=== PATIENT | male | born 1965 | race Native Hawaiian/Other Pacific Islander ===

== ENCOUNTER 2016-04-13 14:12 | Inpatient (IN) | payer MEDICARE, OTHER ==
[2016-04-13] MEDS ORDERED: SODIUM CHLORIDE 0.9% 1,000 ML IV STA (14:56)
[2016-04-13 15:17] LABS: Basophils % (A) 0 %; CH 30.3; CHCM 33.5; Eosinophils % (A) 0 %; HCT 40.4 % (39.0-53.0); HDW 3.18; HGB 12.8 gm/dL (13.0-17.5); Luc # (Auto) 0.09; Luc % (Auto) 1; Lymphocytes # (A) 0.2 k/uL (1.0-4.8); Lymphocytes % (A) 2 %; MCH 28.9 pg (25.0-35.0); MCHC 31.7 g/dL (31.0-37.0); Mean Platelet Volume 8.3; Monocytes # (A) 0.4 k/uL (0-1.0); Monocytes % (A) 5 %; Neutrophils # (A) 7.1 k/uL (1.3-7.7); Neutrophils % (A) 91 %; RBC 4.44 m/uL (4.30-5.90); RDW 15.7 % (11.5-15.5); WBC 7.9 k/uL (3.8-10.6); WBC (Perox) 7.83
--- NOTE | 2016-04-13 15:17 | ED ---
General Adult HPI - General Chief complaint: Skin/Abscess/Foreign Body Stated complaint: poss trachea infection Time Seen by Provider: 04/13/16 14:46 Source: patient, RN notes reviewed Mode of arrival: ambulatory Limitations: no limitations - History of Present Illness Initial comments: Patient 50-year-old male with significant past medical history for oral cancer, who presents emergency room today with a chief complaint of increased redness and possible cellulitis to neck and lower jaw. Patient does admit that he had some symptoms proxy month ago that was admitted to the hospital for. He states that he noticed some mild redness yesterday around his neck. He states is close to area of tracheostomy. Patient states this morning with increased swelling. States it is painful locally. He denies any other complaints or associated symptoms. Patient denies any recent fever, chills, shortness of breath, chest pain, back pain, abdominal pain, nausea or vomiting, numbness or tingling, dysuria or hematuria, constipation or diarrhea, headaches or visual changes, or any other complaints. - Related Data Home Medications Medication Instructions Recorded Confirmed RX: metFORMIN HCL [Glucophage] 500 mg PO DAILY 09/12/13 04/13/16 RX: oxyCODONE-APAP 10-325MG 1 tab PO Q6HR PRN 03/05/16 04/13/16 [Percocet 10-325 mg] RX: Levothyroxine Sodium 75 mcg PO DAILY 03/07/16 04/13/16 [Synthroid] Allergies Allergy/AdvReac Type Severity Reaction Status Date / Time No Known Allergies Allergy Verified 04/13/16 14:56 Review of Systems ROS Statement: Those systems with pertinent positive or pertinent negative responses have been documented in the HPI. ROS Other: All systems not noted in ROS Statement are negative. 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 He has a PEG tube that was eroded PEG tube that was replaced by Dr Ramos. previous clavicular fracture on the right History of Any Multi-Drug Resistant Organisms: MRSA Date of last positivie culture/infection: 03/11/16 MDRO Source:: Abdomen Additional Past Surgical History / Comment(s): throat and jaw, left ankle ORIF for a fracture Past Anesthesia/Blood Transfusion Reactions: No Reported Reaction Past Psychological History: No Psychological Hx Reported Additional Psychological History / Comment(s): Former tobacco smoker and alcoholic. It's been many years since he's been a significant alcohol user. Denied recreational injection drug use. Disable labor. No experience no international travel. No animal exposures Smoking Status: Former smoker Past Alcohol Use History: None Reported Past Drug Use History: None Reported - Past Family History Mother Family Medical History: Cancer, Deep Vein Thrombosis (DVT) General Exam - General Exam Comments Initial Comments: General: The patient is awake and alert, in no distress, and does not appear acutely ill. Eye: Pupils are equal, round and reactive to light, extra-ocular movements are intact. No nystagmus. There is normal conjunctiva bilaterally. No signs of icterus. Ears, nose, mouth and throat: There are moist mucous membranes and no oral lesions. Neck: The neck is supple, there is no tenderness or JVD. Cardiovascular: There is a regular rate and rhythm. No murmur, rub or gallop is appreciated. Respiratory: Lungs are clear to auscultation, respirations are non-labored, breath sounds are equal. No wheezes, stridor, rales, or rhonchi. Musculoskeletal: Normal ROM, no tenderness. Strength 5/5. Sensation intact. Pulses equal bilaterally 2+. Neurological: A&O x 3. CN II-XII intact, There are no obvious motor or sensory deficits. Coordination appears grossly intact. Speech is normal. Skin: Increased redness swelling locally to the anterior neck Just above the Tracheostomy site. This up into the left jaw greater on the left side with some swelling locally. Psychiatric: Cooperative, appropriate mood & affect, normal judgment. Limitations: no limitations Course Vital Signs 04/13/16 04/13/16 14:32 14:55 Temperature 97.2 F L Pulse Rate 85 Respiratory 18 18 Rate Blood Pressure 124/71 O2 Sat by Pulse 99 Oximetry Medical Decision Making - Medical Decision Making Patient reexamined at this time shows no signs of distress. At this time shows no signs of distress. Patient was recently admitted approximately a month ago for cellulitis to the neck and face area. Did have consults from Dr. Zaragoza. Patient's labs reviewed no elevated white count. No fever. Patient had tracheostomy placed proximal August urine half ago. She is discussed with attending physician Dr. suarez who did discuss case with admitting physician Dr. Cabrera who will admit the patient and consult Dr. Zaragoza. Patient started on vancomycin here in the emergency room. - Lab Data Result diagrams: 04/13/16 15:10 04/13/16 15:10 Lab Results 04/13/16 04/13/16 Range/Units 15:10 15:10 WBC 7.9 (3.8-10.6) k/uL RBC 4.44 (4.30-5.90) m/uL Hgb 12.8 L (13.0-17.5) gm/dL Hct 40.4 (39.0-53.0) % MCV 91.0 (80.0-100.0) fL MCH 28.9 (25.0-35.0) pg MCHC 31.7 (31.0-37.0) g/dL RDW 15.7 H (11.5-15.5) % Plt Count 77 L (150-450) k/uL Neutrophils % 91 % Lymphocytes % 2 % Monocytes % 5 % Eosinophils % 0 % Basophils % 0 % Neutrophils # 7.1 (1.3-7.7) k/uL Lymphocytes # 0.2 L (1.0-4.8) k/uL Monocytes # 0.4 (0-1.0) k/uL Eosinophils # 0.0 (0-0.7) k/uL Basophils # 0.0 (0-0.2) k/uL Sodium 138 (137-145) mmol/L Potassium 4.4 (3.5-5.1) mmol/L Chloride 100 (98-107) mmol/L Carbon Dioxide 28 (22-30) mmol/L Anion Gap 10 mmol/L BUN 18 (9-20) mg/dL Creatinine 0.62 L (0.66-1.25) mg/dL Est GFR (MDRD) Af Amer >60 (>60 ml/min/1.73 sqM) Est GFR (MDRD) Non-Af >60 (>60 ml/min/1.73 sqM) Glucose 127 H (74-99) mg/dL Calcium 9.4 (8.4-10.2) mg/dL Total Bilirubin 0.7 (0.2-1.3) mg/dL AST 110 H (17-59) U/L ALT 83 H (21-72) U/L Alkaline Phosphatase 149 H (38-126) U/L Total Protein 7.1 (6.3-8.2) g/dL Albumin 3.8 (3.5-5.0) g/dL Disposition Clinical Impression: Cellulitis, neck Disposition: ADMITTED IP TO THIS HOSP Condition: Stable Time of Disposition: 16:29
[2016-04-13 15:28] LABS: ALT 83 U/L (21-72); AST 110 U/L (17-59); Alkaline Phosphatase 149 U/L (38-126); Anion Gap 10 mmol/L; Blood Urea Nitrogen 18 mg/dL (9-20); Calcium 9.4 mg/dL (8.4-10.2); Carbon Dioxide 28 mmol/L (22-30); Chloride 100 mmol/L (98-107); Glucose 127 mg/dL (74-99); Non-African American GFR(MDRD) >60 (>60 ml/min/1.73 sqM); Potassium 4.4 mmol/L (3.5-5.1); Sodium 138 mmol/L (137-145); Total Bilirubin 0.7 mg/dL (0.2-1.3); Total Protein 7.1 g/dL (6.3-8.2)
[2016-04-13] MEDS ORDERED: ONDANSETRON 4 MG/2 ML VIAL IVP STA (16:09)
[2016-04-13] MEDS ORDERED: HYDROmorphone 1 MG/ML 1 ML SYRINGE IVP STA (16:09)
[2016-04-13] MEDS ORDERED: IV VANCOMYCIN PER PHARMACY 1 EACH MISC MISCELLANE PRN (16:10)
[2016-04-13] MEDS ORDERED: VANCOMYCIN 1,500 MG in SODIUM CHLORIDE 0.9% 250 ML IVPB STA (16:10)
[2016-04-13] MEDS ORDERED: ONDANSETRON 4 MG/2 ML VIAL IVP PRN (16:29)
[2016-04-13] MEDS ORDERED: SODIUM CHLORIDE 0.9% 1,000 ML IV ONE (16:29)
[2016-04-13] MEDS ORDERED: ACETAMINOPHEN TAB 325 MG TAB PO PRN (16:29)
[2016-04-13] MEDS ORDERED: NALOXONE 0.4 MG/ML 1 ML VIAL IV PRN (16:29)
[2016-04-13] MEDS: HYDROmorphone 1 MG/ML 1 ML SYRINGE IV PRN ×2 (19:30→22:34)
[2016-04-13] MEDS ORDERED: oxyCODONE-APAP 10-325MG 1 EACH TAB PO PRN (20:35)
[2016-04-13] MEDS: VANCOMYCIN 1,500 MG in SODIUM CHLORIDE 0.9% 250 ML IVPB SCH (23:43)
[2016-04-14] MEDS: HYDROmorphone 1 MG/ML 1 ML SYRINGE IV PRN ×7 (01:37→22:14)
[2016-04-14] MEDS: LEVOTHYROXINE 75 MCG TAB PO SCH (06:13)
[2016-04-14 08:13] LABS: Basophils % (A) 0 %; CHCM 33.3; Eosinophils % (A) 1 %; HCT 36.7 % (39.0-53.0); HDW 3.21; HGB 11.7 gm/dL (13.0-17.5); Luc # (Auto) 0.14; Luc % (Auto) 2; Lymphocytes # (A) 0.2 k/uL (1.0-4.8); Lymphocytes % (A) 3 %; MCHC 31.9 g/dL (31.0-37.0); MCV 90.9 fL (80.0-100.0); Mean Platelet Volume 7.5; Monocytes # (A) 0.4 k/uL (0-1.0); Monocytes % (A) 6 %; Neutrophils # (A) 5.4 k/uL (1.3-7.7); Neutrophils % (A) 88 %; RBC 4.04 m/uL (4.30-5.90); RDW 15.7 % (11.5-15.5); WBC 6.2 k/uL (3.8-10.6); WBC (Perox) 6.64
[2016-04-14] MEDS: metFORMIN 500 MG TAB PO SCH (08:23)
[2016-04-14 08:36] LABS: ALT 70 U/L (21-72); AST 61 U/L (17-59); Alkaline Phosphatase 125 U/L (38-126); Anion Gap 9 mmol/L; Blood Urea Nitrogen 10 mg/dL (9-20); Calcium 8.3 mg/dL (8.4-10.2); Carbon Dioxide 25 mmol/L (22-30); Chloride 105 mmol/L (98-107); Glucose 90 mg/dL (74-99); Non-African American GFR(MDRD) >60 (>60 ml/min/1.73 sqM); Potassium 4.1 mmol/L (3.5-5.1); Sodium 139 mmol/L (137-145); Total Bilirubin 0.6 mg/dL (0.2-1.3); Total Protein 6.2 g/dL (6.3-8.2)
[2016-04-14] MEDS: VANCOMYCIN 1,500 MG in SODIUM CHLORIDE 0.9% 250 ML IVPB SCH ×3 (08:54→23:28)
[2016-04-14 09:11] VITALS: BMI 29.4
--- NOTE | 2016-04-14 11:52 | P.CONS ---
History of Present Illness - Reason for Consult Consult date: 04/14/16 Cellulitis - History of Present Illness 50-year-old male patient that is known to ID service as he was seen during his admission from March 07 through March 12 at which time he was treated for cellulitis of the neck. He was discharged home on Levaquin and Bactrim to complete a 14 day course. Sputum was positive for Pseudomonas aeruginosa and Serratia marcescens. Neck culture was positive for MSSA, Roseann albicans and Roseann glabrata. Abdominal/PEG tube wound culture positive for MRSA, Serratia marcescens, pseudomonas aeruginosa, MSSA. He has a significant past medical history of throat cancer status post radical neck dissection at the [facility]. He had a muscular cutaneous flap from his abdominal wall to the base of his mouth and tongue. He also received radiation to his oropharynx and upper esophagus is extremely small in size and there has been difficulty doing EGD and PEG tube placement in the past. Patient states he completed the antibiotics and was feeling quite well and the areas seem to be completely healed in till yesterday when he started having soreness to his jaw and the top of his neck and redness. He denies having any fever or chills. He denies nausea, vomiting, diarrhea. He denies any injury to his neck. The pain is to the bilateral areas. Patient was evaluated in the emergency center at [facility]. His white count was 7.9, GFR greater than 60, platelet count 71, initial AST 110, ALT 83 and alkaline phosphatase 149 all improved on repeat. Albumin 3.1. Blood culture has been received. He was started on IV vancomycin and admitted to the oncology unit. Patient is to resume his tube feedings. He denies any improvement of the soreness or redness to his neck and jaw since he was started on vancomycin. Review of Systems All systems: negative Constitutional: Denies chills, Denies fever Eyes: denies blurred vision, denies pain Ears, nose, mouth and throat: Reports ant. neck pain, Reports headache, Denies dental pain, Denies epistaxis, Denies mouth pain, Denies swelling in throat, Denies sore throat Cardiovascular: Denies chest pain, Denies shortness of breath Respiratory: Denies cough Gastrointestinal: Denies abdominal pain, Denies diarrhea, Denies nausea, Denies vomiting Musculoskeletal: Denies myalgias Integumentary: Denies pruritus, Denies rash Neurological: Denies numbness, Denies weakness Psychiatric: Denies anxiety, Denies depression Endocrine: Denies fatigue, Denies weight change 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 He has a PEG tube that was eroded PEG tube that was replaced by Dr Ramos. previous clavicular fracture on the right History of Any Multi-Drug Resistant Organisms: MRSA Year Discovered:: 03/11/16 MDRO Source:: Abdomen Additional Past Surgical History / Comment(s): throat and jaw, left ankle ORIF for a fracture Past Anesthesia/Blood Transfusion Reactions: No Reported Reaction Past Psychological History: No Psychological Hx Reported Additional Psychological History / Comment(s): Former tobacco smoker and alcoholic. It's been many years since he's been a significant alcohol user. Denied recreational injection drug use. Disable labor. No experience no international travel. No animal exposures Smoking Status: Former smoker Past Alcohol Use History: None Reported Past Drug Use History: None Reported - Past Family History Mother Family Medical History: Cancer, Deep Vein Thrombosis (DVT) Medications and Allergies Home Medications Medication Instructions Recorded Confirmed Type metFORMIN HCL [Glucophage] 500 mg PO DAILY 09/12/13 04/13/16 History oxyCODONE-APAP 10-325MG [Percocet 1 tab PO Q6HR PRN 03/05/16 04/13/16 History 10-325 mg] Levothyroxine Sodium [Synthroid] 75 mcg PO DAILY 03/07/16 04/13/16 History Allergies Allergy/AdvReac Type Severity Reaction Status Date / Time No Known Allergies Allergy Verified 04/13/16 14:56 Physical Exam Vitals: Vital Signs Temp Pulse Pulse Resp BP BP Pulse Ox 04/14/16 07:00 98.1 F 90 16 123/72 96 04/13/16 21:47 98.5 F 92 16 127/65 96 04/13/16 17:55 18 04/13/16 17:05 97.2 F L 82 18 120/66 98 Intake and Output 04/13/16 04/14/16 04/14/16 22:59 06:59 14:59 Intake Total 300 700 Balance 300 700 Intake: Intake, IV Titration 300 700 Amount Sodium Chloride 0.9% 1, 300 450 000 ml @ 75 mls/hr IV . [id number] STA Rx#:[id number] Vancomycin 1,500 mg In 250 Sodium Chloride 0.9% 250 ml @ 125 mls/hr IVPB ONCE STA Rx#:[id number] Other: Voiding Method Toilet # Voids 1 1 Weight 80.286 kg Patient Weight 04/15/16 06:59 Weight 80.286 kg Gen: This is a 50-year-old male. He is in bed with the head up approximate 60 and appears to be in no acute distress. HEENT: Head is atraumatic, normocephalic. Pupils equal, round. Sclerae is anicteric. Oral cavity has evidence of prior extensive surgical intervention. No thrush or lesions noted patient is edentulous. He denies any tenderness within his mouth cavity. NECK: Status post extensive radical neck procedure with reconstruction with myocutaneous flap for the floor of the mouth and tongue. Extreme tenderness under the jaw bilaterally area is firm to the touch which patient states is normal. There is erythema. No significant erythema around trach. No significant secretions. LUNGS: Clear to auscultation. No wheezes or rhonchi. No intercostal retractions. HEART: Regular rate and rhythm. No murmur. ABDOMEN: Soft. Bowel sounds are present. No masses. No tenderness. PEG tube noted to the left upper quadrant that has some noted erythema without tenderness. Patient states his erythema is normal for him. There is no drainage. EXTREMITIES: No pedal edema. No calf tenderness. NEUROLOGICAL: Patient is awake, alert and oriented x3. Cranial nerves 2 through 12 are grossly intact. Results Results: Laboratory Results WBC 6.2 k/uL (3.8-10.6) 04/14/16 07:46 RBC 4.04 m/uL (4.30-5.90) L 04/14/16 07:46 Hgb 11.7 gm/dL (13.0-17.5) L 04/14/16 07:46 Hct 36.7 % (39.0-53.0) L 04/14/16 07:46 MCV 90.9 fL (80.0-100.0) 04/14/16 07:46 MCH 29.0 pg (25.0-35.0) 04/14/16 07:46 MCHC 31.9 g/dL (31.0-37.0) 04/14/16 07:46 RDW 15.7 % (11.5-15.5) H 04/14/16 07:46 Plt Count 71 k/uL (150-450) L 04/14/16 07:46 Neutrophils % 88 % 04/14/16 07:46 Lymphocytes % 3 % 04/14/16 07:46 Monocytes % 6 % 04/14/16 07:46 Eosinophils % 1 % 04/14/16 07:46 Basophils % 0 % 04/14/16 07:46 Neutrophils # 5.4 k/uL (1.3-7.7) 04/14/16 07:46 Lymphocytes # 0.2 k/uL (1.0-4.8) L 04/14/16 07:46 Monocytes # 0.4 k/uL (0-1.0) 04/14/16 07:46 Eosinophils # 0.0 k/uL (0-0.7) 04/14/16 07:46 Basophils # 0.0 k/uL (0-0.2) 04/14/16 07:46 Sodium 139 mmol/L (137-145) 04/14/16 07:46 Potassium 4.1 mmol/L (3.5-5.1) 04/14/16 07:46 Chloride 105 mmol/L (98-107) 04/14/16 07:46 Carbon Dioxide 25 mmol/L (22-30) 04/14/16 07:46 Anion Gap 9 mmol/L 04/14/16 07:46 BUN 10 mg/dL (9-20) 04/14/16 07:46 Creatinine 0.57 mg/dL (0.66-1.25) L 04/14/16 07:46 Est GFR (MDRD) Af Amer >60 (>60 ml/min/1.73 sqM) 04/14/16 07:46 Est GFR (MDRD) Non-Af >60 (>60 ml/min/1.73 sqM) 04/14/16 07:46 Glucose 90 mg/dL (74-99) 04/14/16 07:46 Calcium 8.3 mg/dL (8.4-10.2) L 04/14/16 07:46 Total Bilirubin 0.6 mg/dL (0.2-1.3) 04/14/16 07:46 AST 61 U/L (17-59) H 04/14/16 07:46 ALT 70 U/L (21-72) 04/14/16 07:46 Alkaline Phosphatase 125 U/L (38-126) 04/14/16 07:46 Total Protein 6.2 g/dL (6.3-8.2) L 04/14/16 07:46 Albumin 3.1 g/dL (3.5-5.0) L 04/14/16 07:46 CBC & Chem 7: 04/15/16 08:55 04/15/16 08:55 Labs: Abnormal Lab Results - Last 24 Hours (Table) 04/14/16 04/14/16 Range/Units 07:46 07:46 RBC 4.04 L (4.30-5.90) m/uL Hgb 11.7 L (13.0-17.5) gm/dL Hct 36.7 L (39.0-53.0) % RDW 15.7 H (11.5-15.5) % Plt Count 71 L (150-450) k/uL Lymphocytes # 0.2 L (1.0-4.8) k/uL Creatinine 0.57 L (0.66-1.25) mg/dL Calcium 8.3 L (8.4-10.2) mg/dL AST 61 H (17-59) U/L Total Protein 6.2 L (6.3-8.2) g/dL Albumin 3.1 L (3.5-5.0) g/dL Assessment and Plan Plan: This is a 50-year-old male who presents with cellulitis of the jaw and neck area with previous history of throat cancer status post radical neck dissection and musculocutaneous flap from his abdominal wall to the base of his mouth and tongue and status post chemotherapy and radiation therapy currently with trach. He also has PEG tube in place. He is currently on vancomycin. Zosyn will be utilized based on previous cultures. Continue supportive care. Further recommendations as patient progresses. The above dictated assessment and findings were discussed with Dr. Zaragoza. The impression and plan of care have been directed as dictated. Vashti Awan nurse practitioner acting as scribe for Dr. Zaragoza. Time with Patient: Greater than 30
--- NOTE | 2016-04-14 12:51 | P.HPIM ---
History of Present Illness H&P Date: 04/14/16 Chief Complaint: Neck pain and swelling This is a 60-year-old gentleman with a complex past medical history noted below significant for history of squamous cell carcinoma of the neck/jaw/dog status post extensive reconstructive surgery of [facility] with placement of a flap and a permanent tracheostomy tube who presented to the emergency room with worsening redness surrounding the tracheostomy and swelling of the neck. Patient was in the hospital in the beginning of March and was treated for cellulitis of the anterior neck with bacteremia at that time with strep group C he was discharged home in a stable condition and has been doing fairly well. For the past couple of days, patient said that his neck was getting more swollen and tender. He was having increased secretions through the trach that he described as thick and brownish in color. He denies any shortness of breath. He denies any fevers or chills. He is having significant pain in his neck and is currently requiring IV Dilaudid for pain control. Review of Systems Review of system: 14 points review of systems were obtained and were negative except to what were mentioned in the HPI. 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 He has a PEG tube that was eroded PEG tube that was replaced by Dr Ramos. previous clavicular fracture on the right History of Any Multi-Drug Resistant Organisms: MRSA Date of last positivie culture/infection: 03/11/16 MDRO Source:: Abdomen Additional Past Surgical History / Comment(s): throat and jaw, left ankle ORIF for a fracture Past Anesthesia/Blood Transfusion Reactions: No Reported Reaction Past Psychological History: No Psychological Hx Reported Additional Psychological History / Comment(s): Former tobacco smoker and alcoholic. It's been many years since he's been a significant alcohol user. Denied recreational injection drug use. Disable labor. No experience no international travel. No animal exposures Smoking Status: Former smoker Past Alcohol Use History: None Reported Past Drug Use History: None Reported - Past Family History Mother Family Medical History: Cancer, Deep Vein Thrombosis (DVT) Medications and Allergies Home Medications Medication Instructions Recorded Confirmed Type metFORMIN HCL [Glucophage] 500 mg PO DAILY 09/12/13 04/13/16 History oxyCODONE-APAP 10-325MG [Percocet 1 tab PO Q6HR PRN 03/05/16 04/13/16 History 10-325 mg] Levothyroxine Sodium [Synthroid] 75 mcg PO DAILY 03/07/16 04/13/16 History Allergies Allergy/AdvReac Type Severity Reaction Status Date / Time No Known Allergies Allergy Verified 04/13/16 14:56 Physical Exam Vitals: Vital Signs Temp Pulse Pulse Resp BP BP Pulse Ox 04/14/16 07:00 98.1 F 90 16 123/72 96 04/13/16 21:47 98.5 F 92 16 127/65 96 04/13/16 17:55 18 04/13/16 17:05 97.2 F L 82 18 120/66 98 Intake and Output 04/13/16 04/14/16 04/14/16 22:59 06:59 14:59 Intake Total 300 700 Balance 300 700 Intake: Intake, IV Titration 300 700 Amount Sodium Chloride 0.9% 1, 300 450 000 ml @ 75 mls/hr IV . [id number] STA Rx#:[id number] Vancomycin 1,500 mg In 250 Sodium Chloride 0.9% 250 ml @ 125 mls/hr IVPB ONCE STA Rx#:[id number] Other: Voiding Method Toilet # Voids 1 1 Weight 80.286 kg Patient Weight 04/15/16 06:59 Weight 80.286 kg General: The patient is awake and alert, in no distress, and does not appear acutely ill. Eye: extra-ocular movements are intact; there is normal conjunctiva bilaterally. . Neck: Tracheostomy in place. I did not remove the trach tube. There is diffuse erythema surrounding the tracheostomy site that is tender to palpation. I was unable to feel any cervical lymphadenopathy Cardiovascular: Normal S1-S2, no S3-S4, no murmurs. Respiratory: With rhonchi all over the chest Gastrointestinal: Abdomen is soft, nontender, PEG tube in place Musculoskeletal: Normal ROM, no tenderness, There is no pedal edema. Neurological: There are no obvious motor or sensory deficits. Speech is normal. Skin: Skin is warm and dry Results CBC & Chem 7: 01/09/17 07:46 04/14/16 07:46 Labs: Abnormal Lab Results - Last 24 Hours (Table) 04/14/16 04/14/16 Range/Units 07:46 07:46 RBC 4.04 L (4.30-5.90) m/uL Hgb 11.7 L (13.0-17.5) gm/dL Hct 36.7 L (39.0-53.0) % RDW 15.7 H (11.5-15.5) % Plt Count 71 L (150-450) k/uL Lymphocytes # 0.2 L (1.0-4.8) k/uL Creatinine 0.57 L (0.66-1.25) mg/dL Calcium 8.3 L (8.4-10.2) mg/dL AST 61 H (17-59) U/L Total Protein 6.2 L (6.3-8.2) g/dL Albumin 3.1 L (3.5-5.0) g/dL Thrombosis Risk Factor Assmnt - Choose All That Apply Each Factor Represents 1 point: Age 41-60 years Thrombosis Risk Factor Assessment Total Risk Factor Score: 1 Thrombosis Risk Factor Assessment Level: Low Risk Assessment and Plan Plan: 1. Cellulitis/soft tissue infection involving the anterior neck around the tracheostomy site 2. History of squamous cell carcinoma of the tongue/neck status post extensive risk reconstructive surgery of Dr. Zamora's with placement of a flap and permanent tracheostomy tube 3. Type 2 diabetes mellitus: Continue sliding scale insulin and metformin 4. Hypothyroidism 5. Dysphagia status post permanent PEG tube placement for nutritional support Patient is currently on broad-spectrum antibiotic with IV vancomycin awaiting infectious disease evaluation. We will continue supportive care otherwise. I would obtain a chest x-ray for further evaluation of cough and increase tracheostomy secretions. DVT prophylaxis with subcu heparin. Repeat lab work in the morning.
--- NOTE | 2016-04-14 13:19 | XR ---
EXAMINATION TYPE: XR chest 2V DATE OF EXAM: 04/14/2016 1:11 PM COMPARISON: Chest x-ray and CT neck and chest March 08, 2016. HISTORY: Cough, history of tracheostomy TECHNIQUE: Frontal and lateral views of the chest are obtained. FINDINGS: A tracheostomy tube and right-sided internal jugular central venous catheter are stable in appearance There is chronic parenchymal change without suspicious focal air space opacity or pneumot horax seen. There is chronic blunting of posterior costophrenic angles bilaterally with only tiny lef t-sided effusion seen on prior CT. The cardiac silhouette size is within normal limits. The osseous structures are intact. IMPRESSION: Persistent tiny left pleural effusion. No suspicious acute infiltrate identified.
[2016-04-14 18:01] LABS: Glucose,Whole Blood 147 mg/dL (75-99)
[2016-04-14] MEDS: INSULIN LISPRO (humaLOG) 300 UNIT/3 ML VIAL SQ SCH ×2 (18:43→23:30)
--- NOTE | 2016-04-14 19:32 | P.CON ---
Consult Note - . Consult date: 04/14/16 Assessment/Plan:: 50-year-old male patient that is known to ID service as he was seen during his admission from March 07 through March 12 at which time he was treated for cellulitis of the neck. He was discharged home on Levaquin and Bactrim to complete a 14 day course. Sputum was positive for Pseudomonas aeruginosa and Serratia marcescens. Neck culture was positive for MSSA, Roseann albicans and Roseann glabrata. Abdominal/PEG tube wound culture positive for MRSA, Serratia marcescens, pseudomonas aeruginosa, MSSA. He has a significant past medical history of throat cancer status post radical neck dissection at the [facility]. He had a muscular cutaneous flap from his abdominal wall to the base of his mouth and tongue. He also received radiation to his oropharynx and upper esophagus is extremely small in size and there has been difficulty doing EGD and PEG tube placement in the past. Patient states he completed the antibiotics and was feeling quite well and the areas seem to be completely healed in till yesterday when he started having soreness to his jaw and the top of his neck and redness. He denies having any fever or chills. He denies nausea, vomiting, diarrhea. He denies any injury to his neck. The pain is to the bilateral areas. Patient was evaluated in the emergency center at [facility]. His white count was 7.9, GFR greater than 60, platelet count 71, initial AST 110, ALT 83 and alkaline phosphatase 149 all improved on repeat. Albumin 3.1. Blood culture has been received. He was started on IV vancomycin and admitted to the oncology unit. Patient is to resume his tube feedings. He denies any improvement of the soreness or redness to his neck and jaw since he was started on vancomycin. Please see the consult note as dictated per nurse practitioner Kiara Vashti Awan. If this time he started having some slight improvement with antibiotic therapy. Piperacillin tazobactam was added based on his prior cultures. As he improves a transition to a course of per PEG antibiotic therapy will be the goal. Patient has chronic thrombocytopenia without acute change. He does have evidence of a low albumin would do well to her protein supplementation. Elevated transaminases are improving. For irritation at the PEG tube site a DuoDERM can be cut to fit that site.
[2016-04-14] MEDS: HEPARIN SODIUM,PORCINE 5,000 UNIT/ML 1 ML VIAL SQ SCH (21:07)
[2016-04-14 23:30] LABS: Glucose,Whole Blood 165 mg/dL (75-99)
[2016-04-15] MEDS: HYDROmorphone 1 MG/ML 1 ML SYRINGE IV PRN ×5 (01:02→14:20)
[2016-04-15] MEDS: INSULIN LISPRO (humaLOG) 300 UNIT/3 ML VIAL SQ SCH ×2 (05:51→12:13)
[2016-04-15] MEDS: LEVOTHYROXINE 75 MCG TAB PO SCH (05:51)
[2016-04-15 05:52] LABS: Glucose,Whole Blood 169 mg/dL (75-99)
[2016-04-15] MEDS ORDERED: VANCOMYCIN TROUGH DUE 1 EACH MISC MISCELLANE ONE (07:00)
[2016-04-15] MEDS: HEPARIN SODIUM,PORCINE 5,000 UNIT/ML 1 ML VIAL SQ SCH (07:23)
[2016-04-15] MEDS: metFORMIN 500 MG TAB PO SCH (07:23)
[2016-04-15 07:43] VITALS: RESP 18
[2016-04-15] MEDS: VANCOMYCIN 1,500 MG in SODIUM CHLORIDE 0.9% 250 ML IVPB SCH (09:04)
[2016-04-15 09:27] LABS: Basophils % (A) 0 %; CH 29.7; CHCM 33.4; Eosinophils # (A) 0.1 k/uL (0-0.7); Eosinophils % (A) 2 %; HDW 3.42; HGB 11.9 gm/dL (13.0-17.5); Luc # (Auto) 0.13; Luc % (Auto) 4; Lymphocytes # (A) 0.2 k/uL (1.0-4.8); Lymphocytes % (A) 6 %; MCH 29.6 pg (25.0-35.0); MCHC 33.1 g/dL (31.0-37.0); MCV 89.6 fL (80.0-100.0); Mean Platelet Volume 7.1; Monocytes # (A) 0.3 k/uL (0-1.0); Monocytes % (A) 8 %; Neutrophils # (A) 2.8 k/uL (1.3-7.7); Neutrophils % (A) 80 %; Poikilocytosis Slight; RBC 4.02 m/uL (4.30-5.90); RDW 15.4 % (11.5-15.5); WBC 3.5 k/uL (3.8-10.6); WBC (Perox) 3.92
[2016-04-15 10:02] LABS: ALT 56 U/L (21-72); AST 49 U/L (17-59); Alkaline Phosphatase 131 U/L (38-126); Anion Gap 9 mmol/L; Blood Urea Nitrogen 11 mg/dL (9-20); Calcium 8.5 mg/dL (8.4-10.2); Carbon Dioxide 26 mmol/L (22-30); Chloride 105 mmol/L (98-107); Glucose 139 mg/dL (74-99); Non-African American GFR(MDRD) >60 (>60 ml/min/1.73 sqM); Potassium 3.8 mmol/L (3.5-5.1); Sodium 140 mmol/L (137-145); Total Bilirubin 0.6 mg/dL (0.2-1.3); Total Protein 6.3 g/dL (6.3-8.2)
[2016-04-15 11:03] LABS: Glucose,Whole Blood 134 mg/dL (75-99)
[2016-04-15 11:32] LABS: Hemoglobin A1C 4.9 % (4.2-6.1)
[2016-04-15 14:33] VITALS: BP 123/72; PULSE 85; TEMP 96.9
[2016-04-15] MEDS ORDERED: VANCOMYCIN 1,250 MG in SODIUM CHLORIDE 0.9% 250 ML IVPB SCH (16:00)
--- NOTE | 2016-04-15 16:07 | P.DS ---
Providers Date of admission: 04/13/16 16:29 Expected date of discharge: 04/15/16 Attending physician: Max Hinojosa Primary care physician: Elvia Person [facility] Course: This is a 50 year old gentleman with complex past medical history noted below who presented to the hospital with worsening cellulitis around the tracheostomy site. He was admitted to the hospital and was started on IV vancomycin. Blood culture remained negative. He was seen and evaluated by infectious disease and was cleared for discharge home with oral antibiotic. Prescription will be sent to his pharmacy by infectious disease. He will be discharged home in a stable condition. Below is the least of his medical problems: 1. Cellulitis/soft tissue infection involving the anterior neck around the tracheostomy site 2. 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 Type 2 diabetes mellitus 4. Hypothyroidism 5. Dysphagia status post permanent PEG tube placement for nutritional support Patient Condition at Discharge: Stable Plan - Discharge Summary Discharge Medication List metFORMIN HCL [Glucophage] 500 mg PO DAILY 09/12/13 [History] oxyCODONE-APAP 10-325MG [Percocet 10-325 mg] 1 tab PO Q6HR PRN 03/05/16 [History ] Levothyroxine Sodium [Synthroid] 75 mcg PO DAILY 03/07/16 [History] Follow up Appointment(s)/Referral(s): Elvia Person MD [Primary Care Provider] - 3 Days Discharge Disposition: HOME SELF-CARE
--- NOTE | 2016-04-15 18:49 | P.PN ---
Subjective Principal diagnosis: Cellulitis of neck 50-year-old male patient that is known to ID service as he was seen during his admission from March 07 through March 12 at which time he was treated for cellulitis of the neck. He was discharged home on Levaquin and Bactrim to complete a 14 day course. Sputum was positive for Pseudomonas aeruginosa and Serratia marcescens. Neck culture was positive for MSSA, Roseann albicans and Roseann glabrata. Abdominal/PEG tube wound culture positive for MRSA, Serratia marcescens, pseudomonas aeruginosa, MSSA. He has a significant past medical history of throat cancer status post radical neck dissection at the [facility]. He had a muscular cutaneous flap from his abdominal wall to the base of his mouth and tongue. He also received radiation to his oropharynx and upper esophagus is extremely small in size and there has been difficulty doing EGD and PEG tube placement in the past. Patient states he completed the antibiotics and was feeling quite well and the areas seem to be completely healed in till yesterday when he started having soreness to his jaw and the top of his neck and redness. He denies having any fever or chills. He denies nausea, vomiting, diarrhea. He denies any injury to his neck. The pain is to the bilateral areas. Patient was evaluated in the emergency center at [facility]. His white count was 7.9, GFR greater than 60, platelet count 71, initial AST 110, ALT 83 and alkaline phosphatase 149 all improved on repeat. Albumin 3.1. Blood culture has been received. He was started on IV vancomycin and admitted to the oncology unit. Patient is to resume his tube feedings. He denies any improvement of the soreness or redness to his neck and jaw since he was started on vancomycin. His INR marked improvement. His pain is generally resolved. The swelling erythema improved. No further evidence of sepsis. Is being forwarded to going home. Objective - Vital Signs Vital signs: Vital Signs Temp 96.9 F L 04/15/16 14:33 Pulse 85 04/15/16 14:33 Resp 18 04/15/16 14:33 BP 123/72 04/15/16 14:33 Pulse Ox 98 04/15/16 14:33 Intake & Output 04/14/16 04/15/16 04/15/16 18:59 06:59 18:59 Intake Total 120 445 200 Balance 120 445 200 Weight 80.286 kg 62.2 kg Intake: Tube Feeding 120 445 200 Other: Voiding Method Toilet Toilet # Voids 2 - Exam Gen: This is a 50-year-old male. He is in bed with the head up approximate 60 and appears to be in no acute distress. HEENT: Head is atraumatic, normocephalic. Pupils equal, round. Sclerae is anicteric. Oral cavity has evidence of prior extensive surgical intervention. No thrush or lesions noted patient is edentulous. He denies any tenderness within his mouth cavity. NECK: Status post extensive radical neck procedure with reconstruction with myocutaneous flap for the floor of the mouth and tongue. The significant tenderness is generally resolved. There is erythema, there appears to be related to his prior radiation therapy with no new lesions being seen No significant erythema around trach. No significant secretions. LUNGS: Clear to auscultation. No wheezes or rhonchi. No intercostal retractions. HEART: Regular rate and rhythm. No murmur. ABDOMEN: Soft. Bowel sounds are present. No masses. No tenderness. PEG tube noted to the left upper quadrant that has some noted erythema without tenderness. A protective dressing is applied and finds is very comforting and its soothing. EXTREMITIES: No pedal edema. No calf tenderness. NEUROLOGICAL: Patient is awake, alert and oriented x3. Cranial nerves 2 through 12 are grossly intact. - Labs CBC & Chem 7: 04/15/16 08:55 04/15/16 08:55 Labs: Abnormal Lab Results - Last 24 Hours (Table) 04/14/16 04/15/16 04/15/16 Range/Units 23:29 05:51 08:55 WBC (3.8-10.6) k/uL RBC (4.30-5.90) m/uL Hgb (13.0-17.5) gm/dL Hct (39.0-53.0) % Plt Count (150-450) k/uL Lymphocytes # (1.0-4.8) k/uL Creatinine 0.54 L (0.66-1.25) mg/dL Glucose 139 H (74-99) mg/dL POC Glucose (mg/dL) 165 H 169 H (75-99) mg/dL Alkaline Phosphatase 131 H (38-126) U/L Albumin 3.1 L (3.5-5.0) g/dL 04/15/16 04/15/16 Range/Units 08:55 11:01 WBC 3.5 L (3.8-10.6) k/uL RBC 4.02 L (4.30-5.90) m/uL Hgb 11.9 L (13.0-17.5) gm/dL Hct 36.0 L (39.0-53.0) % Plt Count 75 L (150-450) k/uL Lymphocytes # 0.2 L (1.0-4.8) k/uL Creatinine (0.66-1.25) mg/dL Glucose (74-99) mg/dL POC Glucose (mg/dL) 134 H (75-99) mg/dL Alkaline Phosphatase (38-126) U/L Albumin (3.5-5.0) g/dL Laboratory Results WBC 3.5 k/uL (3.8-10.6) L 04/15/16 08:55 RBC 4.02 m/uL (4.30-5.90) L 04/15/16 08:55 Hgb 11.9 gm/dL (13.0-17.5) L 04/15/16 08:55 Hct 36.0 % (39.0-53.0) L 04/15/16 08:55 MCV 89.6 fL (80.0-100.0) 04/15/16 08:55 MCH 29.6 pg (25.0-35.0) 04/15/16 08:55 MCHC 33.1 g/dL (31.0-37.0) 04/15/16 08:55 RDW 15.4 % (11.5-15.5) 04/15/16 08:55 Plt Count 75 k/uL (150-450) L 04/15/16 08:55 Neutrophils % 80 % 04/15/16 08:55 Lymphocytes % 6 % 04/15/16 08:55 Monocytes % 8 % 04/15/16 08:55 Eosinophils % 2 % 04/15/16 08:55 Basophils % 0 % 04/15/16 08:55 Neutrophils # 2.8 k/uL (1.3-7.7) 04/15/16 08:55 Lymphocytes # 0.2 k/uL (1.0-4.8) L 04/15/16 08:55 Monocytes # 0.3 k/uL (0-1.0) 04/15/16 08:55 Eosinophils # 0.1 k/uL (0-0.7) 04/15/16 08:55 Basophils # 0.0 k/uL (0-0.2) 04/15/16 08:55 Poikilocytosis Slight 04/15/16 08:55 Sodium 140 mmol/L (137-145) 04/15/16 08:55 Potassium 3.8 mmol/L (3.5-5.1) 04/15/16 08:55 Chloride 105 mmol/L (98-107) 04/15/16 08:55 Carbon Dioxide 26 mmol/L (22-30) 04/15/16 08:55 Anion Gap 9 mmol/L 04/15/16 08:55 BUN 11 mg/dL (9-20) 04/15/16 08:55 Creatinine 0.54 mg/dL (0.66-1.25) L 04/15/16 08:55 Est GFR (MDRD) Af Amer >60 (>60 ml/min/1.73 sqM) 04/15/16 08:55 Est GFR (MDRD) Non-Af >60 (>60 ml/min/1.73 sqM) 04/15/16 08:55 Glucose 139 mg/dL (74-99) H 04/15/16 08:55 POC Glucose (mg/dL) 134 mg/dL (75-99) H 04/15/16 11:01 POC Glu Elevator Tender ID Gela Sorenson 04/15/16 11:[address] Glu mg/dL 94 mg/dL 04/15/16 08:55 Hemoglobin A1c 4.9 % (4.2-6.1) 04/15/16 08:55 Calcium 8.5 mg/dL (8.4-10.2) 04/15/16 08:55 Total Bilirubin 0.6 mg/dL (0.2-1.3) 04/15/16 08:55 AST 49 U/L (17-59) 04/15/16 08:55 ALT 56 U/L (21-72) 04/15/16 08:55 Alkaline Phosphatase 131 U/L (38-126) H 04/15/16 08:55 Total Protein 6.3 g/dL (6.3-8.2) 04/15/16 08:55 Albumin 3.1 g/dL (3.5-5.0) L 04/15/16 08:55 Vancomycin Trough 15.9 ug/mL 04/15/16 08:55 Microbiology 04/13/16 15:03 Blood Blood Culture - Preliminary No Growth after 48 hours Assessment and Plan (1) Cellulitis, neck Narrative/Plan: 50-year-old male with a history of head and neck cancer who is status post radical resection with chemotherapy and radiation therapy. Presented with a sialitis to his neck. Is now had a rapid response to therapy. Prior cultures are reviewed. There is a option of using a ciprofloxacin suspension which can be given twice per day per his PEG tube. This is sent to his pharmacy. May follow-up in the office of these any further needs. Status: Acute
== END 2016-04-15 17:08 | disposition home or self-care (01) | DRG 603 ==
LOC: EC 14:12 → 5MS5E 16:29 → 5ONC 16:42
PROVIDERS: ADMIT Internal Medicine; ATTEND Internal Medicine
PROC: 3E0G76Z Introduction of Nutritional Substance into Upper GI, Via Natural or Artificial Opening (ICD-10-PCS; principal; 2016-04-14)
DX: L03.221 Cellulitis of neck (principal); D69.6 Thrombocytopenia, unspecified; Z93.0 Tracheostomy status; R13.10 Dysphagia, unspecified; Z93.1 Gastrostomy status; E03.9 Hypothyroidism, unspecified; E11.9 Type 2 diabetes mellitus without complications; R74.0 Nonspecific elevation of levels of transaminase and lactic acid dehydrogenase [LDH]; K11.20 Sialoadenitis, unspecified; F10.10 Alcohol abuse, uncomplicated; R05 Cough; R51 Headache; Z87.81 Personal history of (healed) traumatic fracture; Z85.89 Personal history of malignant neoplasm of other organs and systems; Z85.830 Personal history of malignant neoplasm of bone; Z80.9 Family history of malignant neoplasm, unspecified; Z83.2 Family history of diseases of the blood and blood-forming organs and certain disorders involving the immune mechanism; Z87.891 Personal history of nicotine dependence; Z85.828 Personal history of other malignant neoplasm of skin; Z85.810 Personal history of malignant neoplasm of tongue; Z92.21 Personal history of antineoplastic chemotherapy; Z79.84 Long term (current) use of oral hypoglycemic drugs; Z79.891 Long term (current) use of opiate analgesic; Z79.899 Other long term (current) drug therapy; Z92.3 Personal history of irradiation; Z86.14 Personal history of Methicillin resistant Staphylococcus aureus infection; Z86.19 Personal history of other infectious and parasitic diseases; Z90.89 Acquired absence of other organs
CPT/HCPCS: 36415; 71020; 80053; 80202; 83036; 85025; 87040; 96361; 96375; 99284

== ENCOUNTER 2017-09-30 12:14 | Inpatient (IN) | payer MEDICARE, OTHER ==
[2017-09-30] MEDS ORDERED: SODIUM CHLORIDE 0.9% 1,000 ML IV STA (12:49)
--- NOTE | 2017-09-30 13:45 | XR ---
EXAMINATION TYPE: XR abdomen acute w cxr DATE OF EXAM: 09/30/2017 COMPARISON: NONE HISTORY: Pain TECHNIQUE: Single view of the chest and 2 views of the abdomen are submitted. FINDINGS: Single view of the chest fails demonstrate evidence for acute pulmonary disease. COPD changes. MediP ort catheter and tracheostomy tube. There is no evidence for pneumoperitoneum. The bowel gas pattern is unremarkable as there is air throughout nondilated small and large bowel. No sizeable air fluid levels.No mass effects are seen. No unusual calcifications. IMPRESSION: 1. Unremarkable study.
[2017-09-30 14:13] LABS: HGB 10.1 gm/dL (13.0-17.5); MCH 28.9 pg (25.0-35.0); MCHC 33.7 g/dL (31.0-37.0); MCV 85.6 fL (80.0-100.0); Mean Platelet Volume 6.9; Platelet Count 80 k/uL (150-450); RBC 3.51 m/uL (4.30-5.90); RDW 15.3 % (11.5-15.5); WBC 2.1 k/uL (3.8-10.6)
[2017-09-30 14:19] LABS: ALT 44 U/L (21-72); AST 31 U/L (17-59); Albumin 3.2 g/dL (3.5-5.0); Alkaline Phosphatase 103 U/L (38-126); Amylase 30 U/L (30-110); Anion Gap 12 mmol/L; Blood Urea Nitrogen 19 mg/dL (9-20); Calcium 8.7 mg/dL (8.4-10.2); Carbon Dioxide 26 mmol/L (22-30); Chloride 98 mmol/L (98-107); Glucose 134 mg/dL (74-99); Lipase 109 U/L (23-300); Potassium 4.3 mmol/L (3.5-5.1); Sodium 136 mmol/L (137-145); Total Bilirubin 0.3 mg/dL (0.2-1.3); Total Protein 5.8 g/dL (6.3-8.2)
[2017-09-30 14:30] LABS: Creatine Kinase <20 U/L (55-170)
[2017-09-30] MEDS ORDERED: VANCOMYCIN IV PER PHARMACY 1 EACH MISC MISCELLANE PRN (14:39)
[2017-09-30] MEDS ORDERED: LORazepam 2 MG/ML INJ IV STA (14:39)
[2017-09-30] MEDS ORDERED: MORPHINE SULFATE 2 MG/ML SYRINGE IVP STA (14:39)
--- NOTE | 2017-09-30 14:39 | ED ---
General Adult HPI - General Chief complaint: Recheck/Abnormal Lab/Rx Stated complaint: Something stuck in trach Time Seen by Provider: 09/30/17 12:49 Source: patient Mode of arrival: ambulatory Limitations: no limitations - Related Data Home Medications Medication Instructions Recorded Confirmed oxyCODONE-APAP 10-325MG [Percocet 1 tab PEG/G-TUBE TID PRN 03/05/16 09/30/17 10-325 mg] Levothyroxine Sodium 100 mcg PEG/G-TUBE DAILY 09/30/17 09/30/17 Allergies Allergy/AdvReac Type Severity Reaction Status Date / Time No Known Allergies Allergy Verified 09/30/17 13:00 Review of Systems ROS Statement: Those systems with pertinent positive or pertinent negative responses have been documented in the HPI. ROS Other: All systems not noted in ROS Statement are negative. 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 and the patient had a surgical resection with reconstructive surgery and a muscle flap followed by tracheostomy tube insertion History of Any Multi-Drug Resistant Organisms: MRSA Date of last positivie culture/infection: 03/11/16 MDRO Source:: Abdomen Additional Past Surgical History / Comment(s): throat and jaw, left ankle ORIF for a fracture Past Anesthesia/Blood Transfusion Reactions: No Reported Reaction Past Psychological History: No Psychological Hx Reported Smoking Status: Former smoker Past Alcohol Use History: None Reported Past Drug Use History: None Reported - Past Family History Mother Family Medical History: Cancer, Deep Vein Thrombosis (DVT) General Exam Limitations: no limitations Course Vital Signs 09/30/17 09/30/17 12:15 14:15 Temperature 97.4 F L 96.8 F L Pulse Rate 93 78 Respiratory 18 18 Rate Blood Pressure 126/65 107/59 O2 Sat by Pulse 96 96 Oximetry Medical Decision Making - Lab Data Result diagrams: 09/30/17 13:01 09/30/17 13:01 Lab Results 09/30/17 09/30/17 09/30/17 Range/Units 13:01 13:01 13:01 WBC 2.1 L (3.8-10.6) k/uL RBC 3.51 L (4.30-5.90) m/uL Hgb 10.1 L (13.0-17.5) gm/dL Hct 30.0 L (39.0-53.0) % MCV 85.6 (80.0-100.0) fL MCH 28.9 (25.0-35.0) pg MCHC 33.7 (31.0-37.0) g/dL RDW 15.3 (11.5-15.5) % Plt Count 80 L (150-450) k/uL Neutrophils % (Manual) 61 % Band Neutrophils % 7 % Lymphocytes % (Manual) 13 % Monocytes % (Manual) 18 % Eosinophils % (Manual) 1 % Myelocytes % 1 % Neutrophils # (Manual) 1.40 (1.3-7.7) k/uL Lymphocytes # (Manual) 0.27 L (1.0-4.8) k/uL Monocytes # (Manual) 0.38 (0-1.0) k/uL Eosinophils # (Manual) 0.02 (0-0.7) k/uL Myelocytes # (Manual) 0.02 H (0) k/uL Nucleated RBCs 0 (0-0) /100 WBC Manual Slide Review Performed Poikilocytosis (manual Present Sodium 136 L (137-145) mmol/L Potassium 4.3 (3.5-5.1) mmol/L Chloride 98 (98-107) mmol/L Carbon Dioxide 26 (22-30) mmol/L Anion Gap 12 mmol/L BUN 19 (9-20) mg/dL Creatinine 0.60 L (0.66-1.25) mg/dL Est GFR (CKD-EPI)AfAm >90 (>60 ml/min/1.73 sqM) Est GFR (CKD-EPI)NonAf >90 (>60 ml/min/1.73 sqM) Glucose 134 H (74-99) mg/dL Plasma Lactic Acid Vladislav (0.7-2.0) mmol/L Calcium 8.7 (8.4-10.2) mg/dL Total Bilirubin 0.3 (0.2-1.3) mg/dL AST 31 (17-59) U/L ALT 44 (21-72) U/L Alkaline Phosphatase 103 (38-126) U/L Total Creatine Kinase <20 L (55-170) U/L CK-MB (CK-2) 0.3 (0.0-2.4) ng/mL CK-MB (CK-2) Rel Index Troponin I <0.012 (0.000-0.034) ng/mL Total Protein 5.8 L (6.3-8.2) g/dL Albumin 3.2 L (3.5-5.0) g/dL Amylase 30 (30-110) U/L Lipase 109 (23-300) U/L Urine Color Urine Appearance (Clear) Urine pH (5.0-8.0) Ur Specific [place] (1.001-1.035) Urine Protein (Negative) Urine Glucose (UA) (Negative) Urine Ketones (Negative) Urine Blood (Negative) Urine Nitrite (Negative) Urine Bilirubin (Negative) Urine Urobilinogen (<2.0) mg/dL Ur Leukocyte Esterase (Negative) 09/30/17 09/30/17 Range/Units 13:01 14:45 WBC (3.8-10.6) k/uL RBC (4.30-5.90) m/uL Hgb (13.0-17.5) gm/dL Hct (39.0-53.0) % MCV (80.0-100.0) fL MCH (25.0-35.0) pg MCHC (31.0-37.0) g/dL RDW (11.5-15.5) % Plt Count (150-450) k/uL Neutrophils % (Manual) % Band Neutrophils % % Lymphocytes % (Manual) % Monocytes % (Manual) % Eosinophils % (Manual) % Myelocytes % % Neutrophils # (Manual) (1.3-7.7) k/uL Lymphocytes # (Manual) (1.0-4.8) k/uL Monocytes # (Manual) (0-1.0) k/uL Eosinophils # (Manual) (0-0.7) k/uL Myelocytes # (Manual) (0) k/uL Nucleated RBCs (0-0) /100 WBC Manual Slide Review Poikilocytosis (manual Sodium (137-145) mmol/L Potassium (3.5-5.1) mmol/L Chloride (98-107) mmol/L Carbon Dioxide (22-30) mmol/L Anion Gap mmol/L BUN (9-20) mg/dL Creatinine (0.66-1.25) mg/dL Est GFR (CKD-EPI)AfAm (>60 ml/min/1.73 sqM) Est GFR (CKD-EPI)NonAf (>60 ml/min/1.73 sqM) Glucose (74-99) mg/dL Plasma Lactic Acid Vladislav 0.9 (0.7-2.0) mmol/L Calcium (8.4-10.2) mg/dL Total Bilirubin (0.2-1.3) mg/dL AST (17-59) U/L ALT (21-72) U/L Alkaline Phosphatase (38-126) U/L Total Creatine Kinase (55-170) U/L CK-MB (CK-2) (0.0-2.4) ng/mL CK-MB (CK-2) Rel Index Troponin I (0.000-0.034) ng/mL Total Protein (6.3-8.2) g/dL Albumin (3.5-5.0) g/dL Amylase (30-110) U/L Lipase (23-300) U/L Urine Color Yellow Urine Appearance Clear (Clear) Urine pH 7.0 (5.0-8.0) Ur Specific [place] 1.009 (1.001-1.035) Urine Protein Negative (Negative) Urine Glucose (UA) Negative (Negative) Urine Ketones Negative (Negative) Urine Blood Negative (Negative) Urine Nitrite Negative (Negative) Urine Bilirubin Negative (Negative) Urine Urobilinogen <2.0 (<2.0) mg/dL Ur Leukocyte Esterase Negative (Negative) Disposition Clinical Impression: Abdominal wall cellulitis Narrative: Ostomy Cellulitis Disposition: ADMITTED IP TO THIS [facility] Condition: Good Is patient prescribed a controlled substance at d/c from ED?: No Referrals: Elvia Person MD [Primary Care Provider] - 1-2 days
[2017-09-30] MEDS ORDERED: cefTRIAXone IN SWFI 1,000 MG/10 ML SYRINGE IVP STA (14:42)
[2017-09-30 14:43] LABS: Creatine Kinase MB 0.3 ng/mL (0.0-2.4); Troponin I <0.012 ng/mL (0.000-0.034)
[2017-09-30] MEDS ORDERED: VANCOMYCIN 1,250 MG in SODIUM CHLORIDE 0.9% 250 ML IVPB STA (14:45)
[2017-09-30 14:47] LABS: Band Neutrophils % 7 %; Eosinophils # (M) 0.02 k/uL (0-0.7); Lymphocytes # (M) 0.27 k/uL (1.0-4.8); Monocytes # (M) 0.38 k/uL (0-1.0); Myelocytes # (M) 0.02 k/uL (0); Myelocytes % 1 %; Neutrophils % (M) 61 %; Nucleated Red Blood Cells 0 /100 WBC (0-0); Total Cells Counted 200
[2017-09-30 14:48] LABS: Poikilocytosis (M) Present
[2017-09-30 14:50] LABS: Appearance,Urine Clear (Clear); Bilirubin,Urine Negative (Negative); Blood,Urine Negative (Negative); Color,Urine Yellow; Glucose,Urine (UA) Negative (Negative); Ketones,Urine Negative (Negative); Leukocyte Esterase,Urine Negative (Negative); Nitrite,Urine Negative (Negative); Protein,Urine Negative (Negative); Specific Gravity,Urine 1.009 (1.001-1.035); Urobilinogen,Urine <2.0 mg/dL (<2.0)
[2017-09-30] MEDS: MORPHINE SULFATE 2 MG/ML SYRINGE IVP PRN ×2 (16:09→22:31)
[2017-09-30] MEDS: SODIUM CHLORIDE 0.9% 1,000 ML IV ONE (16:10)
[2017-09-30] MEDS ORDERED: ACETAMINOPHEN IV (For NPO) 1,000 MG in EMPTY BAG 1 BAG IVPB PRN (17:50)
[2017-09-30] MEDS ORDERED: oxyCODONE-APAP 10-325MG 1 EACH TAB PEG/G-TUBE PRN (17:51)
[2017-09-30] MEDS: VANCOMYCIN 1,250 MG in SODIUM CHLORIDE 0.9% 250 ML IVPB SCH (22:28)
[2017-10-01] MEDS: MORPHINE SULFATE 2 MG/ML SYRINGE IVP PRN ×8 (01:14→22:43)
[2017-10-01] MEDS: oxyCODONE-APAP 10-325MG 1 EACH TAB PEG/G-TUBE PRN ×4 (02:39→20:55)
[2017-10-01] MEDS: LEVOTHYROXINE 100 MCG TAB PEG/G-TUBE SCH (06:17)
[2017-10-01] MEDS: VANCOMYCIN 1,250 MG in SODIUM CHLORIDE 0.9% 250 ML IVPB SCH ×3 (07:03→22:35)
[2017-10-01] MEDS ORDERED: cefTRIAXone IN SWFI 1,000 MG/10 ML SYRINGE IVP SCH (09:00)
[2017-10-01] MEDS: SODIUM CHLORIDE 0.9% 1,000 ML IV ONE (09:49)
[2017-10-01 09:50] LABS: Basophils % (A) 0 %; Eosinophils % (A) 0 %; HGB 9.6 gm/dL (13.0-17.5); Lymphocytes # (A) 0.1 k/uL (1.0-4.8); Lymphocytes % (A) 6 %; MCH 28.6 pg (25.0-35.0); MCV 86.5 fL (80.0-100.0); Mean Platelet Volume 7.6; Monocytes # (A) 0.2 k/uL (0-1.0); Monocytes % (A) 12 %; Neutrophils # (A) 1.4 k/uL (1.3-7.7); Neutrophils % (A) 78 %; RBC 3.35 m/uL (4.30-5.90); RDW 14.8 % (11.5-15.5)
[2017-10-01 09:59] LABS: Anion Gap 9 mmol/L; Blood Urea Nitrogen 11 mg/dL (9-20); Calcium 7.8 mg/dL (8.4-10.2); Carbon Dioxide 24 mmol/L (22-30); Chloride 104 mmol/L (98-107); Glucose 109 mg/dL (74-99); Sodium 137 mmol/L (137-145)
[2017-10-01 10:09] LABS: Platelet Count 74 k/uL (150-450)
[2017-10-01 10:11] LABS: WBC 1.8 k/uL (3.8-10.6)
--- NOTE | 2017-10-01 11:57 | P.HPIM ---
History of Present Illness H&P Date: 10/01/17 Chief Complaint: Pain around Peg tube site This is a 52-year-old patient of Dr. Rubi who presented to the emergency room with pain around his PEG tube site. Patient states pain has been going on for 2 days. Patient states he's had the PEG tube for many years and has used it for feedings and medications. Patient has a significant history for neck cancer in which he had a surgical resection and required a tracheostomy tube insertion. Patient also has a history of diabetes and thyroid disorder. He states he has been dealing with neck cancer for 12 years. Patient presented with a white blood cell 2.1. X-ray of abdomen completed in the emergency room, unremarkable study. Patient has been started on IV antibiotics Rocephin and vancomycin. Patient is complaining of pain around the PEG tube site. Site does appear slightly pink with some drainage noted. Patient currently has pain meds morphine 4 mg every 3 hrs and Percocet 10/325- every 6 hours. Blood cultures and urine cultures have been sent. Patient states he lives at home by himself and manages his care. Patient also has a tracheostomy in which he is on room air. Site looks clean dry and intact. Nurse stated that patient refused to do tube feeding this a.m. due to pain around the PEG tube site. Patient denies nausea, vomiting, shortness of breath or chest pain at this time Review of Systems Please see HPI otherwise unremarkable. 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 and the patient had a surgical resection with reconstructive surgery and a muscle flap followed by tracheostomy tube insertion . chemo/ radiation. pt's niece stated that pt started a new chemo 09-21-17 but missed 09/28 tx. currently on taxol and carboplatin History of Any Multi-Drug Resistant Organisms: MRSA Date of last positivie culture/infection: 03/11/16 MDRO Source:: Abdomen Additional Past Surgical History / Comment(s): throat and jaw, left ankle ORIF for a fracture, peg tube Past Anesthesia/Blood Transfusion Reactions: No Reported Reaction Smoking Status: Former smoker - Past Family History Mother Family Medical History: Cancer, Deep Vein Thrombosis (DVT) Medications and Allergies Home Medications Medication Instructions Recorded Confirmed Type oxyCODONE-APAP 10-325MG [Percocet 1 tab PEG/G-TUBE TID PRN 03/05/16 09/30/17 History 10-325 mg] Levothyroxine Sodium 100 mcg PEG/G-TUBE DAILY 09/30/17 09/30/17 History Allergies Allergy/AdvReac Type Severity Reaction Status Date / Time No Known Allergies Allergy Verified 09/30/17 13:00 Physical Exam Vitals: Vital Signs Temp Pulse Pulse Resp BP BP Pulse Ox 10/01/17 05:00 98.5 F 89 16 123/69 90 L 09/30/17 23:00 97.9 F 90 16 110/61 95 09/30/17 17:16 97.7 F 90 18 124/84 98 09/30/17 15:12 97.7 F 79 18 126/67 100 09/30/17 14:15 96.8 F L 78 18 107/59 96 09/30/17 12:15 97.4 F L 93 18 126/65 96 Intake and Output 09/30/17 10/01/17 10/01/17 22:59 06:59 14:59 Intake Total 196 977 4881 Balance 920 248 8721 Intake: IV 400 850 Sodium Chloride 0.9% 1, 400 600 000 ml @ 100 mls/hr IV . Q10H ONE Rx#:[id number] Vancomycin 1,250 mg In 250 Sodium Chloride 0.9% 250 ml @ 125 mls/hr IVPB ONCE STA Rx#:[id number] Tube Feeding 1920 Other: Voiding Method Toilet Toilet Weight 67.132 kg Head normocephalic Neck supple, tracheaostomy in place. Site clean dry and intact. currenlty on room air Lungs clear to auscultation bilaterally no wheezing or crackles Heart regular rate and rhythm S1-S2, no rub or gallop Abdomen is soft nontender nondistended positive bowel sounds no hepatosplenomegaly. Peg tube to LUQ. Site appears pink with moderate drainage. tenderness upon palpation. Extremities no edema Neuro alert and orientated to 3 Results CBC & Chem 7: 10/01/17 09:15 10/01/17 09:15 Labs: Abnormal Lab Results - Last 24 Hours (Table) 09/30/17 09/30/17 09/30/17 Range/Units 13:01 13:01 13:01 WBC 2.1 L (3.8-10.6) k/uL RBC 3.51 L (4.30-5.90) m/uL Hgb 10.1 L (13.0-17.5) gm/dL Hct 30.0 L (39.0-53.0) % Plt Count 80 L (150-450) k/uL Lymphocytes # (1.0-4.8) k/uL Lymphocytes # (Manual) 0.27 L (1.0-4.8) k/uL Myelocytes # (Manual) 0.02 H (0) k/uL Sodium 136 L (137-145) mmol/L Creatinine 0.60 L (0.66-1.25) mg/dL Glucose 134 H (74-99) mg/dL Calcium (8.4-10.2) mg/dL Total Creatine Kinase <20 L (55-170) U/L Total Protein 5.8 L (6.3-8.2) g/dL Albumin 3.2 L (3.5-5.0) g/dL 10/01/17 10/01/17 Range/Units 09:15 09:15 WBC 1.8 L* (3.8-10.6) k/uL RBC 3.35 L (4.30-5.90) m/uL Hgb 9.6 L (13.0-17.5) gm/dL Hct 29.0 L (39.0-53.0) % Plt Count 74 L (150-450) k/uL Lymphocytes # 0.1 L (1.0-4.8) k/uL Lymphocytes # (Manual) (1.0-4.8) k/uL Myelocytes # (Manual) (0) k/uL Sodium (137-145) mmol/L Creatinine 0.52 L (0.66-1.25) mg/dL Glucose 109 H (74-99) mg/dL Calcium 7.8 L (8.4-10.2) mg/dL Total Creatine Kinase (55-170) U/L Total Protein (6.3-8.2) g/dL Albumin (3.5-5.0) g/dL Microbiology - Last 24 Hours (Table) 09/30/17 14:45 Urine Culture - Preliminary Urine,Voided Thrombosis Risk Factor Assmnt - Choose All That Apply Any of the Below Risk Factors Present?: Yes Each Factor Represents 1 point: Age 41-60 years Other Risk Factors: Yes Each Risk Factor Represents 2 Points: Central venous access, Malignancy Other congenital or acquired thrombophilia - If yes, enter type in comment: No Thrombosis Risk Factor Assessment Total Risk Factor Score: 5 Thrombosis Risk Factor Assessment Level: High Risk Assessment and Plan Assessment: 1. Cellulitis of the PEG tube site. Abdomen xray completed, unremarkable study. Patient started on Rocephin and vancomycin. Current pain management morphine 4 mg every 3 hours and Percocets 10/325 every 6 hours when necessary. 2. Cancer of neck: Patient currently has tracheostomy tube. Patient is currently on room air 3. History of hypothyroidism: Patient managed on Synthroid 4. Thrombocytopenia: platelets currently 74. Will hold off on DVT anticoagulation at this time 5. Chronic pain: managed on Percocet GI prophylaxis Protonix, DVT prophylaxis SCDs Time with Patient: Greater than 30 (Greater than 60% of the total time spent in counseling and coordination of care. I performed an examination of the patient and discussed their management with the Nurse Practitioner. I have reviewed the Nurse Practitioner's notes and agree with the documented findings and plan of care)
[2017-10-01] MEDS ORDERED: IOPAMIDOL-300 CONTRAST 30 ML VIAL (ORAL USE) PO PRN (16:48)
[2017-10-01] MEDS: PIPERACILLIN-TAZOBACTAM 3.375 GM in DEXTROSE/WATER 1 50ML.BAG IVPB SCH (17:41)
--- NOTE | 2017-10-01 18:54 | CT ---
EXAMINATION TYPE: CT abdomen pelvis w con DATE OF EXAM: 10/01/2017 COMPARISON: NONE HISTORY: ab pain by his peg tube CT DLP: 686.7 mGycm Automated exposure control for dose reduction was used. TECHNIQUE: Helical acquisition of images was performed from the lung bases through the pelvis. CONTRAST: Performed without Oral Contrast and with IV Contrast, patient injected with 100 mL of Isovue 300. FINDINGS: There are bilateral pleural effusions. There is mild basilar pulmonary atelectasis. Heart size is nor mal. Spleen appears normal. There is gastrostomy tube. The tube is at the skin surface. There is no t ubing into the stomach. There is slight thickening of the anterior abdominal wall at the gastrostomy site that measures 12 mm. Liver shows no focal defect. Bile ducts are not dilated. Gallbladder appears normal. There is no asci javid. There is no pancreatic mass. There is no adrenal mass. Kidneys show satisfactory contrast opacification. There is no hydronephrosi s. There is no retroperitoneal adenopathy. Abdominal aorta is atheromatous. Bladder distends smoothly . There is no free fluid in the pelvis. There are multiple sigmoid diverticula. There is no evidence of diverticulitis. I see no bony destructive process. There is no evidence of a pelvic mass. There ar e surgical clips apparently from right side hernia surgery. Appendix appears normal. IMPRESSION: BILATERAL PLEURAL EFFUSIONS AND BASILAR MILD ATELECTASIS. GASTROSTOMY TUBE IS AT THE SKIN SURFACE. MILD INFLAMMATORY CHANGES ON THE ANTERIOR ABDOMINAL WALL AT THE GASTROSTOMY SITE. NO EVIDENCE OF AN ABSCESS. LIVER MARGIN IS SOMEWHAT IRREGULAR SUGGESTIVE OF SHANT E DEGREE OF CIRRHOSIS.
--- NOTE | 2017-10-01 19:22 | P.CONS ---
History of Present Illness - Reason for Consult Consult date: 10/01/17 neck malignancy Requesting physician: Jodee Rios - Chief Complaint infected PEG site - History of Present Illness Mr. Nicolas is a very pleasant patient who has to communicate by writing due to a history of neck cancer, diagnosed 5 years ago, treated with chemo, radiation and surgery. He did well up until a few months ago when he had recurrence of disease at the original site. He is currently s/p 2 cycles of weekly carbo/taxol, last dose was 2 weeks ago. Pt started having PEG tube insertion site pain over the last few days, pain progressed with redness and swelling developing. He denies fevers, nausea, SOB , cough, trach is functioning ok, no diarrhea, constipation, he is independently ambulatory, he is absolute NPO, PEG is his only source of nutrition and fluids. Review of Systems See HPI 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 and the patient had a surgical resection with reconstructive surgery and a muscle flap followed by tracheostomy tube insertion . chemo/ radiation. pt's niece stated that pt started a new chemo 09-21-17 but missed 09/28 tx. currently on taxol and carboplatin History of Any Multi-Drug Resistant Organisms: MRSA Year Discovered:: 03/11/16 MDRO Source:: Abdomen Additional Past Surgical History / Comment(s): throat and jaw, left ankle ORIF for a fracture, peg tube Past Anesthesia/Blood Transfusion Reactions: No Reported Reaction Past Psychological History: No Psychological Hx Reported Smoking Status: Former smoker Past Alcohol Use History: Unable to Obtain Past Drug Use History: Unable to Obtain - Past Family History Mother Family Medical History: Cancer, Deep Vein Thrombosis (DVT) Medications and Allergies Home Medications Medication Instructions Recorded Confirmed Type oxyCODONE-APAP 10-325MG [Percocet 1 tab PEG/G-TUBE TID PRN 03/05/16 09/30/17 History 10-325 mg] Levothyroxine Sodium 100 mcg PEG/G-TUBE DAILY 09/30/17 09/30/17 History Allergies Allergy/AdvReac Type Severity Reaction Status Date / Time No Known Allergies Allergy Verified 09/30/17 13:00 Physical Exam Vitals: Vital Signs Temp Pulse Resp BP Pulse Ox 10/01/17 15:14 99.3 F 78 16 116/65 99 10/01/17 05:00 98.5 F 89 16 123/69 90 L 09/30/17 23:00 97.9 F 90 16 110/61 95 Intake and Output 10/01/17 10/01/17 10/01/17 06:59 14:59 22:59 Intake Total 850 1920 Balance 850 1920 Intake: IV 850 Sodium Chloride 0.9% 1, 600 000 ml @ 100 mls/hr IV . Q10H ONE Rx#:[id number] Vancomycin 1,250 mg In 250 Sodium Chloride 0.9% 250 ml @ 125 mls/hr IVPB ONCE STA Rx#:[id number] Tube Feeding 192 Other: Voiding Method Toilet Weight 67.132 kg - Constitutional General appearance: average body habitus, cooperative, no acute distress - EENT false tongue, redness around trach, no purulent drainage, no foul odor Eyes: anicteric sclerae, EOMI - Neck trach, radiation and surgical changes noted to neck - Respiratory Respiratory: bilateral: rales (scattered) - Cardiovascular Heart sounds: normal: S1, S2 Abnormal Heart Sounds: no systolic murmur, no diastolic murmur, no rub, no S3 Gallop, no S4 Gallop, no click, no other leg Peripheral Edema: bilateral: None - Gastrointestinal LUQ PEG insertion site is red, about 2.5cm around tube, swollen, pt guards the site, rest of abd is mildly distended, soft, BS noted - Integumentary Integumentary: cellulitis (around PEG tube) - Neurologic Neurologic: CNII-XII intact - Musculoskeletal Musculoskeletal: strength equal bilaterally - Psychiatric Psychiatric: A&O x's 3, appropriate affect, intact judgment & insight Results CBC & Chem 7: 10/01/17 09:15 10/01/17 09:15 Labs: Abnormal Lab Results - Last 24 Hours (Table) 10/01/17 10/01/17 Range/Units 09:15 09:15 WBC 1.8 L* (3.8-10.6) k/uL RBC 3.35 L (4.30-5.90) m/uL Hgb 9.6 L (13.0-17.5) gm/dL Hct 29.0 L (39.0-53.0) % Plt Count 74 L (150-450) k/uL Lymphocytes # 0.1 L (1.0-4.8) k/uL Creatinine 0.52 L (0.66-1.25) mg/dL Glucose 109 H (74-99) mg/dL Calcium 7.8 L (8.4-10.2) mg/dL Microbiology - Last 24 Hours (Table) 09/30/17 13:01 Blood Culture - Preliminary Blood No Growth after 24 hours 09/30/17 14:45 Urine Culture - Preliminary Urine,Voided CT scan - abdomen: report reviewed CT scan - pelvis: report reviewed Assessment and Plan (1) Pancytopenia due to antineoplastic chemotherapy Narrative/Plan: Anemia and thrombocytopenia not requiring intervention at this time Pt has had GCSF in the past, states tolerance. Zarxio started for leukopenia and acute infection Labs daily Current Visit: Yes Status: Acute Priority: Medium Code(s): D61.810 - ANTINEOPLASTIC CHEMOTHERAPY INDUCED PANCYTOPENIA; T45.1X5A - ADVERSE EFFECT OF ANTINEOPLASTIC AND IMMUNOSUP DRUGS, INIT SNOMED Code(s): 490914907718539 (2) Adenocarcinoma of head and neck Narrative/Plan: Pt will continue followup and treatment with his Primary Oncologist at [facility]. Current Visit: Yes Status: Chronic Priority: High Code(s): C76.0 - MALIGNANT NEOPLASM OF HEAD, FACE AND NECK SNOMED Code(s): 809684498 Plan: Pt being seen by Surgery and ID for PEG infection
[2017-10-01] MEDS: FILGRASTIM-SNDZ 300 MCG/0.5 ML SYRINGE SQ SCH (19:54)
--- NOTE | 2017-10-01 22:30 | CONS ---
CONSULTATION DATE OF SERVICE: 10/01/2017 REASON FOR CONSULTATION: Infected PEG tube site and antibiotic recommendation. HISTORY OF PRESENT ILLNESS: The patient is a 52-year-old male with a past medical history significant for head and neck cancer diagnosed about 5 years ago, status post chemoradiation and surgery. The patient did have a PEG tube for nutrition. The patient developed pain, swelling and redness around the PEG tube site over the last few days. The patient has been complaining of pain, more severe in nature, and unfortunately he is unable to characterize it any further. It is hard for him to communicate. The patient has been complaining of some drainage around the PEG tube site as well. The patient denies any high-grade fever or chills, though. With these symptoms, the patient was evaluated by the ER physician. The patient did have an acute abdominal series that was reported an unremarkable study. Patient had leukopenia with a white count of 2.1. Repeat is 1.8. The highest fever has been 99.3. The patient was started on Rocephin and vancomycin. Infectious Disease was consulted for further recommendation regarding antibiotic therapy. REVIEW OF SYSTEMS: Review of systems could not be reliably obtained. The positive points have been mentioned in the HPI. PAST MEDICAL HISTORY: 1. Lung cancer. 2. Diabetes mellitus. 3. Hypothyroidism. 4. Previous history of MRSA infection of abdominal wall. PAST SURGICAL HISTORY: 1. Left ankle fracture ORIF. 2. Throat and jaw surgery. 3. PEG tube placement. SOCIAL HISTORY: Remote history of smoking. No drinking or drug use. FAMILY HISTORY: Mother with history of DVT and cancer. ALLERGIES: NO KNOWN DRUG ALLERGIES. CURRENT MEDICATIONS: 1. Rocephin 1 gram daily. 2. Tylenol. 3. Filgrastim. 4. Synthroid. 5. Vancomycin. 6. Morphine sulfate. 7. Percocet. 8. Protonix. PHYSICAL EXAMINATION: Blood pressure is 159/65 with a pulse of 78, temperature 99.3. He is 99% on room air. General description is a middle-aged male lying in bed in no distress. No tachypnea or accessory muscle of respiration use. HEENT examination shows pallor. No scleral icterus. Oral mucous membrane is dry. NECK: Trachea is center. No thyromegaly. LUNGS: Unlabored breathing. Clear to auscultation anteriorly. No wheeze or crackle. HEART: S1, S2. Regular rate and rhythm. ABDOMEN: Soft. The patient has erythema around the PEG tube site, which is tender to touch. Minimal fluctuation but no drainage was noticed. EXTREMITIES: No edema of feet. SKIN EXAMINATION: No rash or mass palpable. Neurologically patient is awake, alert. Mood and affect normal. LABS: Hemoglobin 9.6, white count 1.8. BUN of 11, creatinine 0.52. Electrolytes have been normal. Liver enzymes are normal. UA has been negative. X-ray report as mentioned above. Blood culture so far negative. DIAGNOSTIC IMPRESSION AND PLAN: Patient with PEG tube site cellulitis with concern about possible deep infection or an abscess. The likely organism to cover will be Gram-positive; however, underlying Gram- negative infection not entirely excluded. PLAN: 1. We will obtain a CT of abdomen and pelvis to make sure there is no evidence of any abscess around the PEG tube site that may to be drained. 2. Local wound cultures, both aerobic and anaerobic. 3. Will keep the patient on vancomycin. Will discontinue Rocephin and add Zosyn 3.375 grams q.8. 4. Depending upon his clinical response as well as cultures, will adjust medications further if needed. Thank you for this consultation. Will follow this patient along with you. MMODL / IJN: [id number] /
[2017-10-02] MEDS: PIPERACILLIN-TAZOBACTAM 3.375 GM in DEXTROSE/WATER 1 50ML.BAG IVPB SCH ×3 (00:21→16:41)
[2017-10-02] MEDS: MORPHINE SULFATE 2 MG/ML SYRINGE IVP PRN ×7 (01:38→21:32)
[2017-10-02] MEDS: oxyCODONE-APAP 10-325MG 1 EACH TAB PEG/G-TUBE PRN ×4 (03:01→22:39)
[2017-10-02] MEDS ORDERED: VANCOMYCIN TROUGH DUE 1 EACH MISC MISCELLANE ONE (06:00)
[2017-10-02] MEDS: LEVOTHYROXINE 100 MCG TAB PEG/G-TUBE SCH (06:16)
[2017-10-02] MEDS: VANCOMYCIN 1,250 MG in SODIUM CHLORIDE 0.9% 250 ML IVPB SCH ×3 (06:16→23:07)
[2017-10-02 06:53] LABS: Anisocytosis Slight; Basophils % (A) 0 %; Eosinophils % (A) 0 %; HGB 11.1 gm/dL (13.0-17.5); Lymphocytes # (A) 0.2 k/uL (1.0-4.8); Lymphocytes % (A) 4 %; MCH 29.4 pg (25.0-35.0); MCHC 33.5 g/dL (31.0-37.0); MCV 87.9 fL (80.0-100.0); Mean Platelet Volume 6.6; Monocytes # (A) 0.3 k/uL (0-1.0); Monocytes % (A) 7 %; Neutrophils # (A) 4.1 k/uL (1.3-7.7); Neutrophils % (A) 86 %; Poikilocytosis Slight; RBC 3.76 m/uL (4.30-5.90); RDW 16.2 % (11.5-15.5); WBC 4.7 k/uL (3.8-10.6)
[2017-10-02 07:08] LABS: Anion Gap 8 mmol/L; Blood Urea Nitrogen 12 mg/dL (9-20); Calcium 8.2 mg/dL (8.4-10.2); Carbon Dioxide 26 mmol/L (22-30); Chloride 103 mmol/L (98-107); Glucose 134 mg/dL (74-99); Potassium 3.8 mmol/L (3.5-5.1); Sodium 137 mmol/L (137-145)
[2017-10-02 08:23] LABS: Platelet Count 92 k/uL (150-450)
[2017-10-02] MEDS: PANTOPRAZOLE 40 MG TABLET PO SCH (09:21)
--- NOTE | 2017-10-02 12:08 | P.PN ---
Subjective Progress Note Date: 10/02/17 This is a 52-year-old patient of Dr. Rubi who presented to the emergency room with pain around his PEG tube site. Patient states pain has been going on for 2 days. Patient states he's had the PEG tube for many years and has used it for feedings and medications. Patient has a significant history for neck cancer in which he had a surgical resection and required a tracheostomy tube insertion. Patient also has a history of diabetes and thyroid disorder. He states he has been dealing with neck cancer for 12 years. Patient presented with a white blood cell 2.1. X-ray of abdomen completed in the emergency room, unremarkable study. Patient has been started on IV antibiotics Rocephin and vancomycin. Patient is complaining of pain around the PEG tube site. Site does appear slightly pink with some drainage noted. Patient currently has pain meds morphine 4 mg every 3 hrs and Percocet 10/325- every 6 hours. Blood cultures and urine cultures have been sent. Patient states he lives at home by himself and manages his care. Patient also has a tracheostomy in which he is on room air. Site looks clean dry and intact. Nurse stated that patient refused to do tube feeding this a.m. due to pain around the PEG tube site. Patient denies nausea, vomiting, shortness of breath or chest pain at this time 10/02/2017 patient's tube feedings have been adjusted per dietitian to scheduled times instead of continuous patient was getting too full. Still having some pain around his PEG tube site. Computed tomography scan was completed showing no abscess. He is followed by infectious disease. And surgery has been consulted as well. Patient seen by oncology has known history of neck cancer. Denies any chest pain or shortness of breath denies any nausea or vomiting. Reports having bowel movements and denies any difficulty urinating. Objective - Vital Signs Vital signs: Vital Signs Temp 97.4 F L 10/02/17 05:22 Pulse 88 10/02/17 05:22 Resp 20 10/02/17 05:22 BP 144/76 10/02/17 05:22 Pulse Ox 97 10/02/17 05:22 Intake & Output 10/01/17 10/02/17 10/02/17 18:59 06:59 18:59 Intake Total 6067 020 9187 Balance 4955 857 7259 Weight 67.132 kg 67.132 kg Intake: Tube Feeding 8012 134 9077 Other: Voiding Method Toilet Toilet - Exam Head normocephalic Neck supple Lungs clear to auscultation bilaterally no wheezing or crackles Heart regular rate and rhythm S1-S2, no rub or gallop Abdomen is soft nontender nondistended positive bowel sounds no hepatosplenomegaly. Cellulitis changes around the PEG tube site. Also some pus discharge noted on the gauze pad. Patient also had some bleeding around the PEG tube site likely where the gauze had caught a scab. Extremities no edema Neuro alert and orientated to 3 - Labs CBC & Chem 7: 10/02/17 06:17 10/02/17 06:17 Labs: Abnormal Lab Results - Last 24 Hours (Table) 10/02/17 10/02/17 Range/Units 06:17 06:17 RBC 3.76 L (4.30-5.90) m/uL Hgb 11.1 L (13.0-17.5) gm/dL Hct 33.0 L (39.0-53.0) % RDW 16.2 H (11.5-15.5) % Plt Count 92 L (150-450) k/uL Lymphocytes # 0.2 L (1.0-4.8) k/uL Creatinine 0.50 L (0.66-1.25) mg/dL Glucose 134 H (74-99) mg/dL Calcium 8.2 L (8.4-10.2) mg/dL Microbiology - Last 24 Hours (Table) 10/01/17 17:40 Gram Stain - Preliminary Abdomen Wound Culture - Preliminary 10/01/17 17:40 Anaerobic Culture - Preliminary Abdomen 09/30/17 14:45 Urine Culture - Final Urine,Voided 09/30/17 13:01 Blood Culture - Preliminary Blood No Growth after 24 hours Assessment and Plan Assessment: 1. Cellulitis of the PEG tube site. Abdomen xray completed, unremarkable study. seen by infectious disease. Antibiotics adjusted to vancomycin and Zosyn. Computed tomography scan of the abdomen showed no evidence of abscess. Surgery has been consulted. He is tolerating PEG tube feedings. He had fullness with the continuous feedings. Feedings have now been changed to bolus feedings. Current pain management morphine 4 mg every 3 hours and Percocets 10/ 325 every 6 hours when necessary. 2. 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 Last dose of chemo 2 weeks ago. Patient currently has tracheostomy tube. Patient is currently on room air 3. History of hypothyroidism: Patient managed on Synthroid 4. Pancytopenia secondary to the chemotherapy. Patient started on zarxio by oncology for the leukopenia and acute infection. White count has come up to 4.7. Continue monitor the anemia and thrombocytopenia her oncology not requiring intervention at this time. Hemoglobin has gone up to 11.1 and platelets have gone up to 90 5. Chronic pain: managed on Percocet GI prophylaxis Protonix, DVT prophylaxis SCDs not on intake regulation due to the thrombocytopenia I performed an examination of the patient and discussed their management with the physician Waiter/Waitress Counter. I have reviewed the Physician Waiter/Waitress Counter's notes and agree with the documented findings and plan of care
--- NOTE | 2017-10-02 12:50 | P.GSCN ---
History of Present Illness Consult date: 10/02/17 Reason for Consult: Cellulitis around the PEG tube site History of present illness: 52-year-old who is being seen at the request of the attending for cellulitis around the PEG tube site patient communicates by writing and mouthing words. Patient has a history of neck cancer diagnosed 5 years. No cancer was treated with chemoradiation and surgery. Patient communicates that he noted redness and soreness around his gastrotomy tube site 3-4 days ago. reportedly does bolus feeds. Patient has a gastrotomy tube mid abdomen there is redness with tenderness around it no odor noted. Currently patients being followed by infectious disease. Blood and urine and wound cultures are currently pending Patient currently is denying pain around the gastrotomy site states it's sore CAT scan abdomen and pelvis obtained report reviewed gastrotomy tube at the skin surface mild inflammatory changes in the anterior abdominal wall at the gastrotomy site no evidence of an abscess temp is 97.4 white count 4.7 Review of Systems Essentially unremarkable except as mentioned in the present illness 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 and the patient had a surgical resection with reconstructive surgery and a muscle flap followed by tracheostomy tube insertion . chemo/ radiation. pt's niece stated that pt started a new chemo 09-21-17 but missed 09/28 tx. currently on taxol and carboplatin History of Any Multi-Drug Resistant Organisms: MRSA Year Discovered:: 03/11/16 MDRO Source:: Abdomen Additional Past Surgical History / Comment(s): throat and jaw, left ankle ORIF for a fracture, peg tube Past Anesthesia/Blood Transfusion Reactions: No Reported Reaction Past Psychological History: No Psychological Hx Reported Smoking Status: Former smoker Past Alcohol Use History: Unable to Obtain Past Drug Use History: Unable to Obtain - Past Family History Mother Family Medical History: Cancer, Deep Vein Thrombosis (DVT) Medications and Allergies Home Medications Medication Instructions Recorded Confirmed Type oxyCODONE-APAP 10-325MG [Percocet 1 tab PEG/G-TUBE TID PRN 03/05/16 09/30/17 History 10-325 mg] Levothyroxine Sodium 100 mcg PEG/G-TUBE DAILY 09/30/17 09/30/17 History Allergies Allergy/AdvReac Type Severity Reaction Status Date / Time No Known Allergies Allergy Verified 09/30/17 13:00 Surgical - Exam Vital Signs Temp Pulse Resp BP Pulse Ox 97.4 F L 93 18 126/65 96 09/30/17 12:15 09/30/17 12:15 09/30/17 12:15 09/30/17 12:15 09/30/17 12:15 Physical exam 52-year-old male sitting up in bed communicates by writing. States he has had redness around his feeding site for 3 days oriented 3 Lungs adequate air movement bilaterally tracheostomy in place no shortness of breath noted no cough Heart S1-S2 audible regular Abdomen cellulitis noted gastrostomy tube site anterior abdominal wall redness noted around the site no odor no drainage bowel tones present reports it's tender but not painful Extremities no edema Results - Labs 10/02/17 06:17 10/02/17 06:17 Abnormal Lab Results - Last 24 Hours (Table) 10/02/17 10/02/17 Range/Units 06:17 06:17 RBC 3.76 L (4.30-5.90) m/uL Hgb 11.1 L (13.0-17.5) gm/dL Hct 33.0 L (39.0-53.0) % RDW 16.2 H (11.5-15.5) % Plt Count 92 L (150-450) k/uL Lymphocytes # 0.2 L (1.0-4.8) k/uL Creatinine 0.50 L (0.66-1.25) mg/dL Glucose 134 H (74-99) mg/dL Calcium 8.2 L (8.4-10.2) mg/dL Microbiology - Last 24 Hours (Table) 10/01/17 17:40 Gram Stain - Preliminary Abdomen Wound Culture - Preliminary 10/01/17 17:40 Anaerobic Culture - Preliminary Abdomen 09/30/17 14:45 Urine Culture - Final Urine,Voided 09/30/17 13:01 Blood Culture - Preliminary Blood No Growth after 24 hours Diabetes panel 10/02/17 Range/Units 06:17 Sodium 137 (137-145) mmol/L Potassium 3.8 (3.5-5.1) mmol/L Chloride 103 (98-107) mmol/L Carbon Dioxide 26 (22-30) mmol/L BUN 12 (9-20) mg/dL Creatinine 0.50 L (0.66-1.25) mg/dL Glucose 134 H (74-99) mg/dL Calcium 8.2 L (8.4-10.2) mg/dL Calcium panel 10/02/17 Range/Units 06:17 Calcium 8.2 L (8.4-10.2) mg/dL Pituitary panel 10/02/17 Range/Units 06:17 Sodium 137 (137-145) mmol/L Potassium 3.8 (3.5-5.1) mmol/L Chloride 103 (98-107) mmol/L Carbon Dioxide 26 (22-30) mmol/L BUN 12 (9-20) mg/dL Creatinine 0.50 L (0.66-1.25) mg/dL Glucose 134 H (74-99) mg/dL Calcium 8.2 L (8.4-10.2) mg/dL Adrenal panel 10/02/17 Range/Units 06:17 Sodium 137 (137-145) mmol/L Potassium 3.8 (3.5-5.1) mmol/L Chloride 103 (98-107) mmol/L Carbon Dioxide 26 (22-30) mmol/L BUN 12 (9-20) mg/dL Creatinine 0.50 L (0.66-1.25) mg/dL Glucose 134 H (74-99) mg/dL Calcium 8.2 L (8.4-10.2) mg/dL Assessment and Plan Assessment: Impression Present on admission cellulitis around the gastrotomy tube site Cancer of the neck and tongue completed treatment of chemoradiation and surgery last dose of chemo 2 weeks prior History of hypothyroid Chronic pain on Percocet Pancytopenia secondary to chemotherapy Plan Continue recommendations for IV antibiotics per infectious disease currently on IV vancomycin and Zosyn Home meds as appropriate No evidence of an acute surgical abdomen Will follow with you DVT and GI prophylaxis Surgical consultation note dictated for Dr. weeks The above impression and plan of care have been discussed and directed by signing physician. Sanjuanita Barrera nurse practitioner acting as scribe for signing physician.
[2017-10-02] MEDS: FILGRASTIM-SNDZ 300 MCG/0.5 ML SYRINGE SQ SCH (14:34)
--- NOTE | 2017-10-02 15:16 | P.PN ---
Subjective Progress Note Date: 10/02/17 The patient's drainage has decreased from the PEG site. He continues to have inflammation and swelling. No obvious bleeding noted. He denies any nausea, vomiting or diarrhea. No history of fever or chills. Objective - Vital Signs Vital signs: Vital Signs Temp 97.4 F L 10/02/17 05:22 Pulse 88 10/02/17 05:22 Resp 20 10/02/17 05:22 BP 144/76 10/02/17 05:22 Pulse Ox 97 10/02/17 05:22 Intake & Output 10/01/17 10/02/17 10/02/17 18:59 06:59 18:59 Intake Total 8501 207 6559 Balance 5916 887 2183 Weight 67.132 kg 67.132 kg Intake: Tube Feeding 6602 304 9519 Other: Voiding Method Toilet Toilet - Constitutional General appearance: Present: no acute distress - EENT Eyes: Present: EOMI ENT: Present: hearing grossly normal - Neck Details: Tracheostomy in situ. Radiation changes noted - Respiratory Respiratory: bilateral: CTA - Cardiovascular Rhythm: regular Heart sounds: normal: S1, S2 - Gastrointestinal Gastrointestinal Comment(s): Margins of the PEG site show redness with swelling. No active drainage at this point General gastrointestinal: Present: normal bowel sounds, soft - Integumentary Integumentary: Present: normal - Neurologic Neurologic: Present: CNII-XII intact - Musculoskeletal Musculoskeletal: Present: generalized weakness, strength equal bilaterally - Psychiatric Psychiatric: Present: appropriate affect - Labs CBC & Chem 7: 10/02/17 06:17 10/02/17 06:17 Labs: Abnormal Lab Results - Last 24 Hours (Table) 10/02/17 10/02/17 Range/Units 06:17 06:17 RBC 3.76 L (4.30-5.90) m/uL Hgb 11.1 L (13.0-17.5) gm/dL Hct 33.0 L (39.0-53.0) % RDW 16.2 H (11.5-15.5) % Plt Count 92 L (150-450) k/uL Lymphocytes # 0.2 L (1.0-4.8) k/uL Creatinine 0.50 L (0.66-1.25) mg/dL Glucose 134 H (74-99) mg/dL Calcium 8.2 L (8.4-10.2) mg/dL Microbiology - Last 24 Hours (Table) 10/01/17 17:40 Gram Stain - Preliminary Abdomen Wound Culture - Preliminary 10/01/17 17:40 Anaerobic Culture - Preliminary Abdomen 09/30/17 14:45 Urine Culture - Final Urine,Voided 09/30/17 13:01 Blood Culture - Preliminary Blood No Growth after 24 hours Assessment and Plan (1) Abdominal wall cellulitis Narrative/Plan: While redness and swelling persists, drainage has diminished. The patient has been seen by Gen. surgery and surgical intervention is not planned at this time. They have recommended continued antibiotics and topical therapy. Current Visit: Yes Status: Acute Code(s): L03.311 - CELLULITIS OF ABDOMINAL WALL SNOMED Code(s): 99411893 (2) Pancytopenia due to antineoplastic chemotherapy Narrative/Plan: The patient was started on growth factors, as he had neutropenia due to chemotherapy, as well as active cellulitis. WBC has normalize. Growth factors and be discontinued. The patient has not spiked any temperatures. Hemoglobin and platelets in the safe range. Supplementation is not required currently. Continue to monitor Current Visit: Yes Status: Acute Priority: Medium Code(s): D61.810 - ANTINEOPLASTIC CHEMOTHERAPY INDUCED PANCYTOPENIA; T45.1X5A - ADVERSE EFFECT OF ANTINEOPLASTIC AND IMMUNOSUP DRUGS, INIT SNOMED Code(s): 283376004193138 (3) Adenocarcinoma of head and neck Narrative/Plan: He will resume treatment in the outpatient setting once acute condition has adequately resolved. Current Visit: Yes Status: Chronic Priority: High Code(s): C76.0 - MALIGNANT NEOPLASM OF HEAD, FACE AND NECK SNOMED Code(s): 588432525
[2017-10-02] MEDS: ONDANSETRON 4 MG/2 ML VIAL IVP PRN (16:26)
--- NOTE | 2017-10-02 22:51 | PN ---
PROGRESS NOTE DATE OF SERVICE: 10/02/2017 REASON FOR FOLLOWUP: PEG tube site cellulitis. INTERVAL HISTORY: The patient is afebrile. He has been breathing comfortably. Overall pain around the PEG site seems to have slightly improved. Minimal drainage. Denies having any chest pain, shortness of breath or cough. PHYSICAL EXAMINATION: Blood pressure 120/68 with a pulse of 87, temperature 97.6. He is 95% on room air. General description is a middle-aged male lying in bed in no distress. RESPIRATORY SYSTEM: Unlabored breathing. Clear to auscultation anteriorly. HEART: S1, S2. Regular rate and rhythm. ABDOMEN: Soft. PEG tube site redness slightly decreased. No drainage. LABS: Hemoglobin is 11.1, white count of 4.7, BUN of 12, creatinine 0.50. Cultures currently pending. CT was negative for any abscess. DIAGNOSTIC IMPRESSION AND PLAN: Patient with PEG tube site cellulitis. Patient at this time to continue with current antibiotics in the form of vancomycin and Zosyn, adjusting it further based on the culture report and clinical response. Plan of care was discussed with the admitting team. Continue with supportive care. MMODL / IJN: [id number] /
[2017-10-03] MEDS: MORPHINE SULFATE 2 MG/ML SYRINGE IVP PRN ×7 (00:21→22:34)
[2017-10-03] MEDS: PIPERACILLIN-TAZOBACTAM 3.375 GM in DEXTROSE/WATER 1 50ML.BAG IVPB SCH ×3 (01:40→17:13)
[2017-10-03] MEDS: oxyCODONE-APAP 10-325MG 1 EACH TAB PEG/G-TUBE PRN (05:11)
[2017-10-03] MEDS: LEVOTHYROXINE 100 MCG TAB PEG/G-TUBE SCH (06:22)
[2017-10-03 08:10] LABS: Basophils % (A) 0 %; Eosinophils % (A) 0 %; HCT 31.2 % (39.0-53.0); HGB 10.6 gm/dL (13.0-17.5); Lymphocytes # (A) 0.3 k/uL (1.0-4.8); Lymphocytes % (A) 4 %; MCH 29.2 pg (25.0-35.0); MCHC 34.2 g/dL (31.0-37.0); MCV 85.6 fL (80.0-100.0); Monocytes # (A) 0.3 k/uL (0-1.0); Monocytes % (A) 4 %; Neutrophils # (A) 7.8 k/uL (1.3-7.7); Neutrophils % (A) 91 %; Poikilocytosis Slight; RBC 3.64 m/uL (4.30-5.90); RDW 15.5 % (11.5-15.5); WBC 8.6 k/uL (3.8-10.6)
[2017-10-03 08:11] LABS: Platelet Count 92 k/uL (150-450)
[2017-10-03 08:29] LABS: Anion Gap 10 mmol/L; Blood Urea Nitrogen 11 mg/dL (9-20); Calcium 7.9 mg/dL (8.4-10.2); Carbon Dioxide 23 mmol/L (22-30); Chloride 105 mmol/L (98-107); Glucose 98 mg/dL (74-99); Potassium 3.6 mmol/L (3.5-5.1); Sodium 138 mmol/L (137-145)
[2017-10-03] MEDS: VANCOMYCIN 1,250 MG in SODIUM CHLORIDE 0.9% 250 ML IVPB SCH ×2 (09:43→14:38)
[2017-10-03] MEDS: PANTOPRAZOLE 40 MG TABLET PO SCH (11:41)
--- NOTE | 2017-10-03 11:58 | P.PN ---
Subjective Progress Note Date: 10/03/17 Principal diagnosis: PEG tube malfunction I was contacted by the nursing staff last night. I'm covering for Dr. Dent. They had signed off of the case yesterday. We're re-consulted to evaluate the PEG tube once again. The PEG tube is tender to the touch. It is draining some tube feeds or purulence around the feeding tube site. CAT scan reviewed and shows the PEG tube within the subcutaneous fat. Objective - Vital Signs Vital signs: Vital Signs Temp 97.8 F 10/03/17 05:00 Pulse 73 10/03/17 05:00 Resp 16 10/03/17 05:00 BP 139/73 10/03/17 05:00 Pulse Ox 95 10/03/17 05:00 Intake & Output 10/02/17 10/03/17 10/03/17 18:59 06:59 18:59 Intake Total 1500 300 Balance 1500 300 Weight 67.132 kg Intake: Intake, IV Titration 300 Amount Piperacillin-Tazobactam 3 50 .375 gm In Dextrose/Water 1 50ml.bag @ 12.5 mls/hr IVPB Q8HR [facility] Rx#: [id number] Vancomycin 1,250 mg In 250 Sodium Chloride 0.9% 250 ml @ 125 mls/hr IVPB Q8H RAD[facility] Rx#:[id number] Tube Feeding 1500 Other: Voiding Method Toilet Toilet # Voids 1 - Exam PEG tube button with mild erythema and tenderness, able to palpate hub of button beneath skin surface - Labs CBC & Chem 7: 10/03/17 07:39 10/03/17 07:39 Labs: Abnormal Lab Results - Last 24 Hours (Table) 10/03/17 10/03/17 Range/Units 07:39 07:39 RBC 3.64 L (4.30-5.90) m/uL Hgb 10.6 L (13.0-17.5) gm/dL Hct 31.2 L (39.0-53.0) % Plt Count 92 L (150-450) k/uL Neutrophils # 7.8 H (1.3-7.7) k/uL Lymphocytes # 0.3 L (1.0-4.8) k/uL Creatinine 0.63 L (0.66-1.25) mg/dL Calcium 7.9 L (8.4-10.2) mg/dL Microbiology - Last 24 Hours (Table) 09/30/17 13:01 Blood Culture - Preliminary Blood No Growth after 48 hours 10/01/17 17:40 Gram Stain - Preliminary Abdomen Wound Culture - Preliminary Assessment and Plan (1) PEG tube malfunction Narrative/Plan: Options discussed with the patient. We'll plan endoscopic removal and replacement of the feeding tube with a balloon DEMETRI tube. This can later be switched back to a button if needed. Risks of bleeding, infection, respiratory failure were discussed. He understands and wishes to proceed. Current Visit: Yes Status: Acute Code(s): K94.23 - GASTROSTOMY MALFUNCTION SNOMED Code(s): 064412909
[2017-10-03] MEDS: ONDANSETRON 4 MG/2 ML VIAL IVP PRN (12:45)
[2017-10-03] MEDS: PANTOPRAZOLE 40 MG/10 ML VIAL IVP SCH (12:49)
--- NOTE | 2017-10-03 15:21 | P.PN ---
Subjective Progress Note Date: 10/03/17 This is a 52-year-old patient of Dr. Rubi who presented to the emergency room with pain around his PEG tube site. Patient states pain has been going on for 2 days. Patient states he's had the PEG tube for many years and has used it for feedings and medications. Patient has a significant history for neck cancer in which he had a surgical resection and required a tracheostomy tube insertion. Patient also has a history of diabetes and thyroid disorder. He states he has been dealing with neck cancer for 12 years. Patient presented with a white blood cell 2.1. X-ray of abdomen completed in the emergency room, unremarkable study. Patient has been started on IV antibiotics Rocephin and vancomycin. Patient is complaining of pain around the PEG tube site. Site does appear slightly pink with some drainage noted. Patient currently has pain meds morphine 4 mg every 3 hrs and Percocet 10/325- every 6 hours. Blood cultures and urine cultures have been sent. Patient states he lives at home by himself and manages his care. Patient also has a tracheostomy in which he is on room air. Site looks clean dry and intact. Nurse stated that patient refused to do tube feeding this a.m. due to pain around the PEG tube site. Patient denies nausea, vomiting, shortness of breath or chest pain at this time 10/02/2017 patient's tube feedings have been adjusted per dietitian to scheduled times instead of continuous patient was getting too full. Still having some pain around his PEG tube site. Computed tomography scan was completed showing no abscess. He is followed by infectious disease. And surgery has been consulted as well. Patient seen by oncology has known history of neck cancer. Denies any chest pain or shortness of breath denies any nausea or vomiting. Reports having bowel movements and denies any difficulty urinating. On 10/03/2017 The PEG tube is tender to the touch. It is draining some tube feeds or purulence around the feeding tube site. CAT scan reviewed and shows the PEG tube within the subcutaneous fat. Surgery were reconsulted and are planning endoscopic removal and replacement of the feeding tube Objective - Vital Signs Vital signs: Vital Signs Temp 97.8 F 10/03/17 05:00 Pulse 73 10/03/17 08:20 Resp 16 10/03/17 08:20 BP 139/73 10/03/17 05:00 Pulse Ox 95 10/03/17 05:00 Intake & Output 10/02/17 10/03/17 10/03/17 18:59 06:59 18:59 Intake Total 1500 300 Balance 1500 300 Weight 67.132 kg Intake: Intake, IV Titration 300 Amount Piperacillin-Tazobactam 3 50 .375 gm In Dextrose/Water 1 50ml.bag @ 12.5 mls/hr IVPB Q8HR [facility] Rx#: [id number] Vancomycin 1,250 mg In 250 Sodium Chloride 0.9% 250 ml @ 125 mls/hr IVPB Q8H [facility] Rx#:[id number] Tube Feeding 1500 Other: Voiding Method Toilet Toilet Toilet # Voids 1 1 - Exam Head normocephalic and atraumatic Neck supple, no JVD no goiter Lungs clear to auscultation bilaterally no wheezing or crackles Heart regular rate and rhythm S1-S2, no rub or gallop Abdomen is soft nontender nondistended positive bowel sounds no hepatosplenomegaly. Cellulitis changes around the PEG tube site. Also some pus discharge noted on the gauze pad. Patient also had some bleeding around the PEG tube site likely where the gauze had caught a scab. Extremities no edema Neuro alert and orientated to 3 - Labs CBC & Chem 7: 10/03/17 07:39 10/03/17 07:39 Labs: Abnormal Lab Results - Last 24 Hours (Table) 10/03/17 10/03/17 Range/Units 07:39 07:39 RBC 3.64 L (4.30-5.90) m/uL Hgb 10.6 L (13.0-17.5) gm/dL Hct 31.2 L (39.0-53.0) % Plt Count 92 L (150-450) k/uL Neutrophils # 7.8 H (1.3-7.7) k/uL Lymphocytes # 0.3 L (1.0-4.8) k/uL Creatinine 0.63 L (0.66-1.25) mg/dL Calcium 7.9 L (8.4-10.2) mg/dL Microbiology - Last 24 Hours (Table) 09/30/17 13:01 Blood Culture - Preliminary Blood No Growth after 48 hours Assessment and Plan Plan: 1. Cellulitis of the PEG tube site. Abdomen xray completed, unremarkable study. seen by infectious disease. Antibiotics adjusted to vancomycin and Zosyn. Computed tomography scan of the abdomen showed no evidence of abscess. Surgery has been consulted. He is tolerating PEG tube feedings. He had fullness with the continuous feedings. Feeding is stopped at this time awaiting intervention by surgery. 2. 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 Last dose of chemo 2 weeks ago. Patient currently has tracheostomy tube. Patient is currently on room air 3. History of hypothyroidism: Patient managed on Synthroid 4. Pancytopenia secondary to the chemotherapy. Patient started on zarxio by oncology for the leukopenia and acute infection. White count has come up to 4.7. Continue monitor the anemia and thrombocytopenia her oncology not requiring intervention at this time. Hemoglobin has gone up to 11.1 and platelets have gone up to 90 5. Chronic pain: managed on Percocet GI prophylaxis Protonix, DVT prophylaxis SCDs not on intake regulation due to the thrombocytopenia
[2017-10-04] MEDS: VANCOMYCIN 1,250 MG in SODIUM CHLORIDE 0.9% 250 ML IVPB SCH ×2 (00:03→08:03)
[2017-10-04] MEDS: PIPERACILLIN-TAZOBACTAM 3.375 GM in DEXTROSE/WATER 1 50ML.BAG IVPB SCH ×3 (02:21→17:42)
[2017-10-04] MEDS: MORPHINE SULFATE 2 MG/ML SYRINGE IVP PRN ×5 (03:17→22:08)
[2017-10-04] MEDS ORDERED: VANCOMYCIN TROUGH DUE 1 EACH MISC MISCELLANE ONE (06:00)
[2017-10-04 06:52] LABS: ALT 33 U/L (21-72); AST 29 U/L (17-59); Albumin 2.9 g/dL (3.5-5.0); Alkaline Phosphatase 101 U/L (38-126); Anion Gap 12 mmol/L; Anisocytosis Slight; Basophils % (A) 0 %; Blood Urea Nitrogen 12 mg/dL (9-20); Calcium 7.9 mg/dL (8.4-10.2); Carbon Dioxide 22 mmol/L (22-30); Chloride 106 mmol/L (98-107); Eosinophils % (A) 0 %; Glucose 77 mg/dL (74-99); HCT 32.1 % (39.0-53.0); HGB 10.6 gm/dL (13.0-17.5); Lymphocytes # (A) 0.2 k/uL (1.0-4.8); Lymphocytes % (A) 3 %; MCH 28.6 pg (25.0-35.0); MCV 86.9 fL (80.0-100.0); Mean Platelet Volume 7.3; Monocytes # (A) 0.3 k/uL (0-1.0); Monocytes % (A) 4 %; Neutrophils # (A) 7.6 k/uL (1.3-7.7); Neutrophils % (A) 91 %; Platelet Count 103 k/uL (150-450); Poikilocytosis Slight; Potassium 3.3 mmol/L (3.5-5.1); RBC 3.69 m/uL (4.30-5.90); RDW 16.4 % (11.5-15.5); Sodium 140 mmol/L (137-145); Total Bilirubin 1.3 mg/dL (0.2-1.3); Total Protein 5.3 g/dL (6.3-8.2); WBC 8.3 k/uL (3.8-10.6)
[2017-10-04] MEDS: LEVOTHYROXINE 100 MCG TAB PEG/G-TUBE SCH (09:30)
[2017-10-04] MEDS ORDERED: GLYCOPYRROLATE 0.2 MG/ML 2 ML VIAL ONE (09:37)
[2017-10-04] MEDS ORDERED: LIDOCAINE 1% INJ 10MG/ML (20 ML MDV) ONE (09:37)
[2017-10-04] MEDS ORDERED: MIDAZOLAM 2 MG/2 ML VIAL ONE (09:37)
[2017-10-04] MEDS ORDERED: PROPOFOL 10 MG/ML 20 ML VIAL IV ONE (09:37)
[2017-10-04] MEDS ORDERED: IV FLUID CONTINUATION 1,000 ML IV ONE (09:42)
--- NOTE | 2017-10-04 09:57 | P.PCN ---
Date of Procedure: 10/04/17 Procedure(s) Performed: PREOPERATIVE DIAGNOSIS: G-tube malfunction POSTOPERATIVE DIAGNOSIS: Same PROCEDURE: Replacement gastrostomy tube SURGEON: Felicita EBL: Minimal ANESTHESIA: Sedation COMPLICATIONS: None OPERATIVE PROCEDURE: Patient was sedated in the supine position by anesthesia. The gastrostomy button was able to be removed without difficulty. It was just at the skin surface essentially. Through that opening in the skin a 16-Maur[place] balloon DEMETRI tube was able to be advanced meeting very little resistance. I then changed to an 18-Maur[place] DEMETRI tube which again advanced without difficulty into the stomach. Gastric contents were aspirated that were bilious in nature. The balloon was inflated with 10 mL. The bolster was very loosely applied. Drain sponges were applied. DISPOSITION: Stable to recovery room
[2017-10-04] MEDS: PANTOPRAZOLE 40 MG/10 ML VIAL IVP SCH (10:23)
--- NOTE | 2017-10-04 12:48 | P.PN ---
Subjective Progress Note Date: 10/04/17 This is a 52-year-old patient of Dr. Rubi who presented to the emergency room with pain around his PEG tube site. Patient states pain has been going on for 2 days. Patient states he's had the PEG tube for many years and has used it for feedings and medications. Patient has a significant history for neck cancer in which he had a surgical resection and required a tracheostomy tube insertion. Patient also has a history of diabetes and thyroid disorder. He states he has been dealing with neck cancer for 12 years. Patient presented with a white blood cell 2.1. X-ray of abdomen completed in the emergency room, unremarkable study. Patient has been started on IV antibiotics Rocephin and vancomycin. Patient is complaining of pain around the PEG tube site. Site does appear slightly pink with some drainage noted. Patient currently has pain meds morphine 4 mg every 3 hrs and Percocet 10/325- every 6 hours. Blood cultures and urine cultures have been sent. Patient states he lives at home by himself and manages his care. Patient also has a tracheostomy in which he is on room air. Site looks clean dry and intact. Nurse stated that patient refused to do tube feeding this a.m. due to pain around the PEG tube site. Patient denies nausea, vomiting, shortness of breath or chest pain at this time 10/02/2017 patient's tube feedings have been adjusted per dietitian to scheduled times instead of continuous patient was getting too full. Still having some pain around his PEG tube site. Computed tomography scan was completed showing no abscess. He is followed by infectious disease. And surgery has been consulted as well. Patient seen by oncology has known history of neck cancer. Denies any chest pain or shortness of breath denies any nausea or vomiting. Reports having bowel movements and denies any difficulty urinating. On 10/03/2017 The PEG tube is tender to the touch. It is draining some tube feeds or purulence around the feeding tube site. CAT scan reviewed and shows the PEG tube within the subcutaneous fat. Surgery were reconsulted and are planning endoscopic removal and replacement of the feeding tube . 10/04/2017 patient is alert and oriented 3 in no apparent distress, he had his PEG tube removed and replaced this morning by Dr. Pfeiffer patient is doing better tenderness in the area has improved, there is no fever or chills no headache no dizziness, no chest pain or shortness of breath no cough no nausea or vomiting no abdominal pain and no urinary symptoms. Objective - Vital Signs Vital signs: Vital Signs Temp 98.2 F 10/04/17 12:37 Pulse 64 10/04/17 12:37 Resp 18 10/04/17 12:37 BP 131/67 10/04/17 12:37 Pulse Ox 96 10/04/17 12:37 Intake & Output 10/03/17 10/04/17 10/04/17 18:59 06:59 18:59 Intake Total 300 50 Balance 300 50 Weight 67.132 kg Intake: IV 50 Intake, IV Titration 300 Amount Piperacillin-Tazobactam 3 50 .375 gm In Dextrose/Water 1 50ml.bag @ 12.5 mls/hr IVPB Q8HR [facility] Rx#: [id number] Vancomycin 1,250 mg In 250 Sodium Chloride 0.9% 250 ml @ 125 mls/hr IVPB Q8H [facility] Rx#:[id number] Other: Voiding Method Toilet Toilet Toilet # Voids 1 2 - Exam Head normocephalic and atraumatic Neck supple, no JVD no goiter Lungs clear to auscultation bilaterally no wheezing or crackles Heart regular rate and rhythm S1-S2, no rub or gallop Abdomen is soft nontender nondistended positive bowel sounds no hepatosplenomegaly. PEG tube has been replaced Extremities no edema Neuro alert and orientated to 3 - Labs CBC & Chem 7: 10/04/17 06:26 10/04/17 06:26 Labs: Abnormal Lab Results - Last 24 Hours (Table) 10/04/17 10/04/17 Range/Units 06:26 06:26 RBC 3.69 L (4.30-5.90) m/uL Hgb 10.6 L (13.0-17.5) gm/dL Hct 32.1 L (39.0-53.0) % RDW 16.4 H (11.5-15.5) % Plt Count 103 L (150-450) k/uL Lymphocytes # 0.2 L (1.0-4.8) k/uL Potassium 3.3 L (3.5-5.1) mmol/L Creatinine 0.64 L (0.66-1.25) mg/dL Calcium 7.9 L (8.4-10.2) mg/dL Total Protein 5.3 L (6.3-8.2) g/dL Albumin 2.9 L (3.5-5.0) g/dL Microbiology - Last 24 Hours (Table) 10/01/17 17:40 Gram Stain - Final Abdomen Wound Culture - Final 09/30/17 13:01 Blood Culture - Preliminary Blood No Growth after 72 hours Assessment and Plan Plan: 1. Cellulitis of the PEG tube site. Abdomen xray completed, unremarkable study. seen by infectious disease. Antibiotics adjusted to vancomycin and Zosyn. Computed tomography scan of the abdomen showed no evidence of abscess. Surgery has been consulted. He is tolerating PEG tube feedings. He had fullness with the continuous feedings. Feeding has been stopped, patient underwent PEG tube removal and replacement this morning by Dr. Pfeiffer. 2. 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 Last dose of chemo 2 weeks ago. Patient currently has tracheostomy tube. Patient is currently on room air 3. History of hypothyroidism: Patient managed on Synthroid 4. Pancytopenia secondary to the chemotherapy. Patient started on zarxio by oncology for the leukopenia and acute infection. White count has come up to 4.7. Continue monitor the anemia and thrombocytopenia her oncology not requiring intervention at this time. Hemoglobin has gone up to 11.1 and platelets have gone up to 90 5. Chronic pain: managed on Percocet, currently patient is off Percocet and receiving IV morphine GI prophylaxis Protonix, DVT prophylaxis SCDs not on intake regulation due to the thrombocytopenia
[2017-10-04] MEDS ORDERED: Potassium Replacement Protocol 1 EACH MISC MISCELLANE PRN ×2 (13:28→13:40)
[2017-10-04] MEDS: ONDANSETRON 4 MG/2 ML VIAL IVP PRN (13:40)
[2017-10-04] MEDS: VANCOMYCIN 1,000 MG in SODIUM CHLORIDE 0.9% 250 ML IVPB SCH ×2 (15:11→22:36)
[2017-10-04] MEDS: POTASSIUM CHLORIDE 20 MEQ in WATER FOR INJECTION 1 100ML.BAG IVPB SCH ×2 (15:17→16:44)
[2017-10-05] MEDS: PIPERACILLIN-TAZOBACTAM 3.375 GM in DEXTROSE/WATER 1 50ML.BAG IVPB SCH ×3 (00:14→15:26)
[2017-10-05] MEDS: MORPHINE SULFATE 2 MG/ML SYRINGE IVP PRN ×5 (01:21→15:24)
[2017-10-05] MEDS: ONDANSETRON 4 MG/2 ML VIAL IVP PRN (01:21)
[2017-10-05] MEDS: LEVOTHYROXINE 100 MCG TAB PEG/G-TUBE SCH (05:30)
--- NOTE | 2017-10-05 06:20 | PN ---
PROGRESS NOTE DATE OF SERVICE: 10/04/2017. REASON FOR FOLLOW UP: PEG tube site cellulitis. INTERVAL HISTORY: The patient is afebrile. Has been breathing comfortably. Pain to the right side has improved. Denies any chest pain, shortness of breath or cough. No diarrhea. EXAMINATION: Blood pressure 128/74 with a pulse of 95. Temperature 97.9. He is 93% on room air. General description is a middle-aged male lying in bed in no distress. RESPIRATORY SYSTEM: Unlabored breathing. Clear to auscultation anteriorly. HEART: S1, S2. Regular rate and rhythm. ABDOMEN: Soft, no tenderness. PEG tube site showed overall improvement. No drainage. LABS: Hemoglobin is 10.8, white count of 8.3 with a BUN of 12, creatinine 0.64. The abdominal culture with anaerobic gram-negative bacilli. DIAGNOSTIC IMPRESSION AND PLAN: Patient with PEG tube site cellulitis. So far culture negative for resistant pathogen. Plan to finish therapy with oral Augmentin through the PEG tube for about a week along with Mycolog cream. Continue supportive care. MMODL / IJN: [id number] /
--- NOTE | 2017-10-05 07:17 | P.PN ---
Subjective Progress Note Date: 10/05/17 Principal diagnosis: PEG tube malfunction Patient doing well today after PEG tube exchange yesterday. Minimal pain. Small amount of drainage around the tube site. Tolerating tube feeds. Objective - Vital Signs Vital signs: Vital Signs Temp 97.4 F L 10/04/17 23:00 Pulse 84 10/04/17 23:00 Resp 16 10/04/17 23:00 BP 114/64 10/04/17 23:00 Pulse Ox 95 10/04/17 23:00 Intake & Output 10/04/17 10/05/17 10/05/17 18:59 06:59 18:59 Intake Total 175 125 Balance 175 125 Weight 65.998 kg Intake: IV 50 Tube Feeding 125 125 Other: Voiding Method Toilet Toilet # Voids 2 - Exam Abdomen: Soft, nondistended, small mild drainage around gastrostomy tube - Labs CBC & Chem 7: 10/04/17 06:26 10/04/17 06:26 Labs: Microbiology - Last 24 Hours (Table) 10/01/17 17:40 Anaerobic Culture - Final Abdomen Anaerobic Gm Negative Bacilli 09/30/17 13:01 Blood Culture - Preliminary Blood No Growth after 96 hours Assessment and Plan (1) PEG tube malfunction Narrative/Plan: Continue local wound care around the tube site. Continue feeding as tolerated. We'll sign off. Please call if needed. Current Visit: Yes Status: Acute Code(s): K94.23 - GASTROSTOMY MALFUNCTION SNOMED Code(s): 111779646
[2017-10-05 07:22] LABS: Basophils % (A) 0 %; Eosinophils % (A) 1 %; HCT 29.3 % (39.0-53.0); HGB 9.7 gm/dL (13.0-17.5); Lymphocytes # (A) 0.3 k/uL (1.0-4.8); Lymphocytes % (A) 9 %; MCH 28.4 pg (25.0-35.0); MCHC 33.2 g/dL (31.0-37.0); MCV 85.5 fL (80.0-100.0); Mean Platelet Volume 7.4; Monocytes # (A) 0.3 k/uL (0-1.0); Monocytes % (A) 7 %; Neutrophils # (A) 2.7 k/uL (1.3-7.7); Neutrophils % (A) 79 %; Platelet Count 100 k/uL (150-450); Poikilocytosis Slight; RBC 3.43 m/uL (4.30-5.90); RDW 15.9 % (11.5-15.5); WBC 3.4 k/uL (3.8-10.6)
[2017-10-05 07:32] LABS: ALT 37 U/L (21-72); AST 31 U/L (17-59); Albumin 2.6 g/dL (3.5-5.0); Alkaline Phosphatase 121 U/L (38-126); Anion Gap 9 mmol/L; Blood Urea Nitrogen 11 mg/dL (9-20); Calcium 7.6 mg/dL (8.4-10.2); Carbon Dioxide 26 mmol/L (22-30); Chloride 107 mmol/L (98-107); Glucose 76 mg/dL (74-99); Sodium 142 mmol/L (137-145); Total Bilirubin 0.6 mg/dL (0.2-1.3)
[2017-10-05 07:57] LABS: Potassium 2.9 mmol/L (3.5-5.1)
[2017-10-05] MEDS: VANCOMYCIN 1,000 MG in SODIUM CHLORIDE 0.9% 250 ML IVPB SCH ×2 (08:55→15:26)
[2017-10-05] MEDS: PANTOPRAZOLE 40 MG/10 ML VIAL IVP SCH (10:17)
[2017-10-05] MEDS: POTASSIUM BICARBONATE/CIT AC 20 MEQ TABLET.EFF NG-TUBE SCH ×3 (10:17→13:37)
[2017-10-05 14:11] VITALS: BMI 21.4
--- NOTE | 2017-10-05 14:54 | P.DS ---
Providers Date of admission: 09/30/17 14:54 Expected date of discharge: 10/05/17 Attending physician: Riccardo Cedillo Consults: 10/01/17 13:53 Consult Physician Routine Consulting Provider: Bimal Sanches Consult Reason/Comments: Neck cancer Do you want consulting provider notified?: Yes 10/01/17 13:54 Consult Physician Routine Consulting Provider: Yahir Dent Consult Reason/Comments: cellulitis of peg tube Do you want consulting provider notified?: Already Contacted Consult Physician Routine Consulting Provider: Karen Roe Consult Reason/Comments: cellulits of peg tube site Do you want consulting provider notified?: Yes 10/02/17 21:29 Consult Physician Routine Consulting Provider: Bolivar Mims Consult Reason/Comments: pus leaking around peg tube site, small lump around peg tube, cellulitis Do you want consulting provider notified?: Already Contacted Primary care physician: Elvia Person [facility] Course: Discharge Summary 1. Cellulitis of the PEG tube site. Abdomen xray completed, unremarkable study. seen by infectious disease. Antibiotics adjusted to vancomycin and Zosyn. Computed tomography scan of the abdomen showed no evidence of abscess. Surgery has been consulted. Feeding has been stopped, patient underwent PEG tube removal and replacement yesterday by Dr. Pfeiffer. patient tolerating tube feedings. Surgical services has signed off. Patient will be d/c home with Augmentin. Patient to follow up with Dr. Roe outpatient. 2. 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 Last dose of chemo 2 weeks ago. Patient currently has tracheostomy tube. Patient is currently on room air. Patient to follow up with oncology outpatient 3. History of hypothyroidism: Patient managed on Synthroid 4. Pancytopenia secondary to the chemotherapy. Patient started on zarxio by oncology for the leukopenia and acute infection. White count has come up to 3.4. Continue monitor the anemia and thrombocytopenia her oncology not requiring intervention at this time. Hemoglobin has gone up to 11.1 and platelets have gone up to 5. Chronic pain:home percocet has been ordered 6. Hypokalemia potassium 2.9. Patient potassium replacement and recheck 3.8. Hosptial Course This is a 52-year-old patient of Dr. Rubi who presented to the emergency room with pain around his PEG tube site. Patient states pain has been going on for 2 days. Patient states he's had the PEG tube for many years and has used it for feedings and medications. Patient has a significant history for neck cancer in which he had a surgical resection and required a tracheostomy tube insertion. Patient also has a history of diabetes and thyroid disorder. He states he has been dealing with neck cancer for 12 years. Patient presented with a white blood cell 2.1. X-ray of abdomen completed in the emergency room, unremarkable study. Patient has been started on IV antibiotics Rocephin and vancomycin. Patient is complaining of pain around the PEG tube site. Site does appear slightly pink with some drainage noted. Patient currently has pain meds morphine 4 mg every 3 hrs and Percocet 10/325- every 6 hours. Blood cultures and urine cultures have been sent. Patient states he lives at home by himself and manages his care. Patient also has a tracheostomy in which he is on room air. Site looks clean dry and intact. Nurse stated that patient refused to do tube feeding this a.m. due to pain around the PEG tube site. Patient denies nausea, vomiting, shortness of breath or chest pain at this time 10/02/2017 patient's tube feedings have been adjusted per dietitian to scheduled times instead of continuous patient was getting too full. Still having some pain around his PEG tube site. Computed tomography scan was completed showing no abscess. He is followed by infectious disease. And surgery has been consulted as well. Patient seen by oncology has known history of neck cancer. Denies any chest pain or shortness of breath denies any nausea or vomiting. Reports having bowel movements and denies any difficulty urinating. On 10/03/2017 The PEG tube is tender to the touch. It is draining some tube feeds or purulence around the feeding tube site. CAT scan reviewed and shows the PEG tube within the subcutaneous fat. Surgery were reconsulted and are planning endoscopic removal and replacement of the feeding tube . 10/04/2017 patient is alert and oriented 3 in no apparent distress, he had his PEG tube removed and replaced this morning by Dr. Pfeiffer patient is doing better tenderness in the area has improved, there is no fever or chills no headache no dizziness, no chest pain or shortness of breath no cough no nausea or vomiting no abdominal pain and no urinary symptoms. Patient tolerating tube feedings. Pain and discomfort has significantly improved. Patient will be this discharged home on Augmentin. Patient to follow -up outpatient with Dr. Sanches per oncology. Surgical services and infectious disease has cleared patient for discharge. Patient Condition at Discharge: Good Plan - Discharge Summary Discharge Rx Participant: No New Discharge Prescriptions: New Nystatin/Triamcin Cream [Mycolog 100,000-0.1 Unit/gm-% Cream] 1 applic TOPICAL BID #1 tube Continue oxyCODONE-APAP 10-325MG [Percocet 10-325 mg] 1 tab PEG/G-TUBE TID PRN PRN Reason: Pain Levothyroxine Sodium 100 mcg PEG/G-TUBE DAILY Discharge Medication List oxyCODONE-APAP 10-325MG [Percocet 10-325 mg] 1 tab PEG/G-TUBE TID PRN 03/05/16 [ History] Levothyroxine Sodium 100 mcg PEG/G-TUBE DAILY 09/30/17 [History] Nystatin/Triamcin Cream [Mycolog 100,000-0.1 Unit/gm-% Cream] 1 applic TOPICAL BID #1 tube 10/05/17 [Rx] Follow up Appointment(s)/Referral(s): Bimal Sanches MD [STAFF PHYSICIAN] - 1 Week Elvia Person MD [Primary Care Provider] - 1-2 days Activity/Diet/Wound Care/Special Instructions: Apply twice a day and as needed zinc oxide PEG tube site daily Diet tube feeding activity as tolerated Discharge Disposition: HOME SELF-CARE
[2017-10-05 15:19] VITALS: BP 131/70; PULSE 69; RESP 17; TEMP 96.8
--- NOTE | 2017-10-05 16:36 | PN ---
PROGRESS NOTE DATE OF SERVICE: 10/05/2017 REASON FOR FOLLOWUP: PEG tube site cellulitis. INTERVAL HISTORY: The patient is breathing comfortably. Denies having any chest pain or cough. Abdominal pain has improved. No nausea. No vomiting. PHYSICAL EXAMINATION: Blood pressure 115/63 with a pulse of 68, temperature 97.5. He is 93% on room air. General description is a middle--aged male up in the room in no distress. RESPIRATORY SYSTEM: Unlabored breathing. Clear to auscultation anteriorly. HEART: S1, S2. Regular rate and rhythm. ABDOMEN: Soft. No tenderness. LABS: Wound culture with anaerobic Gram-negative. DIAGNOSTIC IMPRESSION AND PLAN: Patient with PEG tube site cellulitis with so far no resistant bacteria on the culture with a plan to finish therapy with for 10 days with close outpatient followup. Continue with supportive care. MMODL / IJN: [id number] /
== END 2017-10-05 16:20 | disposition home or self-care (01) | DRG 393 ==
LOC: EC 12:14 → 5MS5E 14:54 → 5ONC 15:42
PROVIDERS: ADMIT Internal Medicine; ATTEND Internal Medicine
PROC: 0D20XUZ Change Feeding Device in Upper Intestinal Tract, External Approach (ICD-10-PCS; principal; 2017-10-04 09:00)
DX: K94.22 Gastrostomy infection (principal); D61.810 Antineoplastic chemotherapy induced pancytopenia; L03.311 Cellulitis of abdominal wall; K94.23 Gastrostomy malfunction; E87.6 Hypokalemia; E11.9 Type 2 diabetes mellitus without complications; C76.0 Malignant neoplasm of head, face and neck; T45.1X5A Adverse effect of antineoplastic and immunosuppressive drugs, initial encounter; E03.9 Hypothyroidism, unspecified; G89.29 Other chronic pain; Z79.891 Long term (current) use of opiate analgesic; Z87.891 Personal history of nicotine dependence; Z86.14 Personal history of Methicillin resistant Staphylococcus aureus infection; Z80.9 Family history of malignant neoplasm, unspecified; Z82.49 Family history of ischemic heart disease and other diseases of the circulatory system; Z92.3 Personal history of irradiation; Z79.890 Hormone replacement therapy; Z90.09 Acquired absence of other part of head and neck; Z87.81 Personal history of (healed) traumatic fracture; Z93.0 Tracheostomy status; Z92.21 Personal history of antineoplastic chemotherapy
CPT/HCPCS: 36415; 43760; 74022; 74177; 80048; 80053; 80202; 81003; 82150; 82550; 82553; 83605; 83690; 84132; 84484; 85025; 87040; 87070; 87075; 87086; 87205; 96361; 96365; 96366; 96375; 96376; 99284

== ENCOUNTER 2018-04-21 22:44 | Emergency (ER) | payer MEDICARE, OTHER ==
[2018-04-21] MEDS ORDERED: SODIUM CHLORIDE 0.9% 500 ML 500 ML IV STA (23:44)
[2018-04-21] MEDS ORDERED: MORPHINE SULFATE 2 MG/ML SYRINGE IVP STA (23:44)
[2018-04-22 00:31] LABS: ALT 51 U/L (21-72); AST 44 U/L (17-59); Alkaline Phosphatase 123 U/L (38-126); Anion Gap 8 mmol/L; Basophils % (A) 0 %; Blood Urea Nitrogen 24 mg/dL (9-20); Calcium 9.2 mg/dL (8.4-10.2); Carbon Dioxide 27 mmol/L (22-30); Chloride 102 mmol/L (98-107); Eosinophils # (A) 0.2 k/uL (0-0.7); Eosinophils % (A) 3 %; Glucose 117 mg/dL (74-99); HCT 36.3 % (39.0-53.0); HGB 11.9 gm/dL (13.0-17.5); Hypochromasia Slight; Lipase 90 U/L (23-300); Lymphocytes # (A) 0.4 k/uL (1.0-4.8); Lymphocytes % (A) 8 %; MCH 29.7 pg (25.0-35.0); MCHC 32.9 g/dL (31.0-37.0); MCV 90.4 fL (80.0-100.0); Monocytes # (A) 0.4 k/uL (0-1.0); Monocytes % (A) 8 %; Neutrophils % (A) 78 %; Potassium 4.8 mmol/L (3.5-5.1); RBC 4.01 m/uL (4.30-5.90); RDW 15.8 % (11.5-15.5); Sodium 137 mmol/L (137-145); Total Bilirubin 0.5 mg/dL (0.2-1.3); Total Protein 7.1 g/dL (6.3-8.2); WBC 5.1 k/uL (3.8-10.6)
[2018-04-22 00:33] LABS: Platelet Count 100 k/uL (150-450)
[2018-04-22 00:36] LABS: Amylase <30 U/L (30-110)
[2018-04-22] MEDS ORDERED: MORPHINE SULFATE 4 MG/ML SYRINGE IVP STA (01:33)
--- NOTE | 2018-04-22 02:04 | XR ---
EXAMINATION TYPE: XR KUB DATE OF EXAM: 04/22/2018 COMPARISON: 09/30/2017 HISTORY: Check tube placement Findings A small amount of contrast is injected into the PEG tube. There is contrast in the gastric fundus. I see no sign of extravasation. There are clips in the right mid abdomen. There is no sign of free air. IMPRESSION: PEG tube appears in good position. Nonacute abdomen.
[2018-04-22 02:18] VITALS: BP 115/73; PULSE 68; RESP 16; TEMP 97.1
--- NOTE | 2018-04-22 02:46 | ED ---
Abdominal Pain HPI - General Source: patient Mode of arrival: ambulatory Limitations: no limitations <Dana Villareal - Last Filed: 04/22/18 04:11> <Sai Sharma - Last Filed: 04/24/18 09:16> - General Chief Complaint: Abdominal Pain Stated Complaint: Feeding tube issue Time Seen by Provider: 04/21/18 23:25 - History of Present Illness Initial Comments: 52-year-old male patient presents to the emergency department today for evaluation of dislodged PEG tube. Patient states that 4 hours ago he accidentally pulled on the tube and it seemed to dislodge. Patient states since then he has been having increased pain around the site. States that he tried to instill fluid, but the area around the insertion site became puffy. States that he has also been having drainage and redness around the area for the last 3 days. He denies any fevers or chills with this. Denies any nausea. Patient denies any recent rash, shortness breath, chest pain, diarrhea, constipation, back pain, numbness, tingling, dizziness, weakness, hematuria, dysuria, urinary urgency, urinary frequency, headache, visual changes, or any other complaints. (Dana Villareal) - Related Data Home Medications Medication Instructions Recorded Confirmed oxyCODONE-APAP 10-325MG [Percocet 1 tab PEG/G-TUBE TID PRN 03/05/16 04/21/18 10-325 mg] Levothyroxine Sodium 100 mcg PEG/G-TUBE DAILY 09/30/17 04/21/18 Previous Rx's Medication Instructions Recorded Cephalexin [Keflex] 500 mg PO Q6H #40 cap 04/22/18 Allergies Allergy/AdvReac Type Severity Reaction Status Date / Time venom-honey bee Allergy Anaphylaxis Verified 04/21/18 23:28 Review of Systems ROS Other: All systems not noted in ROS Statement are negative. <Dana Villareal - Last Filed: 04/22/18 04:11> ROS Other: All systems not noted in ROS Statement are negative. <Sai Sharma - Last Filed: 04/24/18 09:16> ROS Statement: Those systems with pertinent positive or pertinent negative responses have been documented in the HPI. 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 and the patient had a surgical resection with reconstructive surgery and a muscle flap followed by tracheostomy tube insertion History of Any Multi-Drug Resistant Organisms: MRSA Date of last positivie culture/infection: 03/11/16 MDRO Source:: Abdomen Additional Past Surgical History / Comment(s): throat and jaw, left ankle ORIF for a fracture Past Anesthesia/Blood Transfusion Reactions: No Reported Reaction Past Psychological History: No Psychological Hx Reported Smoking Status: Former smoker Past Alcohol Use History: None Reported Past Drug Use History: None Reported - Past Family History Mother Family Medical History: Cancer, Deep Vein Thrombosis (DVT) <Dana Villareal M - Last Filed: 04/22/18 04:11> General Exam Limitations: no limitations General appearance: alert, in no apparent distress, other (This is a well- developed, well-nourished adult male patient in no acute distress. Vital signs upon presentation are temperature 97.5F, pulse 75, respirations 20, blood pressure 129/74, pulse ox 98% on room air.) ENT exam: Present: normal exam, mucous membranes moist Neck exam: Present: normal inspection. Absent: tenderness, meningismus, lymphadenopathy Respiratory exam: Present: normal lung sounds bilaterally. Absent: respiratory distress, wheezes, rales, rhonchi, stridor Cardiovascular Exam: Present: regular rate, normal rhythm, normal heart sounds. Absent: systolic murmur, diastolic murmur, rubs, gallop, clicks GI/Abdominal exam: Present: soft, tenderness (Mild tenderness surrounding the PEG tube insertion site), normal bowel sounds, other (PEG tube insertion site to the mid upper abdomen does reveal mild surrounding erythema with follow-up, nonpurulent fluid drainage). Absent: distended, guarding, rebound, rigid Neurological exam: Present: alert, oriented X3, CN II-XII intact Psychiatric exam: Present: normal affect, normal mood Skin exam: Present: warm, dry, intact, normal color. Absent: rash <Dana Villareal M - Last Filed: 04/22/18 04:11> Vital Signs 04/21/18 04/21/18 04/22/18 23:11 23:58 00:00 Temperature 97.5 F L Pulse Rate 75 76 Respiratory 20 18 Rate Blood Pressure 129/74 118/72 O2 Sat by Pulse 98 98 98 Oximetry 04/22/18 02:17 Temperature 97.1 F L Pulse Rate 68 Respiratory 16 Rate Blood Pressure 115/73 O2 Sat by Pulse 96 Oximetry Medical Decision Making - Lab Data Result diagrams: 04/22/18 00:10 04/22/18 00:10 - Radiology Data Radiology results: report reviewed, image reviewed <Dana Villareal - Last Filed: 04/22/18 04:11> - Lab Data Result diagrams: 04/22/18 00:10 04/22/18 00:10 <Sai Sharma - Last Filed: 04/24/18 09:16> - Medical Decision Making 52-year-old male patient presented to the emergency department today for evaluation of dislodged PEG tube and possible infection surrounding the insertion site. Physical examination did reveal mild erythema with nonpurulent foul-smelling drainage coming from the insertion site. PEG tube was dislodged. We did replace this with an 18-[place] PEG tube. Balloon inflated with 7 mL of normal saline. We did perform gastric gram x-ray which showed good placement of the PEG tube. Patient was started on Keflex for mild cellulitis. He is instructed to follow-up with his primary care physician for recheck in 1- 2 days. Return parameters were discussed in detail. He verbalizes understanding and agrees with this plan (Dana Villareal) I saw this patient in conjunction with the physician speech language assistant. I performed independent history and physical exam. Agree with case management. (Sai Sharma) - Lab Data Lab Results 04/22/18 04/22/18 04/22/18 Range/Units 00:10 00:10 00:10 WBC 5.1 (3.8-10.6) k/uL RBC 4.01 L (4.30-5.90) m/uL Hgb 11.9 L (13.0-17.5) gm/dL Hct 36.3 L (39.0-53.0) % MCV 90.4 (80.0-100.0) fL MCH 29.7 (25.0-35.0) pg MCHC 32.9 (31.0-37.0) g/dL RDW 15.8 H (11.5-15.5) % Plt Count 100 L (150-450) k/uL Neutrophils % 78 % Lymphocytes % 8 % Monocytes % 8 % Eosinophils % 3 % Basophils % 0 % Neutrophils # 4.0 (1.3-7.7) k/uL Lymphocytes # 0.4 L (1.0-4.8) k/uL Monocytes # 0.4 (0-1.0) k/uL Eosinophils # 0.2 (0-0.7) k/uL Basophils # 0.0 (0-0.2) k/uL Hypochromasia Slight Sodium 137 (137-145) mmol/L Potassium 4.8 (3.5-5.1) mmol/L Chloride 102 (98-107) mmol/L Carbon Dioxide 27 (22-30) mmol/L Anion Gap 8 mmol/L BUN 24 H (9-20) mg/dL Creatinine 0.63 L (0.66-1.25) mg/dL Est GFR (CKD-EPI)AfAm >90 (>60 ml/min/1.73 sqM) Est GFR (CKD-EPI)NonAf >90 (>60 ml/min/1.73 sqM) Glucose 117 H (74-99) mg/dL Plasma Lactic Acid Vladislav 1.2 (0.7-2.0) mmol/L Calcium 9.2 (8.4-10.2) mg/dL Total Bilirubin 0.5 (0.2-1.3) mg/dL AST 44 (17-59) U/L ALT 51 (21-72) U/L Alkaline Phosphatase 123 (38-126) U/L Total Protein 7.1 (6.3-8.2) g/dL Albumin 4.0 (3.5-5.0) g/dL Amylase <30 L (30-110) U/L Lipase 90 (23-300) U/L - Radiology Data KUB x-ray of the abdomen was obtained. Report was reviewed in its entirety. Impression by Dr. Lombardo shows PEG tube appears in good position. Nonacute abdomen. (Dana Villareal) Disposition Is patient prescribed a controlled substance at d/c from ED?: No Time of Disposition: 02:46 <Dana Villareal - Last Filed: 04/22/18 04:11> <Sai Sharma - Last Filed: 04/24/18 09:16> Clinical Impression: Malfunction of percutaneous endoscopic gastrostomy (PEG) tube Disposition: HOME SELF-CARE Condition: Good Instructions: Percutaneous Endoscopic Gastrostomy (ED) Additional Instructions: Follow-up with her primary care physician for recheck in 1-2 days. Return immediately to develop any further problems with your tube. Complete antibiotic prescription in full. Return immediately for any new, worsening, or concerning symptoms. Prescriptions: Cephalexin [Keflex] 500 mg PO Q6H #40 cap Referrals: Elvia Person MD [Primary Care Provider] - 1-2 days
== END 2018-04-22 02:52 | disposition home or self-care (01) ==
LOC: EC 22:44
DX: K94.23 Gastrostomy malfunction (principal); E07.9 Disorder of thyroid, unspecified; Z79.890 Hormone replacement therapy; Z91.030 Bee allergy status; Z87.891 Personal history of nicotine dependence; Z85.89 Personal history of malignant neoplasm of other organs and systems
CPT/HCPCS: 99284; 43762; 96374; 96376; 96361 ×2; 36415; 80053; 82150; 83605; 83690; 85025; 87040; 74018; J2270 ×2; Q9967

== ENCOUNTER 2018-12-30 12:54 | Emergency (ER) | payer MEDICARE, OTHER ==
[2018-12-30] MEDS ORDERED: LIDOCAINE URO-JET JELLY 2% 5 ML KIT URETHRAL ONE (13:44)
--- NOTE | 2018-12-30 15:08 | ED ---
General Adult HPI - General Chief complaint: Abdominal Pain Stated complaint: Possible Infection in Feeding Tube Time Seen by Provider: 12/30/18 13:00 Source: patient, RN notes reviewed, old records reviewed Mode of arrival: ambulatory Limitations: no limitations - History of Present Illness Initial comments: Patient is a 33-year-old male with a history of oral cancer with tracheostomy tube as well as feeding tube. He presents today for concern for infection receiving tube site. Patient reports that he to the still functioning. He's uses the feeding tube 6 times a day. Patient reports that he's noticed some increased redness and drainage and irritation around the feeding tube site for the past 2 days. Patient denies any fevers or chills. Patient is having this current gastrostomy tube for over 6 months. Patient states that he's had the feeding tube in place for quite some time the surgeon's Dr. Mims. Patient denies any recent fever, chills, shortness of breath, chest pain, back pain, abdominal pain, nausea vomiting, numbness or tingling, dysuria or hematuria, constipation or diarrhea, headaches or visual changes, or any other current symptoms - Related Data Home Medications Medication Instructions Recorded Confirmed oxyCODONE-APAP 10-325MG [Percocet 1 tab PEG/G-TUBE TID PRN 03/05/16 12/30/18 10-325 mg] Levothyroxine Sodium 100 mcg PEG/G-TUBE DAILY 09/30/17 12/30/18 Previous Rx's Medication Instructions Recorded Cephalexin [Keflex] 500 mg PO Q6H #40 cap 12/30/18 Mupirocin 2% Oint [Bactroban 2% 1 applic TOPICAL TID #60 gm 12/30/18 Oint] Allergies Allergy/AdvReac Type Severity Reaction Status Date / Time venom-honey bee Allergy Anaphylaxis Verified 12/30/18 13:31 Review of Systems ROS Statement: Those systems with pertinent positive or pertinent negative responses have been documented in the HPI. ROS Other: All systems not noted in ROS Statement are negative. 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 and the patient had a surgical resection with reconstructive surgery and a muscle flap followed by tracheostomy tube insertion History of Any Multi-Drug Resistant Organisms: MRSA Date of last positivie culture/infection: 03/11/16 MDRO Source:: Abdomen Additional Past Surgical History / Comment(s): throat and jaw, left ankle ORIF for a fracture, trach Past Anesthesia/Blood Transfusion Reactions: No Reported Reaction Past Psychological History: No Psychological Hx Reported Smoking Status: Former smoker Past Alcohol Use History: None Reported Past Drug Use History: None Reported - Past Family History Mother Family Medical History: Cancer, Deep Vein Thrombosis (DVT) General Exam - General Exam Comments Initial Comments: Pleasant 53-year-old male. No distress. Limitations: no limitations General appearance: alert, in no apparent distress Head exam: Present: atraumatic Eye exam: Present: normal appearance, PERRL, EOMI. Absent: scleral icterus, conjunctival injection, periorbital swelling ENT exam: Present: normal exam, mucous membranes moist Neck exam: Present: normal inspection, other (Evidence of tracheostomy stoma.). Absent: tenderness, meningismus, lymphadenopathy Respiratory exam: Present: normal lung sounds bilaterally. Absent: respiratory distress, wheezes, rales, rhonchi, stridor Cardiovascular Exam: Present: regular rate, normal rhythm, normal heart sounds. Absent: systolic murmur, diastolic murmur, rubs, gallop, clicks GI/Abdominal exam: Present: soft, tenderness (Patient has some erythema and tenderness over the gastrostomy site. There is some purulent drainage noted as well. Feeding tube appears to be clogged and eroded.), normal bowel sounds. Absent: distended, guarding, rebound, rigid Extremities exam: Present: normal inspection, full ROM, normal capillary refill. Absent: tenderness, pedal edema, joint swelling, calf tenderness Back exam: Present: normal inspection Neurological exam: Present: alert, oriented X3, CN II-XII intact Psychiatric exam: Present: normal affect, normal mood Skin exam: Present: warm, dry, intact, normal color. Absent: rash Course Vital Signs 12/30/18 12/30/18 12:56 15:28 Temperature 98.0 F 97.9 F Pulse Rate 82 76 Respiratory 20 16 Rate Blood Pressure 125/77 119/73 O2 Sat by Pulse 98 98 Oximetry Medical Decision Making - Medical Decision Making This is a 53-year-old male presents with infection around feeding tube site. He reports since redness and drainage for the past 2 days. Patient and aerobic culture obtained. I was able to deflate the balloon, and remove the old feeding tube. This appeared to be corroded and the balloon had black material around the plastic site. Patient had a feeding tube in place without difficulty. Tolerated the procedure well. It was replaced with an 18-Citizen Of [place] tube. Patient had a KUB x-ray of gastrointestinal confirm placement of the tube appears completely normal. I discussed Patient should be placed on antibiotics for concern for superficial abdominal cellulitis as well as keeping the skin clean and dry. Patient understands treatment plan will comply. Return parameters were discussed. - Radiology Data Radiology results: report reviewed PEG tube is in place with an stomach and KUB x-ray. Disposition Clinical Impression: S/P percutaneous endoscopic gastrostomy (PEG) tube placement, PEG tube malfunction, Abdominal wall cellulitis Disposition: HOME SELF-CARE Condition: Good Instructions (If sedation given, give patient instructions): How to Use and Care for Your PEG Tube (ED), PEG Tube Insertion (DC) Additional Instructions: Please use medication as discussed. Please follow up with family doctor if symptoms have not improved over the next two days. Patient is advised to follow-up with your surgeon. Patient should keep the area clean and dry. He is a thin film of antibiotic ointment over the site. Please return to the emergency room if your symptoms increase or worsen or for any other concerns. Prescriptions: Mupirocin 2% Oint [Bactroban 2% Oint] 1 applic TOPICAL TID #60 gm Cephalexin [Keflex] 500 mg PO Q6H #40 cap Is patient prescribed a controlled substance at d/c from ED?: No Referrals: Elvia Person MD [Primary Care Provider] - 1-2 days Time of Disposition: 15:07
--- NOTE | 2018-12-30 15:16 | XR ---
EXAMINATION TYPE: XR KUB DATE OF EXAM: 12/30/2018 COMPARISON: 04/22/2018 HISTORY: PEG tube placement TECHNIQUE: Single view abdomen is obtained. FINDINGS: Contrast is placed through the PEG tube. The PEG tube balloon is evident within the stomach . Contrast extends through the stomach into the duodenum. No extravasation is evident. IMPRESSION: 1. PEG tube tip is within the stomach.
[2018-12-30 15:29] VITALS: BP 119/73; PULSE 76; RESP 16; TEMP 97.9
== END 2018-12-30 15:32 | disposition home or self-care (01) ==
LOC: EC 12:54
DX: L03.311 Cellulitis of abdominal wall (principal); K94.23 Gastrostomy malfunction; E07.9 Disorder of thyroid, unspecified; Z87.891 Personal history of nicotine dependence; Z91.030 Bee allergy status; Z79.890 Hormone replacement therapy; Z86.14 Personal history of Methicillin resistant Staphylococcus aureus infection; Z85.810 Personal history of malignant neoplasm of tongue; Z85.818 Personal history of malignant neoplasm of other sites of lip, oral cavity, and pharynx; Z98.890 Other specified postprocedural states
CPT/HCPCS: 43762; 74018; 87070; 87077; 87186; 87205; 99284

== ENCOUNTER 2019-04-11 15:34 | Emergency (ER) | payer MEDICARE, OTHER ==
--- NOTE | 2019-04-11 16:05 | ED ---
General Adult HPI - General Chief complaint: Fever Stated complaint: swelling in mouth Time Seen by Provider: 04/11/19 15:48 Source: patient Mode of arrival: ambulatory Limitations: no limitations - History of Present Illness Initial comments: Dictation was produced using [email or web address] dictation software. please excuse any grammatical, word or spelling errors. Chief Complaint: 53-year-old male past medical history of neck and throat cancer presents with fever 2 days. History of Present Illness: The 3-year-old male who has past medical history of throat and neck cancer. Patient reports that he's been having fevers for the last 2 days. Patient states she's been having low-grade temperatures. He has sore throat, runny nose and nasal congestion. He also has a mild cough. Patient is a history of neck and throat cancer. He is status post tracheostomy several years ago.. Is currently not undergoing any sort of cancer treatment bec j luise family reports he is currently in remission. Since then that perhaps maybe he is having infection that's around his cancer site. Does complain of some mild pain and erythema to his left oral area. The ROS documented in this emergency department record has been reviewed and confirmed by me. Those systems with pertinent positive or negative responses have been documented in the HPI. All other systems are other negative and/or noncontributory. PHYSICAL EXAM: General Impression: Alert and oriented x3, not in acute distress, tracheostomy in place HEENT: Normocephalic atraumatic, extra-ocular movements intact, pupils equal and reactive to light bilaterally, slight erythema to the left lateral lower lip. No induration or fluctuant mass in that area. Cardiovascular: Heart regular rate and rhythm, S1&S2 audible, no murmurs, rubs or gallops Chest: Lungs clear to auscultation bilaterally, no rhonchi, no wheeze, no rales Abdomen: Bowel sounds present, abdomen soft, non-tender, non-distended, no organomegaly Musculoskeletal: Pulses present and equal in all extremities, no peripheral edema Motor: no focal deficits noted Neurological: CN II-XII grossly intact, no focal motor or sensory deficits noted Skin: Intact with no visualized rashes Psych: Normal affect and mood ED course: 53-year-old male presents with fever 2 days. Upon arrival shows heart rate 120, worse vital signs within except limits. At this point there is no clear source of infection. Laboratory evaluation obtained. No leukocytosis. Metabolic panel is negative. Influenza and group A strep is negative. Chest x-ray is nonacute. Patient's well-appearing at bedside. Perhaps patient's experiencing some facial cellulitis to the left lower lip. Patient's ceftriaxone. Patient started on a course of Keflex. He is advised to follow-up with his primary care physician upon discharge. - Related Data Home Medications Medication Instructions Recorded Confirmed oxyCODONE-APAP 10-325MG [Percocet 1 tab PEG/G-TUBE Q4H PRN 03/05/16 04/11/19 10-325 mg] Levothyroxine Sodium [Synthroid] 125 mcg PEG/G-TUBE SUMOTUWETHFR 04/11/19 04/11/19 Levothyroxine Sodium [Synthroid] 250 mcg PEG/G-TUBE SA 04/11/19 04/11/19 Previous Rx's Medication Instructions Recorded Cephalexin [Keflex] 500 mg PO Q6HR 5 Days #20 cap 04/11/19 Allergies Allergy/AdvReac Type Severity Reaction Status Date / Time venom-honey bee Allergy Anaphylaxis Verified 04/11/19 16:04 Review of Systems ROS Statement: Those systems with pertinent positive or pertinent negative responses have been documented in the HPI. ROS Other: All systems not noted in ROS Statement are negative. 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 and the patient had a surgical resection with reconstructive surgery and a muscle flap followed by tracheostomy tube insertion History of Any Multi-Drug Resistant Organisms: MRSA Date of last positivie culture/infection: 12/30/18 MDRO Source:: Abdomen Additional Past Surgical History / Comment(s): throat and jaw, left ankle ORIF for a fracture, trach Past Anesthesia/Blood Transfusion Reactions: No Reported Reaction Past Psychological History: No Psychological Hx Reported Smoking Status: Former smoker Past Alcohol Use History: None Reported Past Drug Use History: None Reported - Past Family History Mother Family Medical History: Cancer, Deep Vein Thrombosis (DVT) General Exam Limitations: no limitations Course Vital Signs 04/11/19 15:35 Temperature 99.6 F Pulse Rate 120 H Respiratory 20 Rate Blood Pressure 136/77 O2 Sat by Pulse 96 Oximetry Medical Decision Making - Lab Data Result diagrams: 04/11/19 16:20 04/11/19 16:20 Lab Results 04/11/19 04/11/19 04/11/19 Range/Units 16:20 16:20 16:20 WBC 6.4 (3.8-10.6) k/uL RBC 4.37 (4.30-5.90) m/uL Hgb 13.2 (13.0-17.5) gm/dL Hct 39.4 (39.0-53.0) % MCV 90.1 (80.0-100.0) fL MCH 30.1 (25.0-35.0) pg MCHC 33.4 (31.0-37.0) g/dL RDW 15.3 (11.5-15.5) % Sodium 133 L (137-145) mmol/L Potassium 4.3 (3.5-5.1) mmol/L Chloride 99 (98-107) mmol/L Carbon Dioxide 25 (22-30) mmol/L Anion Gap 9 mmol/L BUN 17 (9-20) mg/dL Creatinine 0.59 L (0.66-1.25) mg/dL Est GFR (CKD-EPI)AfAm >90 (>60 ml/min/1.73 sqM) Est GFR (CKD-EPI)NonAf >90 (>60 ml/min/1.73 sqM) Glucose 205 H (74-99) mg/dL Plasma Lactic Acid Vladislav (0.7-2.0) mmol/L Calcium 8.5 (8.4-10.2) mg/dL Influenza Type A RNA Not Detected (Not Detectd) Influenza Type B (PCR) Not Detected (Not Detectd) Group A Strep Rapid (Negative) 04/11/19 04/11/19 Range/Units 16:20 16:20 WBC (3.8-10.6) k/uL RBC (4.30-5.90) m/uL Hgb (13.0-17.5) gm/dL Hct (39.0-53.0) % MCV (80.0-100.0) fL MCH (25.0-35.0) pg MCHC (31.0-37.0) g/dL RDW (11.5-15.5) % Sodium (137-145) mmol/L Potassium (3.5-5.1) mmol/L Chloride (98-107) mmol/L Carbon Dioxide (22-30) mmol/L Anion Gap mmol/L BUN (9-20) mg/dL Creatinine (0.66-1.25) mg/dL Est GFR (CKD-EPI)AfAm (>60 ml/min/1.73 sqM) Est GFR (CKD-EPI)NonAf (>60 ml/min/1.73 sqM) Glucose (74-99) mg/dL Plasma Lactic Acid Vladislav 1.8 (0.7-2.0) mmol/L Calcium (8.4-10.2) mg/dL Influenza Type A RNA (Not Detectd) Influenza Type B (PCR) (Not Detectd) Group A Strep Rapid Negative (Negative) Disposition Clinical Impression: Fever Disposition: HOME SELF-CARE Condition: Good Instructions (If sedation given, give patient instructions): Fever in Adults (ED) Additional Instructions: Rx sent to preferred pharmacy Prescriptions: Cephalexin [Keflex] 500 mg PO Q6HR 5 Days #20 cap Is patient prescribed a controlled substance at d/c from ED?: No Referrals: Elvia Person MD [Primary Care Provider] - 1-2 days Time of Disposition: 17:43
[2019-04-11 16:57] LABS: African American GFR (CKD) >90 (>60 ml/min/1.73 sqM); Anion Gap 9 mmol/L; Blood Urea Nitrogen 17 mg/dL (9-20); Calcium 8.5 mg/dL (8.4-10.2); Carbon Dioxide 25 mmol/L (22-30); Chloride 99 mmol/L (98-107); Glucose 205 mg/dL (74-99); Non-African American GFR(CKD) >90 (>60 ml/min/1.73 sqM); Potassium 4.3 mmol/L (3.5-5.1); Sodium 133 mmol/L (137-145)
--- NOTE | 2019-04-11 17:05 | XR ---
EXAMINATION TYPE: XR chest 2V DATE OF EXAM: 04/11/2019 COMPARISON: 09/30/2017 HISTORY: Cough TECHNIQUE: FINDINGS: Heart is normal. Lungs are clear of consolidation. There is no heart failure. There is some coarsening of the interstitial markings in the right lung. There is tracheostomy tube. There is righ t central venous catheter with the tip in the superior vena cava. There is no pleural effusion. There is mild scarring at the lung apices unchanged. IMPRESSION: No active cardiopulmonary disease. Mild right side pulmonary scarring unchanged. Normal h eart.
[2019-04-11 17:14] LABS: Basophils # (A) 0.1 k/uL (0-0.2); Basophils % (A) 2 %; Eosinophils % (A) 0 %; HCT 39.4 % (39.0-53.0); HGB 13.2 gm/dL (13.0-17.5); Lymphocytes % (A) 0 %; MCH 30.1 pg (25.0-35.0); MCHC 33.4 g/dL (31.0-37.0); MCV 90.1 fL (80.0-100.0); Mean Platelet Volume 7.8; Monocytes # (A) 0.3 k/uL (0-1.0); Monocytes % (A) 5 %; Neutrophils # (A) 5.9 k/uL (1.3-7.7); Neutrophils % (A) 91 %; RBC 4.37 m/uL (4.30-5.90); RDW 15.3 % (11.5-15.5); WBC 6.4 k/uL (3.8-10.6)
[2019-04-11] MEDS ORDERED: cefTRIAXone IN SWFI 1,000 MG/10 ML SYRINGE IVP STA (17:40)
[2019-04-11 17:49] LABS: Platelet Count 59 k/uL (150-450)
[2019-04-11 17:56] VITALS: BP 140/80; PULSE 110; RESP 18; TEMP 98
== END 2019-04-11 18:02 | disposition home or self-care (01) ==
LOC: EC 15:34
DX: R50.9 Fever, unspecified (principal); L53.9 Erythematous condition, unspecified; J02.9 Acute pharyngitis, unspecified; R09.81 Nasal congestion; R09.89 Other specified symptoms and signs involving the circulatory and respiratory systems; R51 Headache; E07.9 Disorder of thyroid, unspecified; Z87.891 Personal history of nicotine dependence; Z91.030 Bee allergy status; Z79.890 Hormone replacement therapy; Z93.0 Tracheostomy status; Z85.810 Personal history of malignant neoplasm of tongue; Z85.818 Personal history of malignant neoplasm of other sites of lip, oral cavity, and pharynx; Z86.14 Personal history of Methicillin resistant Staphylococcus aureus infection
CPT/HCPCS: 36415; 80048; 83605; 85025; 87081; 87430; 87502; 71046; 99283; 96374; J0696

== ENCOUNTER 2019-12-10 17:58 | Emergency (ER) | payer MEDICARE, OTHER ==
[2019-12-10 18:07] VITALS: BP 118/64; PULSE 77; RESP 18; TEMP 97.5
--- NOTE | 2019-12-10 18:19 | ED ---
Recheck HPI - General Source: patient Mode of arrival: ambulatory Limitations: language barrier <Rivera Casanova - Last Filed: 12/10/19 19:38> <Jose Conteh - Last Filed: 12/10/19 19:48> - General Chief Complaint: Recheck/Abnormal Lab/Rx Stated Complaint: feeding tube broke Time Seen by Provider: 12/10/19 18:19 - History of Present Illness Initial Comments: Patient is 54-year-old male presenting to the emergency department with a chief complaint of panic tumefaction. Patient reports his PEG tube is leaking around the ostomy site. Patient states this has been going on for the past few days. States the PEG tube is otherwise flushing. Reports some greenish/yellow discharge. Does report some excoriations around the placement site. States this is an 18-Nepali tube. Denies any abdominal pain or discomfort near the PEG tube site. (Rivera Casanova) - Related Data Home Medications Medication Instructions Recorded Confirmed oxyCODONE-APAP 10-325MG [Percocet 1 tab PEG/G-TUBE Q4H PRN 03/05/16 04/11/19 10-325 mg] Levothyroxine Sodium [Synthroid] 125 mcg PEG/G-TUBE SUMOTUWETHFR 04/11/19 04/11/19 Levothyroxine Sodium [Synthroid] 250 mcg PEG/G-TUBE SA 04/11/19 04/11/19 Previous Rx's Medication Instructions Recorded Cephalexin [Keflex] 500 mg PO Q6HR 5 Days #20 cap 04/11/19 Allergies Allergy/AdvReac Type Severity Reaction Status Date / Time venom-honey bee Allergy Anaphylaxis Verified 12/10/19 18:03 Review of Systems ROS Other: All systems not noted in ROS Statement are negative. <Rivera Casanova - Last Filed: 12/10/19 19:38> ROS Other: All systems not noted in ROS Statement are negative. <Jose Conteh - Last Filed: 12/10/19 19:48> ROS Statement: Those systems with pertinent positive or pertinent negative responses have been documented in the HPI. 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 and the patient had a surgical resection with reconstructive surgery and a muscle flap followed by tracheostomy tube insertion History of Any Multi-Drug Resistant Organisms: MRSA Date of last positivie culture/infection: 12/30/18 MDRO Source:: Abdomen Additional Past Surgical History / Comment(s): throat and jaw, left ankle ORIF for a fracture, trach Past Anesthesia/Blood Transfusion Reactions: No Reported Reaction Past Psychological History: No Psychological Hx Reported Smoking Status: Former smoker Past Alcohol Use History: None Reported Past Drug Use History: None Reported - Past Family History Mother Family Medical History: Cancer, Deep Vein Thrombosis (DVT) <Rivera Casanova - Last Filed: 12/10/19 19:38> General Exam Limitations: language barrier General appearance: alert, in no apparent distress Head exam: Present: atraumatic, normocephalic, normal inspection Eye exam: Present: normal appearance, PERRL, EOMI Pupils: Present: normal accommodation ENT exam: Present: normal exam, normal oropharynx, mucous membranes moist Neck exam: Present: normal inspection, full ROM, other (Tracheostomy). Absent: tenderness Respiratory exam: Present: normal lung sounds bilaterally. Absent: respiratory distress, wheezes, rales Cardiovascular Exam: Present: regular rate, normal rhythm, normal heart sounds GI/Abdominal exam: Present: soft, other (PEG tube in place. Excoriation near the placement site. Some discharge and leakage around it.). Absent: distended, tenderness Extremities exam: Present: normal inspection, full ROM. Absent: tenderness Back exam: Present: normal inspection, full ROM. Absent: tenderness Neurological exam: Present: alert, oriented X3 Psychiatric exam: Present: normal affect, normal mood Skin exam: Present: warm, dry, intact, normal color <Rivera Casanova - Last Filed: 12/10/19 19:38> Course Vital Signs 12/10/19 18:03 Temperature 97.5 F L Pulse Rate 77 Respiratory 18 Rate Blood Pressure 118/64 O2 Sat by Pulse 96 Oximetry Procedures - [place] Protocol (Time Out) Procedure Performed:: PEG tube replacement Performing Provider: Jose Conteh Timeout Date: 12/10/19 Timeout Time: 19:15 Patient Identification (2 identifiers required): Verbal, Name Site Marked: Not Applicable Site Verified With Patient/Guardian: Yes Final Confirmation: Procedure (Placement confirmed with auscultation and gastric contents in the tube) <Jose Conteh - Last Filed: 12/10/19 19:48> - Procedures Initial comment: PEG tube replacement. Healed PEG tube was removed with the balloon and snipped the past for the GI tract as the tube is occluded and fluid could not be removed from the balloon. Patient tolerated this well. Tube was placed. Patient tolerated this well. Was determined to be in proper position with auscultation of air as well as gastric contents from the tube. It was lubricated prior to insertion. Patient tolerated this well (Jose Conteh) Disposition Is patient prescribed a controlled substance at d/c from ED?: No Time of Disposition: 19:39 <Rivera Casanova - Last Filed: 12/10/19 19:38> <Jose Conteh - Last Filed: 12/10/19 19:48> Clinical Impression: PEG tube malfunction Disposition: HOME SELF-CARE Condition: Stable Instructions (If sedation given, give patient instructions): How to Use and Care for Your PEG Tube (ED), PEG Tube Insertion (DC) Additional Instructions: Follow up with primary care physician. Return to emergency department if symptoms worsen. Referrals: Elvia Person MD [Primary Care Provider] - 1-2 days
== END 2019-12-10 19:53 | disposition home or self-care (01) ==
LOC: EC 17:58
DX: K94.23 Gastrostomy malfunction (principal); E07.9 Disorder of thyroid, unspecified; Z79.899 Other long term (current) drug therapy; Z91.030 Bee allergy status; Z85.89 Personal history of malignant neoplasm of other organs and systems; Z87.891 Personal history of nicotine dependence
CPT/HCPCS: 43762; 99282

== ENCOUNTER 2021-12-19 21:07 | Observation (INO) | payer MEDICARE, OTHER ==
[2021-12-19] MEDS ORDERED: ALBUTEROL NEBULIZED 2.5 MG/3 ML INHALATION STA (21:56)
[2021-12-19] MEDS ORDERED: methylPREDNISolone SOD SUCCI 125 MG/2 ML VIAL IV STA (21:56)
[2021-12-19] MEDS ORDERED: IPRATROPIUM 0.5 MG/2.5 ML NEBU INHALATION STA (21:56)
--- NOTE | 2021-12-19 22:13 | ED ---
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 Patient's has not had a fever. No central chest pain. No leg pain or swelling. He had checked the pulse ox at home and this was in the mid 80s. He is not normally on supplemental oxygen. He has had some purulent cough which is essentially at baseline according to the patient. - Related Data Home Medications Medication Instructions Recorded Confirmed oxyCODONE-APAP 10-325MG [Percocet 1 tab PEG/G-TUBE Q4H PRN 03/05/16 04/11/19 10-325 mg] Levothyroxine Sodium [Synthroid] 125 mcg PEG/G-TUBE SUMOTUWETHFR 04/11/19 04/11/19 Levothyroxine Sodium [Synthroid] 250 mcg PEG/G-TUBE SA 04/11/19 04/11/19 Previous Rx's Medication Instructions Recorded Cephalexin [Keflex] 500 mg PO Q6HR 5 Days #20 cap 04/11/19 Allergies Allergy/AdvReac Type Severity Reaction Status Date / Time venom-honey bee Allergy Anaphylaxis Verified 12/19/21 21:52 Review of Systems ROS Statement: Those systems with pertinent positive or pertinent negative responses have been documented in the HPI. ROS Other: All systems not noted in ROS Statement are negative. 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 and the patient had a surgical resection with reconstructive surgery and a muscle flap followed by tracheostomy tube insertion History of Any Multi-Drug Resistant Organisms: MRSA Date of last positivie culture/infection: 12/30/18 MDRO Source:: Abdomen Additional Past Surgical History / Comment(s): throat and jaw, left ankle ORIF for a fracture, trach Past Anesthesia/Blood Transfusion Reactions: No Reported Reaction Past Psychological History: No Psychological Hx Reported Smoking Status: Former smoker Past Alcohol Use History: None Reported Past Drug Use History: None Reported - Past Family History Mother Family Medical History: Cancer, Deep Vein Thrombosis (DVT) General Exam Limitations: no limitations General appearance: alert, in no apparent distress Head exam: Present: atraumatic, normocephalic Eye exam: Present: normal appearance, PERRL ENT exam: Present: normal exam Neck exam: Present: other (Trach). Absent: tenderness Respiratory exam: Present: rhonchi. Absent: respiratory distress GI/Abdominal exam: Present: soft. Absent: distended, tenderness, guarding Extremities exam: Present: normal capillary refill. Absent: pedal edema, calf tenderness Neurological exam: Present: alert. Absent: motor sensory deficit Skin exam: Present: warm, dry, intact. Absent: cyanosis, diaphoretic Course Vital Signs 12/19/21 12/19/21 12/19/21 21:47 22:01 22:25 Temperature 97.4 F L 97.4 F L Pulse Rate 105 H 105 H Respiratory 20 18 Rate Blood Pressure 117/66 120/83 O2 Sat by Pulse 88 L 88 L Oximetry Fraction of 40 Inspired Oxygen (FIO2) 12/19/21 12/19/21 12/19/21 22:48 23:06 23:13 Temperature Pulse Rate 94 100 Respiratory Rate Blood Pressure O2 Sat by Pulse Oximetry Fraction of 28 Inspired Oxygen (FIO2) Medical Decision Making - Medical Decision Making 56-year-old male with hypoxia, dyspnea. Patient is afebrile, normal white count, stable hemoglobin, negative troponin, negative BNP. Chest x-ray does show extensive lower pulmonary infiltrate versus edema and effusion. Patient had apparently been told that he may require drainage for this effusion which is known to the patient. she will require supplemental oxygen and he will be admitted for pulmonology evaluation. Case discussed with Dr. Cedillo. - Lab Data Result diagrams: 12/19/21 22:19 12/19/21 22:19 Lab Results 12/19/21 12/19/21 12/19/21 Range/Units 21:56 22:19 22:19 WBC 8.6 (3.8-10.6) k/uL RBC 5.01 (4.30-5.90) m/uL Hgb 14.3 (13.0-17.5) gm/dL Hct 45.6 (39.0-53.0) % MCV 90.9 (80.0-100.0) fL MCH 28.6 (25.0-35.0) pg MCHC 31.4 (31.0-37.0) g/dL RDW 17.2 H (11.5-15.5) % Plt Count 178 (150-450) k/uL MPV 7.5 Neutrophils % 83 % Lymphocytes % 4 % Monocytes % 8 % Eosinophils % 3 % Basophils % 1 % Neutrophils # 7.1 (1.3-7.7) k/uL Lymphocytes # 0.3 L (1.0-4.8) k/uL Monocytes # 0.7 (0-1.0) k/uL Eosinophils # 0.2 (0-0.7) k/uL Basophils # 0.1 (0-0.2) k/uL Hypochromasia Moderate Poikilocytosis Slight Anisocytosis Slight PT 10.8 (9.0-12.0) sec INR 1.0 (<1.2) APTT 26.7 (22.0-30.0) sec Sodium (137-145) mmol/L Potassium (3.5-5.1) mmol/L Chloride (98-107) mmol/L Carbon Dioxide (22-30) mmol/L Anion Gap mmol/L BUN (9-20) mg/dL Creatinine (0.66-1.25) mg/dL Est GFR (CKD-EPI)AfAm (>60 ml/min/1.73 sqM) Est GFR (CKD-EPI)NonAf (>60 ml/min/1.73 sqM) Glucose (74-99) mg/dL Plasma Lactic Acid Vladislav (0.7-2.0) mmol/L Calcium (8.4-10.2) mg/dL Magnesium (1.6-2.3) mg/dL Total Bilirubin (0.2-1.3) mg/dL AST (17-59) U/L ALT (4-49) U/L Alkaline Phosphatase (38-126) U/L Troponin I (0.000-0.034) ng/mL NT-Pro-B Natriuret Pep pg/mL Total Protein (6.3-8.2) g/dL Albumin (3.5-5.0) g/dL Coronavirus (PCR) Not Detected (Not Detectd) 09/15/22 09/15/22 09/15/22 Range/Units 22:19 22:19 22:19 WBC (3.8-10.6) k/uL RBC (4.30-5.90) m/uL Hgb (13.0-17.5) gm/dL Hct (39.0-53.0) % MCV (80.0-100.0) fL MCH (25.0-35.0) pg MCHC (31.0-37.0) g/dL RDW (11.5-15.5) % Plt Count (150-450) k/uL MPV Neutrophils % % Lymphocytes % % Monocytes % % Eosinophils % % Basophils % % Neutrophils # (1.3-7.7) k/uL Lymphocytes # (1.0-4.8) k/uL Monocytes # (0-1.0) k/uL Eosinophils # (0-0.7) k/uL Basophils # (0-0.2) k/uL Hypochromasia Poikilocytosis Anisocytosis PT (9.0-12.0) sec INR (<1.2) APTT (22.0-30.0) sec Sodium 133 L (137-145) mmol/L Potassium 4.9 (3.5-5.1) mmol/L Chloride 94 L (98-107) mmol/L Carbon Dioxide 28 (22-30) mmol/L Anion Gap 11 mmol/L BUN 18 (9-20) mg/dL Creatinine 0.53 L (0.66-1.25) mg/dL Est GFR (CKD-EPI)AfAm >90 (>60 ml/min/1.73 sqM) Est GFR (CKD-EPI)NonAf >90 (>60 ml/min/1.73 sqM) Glucose 131 H (74-99) mg/dL Plasma Lactic Acid Vladislav 1.5 (0.7-2.0) mmol/L Calcium 8.8 (8.4-10.2) mg/dL Magnesium 2.2 (1.6-2.3) mg/dL Total Bilirubin 0.6 (0.2-1.3) mg/dL AST 70 H (17-59) U/L ALT 29 (4-49) U/L Alkaline Phosphatase 177 H (38-126) U/L Troponin I <0.012 (0.000-0.034) ng/mL NT-Pro-B Natriuret Pep pg/mL Total Protein 6.5 (6.3-8.2) g/dL Albumin 3.6 (3.5-5.0) g/dL Coronavirus (PCR) (Not Detectd) 12/19/21 Range/Units 22:19 WBC (3.8-10.6) k/uL RBC (4.30-5.90) m/uL Hgb (13.0-17.5) gm/dL Hct (39.0-53.0) % MCV (80.0-100.0) fL MCH (25.0-35.0) pg MCHC (31.0-37.0) g/dL RDW (11.5-15.5) % Plt Count (150-450) k/uL MPV Neutrophils % % Lymphocytes % % Monocytes % % Eosinophils % % Basophils % % Neutrophils # (1.3-7.7) k/uL Lymphocytes # (1.0-4.8) k/uL Monocytes # (0-1.0) k/uL Eosinophils # (0-0.7) k/uL Basophils # (0-0.2) k/uL Hypochromasia Poikilocytosis Anisocytosis PT (9.0-12.0) sec INR (<1.2) APTT (22.0-30.0) sec Sodium (137-145) mmol/L Potassium (3.5-5.1) mmol/L Chloride (98-107) mmol/L Carbon Dioxide (22-30) mmol/L Anion Gap mmol/L BUN (9-20) mg/dL Creatinine (0.66-1.25) mg/dL Est GFR (CKD-EPI)AfAm (>60 ml/min/1.73 sqM) Est GFR (CKD-EPI)NonAf (>60 ml/min/1.73 sqM) Glucose (74-99) mg/dL Plasma Lactic Acid Vladislav (0.7-2.0) mmol/L Calcium (8.4-10.2) mg/dL Magnesium (1.6-2.3) mg/dL Total Bilirubin (0.2-1.3) mg/dL AST (17-59) U/L ALT (4-49) U/L Alkaline Phosphatase (38-126) U/L Troponin I (0.000-0.034) ng/mL NT-Pro-B Natriuret Pep 428 pg/mL Total Protein (6.3-8.2) g/dL Albumin (3.5-5.0) g/dL Coronavirus (PCR) (Not Detectd) Disposition Clinical Impression: Pleural effusion, Hypoxia Disposition: ADMITTED IP TO THIS HOSP Condition: Stable Is patient prescribed a controlled substance at d/c from ED?: No Referrals: Elvia Person MD [Primary Care Provider] - 1-2 days Time of Disposition: 00:39
[2021-12-19 22:34] LABS: Anisocytosis Slight; Basophils # (A) 0.1 k/uL (0-0.2); Basophils % (A) 1 %; Eosinophils # (A) 0.2 k/uL (0-0.7); Eosinophils % (A) 3 %; HCT 45.6 % (39.0-53.0); HGB 14.3 gm/dL (13.0-17.5); Hypochromasia Moderate; Lymphocytes # (A) 0.3 k/uL (1.0-4.8); Lymphocytes % (A) 4 %; MCH 28.6 pg (25.0-35.0); MCHC 31.4 g/dL (31.0-37.0); MCV 90.9 fL (80.0-100.0); Mean Platelet Volume 7.5; Monocytes # (A) 0.7 k/uL (0-1.0); Monocytes % (A) 8 %; Neutrophils # (A) 7.1 k/uL (1.3-7.7); Neutrophils % (A) 83 %; Platelet Count 178 k/uL (150-450); Poikilocytosis Slight; RBC 5.01 m/uL (4.30-5.90); RDW 17.2 % (11.5-15.5); WBC 8.6 k/uL (3.8-10.6)
[2021-12-19 22:45] LABS: ALT 29 U/L (4-49); AST 70 U/L (17-59); African American GFR (CKD) >90 (>60 ml/min/1.73 sqM); Albumin 3.6 g/dL (3.5-5.0); Alkaline Phosphatase 177 U/L (38-126); Anion Gap 11 mmol/L; Blood Urea Nitrogen 18 mg/dL (9-20); Calcium 8.8 mg/dL (8.4-10.2); Carbon Dioxide 28 mmol/L (22-30); Chloride 94 mmol/L (98-107); Glucose 131 mg/dL (74-99); Magnesium 2.2 mg/dL (1.6-2.3); Non-African American GFR(CKD) >90 (>60 ml/min/1.73 sqM); Potassium 4.9 mmol/L (3.5-5.1); Sodium 133 mmol/L (137-145); Total Bilirubin 0.6 mg/dL (0.2-1.3); Total Protein 6.5 g/dL (6.3-8.2)
[2021-12-19 22:48] LABS: Partial Thromboplastin Time 26.7 sec (22.0-30.0); Prothrombin Time 10.8 sec (9.0-12.0)
--- NOTE | 2021-12-19 23:18 | XR ---
EXAMINATION TYPE: XR chest 1V portable DATE OF EXAM: 12/19/2021 COMPARISON: 04/11/2019 HISTORY: Short of breath TECHNIQUE: FINDINGS: There is tracheostomy tube. There is right jugular catheter with tip in the superior vena c mayi. There is some pulmonary interstitial edema. There is blunting of the costophrenic angles bilater ally. Heart is not grossly enlarged. IMPRESSION: Compared to old examination there is development of bilateral pleural effusions and pulmo nary interstitial edema. Heart failure is possible.
[2021-12-20] MEDS ORDERED: ACETAMINOPHEN TAB 325 MG TAB PO PRN (00:26)
[2021-12-20] MEDS ORDERED: NALOXONE 0.4 MG/ML 1 ML VIAL IV PRN (00:26)
[2021-12-20] MEDS ORDERED: IPRATROPIUM-ALBUTEROL 3 ML NEB INHALATION PRN (00:27)
[2021-12-20] MEDS: oxyCODONE-APAP 10-325MG 1 EACH TAB PEG/G-TUBE PRN ×6 (00:59→21:41)
--- NOTE | 2021-12-20 10:49 | US ---
EXAMINATION TYPE: US chest DATE OF EXAM: 12/20/2021 COMPARISON: NONE Exam done portable CLINICAL HISTORY: Markings for thoracentesis by pulmonary staff. TECHNIQUE: Targeted ultrasound of the posterior lower bilateral hemithoraces EXAM MEASUREMENTS: Right Pleural Effusion pocket size: 13.6 cm Right skin surface to fluid distance: 2.9 cm Left Pleural Effusion pocket size: 10.2 cm Left skin surface to fluid distance: 3.1 cm Lung seen within anterior portion of fluid pocket Right side marked for possible thoracentesis outside the dept. Left side marked for possible thoracentesis outside the dept. Pulmonologists are able to review the images in the patient?s EMR. IMPRESSIONS: As above
--- NOTE | 2021-12-20 11:47 | P.CNPUL ---
History of Present Illness Consult date: 12/20/21 Requesting physician: Riccardo Cedillo Reason for consult: dyspnea, hypoxemia, pleural effusion, abnormal CXR/CT Chief complaint: Shortness of breath. History of present illness: Pulmonary consult dated 12/20/2021. 56-year-old male with a history of head and neck cancer, requiring extensive treatments including surgery, chemotherapy, and radiation. The patient has a permanent tracheostomy in place. The patient was seen in the emergency room on December 19 for shortness of breath. The patient apparently noted shortness of breath and low saturations for about 2 or 3 days prior to admission. The patient denies any fever or chills. The patient denies any significant cough or phlegm production. He denies any chest pain or chest discomfort. He apparently was recently seen at his [facility] in [place], and told that he had pleural effusions. He apparently refused any thoracentesis at that time. The patient does have a bit of a cough, but he states that the cough is prima much at baseline. When his saturations were checked, they are in the mid to high 80s. In addition to the above, the patient has a history of diabetes, and previous methicillin-resistant staph aureus infection. He was a former smoker, not recently. He is currently on a 35% trach collar. He does not typically use oxygen at home. His primary care provider is Dr. Person, in [place]. White c ount 8.6, hemoglobin 14.3, hematocrit 45.6, and platelet count 278,000. PT 10.8, INR 1, PTT is 26.7. Sodium 133, potassium 4.9, chlorides 94, CO2 28, BUN 18, creatinine 0.53. The patient's nasal swab for coronavirus was negative. N- terminal proBNP was 428. Troponin was negative. Chest x-ray shows a midline tracheostomy tube. There is blunting of the costophrenic angles bilaterally. Review of Systems REVIEW OF SYSTEMS: CONSTITUTIONAL: [Negative.] NEUROLOGIC: [ Negative.] HEENT: [ Negative.] CARDIAC: [Negative.] PULMONARY: Shortness of breath, low saturations, and nonproductive cough. GI: [Negative.] : [Negative.] RHEUMATOLOGIC: [ Negative.] IMMUNOLOGIC: [ Negative.] ENDOCRINE: [Negative. 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 History of Any Multi-Drug Resistant Organisms: MRSA Date of last positivie culture/infection: 12/30/18 MDRO Source:: Abdomen Additional Past Surgical History / Comment(s): Throat/jaw resection/reconstruction/muscle flap, trach, peg tube insertions, EGDs, recent bronchoscopy with lymph node biopsy at [facility] with post procedure ICU stay d/t low oxygen. Past Anesthesia/Blood Transfusion Reactions: No Reported Reaction Smoking Status: Former smoker - Past Family History Mother Family Medical History: Cancer, Deep Vein Thrombosis (DVT) Medications and Allergies Home Medications Medication Instructions Recorded Confirmed Type oxyCODONE-APAP 10-325MG [Percocet 1 tab PEG/G-TUBE Q4H 03/05/16 12/20/21 History 10-325 mg] Levothyroxine Sodium [Synthroid] 125 mcg PEG/G-TUBE DAILY 04/11/19 12/20/21 History Allergies Allergy/AdvReac Type Severity Reaction Status Date / Time venom-honey bee Allergy Anaphylaxis Verified 12/19/21 21:52 Physical Exam Osteopathic Statement: *. No significant issues noted on an osteopathic structural exam other than those noted in the History and Physical/Consult. Vitals: Vital Signs Temp Pulse Pulse Resp BP BP Pulse Ox 12/20/21 08:33 97.2 F L 106 H 26 H 177/83 94 L 12/20/21 08:28 96 12/20/21 08:01 88 18 152/74 98 12/20/21 05:00 87 17 156/77 98 12/20/21 04:00 101 H 17 153/92 94 L 12/20/21 01:00 98.1 F 75 16 147/76 98 12/19/21 23:13 100 12/19/21 23:06 12/19/21 23:00 84 16 154/78 99 12/19/21 22:48 94 12/19/21 22:25 12/19/21 22:01 97.4 F L 105 H 18 120/83 88 L 12/19/21 21:47 97.4 F L 105 H 20 117/66 88 L FiO2 12/20/21 08:33 12/20/21 08:28 35 12/20/21 08:01 12/20/21 05:00 12/20/21 04:00 12/20/21 01:00 12/19/21 23:13 12/19/21 23:06 28 12/19/21 23:00 12/19/21 22:48 12/19/21 22:25 40 12/19/21 22:01 12/19/21 21:47 Intake and Output 12/19/21 12/20/21 12/20/21 22:59 06:59 14:59 Other: Weight 70.307 kg 70.307 kg No acute distress, oriented 3. HEENT examination is grossly unremarkable. Midline tracheostomy tube is noted. He is on a trach collar at 35%. Neck supple. Full range of motion. No adenopathy thyromegaly or neck vein distention. Cardiovascular examination reveals regular rhythm rate. S1-S2 normal. No S3 or S4. No discernible murmur noted. Heart sounds are distant. Heart rate 100 bpm. Lungs reveal bilateral rhonchi. No wheezes or crackles. There is dullness at the bases. Breath sounds are equal bilaterally. Saturations are between 94 and 96% on the trach collar. Abdomen soft bowel sounds are heard. No masses or tenderness. Extremities are intact. No cyanosis clubbing or edema. Skin is without rash or lesion. Neurologic examination is brief but nonfocal. Results - Laboratory Findings CBC and BMP: 12/19/21 22:19 12/19/21 22:19 PT/INR, D-dimer PT 10.8 sec (9.0-12.0) 12/19/21 22:19 INR 1.0 (<1.2) 12/19/21 22:19 Abnormal lab findings: Abnormal Labs 12/19/21 12/19/21 22:19 22:19 RDW 17.2 H Lymphocytes # 0.3 L Sodium 133 L Chloride 94 L Creatinine 0.53 L Glucose 131 H AST 70 H Alkaline Phosphatase 177 H - Diagnostic Findings Chest x-ray: image reviewed Assessment and Plan Assessment: Shortness of breath, likely related to bilateral pleural effusions. Ultrasound reveals a 13.6 cm pocket on the right and a 10.2 cm pocket on the left. History of head and neck cancer, status post surgical treatment, as well as radiation and chemotherapy. Status post tracheostomy, permanent. Hypothyroidism. History of diabetes mellitus. Prior history of tobacco use. Plan: Plan dated 12/20/2021. The patient was apparently recently for thoracentesis at the cancer center that he attends. He apparently refused it at that time. Currently, the patient does have bilateral pleural effusions based on the ultrasound. Will ask again whether or not the patient would like to have the fluid drained. Additional recommendations and suggestions are forthcoming. Prognosis is guarded. Time with Patient: Greater than 30
--- NOTE | 2021-12-20 14:43 | US ---
Ultrasound-guided therapeutic and diagnostic thoracentesis DATE OF EXAM: 12/20/2021 CLINICAL HISTORY: right pleural effusion The procedure was discussed with the patient. The risks, complications, benefits, and alternatives we re discussed and any questions were answered. Informed consent was obtained. The patient was placed supine on the ultrasound table and prepped and draped in the usual sterile fas hion. All elements of maximal barrier and sterile technique were utilized. Under ultrasound guidance, access into the pleural space was obtained, via the thoracentesis catheter system and direct ultrasound guidance.Luz roximately 1.46 liters of straw-colored fluid was removed. The patient was stable throughout the procedure and remained stable upon discharge from Department of Radiology. IMPRESSION: 1. Successful therapeutic and diagnostic thoracentesis under ultrasound guidance.
--- NOTE | 2021-12-20 15:01 | XR ---
EXAMINATION TYPE: XR chest 1V portable DATE OF EXAM: 12/20/2021 HISTORY: Status post right-sided thoracentesis COMPARISON: 12/19/2021 TECHNIQUE: Single view of the chest is submitted. FINDINGS: Tracheostomy tube is in place. MediPort catheter is unchanged. No evidence for right-sided pneumothorax. Diminution in right-sided pleural effusion. Small left-side d pleural effusion. Pulmonary venous congestion persists. Areas of nodularity unchanged. The heart is stable. Hilar and mediastinal structures are within normal limits. Degenerative changes are seen of the dorsal spine. IMPRESSION: 1. No evidence for right-sided pneumothorax.
[2021-12-20 15:15] VITALS: BMI 23.6
--- NOTE | 2021-12-20 15:45 | P.HPIM ---
History of Present Illness H&P Date: 12/20/21 Jaziel Nicolas, is a 56-year-old patient who presented to [facility] emergency room with a chief complaint of worsening shortness of breath. He was evaluated in the emergency room vital examination on presentation revealed a temperature of 97.4 pulse 105 respiration 20 blood pressure 117/66 pulse ox 88% on room air Laboratory data revealed a white blood count of 8.6 hemoglobin 14.3 platelet count 178 sodium 133 potassium 4.9 chloride 94 CO2 28 BUN 18 and creatinine 0.53 poor E troponin level was elevated at 0.2 COVID-19 PCR was negative Testing in the emergency room revealed chest x-ray done in the emergency room revealed evidence of bilateral pleural effusion and evidence of pulmonary edema Patient was admitted to medical floor for further evaluation and treatment, pulm onary consultation was requested. 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 History of Any Multi-Drug Resistant Organisms: MRSA Date of last positivie culture/infection: 12/30/18 MDRO Source:: Abdomen Additional Past Surgical History / Comment(s): Throat/jaw resection/reconstruction/muscle flap, trach, peg tube insertions, EGDs, recent bronchoscopy with lymph node biopsy at [facility] with post procedure ICU stay d/t low oxygen. Past Anesthesia/Blood Transfusion Reactions: No Reported Reaction Smoking Status: Former smoker - Past Family History Mother Family Medical History: Cancer, Deep Vein Thrombosis (DVT) Medications and Allergies Home Medications Medication Instructions Recorded Confirmed Type oxyCODONE-APAP 10-325MG [Percocet 1 tab PEG/G-TUBE Q4H 03/05/16 12/20/21 History 10-325 mg] Levothyroxine Sodium [Synthroid] 125 mcg PEG/G-TUBE DAILY 04/11/19 12/20/21 History Allergies Allergy/AdvReac Type Severity Reaction Status Date / Time venom-honey bee Allergy Anaphylaxis Verified 12/19/21 21:52 Physical Exam Vitals: Vital Signs Temp Pulse Pulse Resp BP BP Pulse Ox 12/20/21 13:16 97.5 F L 93 20 114/66 91 L 12/20/21 08:33 97.2 F L 106 H 26 H 177/83 94 L 12/20/21 08:28 96 12/20/21 08:01 88 18 152/74 98 12/20/21 05:00 87 17 156/77 98 12/20/21 04:00 101 H 17 153/92 94 L 12/20/21 01:00 98.1 F 75 16 147/76 98 12/19/21 23:13 100 12/19/21 23:06 12/19/21 23:00 84 16 154/78 99 12/19/21 22:48 94 12/19/21 22:25 12/19/21 22:01 97.4 F L 105 H 18 120/83 88 L 12/19/21 21:47 97.4 F L 105 H 20 117/66 88 L FiO2 12/20/21 13:16 12/20/21 08:33 12/20/21 08:28 35 12/20/21 08:01 12/20/21 05:00 12/20/21 04:00 12/20/21 01:00 12/19/21 23:13 12/19/21 23:06 28 12/19/21 23:00 12/19/21 22:48 12/19/21 22:25 40 12/19/21 22:01 12/19/21 21:47 Intake and Output 12/19/21 12/20/21 12/20/21 22:59 06:59 14:59 Other: Weight 70.307 kg 70.307 kg In general patient is alert and oriented x 3 in no distress HEENT head normocephalic and atraumatic Neck is supple no JVD no goiter no lymphadenopathy no carotid bruit Chest examination is clear to auscultation no crackles no wheezing Cardiac exam reveals regular heart sounds S1 and S2 no gallops no murmurs Abdomen is soft nontender no organomegaly with normal bowel sounds Extremity exam reveals no edema no cyanosis or clubbing Neurological examination reveals no gross focal deficits Results CBC & Chem 7: 12/19/21 22:19 12/19/21 22:19 Labs: Abnormal Lab Results - Last 24 Hours (Table) 12/19/21 12/19/21 12/19/21 Range/Units 22:19 22:19 22:19 RDW 17.2 H (11.5-15.5) % Lymphocytes # 0.3 L (1.0-4.8) k/uL Sodium 133 L (137-145) mmol/L Chloride 94 L (98-107) mmol/L Creatinine 0.53 L (0.66-1.25) mg/dL Glucose 131 H (74-99) mg/dL AST 70 H (17-59) U/L Alkaline Phosphatase 177 H (38-126) U/L Procalcitonin 0.20 H (0.02-0.09) ng/mL Thrombosis Risk Factor Assmnt - Choose All That Apply Any of the Below Risk Factors Present?: Yes Each Factor Represents 1 point: Age 41-60 years Other Risk Factors: Yes Each Risk Factor Represents 2 Points: Malignancy Each Risk Factor Represents 3 Points: Family history of DVT/PE Other congenital or acquired thrombophilia - If yes, enter type in comment: No Thrombosis Risk Factor Assessment Total Risk Factor Score: 6 Thrombosis Risk Factor Assessment Level: High Risk Assessment and Plan Plan: Worsening shortness of breath with hypoxia Bilateral pleural effusion History of head and neck cancer History of tracheostomy History of PEG tube placement History of hypothyroidism History of diabetes mellitus History of liver cirrhosis Previous history of tobacco use At this time patient is admitted to medical floor Pulmonary consultation was requested Plan is for thoracentesis today Home medications reviewed and three quarter Dietitian consult was requested for continuation of tube feeding We'll follow closely
[2021-12-20 23:29] LABS: Appearance,BF Cloudy
[2021-12-21 00:16] LABS: Amylase, Fluid Source Thoracentesis; Amylase,Body Fluid 41 U/L; Glucose, BF Source Thoracentesis Fluid; Glucose, Body Fluid 171 mg/dL; LDH, Body Fluid Source Thoracentesis Fluid; T. Protein, Body Fluid Source Thoracentesis Fluid; Total Protein, Body Fluid 4090 mg/dL
[2021-12-21] MEDS: oxyCODONE-APAP 10-325MG 1 EACH TAB PEG/G-TUBE PRN ×2 (02:07→08:57)
[2021-12-21 04:02] VITALS: RESP 18
[2021-12-21] MEDS ORDERED: LEVOTHYROXINE 125 MCG TAB PEG/G-TUBE SCH (09:00)
--- NOTE | 2021-12-21 09:35 | P.PN ---
Subjective Progress Note Date: 12/21/21 Jaziel Nicolas, is a 56-year-old patient who presented to [facility] emergency room with a chief complaint of worsening shortness of breath. He was evaluated in the emergency room vital examination on presentation revealed a temperature of 97.4 pulse 105 respiration 20 blood pressure 117/66 pulse ox 88% on room air Laboratory data revealed a white blood count of 8.6 hemoglobin 14.3 platelet count 178 sodium 133 potassium 4.9 chloride 94 CO2 28 BUN 18 and creatinine 0.53 poor E troponin level was elevated at 0.2 COVID-19 PCR was negative Testing in the emergency room revealed chest x-ray done in the emergency room revealed evidence of bilateral pleural effusion and evidence of pulmonary edema Patient was admitted to medical floor for further evaluation and treatment, pulmonary consultation was requested. Past medical history is significant for history of hypothyroidism, adenoc arcinoma of the neck with history of tongue and jaw resection and chemotherapy and radiation therapy, history of PEG tube placement, history of liver cirrhosis On 12/21/2021 patient is alert and oriented 3. Patient underwent thoracentesis yesterday with possibly 1.4 L removed per pulmonary. Patient reports improvement with shortness breath. Patient denies chest pain. Patient denies any urinary burning or frequency. Patient denies nausea vomiting or diarrhea. Objective - Vital Signs Vital signs: Vital Signs Temp 98.1 F 12/21/21 04:00 Pulse 81 12/21/21 04:00 Resp 18 12/21/21 04:00 BP 120/71 12/21/21 04:00 Pulse Ox 97 12/21/21 04:00 FiO2 35 12/21/21 04:41 Intake & Output 12/20/21 12/21/21 12/21/21 18:59 06:59 18:59 Weight 70.307 kg 66.5 kg - Exam In general patient is alert and oriented x 3 in no distress HEENT head normocephalic and atraumatic Neck is supple no JVD no goiter no lymphadenopathy no carotid bruit Chest examination is clear to auscultation no crackles no wheezing Cardiac exam reveals regular heart sounds S1 and S2 no gallops no murmurs Abdomen is soft nontender no organomegaly with normal bowel sounds Extremity exam reveals no edema no cyanosis or clubbing Neurological examination reveals no gross focal deficits - Labs CBC & Chem 7: 12/19/21 22:19 12/19/21 22:19 Labs: Abnormal Lab Results - Last 24 Hours (Table) 12/19/21 Range/Units 22:19 Procalcitonin 0.20 H (0.02-0.09) ng/mL Microbiology - Last 24 Hours (Table) 12/20/21 14:17 Gram Stain - Preliminary Pleural Fluid Body Fluid Culture - Preliminary 12/19/21 22:19 Blood Culture - Preliminary Blood No Growth after 24 hours 12/20/21 14:17 Fungal Culture - Preliminary Pleural Fluid 12/20/21 14:17 Acid Fast Bacilli Culture - Preliminary Pleural Fluid 12/20/21 14:17 Anaerobic Culture - Preliminary Pleural Fluid Assessment and Plan Plan: Worsening shortness of breath with hypoxia. Status post thoracentesis Bilateral pleural effusion History of head and neck cancer History of tracheostomy History of PEG tube placement History of hypothyroidism History of diabetes mellitus History of liver cirrhosis Previous history of tobacco use At this time patient is admitted to medical floor Pulmonary consultation was requested Status post thoracentesis on 12/20/2021 Home medications reviewed and three quarter Dietitian consult was requested for continuation of tube feeding We'll follow closely
--- NOTE | 2021-12-21 09:53 | P.DS ---
Providers Date of admission: 12/20/21 00:26 Expected date of discharge: 12/21/21 Attending physician: Riccardo Cedillo Consults: 12/20/21 00:26 Consult Physician Routine Consulting Provider: Jose Singleton Consult Reason/Comments: Pleural effusion Do you want consulting provider notified?: Yes Primary care physician: Elvia Person [facility] Course: Discharge diagnosis Worsening shortness of breath with hypoxia. Status post thoracentesis Bilateral pleural effusion History of head and neck cancer History of tracheostomy History of PEG tube placement History of hypothyroidism History of diabetes mellitus History of liver cirrhosis Previous history of tobacco use Hospital course Jaziel Nicolas, is a 56-year-old patient who presented to [facility] emergency room with a chief complaint of worsening shortness of breath. He was evaluated in the emergency room vital examination on presentation revealed a temperature of 97.4 pulse 105 respiration 20 blood pressure 117/66 pulse ox 88% on room air Laboratory data revealed a white blood count of 8.6 hemoglobin 14.3 platelet count 178 sodium 133 potassium 4.9 chloride 94 CO2 28 BUN 18 and creatinine 0.53 poor E troponin level was elevated at 0.2 COVID-19 PCR was negative Testing in the emergency room revealed chest x-ray done in the emergency room revealed evidence of bilateral pleural effusion and evidence of pulmonary edema Patient was admitted to medical floor for further evaluation and treatment, pulmonary consultation was requested. Past medical history is significant for history of hypothyroidism, adenocarcinoma of the neck with history of tongue and jaw resection and chemotherapy and radiation therapy, history of PEG tube placement, history of liver cirrhosis On 12/21/2021 patient is alert and oriented 3. Patient underwent thoracentesis yesterday with possibly 1.4 L removed per pulmonary. Patient reports improvement with shortness breath. Patient denies chest pain. Patient denies any urinary burning or frequency. Patient denies nausea vomiting or diarrhea. Patient to be discharged home follow up with oncology services and PCP for further management Patient Condition at Discharge: Stable Plan - Discharge Summary Discharge Rx Participant: No New Discharge Prescriptions: Continue oxyCODONE-APAP 10-325MG [Percocet 10-325 mg] 1 tab PEG/G-TUBE Q4H Levothyroxine Sodium [Synthroid] 125 mcg PEG/G-TUBE DAILY Discharge Medication List oxyCODONE-APAP 10-325MG [Percocet 10-325 mg] 1 tab PEG/G-TUBE Q4H 11/30/16 [History] Levothyroxine Sodium [Synthroid] 125 mcg PEG/G-TUBE DAILY 04/11/19 [History] Follow up Appointment(s)/Referral(s): Elvia Person MD [Primary Care Provider] - 1-2 days Discharge Disposition: HOME WITH HOME HEALTH SERVICES
[2021-12-21 10:07] LABS: Basophils # (A) 0.02 X 10*3/uL (0.00-0.10); Basophils % (A) 0.2 %; Eosinophils # (A) 0.01 X 10*3/uL (0.04-0.35); Eosinophils % (A) 0.1 %; HCT 44.1 % (39.6-50.0); HGB 13.7 g/dL (13.0-17.0); Immature Grans, Automated 0.5 %; Lymphocytes # (A) 0.27 X 10*3/uL (0.90-5.00); Lymphocytes % (A) 2.8 %; MCH 28.2 pg (27.0-32.0); MCHC 31.1 g/dL (32.0-37.0); MCV 90.9 fL (80.0-97.0); Mean Platelet Volume 10.4 fL (9.5-12.2); Monocytes # (A) 0.85 X 10*3/uL (0.20-1.00); Monocytes % (A) 8.7 %; NRBC Per 100 WBC 0 /100 WBCS (0.0-0.0); Neutrophils # (A) 8.61 X 10*3/uL (1.80-7.70); Neutrophils % (A) 87.7 %; Platelet Count 177 X 10*3/uL (140-440); RBC 4.85 X 10*6/uL (4.40-5.60); WBC 9.81 X 10*3/uL (4.50-10.00)
--- NOTE | 2021-12-21 10:29 | P.PN ---
Subjective Progress Note Date: 12/21/21 Principal diagnosis: Pleural effusion. Pulmonary consult dated 12/20/2021. 56-year-old male with a history of head and neck cancer, requiring extensive treatments including surgery, chemotherapy, and radiation. The patient has a permanent tracheostomy in place. The patient was seen in the emergency room on December 19 for shortness of breath. The patient apparently noted shortness of breath and low saturations for about 2 or 3 days prior to admission. The patient denies any fever or chills. The patient denies any significant cough or phlegm production. He denies any chest pain or chest discomfort. He apparently was recently seen at his [facility] in [place], and told that he had pleural effusions. He apparently refused any thoracentesis at that time. The patient does have a bit of a cough, but he states that the cough is prima much at baseline. When his saturations were checked, they are in the mid to high 80s. In addition to the above, the patient has a history of diabetes, and previous methicillin-resistant staph aureus infection. He was a former smoker, not recently. He is currently on a 35% trach collar. He does not typically use oxygen at home. His primary care provider is Dr. Person, in [place]. White count 8.6, hemoglobin 14.3, hematocrit 45.6, and platelet count 278,000. PT 10.8, INR 1, PTT is 26.7. Sodium 133, potassium 4.9, chlorides 94, CO2 28, BUN 18, creatinine 0.53. The patient's nasal swab for coronavirus was negative. N- terminal proBNP was 428. Troponin was negative. Chest x-ray shows a midline tracheostomy tube. There is blunting of the costophrenic angles bilaterally. Progress note dated 12/21/2021. The patient remains on 35% trach collar. He's not receiving any IV fluids. The patient had a right-sided thoracentesis performed by interventional radiology. 1.46 L of fluid was removed. He was sent to laboratory for analysis including chemistry, microbiology, and cytology. The patient's feeling much better. Apparently there some talk that he could be discharged. Current laboratory data includes a white count 9.8, hemoglobin 13.7, hematocrit 44.1, and a platelet count of 177,000. The fluid appears to be an exudate. Protein is 4.09 g, and LDH is 271. Most of the cells were lymphocytes. Glucose was 171. Post thoracentesis x-ray shows no pneumothorax, and significant reduction of pleural fluid on the right. Objective - Vital Signs Vital signs: Vital Signs Temp 98.1 F 12/21/21 04:00 Pulse 81 12/21/21 04:00 Resp 18 12/21/21 04:00 BP 120/71 12/21/21 04:00 Pulse Ox 97 12/21/21 04:00 FiO2 35 12/21/21 04:41 Intake & Output 12/20/21 12/21/21 12/21/21 18:59 06:59 18:59 Weight 70.307 kg 66.5 kg - Exam No acute distress, oriented 3. HEENT examination is grossly unremarkable. Midline tracheostomy tube is noted. He is on a trach collar at 35%. Neck supple. Full range of motion. No adenopathy thyromegaly or neck vein distention. Cardiovascular examination reveals regular rhythm rate. S1-S2 normal. No S3 or S4. No discernible murmur noted. Heart sounds are distant. Heart rate 81 bpm. Lungs reveal bilateral rhonchi. No wheezes or crackles. Improved breath sounds on the right. Less dullness at the right base. Persistent dullness at the left base. Saturations are 97% on 35% trach collar. Abdomen soft bowel sounds are heard. No masses or tenderness. Extremities are intact. No cyanosis clubbing or edema. Skin is without rash or lesion. Neurologic examination is brief but nonfocal. - Labs CBC & Chem 7: 12/21/21 06:21 12/19/21 22:19 Labs: Abnormal Lab Results - Last 24 Hours (Table) 12/19/21 12/21/21 Range/Units 22:19 06:21 MCHC 31.1 L (32.0-37.0) g/dL RDW 18.0 H (11.5-14.5) % Immature Gran # 0.05 H (0.00-0.04) X 10*3/uL Neutrophils # 8.61 H (1.80-7.70) X 10*3/uL Lymphocytes # 0.27 L (0.90-5.00) X 10*3/uL Eosinophils # 0.01 L (0.04-0.35) X 10*3/uL Procalcitonin 0.20 H (0.02-0.09) ng/mL Microbiology - Last 24 Hours (Table) 12/20/21 14:17 Gram Stain - Preliminary Pleural Fluid Body Fluid Culture - Preliminary 12/19/21 22:19 Blood Culture - Preliminary Blood No Growth after 24 hours 12/20/21 14:17 Fungal Culture - Preliminary Pleural Fluid 12/20/21 14:17 Acid Fast Bacilli Culture - Preliminary Pleural Fluid 12/20/21 14:17 Anaerobic Culture - Preliminary Pleural Fluid Assessment and Plan Assessment: Shortness of breath, likely related to bilateral pleural effusions. Ultrasound reveals a 13.6 cm pocket on the right and a 10.2 cm pocket on the left. Status post thoracentesis, on the right, December 20, with 1.46 L being removed. The fluid was sent for analysis including chemistry, cytology, and microbiology. History of head and neck cancer, status post surgical treatment, as well as radiation and chemotherapy. Status post tracheostomy, permanent. Hypothyroidism. History of diabetes mellitus. Prior history of tobacco use. Plan: Plan dated 12/20/2021. The patient was apparently recently for thoracentesis at the cancer center that he attends. He apparently refused it at that time. Currently, the patient does have bilateral pleural effusions based on the ultrasound. Will ask again whether or not the patient would like to have the fluid drained. Additional recommendations and suggestions are forthcoming. Prognosis is guarded. Plan dated 12/21/2021. The patient is being considered for possible discharge. The patient should follow-up with his primary care physician, and his medical oncologist. In addition, I be happy to see him in the outpatient setting, to discuss results of the thoracentesis. Thoracentesis was done by interventional radiology, because it appeared to be lung trapped within the pleural fluid. Prognosis is guarded. We will continue to follow make recommendations along the way. Time with Patient: Less than 30
[2021-12-21 11:25] VITALS: BP 125/72; PULSE 83; TEMP 97.6
[2021-12-21 11:50] LABS: African American GFR (CKD) 128.4 (60.0-200.0); Albumin 3.5 g/dL (3.8-4.9); Albumin/Globulin Ratio 1.3 (1.60-3.17); Anion Gap 8.2 mmol/L (10.00-18.00); BUN/Creat Ratio 32.5 Ratio (12.00-20.00); Blood Urea Nitrogen 19.5 mg/dL (9.0-27.0); Calcium 8.5 mg/dL (8.7-10.3); Carbon Dioxide 28.8 mmol/L (20.0-27.5); Globulin 2.7 g/dL (1.6-3.3); Non-African American GFR(CKD) 110.8 (60.0-200.0); Potassium 4.1 mmol/L (3.5-5.5); Total Bilirubin 0.5 mg/dL (0.30-1.20); Total Protein 6.2 g/dL (6.2-8.2)
== END 2021-12-21 12:28 | disposition home health service (06) ==
LOC: EC 21:07 → 5NMEDONC 12-20 00:26
PROVIDERS: ADMIT Internal Medicine; ATTEND Internal Medicine
DX: J90 Pleural effusion, not elsewhere classified (principal); J81.1 Chronic pulmonary edema; Z93.0 Tracheostomy status; E03.9 Hypothyroidism, unspecified; R79.89 Other specified abnormal findings of blood chemistry; E11.9 Type 2 diabetes mellitus without complications; K74.60 Unspecified cirrhosis of liver; Z93.1 Gastrostomy status; Z20.822 Contact with and (suspected) exposure to COVID-19; Z79.890 Hormone replacement therapy; Z91.030 Bee allergy status; Z87.891 Personal history of nicotine dependence; Z86.73 Personal history of transient ischemic attack (TIA), and cerebral infarction without residual deficits; Z85.89 Personal history of malignant neoplasm of other organs and systems; Z92.21 Personal history of antineoplastic chemotherapy; Z92.3 Personal history of irradiation; Z86.14 Personal history of Methicillin resistant Staphylococcus aureus infection; Z98.890 Other specified postprocedural states; Z80.9 Family history of malignant neoplasm, unspecified; Z82.49 Family history of ischemic heart disease and other diseases of the circulatory system
CPT/HCPCS: 96374; 99285; 36415; 94640; 94760; 82150; 83880; 80053 ×2; 89050; 83605; 83735; 84484; 85025 ×2; 85610; 85730; 87040; 87070; 87205; 87075; 87116; 87102; 87206; 82945; 83615; 84157; 84145; 87635; 71045 ×2; 32555; 76604; G0378 ×2; J2930; 88108; 88305

== ENCOUNTER 2022-01-02 08:12 | Inpatient (IN) | payer MEDICARE, OTHER ==
--- NOTE | 2022-01-02 08:39 | ED ---
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 Symptoms have progressed over the past few days. No cough. No fever. No congestion. Patient does have trach. Patient does have history of similar symptoms previously associated with pleural effusion and needing drainage. - Related Data Home Medications Medication Instructions Recorded Confirmed oxyCODONE-APAP 10-325MG [Percocet 1 tab PEG/G-TUBE Q4H 03/05/16 01/02/22 10-325 mg] Levothyroxine Sodium [Synthroid] 125 mcg PEG/G-TUBE DAILY 04/11/19 01/02/22 Allergies Allergy/AdvReac Type Severity Reaction Status Date / Time venom-honey bee Allergy Anaphylaxis Verified 01/02/22 11:23 Review of Systems ROS Statement: Those systems with pertinent positive or pertinent negative responses have been documented in the HPI. ROS Other: All systems not noted in ROS Statement are negative. 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 History of Any Multi-Drug Resistant Organisms: MRSA Date of last positivie culture/infection: 12/30/18 MDRO Source:: Abdomen Additional Past Surgical History / Comment(s): Throat/jaw resection/reconstruction/muscle flap, trach, peg tube insertions, EGDs, recent bronchoscopy with lymph node biopsy at [facility] with post procedure ICU stay d/t low oxygen. Past Anesthesia/Blood Transfusion Reactions: No Reported Reaction Past Psychological History: No Psychological Hx Reported Smoking Status: Former smoker Past Alcohol Use History: None Reported Past Drug Use History: None Reported - Past Family History Mother Family Medical History: Cancer, Deep Vein Thrombosis (DVT) General Exam Limitations: no limitations General appearance: alert, in no apparent distress Head exam: Present: normocephalic Eye exam: Present: normal appearance ENT exam: Present: other (Chronic postoperative changes) Neck exam: Present: other (Trach) Respiratory exam: Present: decreased breath sounds Cardiovascular Exam: Present: tachycardia GI/Abdominal exam: Present: soft. Absent: tenderness Extremities exam: Present: normal inspection. Absent: pedal edema, calf tenderness Neurological exam: Present: alert Psychiatric exam: Present: normal affect, normal mood Skin exam: Present: normal color Course Vital Signs 01/02/22 01/02/22 01/02/22 08:15 08:23 09:36 Temperature 97.2 F L Pulse Rate 112 H Respiratory 24 22 Rate Blood Pressure 152/81 O2 Sat by Pulse 87 L Oximetry Fraction of 40 Inspired Oxygen (FIO2) EKG Findings - EKG Comments: EKG Findings:: Sinus tach 102. DE 149. QRS 86. QT 345. QTC 43. Left axis.rsr V1 and V2. No acute ST change. Medical Decision Making - Medical Decision Making Patient reevaluated and updated. Case discussed with Dr. Cedillo, who will admit covering Dr. quigley. Dr. Quintana also notified. Exact etiology is unclear at this time however most likely being pneumonia. D-dimer will be added. - Lab Data Result diagrams: 01/02/22 08:46 01/02/22 08:42 Lab Results 01/02/22 01/02/22 01/02/22 Range/Units 08:42 08:42 08:42 WBC (3.8-10.6) k/uL RBC (4.30-5.90) m/uL Hgb (13.0-17.5) gm/dL Hct (39.0-53.0) % MCV (80.0-100.0) fL MCH (25.0-35.0) pg MCHC (31.0-37.0) g/dL RDW (11.5-15.5) % Plt Count (150-450) k/uL MPV Neutrophils % % Lymphocytes % % Monocytes % % Eosinophils % % Basophils % % Neutrophils # (1.3-7.7) k/uL Lymphocytes # (1.0-4.8) k/uL Monocytes # (0-1.0) k/uL Eosinophils # (0-0.7) k/uL Basophils # (0-0.2) k/uL Hypochromasia Poikilocytosis Anisocytosis PT (9.0-12.0) sec INR (<1.2) APTT (22.0-30.0) sec Sodium 134 L (137-145) mmol/L Potassium 4.4 (3.5-5.1) mmol/L Chloride 98 (98-107) mmol/L Carbon Dioxide 27 (22-30) mmol/L Anion Gap 9 mmol/L BUN 14 (9-20) mg/dL Creatinine 0.54 L (0.66-1.25) mg/dL Est GFR (CKD-EPI)AfAm >90 (>60 ml/min/1.73 sqM) Est GFR (CKD-EPI)NonAf >90 (>60 ml/min/1.73 sqM) Glucose 139 H (74-99) mg/dL Plasma Lactic Acid Vladislav 1.5 (0.7-2.0) mmol/L Calcium 8.3 L (8.4-10.2) mg/dL Total Bilirubin 0.8 (0.2-1.3) mg/dL AST 62 H (17-59) U/L ALT 22 (4-49) U/L Alkaline Phosphatase 165 H (38-126) U/L Troponin I <0.012 (0.000-0.034) ng/mL NT-Pro-B Natriuret Pep pg/mL Total Protein 6.4 (6.3-8.2) g/dL Albumin 3.5 (3.5-5.0) g/dL Coronavirus (PCR) (Not Detectd) Influenza Type A RNA (Not Detectd) Influenza Type B (PCR) (Not Detectd) 01/02/22 01/02/22 01/02/22 Range/Units 08:42 08:46 08:46 WBC 7.6 (3.8-10.6) k/uL RBC 5.35 (4.30-5.90) m/uL Hgb 14.6 (13.0-17.5) gm/dL Hct 48.4 (39.0-53.0) % MCV 90.3 (80.0-100.0) fL MCH 27.2 (25.0-35.0) pg MCHC 30.1 L (31.0-37.0) g/dL RDW 16.6 H (11.5-15.5) % Plt Count 157 (150-450) k/uL MPV 7.6 Neutrophils % 84 % Lymphocytes % 3 % Monocytes % 7 % Eosinophils % 3 % Basophils % 1 % Neutrophils # 6.4 (1.3-7.7) k/uL Lymphocytes # 0.2 L (1.0-4.8) k/uL Monocytes # 0.6 (0-1.0) k/uL Eosinophils # 0.2 (0-0.7) k/uL Basophils # 0.1 (0-0.2) k/uL Hypochromasia Marked Poikilocytosis Slight Anisocytosis Slight PT 11.1 (9.0-12.0) sec INR 1.0 (<1.2) APTT 26.1 (22.0-30.0) sec Sodium (137-145) mmol/L Potassium (3.5-5.1) mmol/L Chloride (98-107) mmol/L Carbon Dioxide (22-30) mmol/L Anion Gap mmol/L BUN (9-20) mg/dL Creatinine (0.66-1.25) mg/dL Est GFR (CKD-EPI)AfAm (>60 ml/min/1.73 sqM) Est GFR (CKD-EPI)NonAf (>60 ml/min/1.73 sqM) Glucose (74-99) mg/dL Plasma Lactic Acid Vladislav (0.7-2.0) mmol/L Calcium (8.4-10.2) mg/dL Total Bilirubin (0.2-1.3) mg/dL AST (17-59) U/L ALT (4-49) U/L Alkaline Phosphatase (38-126) U/L Troponin I (0.000-0.034) ng/mL NT-Pro-B Natriuret Pep 249 pg/mL Total Protein (6.3-8.2) g/dL Albumin (3.5-5.0) g/dL Coronavirus (PCR) (Not Detectd) Influenza Type A RNA (Not Detectd) Influenza Type B (PCR) (Not Detectd) 01/02/22 01/02/22 Range/Units 08:54 08:54 WBC (3.8-10.6) k/uL RBC (4.30-5.90) m/uL Hgb (13.0-17.5) gm/dL Hct (39.0-53.0) % MCV (80.0-100.0) fL MCH (25.0-35.0) pg MCHC (31.0-37.0) g/dL RDW (11.5-15.5) % Plt Count (150-450) k/uL MPV Neutrophils % % Lymphocytes % % Monocytes % % Eosinophils % % Basophils % % Neutrophils # (1.3-7.7) k/uL Lymphocytes # (1.0-4.8) k/uL Monocytes # (0-1.0) k/uL Eosinophils # (0-0.7) k/uL Basophils # (0-0.2) k/uL Hypochromasia Poikilocytosis Anisocytosis PT (9.0-12.0) sec INR (<1.2) APTT (22.0-30.0) sec Sodium (137-145) mmol/L Potassium (3.5-5.1) mmol/L Chloride (98-107) mmol/L Carbon Dioxide (22-30) mmol/L Anion Gap mmol/L BUN (9-20) mg/dL Creatinine (0.66-1.25) mg/dL Est GFR (CKD-EPI)AfAm (>60 ml/min/1.73 sqM) Est GFR (CKD-EPI)NonAf (>60 ml/min/1.73 sqM) Glucose (74-99) mg/dL Plasma Lactic Acid Vladislav (0.7-2.0) mmol/L Calcium (8.4-10.2) mg/dL Total Bilirubin (0.2-1.3) mg/dL AST (17-59) U/L ALT (4-49) U/L Alkaline Phosphatase (38-126) U/L Troponin I (0.000-0.034) ng/mL NT-Pro-B Natriuret Pep pg/mL Total Protein (6.3-8.2) g/dL Albumin (3.5-5.0) g/dL Coronavirus (PCR) Not Detected (Not Detectd) Influenza Type A RNA Not Detected (Not Detectd) Influenza Type B (PCR) Not Detected (Not Detectd) - Radiology Data Radiology results: image reviewed (Chest x-ray does show perihilar and basilar infiltrates) Disposition Clinical Impression: Dyspnea Disposition: ADMITTED IP TO THIS HOSP Is patient prescribed a controlled substance at d/c from ED?: No Referrals: Elvia Person MD [Primary Care Provider] - 1-2 days Time of Disposition: 11:31
[2022-01-02 08:51] LABS: ALT 22 U/L (4-49); AST 62 U/L (17-59); African American GFR (CKD) >90 (>60 ml/min/1.73 sqM); Albumin 3.5 g/dL (3.5-5.0); Alkaline Phosphatase 165 U/L (38-126); Anion Gap 9 mmol/L; Blood Urea Nitrogen 14 mg/dL (9-20); Calcium 8.3 mg/dL (8.4-10.2); Carbon Dioxide 27 mmol/L (22-30); Chloride 98 mmol/L (98-107); Glucose 139 mg/dL (74-99); Non-African American GFR(CKD) >90 (>60 ml/min/1.73 sqM); Potassium 4.4 mmol/L (3.5-5.1); Sodium 134 mmol/L (137-145); Total Bilirubin 0.8 mg/dL (0.2-1.3); Total Protein 6.4 g/dL (6.3-8.2)
[2022-01-02 09:01] LABS: Anisocytosis Slight; Basophils # (A) 0.1 k/uL (0-0.2); Basophils % (A) 1 %; Eosinophils # (A) 0.2 k/uL (0-0.7); Eosinophils % (A) 3 %; HCT 48.4 % (39.0-53.0); HGB 14.6 gm/dL (13.0-17.5); Hypochromasia Marked; Lymphocytes # (A) 0.2 k/uL (1.0-4.8); Lymphocytes % (A) 3 %; MCH 27.2 pg (25.0-35.0); MCHC 30.1 g/dL (31.0-37.0); MCV 90.3 fL (80.0-100.0); Mean Platelet Volume 7.6; Monocytes # (A) 0.6 k/uL (0-1.0); Monocytes % (A) 7 %; Neutrophils # (A) 6.4 k/uL (1.3-7.7); Neutrophils % (A) 84 %; Platelet Count 157 k/uL (150-450); Poikilocytosis Slight; RBC 5.35 m/uL (4.30-5.90); RDW 16.6 % (11.5-15.5); WBC 7.6 k/uL (3.8-10.6)
[2022-01-02 09:09] LABS: Partial Thromboplastin Time 26.1 sec (22.0-30.0); Prothrombin Time 11.1 sec (9.0-12.0)
--- NOTE | 2022-01-02 09:18 | XR ---
EXAMINATION TYPE: XR chest 2V DATE OF EXAM: 01/02/2022 COMPARISON: 12/20/2021 HISTORY: Shortness of breath TECHNIQUE: Frontal and lateral views of the chest are obtained. FINDINGS: Tracheostomy tube is in place. MediPort catheter noted. Perihilar and basilar infiltrates with small effusions may reflect congestive failure although there is no evidence for cardiomegaly. Underlying pneumonia not excluded. Mediastinal structures are stable and grossly unremarkable. No evidence for hilar prominence. Degenerative changes dorsal spine. IMPRESSION: 1. Perihilar and basilar infiltrates with small effusions may reflect congestive failure although the re is no evidence for cardiomegaly. Underlying pneumonia not excluded.
[2022-01-02] MEDS ORDERED: PNEUMONIA PROTOCOL UTILIZED 1 EACH MISC PO PRN (11:31)
[2022-01-02] MEDS ORDERED: IPRATROPIUM-ALBUTEROL 3 ML NEB INHALATION PRN (11:31)
[2022-01-02] MEDS ORDERED: AZITHROMYCIN 500 MG in SODIUM CHLORIDE 0.9% 250 ML IVPB STA (11:31)
[2022-01-02] MEDS: SODIUM CHLORIDE 0.9% 1,000 ML IV SCH (12:51)
[2022-01-02] MEDS: oxyCODONE-APAP 10-325MG 1 EACH TAB PEG/G-TUBE SCH ×3 (15:45→21:15)
--- NOTE | 2022-01-02 16:14 | P.CNPUL ---
History of Present Illness Consult date: 01/02/22 Requesting physician: Riccardo Cedillo Reason for consult: dyspnea, abnormal CXR/CT Chief complaint: Shortness of breath, hypoxemia History of present illness: This is a very pleasant 56-year-old male with a history of head and neck cancer, requiring extensive treatments including surgery, chemotherapy, and radiation. The patient has a permanent tracheostomy in place. He also has a PEG tube in hospital for special surgery. The patient was seen in the emergency room on December 19 for shortness of breath secondary to bilateral pleural effusions. Ultrasound revealed a 13.6 cm pocket on the right and at 10.2 cm pocket on the left. He did undergo a right-sided thoracentesis per interventional radiology that was negative for malignancy. He apparently was recently seen at his [facility] in [place], and told that he had recurrent cancer. He is due to be seen there on 01/06/2022. He reports presented to the emergency room again today with complaints of increasing shortness of breath. He was found to have a room air pulse oximeter of 84% at home. He and his family were concerned and presented for the same. He is seen in consultation in the emergency department. Currently sitting up on the stretcher. He is maintaining good O2 saturations in the 90s on 40% trach collar. Chest x-ray does show bilateral infiltrates with effusion on the left lower lobe. He denied any fever or chills. White count 10.6. Hemoglobin 14.6. D-dimer 1.62. Sodium 134. Potassium 4.4. BUN 14. Creatinine 0.54. BUN 14. Creatinine 0.54. ProBNP 249. Padilla virus by PCR not detected. Influenza screen negative. He was initiated on DuoNeb inhalations, antibiotics from ceftriaxone and azithromycin. Review of Systems REVIEW OF SYSTEMS: CONSTITUTIONAL: Denies any recent significant weight loss or weight gain. EYES: Denies change in vision. EARS, NOSE, MOUTH, THROAT: Denies headaches, denies sore throat. CARDIOVASCULAR: Denies chest pain, palpitations or syncopal episodes. RESPIRATORY: Positive for shortness of breath, cough, congestion no hemoptysis. GASTROINTESTINAL: Denies change in appetite, denies abdominal pain GENITOURINARY: Denies hematuria, denies infections. MUSKULOSKELETAL: Denies pain, denies swelling. INTEGUMENTARY: Denies rash, denies eczema. NEUROLOGICAL: Denies recent memory loss, no recent seizure activity. PSYCHIATRIC: Denies anxiety, denies depression. HEMATOLOGIC/LYMPHATIC: Denies anemia, denies enlarged lymph nodes. 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 History of Any Multi-Drug Resistant Organisms: MRSA Date of last positivie culture/infection: 12/30/18 MDRO Source:: Abdomen Additional Past Surgical History / Comment(s): Throat/jaw resection/reconstruction/muscle flap, trach, peg tube insertions, EGDs, recent bronchoscopy with lymph node biopsy at [facility] with post procedure ICU stay d/t low oxygen. Past Anesthesia/Blood Transfusion Reactions: No Reported Reaction Past Psychological History: No Psychological Hx Reported Smoking Status: Former smoker Past Alcohol Use History: None Reported Past Drug Use History: None Reported - Past Family History Mother Family Medical History: Cancer, Deep Vein Thrombosis (DVT) Medications and Allergies Home Medications Medication Instructions Recorded Confirmed Type oxyCODONE-APAP 10-325MG [Percocet 1 tab PEG/G-TUBE Q4H 03/05/16 01/02/22 History 10-325 mg] Levothyroxine Sodium [Synthroid] 125 mcg PEG/G-TUBE DAILY 04/11/19 01/02/22 History Allergies Allergy/AdvReac Type Severity Reaction Status Date / Time venom-honey bee Allergy Anaphylaxis Verified 01/02/22 11:23 Physical Exam Vitals: Vital Signs Temp Pulse Resp BP Pulse Ox FiO2 01/02/22 09:36 40 01/02/22 08:23 22 01/02/22 08:15 97.2 F L 112 H 24 152/81 87 L Intake and Output 01/02/22 01/02/22 01/02/22 06:59 14:59 22:59 Other: Weight 70.307 kg GENERAL EXAM: Alert, cachectic 56-year-old male patient, 40% trach collar, comfortable in no apparent distress. HEAD: Changes noted of extensive surgical and radiation changes of the head and neck. EYES: Normal reaction of pupils, equal size. NOSE: Clear with pink turbinates. THROAT: No erythema or exudates. NECK: No masses, no JVD. CHEST: No chest wall deformity. LUNGS: Equal air entry with bilateral scattered rhonchi, wheeze, diminished. CVS: S1 and S2 normal with no audible murmur, regular rhythm. ABDOMEN: PEG tube in place. No hepatosplenomegaly, normal bowel sounds, no guarding or rigidity. SPINE: No scoliosis or deformity SKIN: No rashes CENTRAL NERVOUS SYSTEM: No focal deficits, tone is normal in all 4 extremities. EXTREMITIES: There is no peripheral edema. No clubbing, no cyanosis. Peripheral pulses are intact. Results - Laboratory Findings CBC and BMP: 01/02/22 08:46 01/02/22 08:42 PT/INR, D-dimer PT 11.1 sec (9.0-12.0) 01/02/22 08:46 INR 1.0 (<1.2) 01/02/22 08:46 D-Dimer 1.62 mg/L FEU (<0.60) H 01/02/22 08:46 Abnormal lab findings: Abnormal Labs 01/02/22 01/02/22 01/02/22 08:42 08:46 08:46 MCHC 30.1 L RDW 16.6 H Lymphocytes # 0.2 L D-Dimer 1.62 H Sodium 134 L Creatinine 0.54 L Glucose 139 H Calcium 8.3 L AST 62 H Alkaline Phosphatase 165 H - Diagnostic Findings Chest x-ray: image reviewed Assessment and Plan Assessment: Acute hypoxemic respiratory failure secondary to community-acquired versus healthcare acquired pneumonia Recent admission for lateral pleural effusions status post right-sided thoracentesis on 12/20/2021 that was negative for malignancy History of extensive head and neck cancer over 10 years ago with previous radiation and chemotherapy as recent as 4 years ago and known to have a recurrence and is following at the [facility] in [place] Status post permanent tracheostomy placement History of PEG tube placement Diabetes mellitus Previous tobacco dependence Hypothyroidism Plan: The patient was seen and evaluated Chest x-ray, labs and medications are reviewed Obtain a ultrasound of the chest Change antibiotics to Zosyn Continue bronchodilators Titrate the FiO2 as tolerated The patient and family plan to keep the appointment, as [place] on 01/06/2022 We will continue to follow for now and make further recommendations based on his clinical status I have personally seen and examined the patient, performed the documentation and the assessment and plan as written. Number of minutes spent on the visit: 20.
--- NOTE | 2022-01-02 17:21 | US ---
EXAMINATION TYPE: US chest DATE OF EXAM: 01/02/2022 COMPARISON: 12/20/2021 CLINICAL HISTORY: Bilateral effusions. TECHNIQUE: Targeted ultrasound of the posterior lower bilateral hemithoraces EXAM MEASUREMENTS: Right Pleural Effusion pocket size: 12.3 cm Right skin surface to fluid distance: 2.3 cm Left Pleural Effusion pocket size: 13.3 cm Left skin surface to fluid distance: 3.1 cm Right side marked for possible thoracentesis outside the dept. Left side marked for possible thoracentesis outside the dept. Pulmonologists are able to review the images in the patient?s EMR. IMPRESSIONS: As above.
[2022-01-02] MEDS: PIPERACILLIN-TAZOBACTAM 3.375 GM in SODIUM CHLORIDE 0.9% 100 ML IVPB SCH (17:53)
[2022-01-03] MEDS: PIPERACILLIN-TAZOBACTAM 3.375 GM in SODIUM CHLORIDE 0.9% 100 ML IVPB SCH ×4 (00:17→23:08)
[2022-01-03] MEDS: oxyCODONE-APAP 10-325MG 1 EACH TAB PEG/G-TUBE SCH ×6 (01:45→21:31)
--- NOTE | 2022-01-03 07:44 | XR ---
EXAMINATION TYPE: XR chest 2V DATE OF EXAM: 01/03/2022 COMPARISON: Chest x-ray one day earlier and older studies. HISTORY: Pneumonia. TECHNIQUE: Frontal and lateral views of the chest are obtained. FINDINGS: Tracheostomy tube redemonstrated. Stable right internal jugular Mediport catheter. Persiste nt small bilateral pleural effusions and central opacities favoring edema. The cardiac silhouette si ze is stable and within normal limits. Old malunion fracture deformity right mid clavicle redemonstra domi. IMPRESSION: Persistent small bilateral pleural effusions and moderate central edema consistent with fluid overload state. No significant change from one day earlier.
[2022-01-03] MEDS: SODIUM CHLORIDE 0.9% 1,000 ML IV SCH (08:53)
[2022-01-03] MEDS: LEVOTHYROXINE 125 MCG TAB PEG/G-TUBE SCH (08:53)
[2022-01-03] MEDS ORDERED: AZITHROMYCIN 500 MG TAB PO SCH (09:00)
[2022-01-03] MEDS ORDERED: LIDOCAINE 1% INJ 10MG/ML (20 ML MDV) ONE (10:04)
[2022-01-03] MEDS ORDERED: LIDOCAINE 1% INJ 10MG/ML (20 ML MDV) SQ ONE (10:15)
--- NOTE | 2022-01-03 10:36 | P.HPIM ---
History of Present Illness H&P Date: 01/02/22 Jaziel Nicolas, is a 56-year-old male who presented to [facility] emergency room with a chief complaint of shortness of breath. Patient has extensive history of head and neck cancer in which she does it come on as cancer [place] with permanent tracheostomy placement He was evaluated in the emergency room vital examination on presentation revealed a temp of 97.6, pulse rate of 85, respiratory rate 17 blood pressure 137/78 with pulse ox 96%. Patient currently on trach collar with an FiO2 40% Laboratory data reveals Covid negative influenza A and B- Testing in the emergency room revealed ultrasound revealing 13.6 cm pocket of the right and 10.10 cm pocket on the left Patient was admitted to medical floor for further evaluation and treatment. 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 History of PEG tube placement history of liver cirrhosis Review of Systems please refer to HPI otherwise unremarkable Past Medical History Past Medical History: Cancer, Diabetes Mellitus, Liver Disease, Thyroid Disorder Additional Past Medical History / Comment(s): 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 History of Any Multi-Drug Resistant Organisms: MRSA Date of last positivie culture/infection: 12/30/18 MDRO Source:: Abdomen Additional Past Surgical History / Comment(s): Throat/jaw resection/reconstruction/muscle flap, trach, peg tube insertions, EGDs, recent bronchoscopy with lymph node biopsy at [facility] with post procedure ICU stay d/t low oxygen. Past Anesthesia/Blood Transfusion Reactions: No Reported Reaction Past Psychological History: No Psychological Hx Reported Smoking Status: Former smoker Past Alcohol Use History: None Reported Past Drug Use History: None Reported - Past Family History Mother Family Medical History: Cancer, Deep Vein Thrombosis (DVT) Medications and Allergies Home Medications Medication Instructions Recorded Confirmed Type oxyCODONE-APAP 10-325MG [Percocet 1 tab PEG/G-TUBE Q4H 03/05/16 01/02/22 History 10-325 mg] Levothyroxine Sodium [Synthroid] 125 mcg PEG/G-TUBE DAILY 04/11/19 01/02/22 History Allergies Allergy/AdvReac Type Severity Reaction Status Date / Time venom-honey bee Allergy Anaphylaxis Verified 01/02/22 11:23 Physical Exam Vitals: Vital Signs Temp Pulse Resp BP Pulse Ox FiO2 01/02/22 09:36 40 01/02/22 08:23 22 01/02/22 08:15 97.2 F L 112 H 24 152/81 87 L Intake and Output 01/02/22 01/02/22 01/02/22 06:59 14:59 22:59 Other: Weight 70.307 kg In general patient is alert and oriented x 3 in no distress HEENT head normocephalic and atraumatic Neck is supple no JVD no goiter no lymphadenopathy no carotid bruit Chest examination is clear to auscultation no crackles no wheezing Cardiac exam reveals regular heart sounds S1 and S2 no gallops no murmurs Abdomen is soft nontender no organomegaly with normal bowel sounds Extremity exam reveals no edema no cyanosis or clubbing Neurological examination reveals no gross focal deficits Results CBC & Chem 7: 01/02/22 08:46 01/02/22 08:42 Labs: Abnormal Lab Results - Last 24 Hours (Table) 01/02/22 01/02/22 01/02/22 Range/Units 08:42 08:46 08:46 MCHC 30.1 L (31.0-37.0) g/dL RDW 16.6 H (11.5-15.5) % Lymphocytes # 0.2 L (1.0-4.8) k/uL D-Dimer 1.62 H (<0.60) mg/L FEU Sodium 134 L (137-145) mmol/L Creatinine 0.54 L (0.66-1.25) mg/dL Glucose 139 H (74-99) mg/dL Calcium 8.3 L (8.4-10.2) mg/dL AST 62 H (17-59) U/L Alkaline Phosphatase 165 H (38-126) U/L Assessment and Plan Assessment: 1. Acute hypoxic respiratory failure secondary to community-acquired versus healthcare acquired pneumonia 2. History of extensive head and neck cancer for 10 years with previous radiation and chemotherapy. As recent as 4 years ago and noted to have a recurrence and is following it,cancer [place] in [place] 3. Tracheostomy and PEG tube placement 4. History of diabetes mellitus 5. History of hypothyroidism 6. History of liver cirrhosis 7. Recent admission for lateral pleural effusion status post right-sided thoracentesis on 12/20/2021 negative for malignancy Pulmonary and surgical services will be consulted Patient currently on IV Zosyn
--- NOTE | 2022-01-03 10:38 | P.PN ---
Subjective Progress Note Date: 01/03/22 Jaziel Nicolas, is a 56-year-old male who presented to [facility] emergency room with a chief complaint of shortness of breath. Patient has extensive history of head and neck cancer in which she does it come on as cancer [place] with permanent tracheostomy placement He was evaluated in the emergency room vital examination on presentation revealed a temp of 97.6, pulse rate of 85, respiratory rate 17 blood pressure 137/78 with pulse ox 96%. Patient currently on trach collar with an FiO2 40% Laboratory data reveals Covid negative influenza A and B- Testing in the emergency room revealed ultrasound revealing 13.6 cm pocket of the right and 10.10 cm pocket on the left Patient was admitted to medical floor for further evaluation and treatment. 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 History of PEG tube placement history of liver cirrhosis On 01/03/2022 patient's alert and oriented 3. Tentative plans for thoracentesis per pulmonary services. Will consult oncology services. Current vital signs temp 97.6, heart rate 85, blood pressure 137/70 with pulse ox 96% on trach collar. Awaiting surgical service and put in regards to PEG tube. At this time patient denies chest pain or shortness breath. Patient denies nausea vomiting or diarrhea. Patient denies any urinary burning or frequency Objective - Vital Signs Vital signs: Vital Signs Temp 97.6 F 01/03/22 03:58 Pulse 85 01/03/22 03:58 Resp 17 01/03/22 03:58 BP 137/78 01/03/22 03:58 Pulse Ox 96 01/03/22 03:58 FiO2 40 01/03/22 08:55 Intake & Output 01/02/22 01/03/22 01/03/22 18:59 06:59 18:59 Intake Total 210 118 Balance 210 118 Weight 70.307 kg Intake: Intake, IV Titration 180 Amount Sodium Chloride 0.9% 1, 180 000 ml @ 20 mls/hr IV . Q24H RADHA Rx#:[id number] Oral 0 118 Other 30 Other: # Voids 2 - Exam In general patient is alert and oriented x 3 in no distress HEENT head normocephalic and atraumatic Neck is supple no JVD no goiter no lymphadenopathy no carotid bruit Chest examination is clear to auscultation no crackles no wheezing Cardiac exam reveals regular heart sounds S1 and S2 no gallops no murmurs Abdomen is soft nontender no organomegaly with normal bowel sounds Extremity exam reveals no edema no cyanosis or clubbing Neurological examination reveals no gross focal deficits - Labs CBC & Chem 7: 01/02/22 08:46 01/02/22 08:42 Labs: Abnormal Lab Results - Last 24 Hours (Table) 01/02/22 Range/Units 08:46 D-Dimer 1.62 H (<0.60) mg/L FEU Assessment and Plan Assessment: 1. Acute hypoxic respiratory failure secondary to community-acquired versus healthcare acquired pneumonia 2. History of extensive head and neck cancer for 10 years with previous radiation and chemotherapy. As recent as 4 years ago and noted to have a recurrence and is following it,cancer [place] in [place] 3. Tracheostomy and PEG tube placement 4. History of diabetes mellitus 5. History of hypothyroidism 6. History of liver cirrhosis 7. Recent admission for lateral pleural effusion status post right-sided thoracentesis on 12/20/2021 negative for malignancy Pulmonary and surgical services will be consulted Patient currently on IV Zosyn
--- NOTE | 2022-01-03 11:16 | XR ---
EXAMINATION TYPE: XR chest 1V portable DATE OF EXAM: 01/03/2022 CLINICAL HISTORY: Left-sided thoracentesis. TECHNIQUE: Single AP portable upright view of the chest is obtained. COMPARISON: Chest x-ray from earlier today FINDINGS: Tracheostomy tube redemonstrated. Stable right internal jugular Mediport catheter. Left ne ck surgical clips are now better seen. Improved left-sided pleural effusion after thoracentesis. No pneumothorax is noted. Small right pleur al effusion remains present. Improved central edema noted. The cardiac silhouette size is stable and within normal limits. Old malunion fracture deformity right mid clavicle redemonstrated. Persistent l eft basilar opacity. IMPRESSION: Improving left-sided pleural effusion after thoracentesis. No pneumothorax is evident. L eft basilar acute infiltrate and/or atelectasis again seen. Improved central edema also noted.
[2022-01-03 11:33] LABS: Total Protein 5.6 g/dL (6.3-8.2)
--- NOTE | 2022-01-03 11:36 | P.GSCN ---
History of Present Illness Consult date: 01/03/22 History of present illness: CHIEF COMPLAINT: Dyspnea Reason for consult PEG tube evaluation HISTORY OF PRESENT ILLNESS: This is a 56-year-old male with a known past medical history of head and neck cancer which she had required surgical intervention chemo and radiation and known to have a recurrence. He follows at [facility]. Patient admitted to the hospital with dyspnea and acute hypoxic respiratory failure secondary to pneumonia. Currently on antibiotics. Patient has a PEG tube due to dysphagia from his neck cancer. Patient does get his PEG tube replaced every 6 months. He follows with Dr. Mims and was supposed to see him in the office yesterday. Patient reports that the PEG tube is functioning. He does complain of feeling more bloated and having abdominal distention over the last couple of days. He denies any nausea or vomiting. He is having bowel movements. No drainage from the PEG tube site. PAST MEDICAL HISTORY: See list. PAST SURGICAL HISTORY: See list. MEDICATIONS: See list. ALLERGIES: See list. SOCIAL HISTORY: No illicit drug use. REVIEW OF SYSTEMS: CONSTITUTIONAL: Denies fever or chills. HEENT: Denies blurred vision, vision changes, or eye pain. Denies hemoptysis CARDIOVASCULAR: Denies chest pain or pressure. RESPIRATORY: No shortness of breath. GASTROINTESTINAL: See HPI for pertinent findings HEMATOLOGIC: Denies bleeding disorders. GENITOURINARY: Denies any blood in urine or increased urinary frequency. SKIN: Denies pruitis. Denies rash. PHYSICAL EXAM: VITAL SIGNS: Reviewed GENERAL: Well-developed in no acute distress. HEENT: No sclera icterus. Extraocular movements grossly intact. Moist buccal mucosa. Head is atraumatic, normocephalic. No nasal drainage. Permanent trach eostomy ABDOMEN: Soft. Distended. nontender. PEG tube site is clean dry and intact. There is clumping of the tube feeds in the tubing. NEUROLOGIC: Alert and oriented. Cranial nerves II through XII grossly intact. LABORATORY DATA: WBC is 7.6 Hgb14.6 platelets 157 INR 1.0 D-dimer 1.62 Sodium is 134 potassium is 4.4 creatinine 0.54 Covid and influenza not detected IMAGING: Chest x-ray improving left-sided pleural effusion after thoracentesis. No pneumothorax is evident. Left basilar acute infiltrate and/or atelectasis again seen. Improved Central edema also noted. ASSESSMENT: 1. Peg tube 2. Abdominal distention and bloating 3. History of head and neck cancer 4. Pneumonia and left pleural effusion status post thoracentesis PLAN: -Hold tube feedings due to abdominal distention and bloating -Await further surgeon recommendations regarding PEG tube replacement -Continue supportive care Thank you for this consultation Physician Transfer Agent note has been reviewed by physician. Signing provider agrees with the documented findings, assessment, and plan of care. I have personally seen and examined the patient, reviewed the TICKET DISPENSER CHANGER /PAs history, exam and MDM and agree with the assessment and plan as written. Based on total visit time, I have performed more than 50% of the visit. As above: Patient with abdominal bloating and malfunctioning gastrostomy tube. We'll check abdominal x-ray. Will replace the gastrostomy tube at the bedside. 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 History of Any Multi-Drug Resistant Organisms: MRSA Year Discovered:: 12/30/18 MDRO Source:: Abdomen Additional Past Surgical History / Comment(s): Throat/jaw resection/reconstruction/muscle flap, trach, peg tube insertions, EGDs, recent bronchoscopy with lymph node biopsy at [facility] with post procedure ICU stay d/t low oxygen. Past Anesthesia/Blood Transfusion Reactions: No Reported Reaction Past Psychological History: No Psychological Hx Reported Additional Psychological History / Comment(s): Pt resides with his family. He is independent. Smoking Status: Former smoker Past Alcohol Use History: None Reported Additional Past Alcohol Use History / Comment(s): Pt started smoking in 1985 and quit in 1993. He quit drinking in 1993 as well. Past Drug Use History: None Reported - Past Family History Mother Family Medical History: Cancer, Deep Vein Thrombosis (DVT) Medications and Allergies Home Medications Medication Instructions Recorded Confirmed Type oxyCODONE-APAP 10-325MG [Percocet 1 tab PEG/G-TUBE Q4H 03/05/16 01/02/22 History 10-325 mg] Levothyroxine Sodium [Synthroid] 125 mcg PEG/G-TUBE DAILY 04/11/19 01/02/22 History Allergies Allergy/AdvReac Type Severity Reaction Status Date / Time venom-honey bee Allergy Anaphylaxis Verified 01/02/22 11:23 Surgical - Exam Vital Signs Temp Pulse Resp BP Pulse Ox 97.2 F L 112 H 24 152/81 87 L 01/02/22 08:15 01/02/22 08:15 01/02/22 08:15 01/02/22 08:15 01/02/22 08:15 Results - Labs 01/02/22 08:46 01/02/22 08:42 Abnormal Lab Results - Last 24 Hours (Table) 01/02/22 Range/Units 08:46 D-Dimer 1.62 H (<0.60) mg/L FEU
[2022-01-03 11:56] LABS: Glucose,Whole Blood 107 mg/dL (70-110)
--- NOTE | 2022-01-03 13:03 | P.PN ---
Subjective Progress Note Date: 01/03/22 Principal diagnosis: Acute hypoxic respiratory failure secondary to pneumonia, could be community- acquired or healthcare acquired, possibly healthcare acquired This is a very pleasant 56-year-old male with a history of head and neck cancer, requiring extensive treatments including surgery, chemotherapy, and radiation. The patient has a permanent tracheostomy in place. He also has a PEG tube in place. The patient was seen in the emergency room on December 19 for shortness of breath secondary to bilateral pleural effusions. Ultrasound revealed a 13.6 cm pocket on the right and at 10.2 cm pocket on the left. He did undergo a right-sided thoracentesis per interventional radiology that was negative for malignancy. He apparently was recently seen at his [facility] in [place], and told that he had recurrent cancer. He is due to be seen there on 01/06/2022. He reports presented to the emergency room again today with complaints of increasing shortness of breath. He was found to have a room air pulse oximeter of 84% at home. He and his family were concerned and presented for the same. He is seen in consultation in the emergency department. Currently sitting up on the stretcher. He is maintaining good O2 saturations in the 90s on 40% trach collar. Chest x-ray does show bilateral infiltrates with effusion on the left lower lobe. He denied any fever or chills. White count 10.6. Hemoglobin 14.6. D-dimer 1.62. Sodium 134. Potassium 4.4. BUN 14. Creatinine 0.54. BUN 14. Creatinine 0.54. ProBNP 249. Padilla virus by PCR not detected. Influenza screen negative. He was initiated on DuoNeb inhalations, antibiotics from ceftriaxone and azithromycin. Reevaluated today on 01/03/22, patient seems to be doing well, remains on trach collar. FiO2 of 40%, patient is feeling bloated today, and he is to be seen by general surgery for his bloating and looking into the PEG tube possibly needs to be replaced. Chest x-ray continued to show bilateral pleural effusions left more so than right, went ahead and performed a left-sided thoracentesis on this patient, and I was able to drain 1500 mL of serosanguineous fluid sent for d ifferent diagnostic studies. Patient had a recent right sided thoracentesis, fluid was exudative but was not positive for malignancy although malignancy is not entirely ruled out. The left pleural effusion was sent for cytology again. Patient remains on antibiotics, continues to have a left basilar infiltrate or atelectasis there is improvement in his central edema based on the chest x-ray today after thoracentesis Objective - Vital Signs Vital signs: Vital Signs Temp 97.6 F 01/03/22 03:58 Pulse 85 01/03/22 03:58 Resp 17 01/03/22 03:58 BP 137/78 01/03/22 03:58 Pulse Ox 96 01/03/22 03:58 FiO2 40 01/03/22 08:55 Intake & Output 01/02/22 01/03/22 01/03/22 18:59 06:59 18:59 Intake Total 210 118 Balance 210 118 Weight 70.307 kg Intake: Intake, IV Titration 180 Amount Sodium Chloride 0.9% 1, 180 000 ml @ 20 mls/hr IV . Q24H RADHA Rx#:[id number] Oral 0 118 Other 30 Other: # Voids 2 - Exam Physical Exam: Revealed a 56-year-old white female on trach collar, in no distress HEENT:[Neck is supple.] [No neck masses.] [No thyromegaly.] [No JVD.] Tracheostomy is intact Chest: [Diminished breath sounds and crackles at the bases Cardiac Exam: [Normal S1 and S2, no S3 gallop, no murmur.] Abdomen: [Soft, nontender, no megaly, no rebound, no guarding, normal bowel sounds.] Extremities: [No clubbing, no edema, no cyanosis.] Neurological Exam: [No focal neurologic deficit.] Alert and oriented 3 no gross focal deficits. Psychiatric: Normal mood, affect and normal mental status examination. In: No rashes - Labs CBC & Chem 7: 01/02/22 08:46 01/02/22 08:42 Labs: Abnormal Lab Results - Last 24 Hours (Table) 01/03/22 01/03/22 Range/Units 07:48 07:48 Lactate Dehydrogenase 984 H (313-618) U/L Total Protein 5.6 L (6.3-8.2) g/dL Procalcitonin 0.15 H (0.02-0.09) ng/mL Microbiology - Last 24 Hours (Table) 01/02/22 21:20 Sputum Culture - Preliminary Sputum Assessment and Plan Assessment: Acute hypoxic respiratory failure secondary to pneumonia possibly healthcare acquired Bilateral pleural effusions, suspect malignant effusions although parapneumonic effusions are likely Recent thoracentesis on 12/20, done on the right side. Status post thoracentesis today on 01/03 on the left side History of extensive head and neck cancer, previous chemoradiation treatment and apparently the patient was told recently that is a recurrence involving his subcarinal lymph nodes. History of PEG tube placement Ex-smoker Type 2 diabetes Hypothyroidism Recommendation: Continue antibiotics Awaiting results of the pleural effusion which was sent today Continue bronchodilators Titrate FiO2 accordingly Patient has an appointment with his oncologist in [place] on 01/06 hopefully we can discharge the patient on a weekend We'll continue to follow Time with Patient: Less than 30
--- NOTE | 2022-01-03 14:12 | P.PCN ---
Date of Procedure: 01/03/22 Procedure(s) Performed: PREOPERATIVE DIAGNOSIS: Malfunctioning gastrostomy tube POSTOPERATIVE DIAGNOSIS: Same PROCEDURE: Bedside replacement percutaneous gastrostomy tube SURGEON: Felicita EBL: 1 mL ANESTHESIA: None COMPLICATIONS: None OPERATIVE PROCEDURE: Patient kept in the hospital room for the procedure. He was laid supine. The previous balloon was emptied. The previous gastrostomy tube was removed. The balloon was partially deflated appear to have a hole in it. A new 22-Uzbek gastrostomy balloon replacement tube was attempted to be placed but we were unable to pass the 22-Uzbek into the abdomen. Instead an 18-Uzbek gastrostomy balloon replacement tube was placed without difficulty. The balloon was filled with 10 mL of water. Drain sponge was placed. DISPOSITION: Stable
--- NOTE | 2022-01-03 15:41 | XR ---
EXAMINATION TYPE: XR abdomen 2V DATE OF EXAM: 01/03/2022 CLINICAL HISTORY: Bloating. TECHNIQUE: Supine and upright views of the abdomen are obtained. COMPARISON: Abdominal x-ray 2018. CT abdomen and pelvis October 01, 2017 FINDINGS: There is overlying PEG tube redemonstrated in nondistended stomach. Scattered gas is seen in non-distended small bowel loops. Gas and fecal material is seen in non-distended colon. Some nons pecific scattered air-fluid levels in the lower abdomen are noted. Surgical clips redemonstrated over lying the right lower quadrant and right pelvis. Small bilateral pleural effusions are again seen. No free air. Osseous structures are intact. IMPRESSION: Overall nonspecific strongly favor nonobstructive bowel gas pattern.
[2022-01-03] MEDS ORDERED: HYDROmorphone 0.5 MG/0.5 ML SYRINGE IVP PRN (16:21)
[2022-01-03 16:35] LABS: Glucose,Whole Blood 112 mg/dL (70-110)
--- NOTE | 2022-01-03 17:01 | OP ---
OPERATIVE REPORT PROCEDURE PERFORMED: Left-sided thoracentesis. PREOPERATIVE DIAGNOSIS: Left pleural effusion. POSTOPERATIVE DIAGNOSIS: Left pleural effusion. ANESTHESIA USED: 5 mL of 1% lidocaine. DESCRIPTION OF PROCEDURE: The patient was placed in a sitting upright position, and the area below the left scapula was prepared in a sterile fashion, and drapes were applied. The area at the level of the ninth intercostal space and tip of the scapula was locally anesthetized with lidocaine. Then, a 24-gauge needle was advanced into the pleural space until the fluid was localized. Then, a small tiny incision was made, and a standard thoracentesis catheter and needle were used and advanced at the same site into the pleural space until the fluid was obtained, and the catheter was advanced over the needle into the pleural space, and the needle was pulled out of the pleural space. Freely flowing fluid was removed, roughly 1500 mL of serosanguineous fluid was drained from the left pleural space. Procedure was well tolerated. No complications. Fluid was sent for different diagnostic studies. Postoperative chest x-ray showed no complications. MMODL / IJN: [id number] /
--- NOTE | 2022-01-03 17:39 | US ---
EXAMINATION TYPE: US abdomen limited DATE OF EXAM: 01/03/2022 COMPARISON: NONE CLINICAL HISTORY: Evaluate ascites. No ascites present in all four quadrants of the abdomen. IMPRESSION: Limited exam fails to demonstrate any sign of abdominal ascites.
--- NOTE | 2022-01-03 17:55 | P.CONS ---
History of Present Illness - Reason for Consult Consult date: 01/03/22 Adenocarcinoma of Head and neck 2011 - History of Present Illness Mr. Nicolas is a very pleasant patient who was seen in 2018 while hospitalized, at that time he was following with [facility] after diagnosis and treatment (XRT and CHemo) for adenocarcinoma of the head and neck, apparently diagnosed in 2012. He recurred in 2018 and again underwent chemotherapy in 2018. He now has been admitted with SOB, pleural effusion. Status post recent thoracentesis cytology negative. Status post Thoracentesis this admission and cytology pending. He apparently was recently seen at his [facility] in [place], and told that he had recurrent cancer. He is due to be seen there on 01/06/2022. He reports presented to the emergency room again today with complaints of increasing shortness of breath. He was fhypoxic on home pulse ox therefore presented to ER. He is maintaining good O2 saturations in the 90s on 40% trach collar. Chest x-ray does show bilateral infiltrates with effusion on the left lower lobe. COVID by PCR Neg. Influenza negative. Pulm is following, abx initiated and status post thoracentesis Review of Systems All systems: negative Constitutional: Reports as per HPI Past Medical History Past Medical History: Cancer, Diabetes Mellitus, Liver Disease, Thyroid Disorder Additional Past Medical History / Comment(s): 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 History of Any Multi-Drug Resistant Organisms: MRSA Year Discovered:: 12/30/18 MDRO Source:: Abdomen Additional Past Surgical History / Comment(s): Throat/jaw resection/reconstruction/muscle flap, trach, peg tube insertions, EGDs, recent bronchoscopy with lymph node biopsy at [facility] with post procedure ICU stay d/t low oxygen. Past Anesthesia/Blood Transfusion Reactions: No Reported Reaction Past Psychological History: No Psychological Hx Reported Smoking Status: Former smoker Past Alcohol Use History: None Reported Past Drug Use History: None Reported - Past Family History Mother Family Medical History: Cancer, Deep Vein Thrombosis (DVT) Medications and Allergies Home Medications Medication Instructions Recorded Confirmed Type oxyCODONE-APAP 10-325MG [Percocet 1 tab PEG/G-TUBE Q4H 03/05/16 01/02/22 History 10-325 mg] Levothyroxine Sodium [Synthroid] 125 mcg PEG/G-TUBE DAILY 04/11/19 01/02/22 History Allergies Allergy/AdvReac Type Severity Reaction Status Date / Time venom-honey bee Allergy Anaphylaxis Verified 01/02/22 11:23 Physical Exam Vitals: Vital Signs Temp Pulse Pulse Resp BP BP Pulse Ox 01/03/22 08:55 01/03/22 04:13 01/03/22 03:58 97.6 F 85 17 137/78 96 01/03/22 02:00 98 18 01/03/22 00:00 97.2 F L 98 18 147/79 96 01/02/22 23:11 01/02/22 20:00 96.7 F L 95 19 150/85 95 01/02/22 18:30 97.6 F 98 18 133/69 01/02/22 18:03 95 20 128/74 95 01/02/22 17:00 98 20 128/74 95 01/02/22 16:00 101 H 20 120/75 95 01/02/22 15:00 97 20 144/96 95 01/02/22 14:00 94 20 133/82 95 01/02/22 13:00 97 20 144/86 95 01/02/22 12:00 93 20 138/79 95 [facility] 01/03/22 08:55 40 01/03/22 04:13 40 01/03/22 03:58 40 01/03/22 02:00 01/03/22 00:00 40 01/02/22 23:11 40 01/02/22 20:00 40 01/02/22 18:30 01/02/22 18:03 01/02/22 17:00 01/02/22 16:00 01/02/22 15:00 01/02/22 14:00 01/02/22 13:00 01/02/22 12:00 Intake and Output 01/02/22 01/03/22 01/03/22 22:59 06:59 14:59 Intake Total 70 140 118 Balance 70 140 118 Intake: Intake, IV Titration 40 140 Amount Sodium Chloride 0.9% 1, 40 140 000 ml @ 20 mls/hr IV . Q24H [facility] Rx#:[id number] Oral 0 118 Other 30 Other: # Voids 2 2 Weight 70.307 kg Constitutional General appearance: Present: no acute distress - EENT Eyes: Present: EOMI ENT: Present: hearing grossly normal - Neck Details: Tracheostomy in situ. Radiation changes noted - Respiratory Respiratory: bilateral: CTA - Cardiovascular Rhythm: regular Heart sounds: normal: S1, S2 - Gastrointestinal Gastrointestinal Comment(s): Margins of the PEG site show redness with swelling. No active drainage at this point General gastrointestinal: Present: normal bowel sounds, soft - Integumentary Integumentary: Present: normal - Neurologic Neurologic: Present: CNII-XII intact - Musculoskeletal Musculoskeletal: Present: generalized weakness, strength equal bilaterally - Psychiatric Psychiatric: Present: appropriate affect Results CBC & Chem 7: 01/02/22 08:46 01/02/22 08:42 Labs: Abnormal Lab Results - Last 24 Hours (Table) 01/02/22 01/03/22 Range/Units 08:46 07:48 D-Dimer 1.62 H (<0.60) mg/L FEU Procalcitonin 0.15 H (0.02-0.09) ng/mL Microbiology - Last 24 Hours (Table) 01/02/22 21:20 Sputum Culture - Preliminary Sputum Assessment and Plan (1) Pleural effusion Narrative/Plan: Pulm following Current Visit: No Status: Acute Code(s): J90 - PLEURAL EFFUSION, NOT ELSEWHERE CLASSIFIED SNOMED Code(s): 02219064 (2) Adenocarcinoma of head and neck Narrative/Plan: - He follows with [facility] and has a follow-up on Thursday with them, he will keep his plan for follow-up there as per patient recent scans (which are not available) showed concern of recurrence - Additional Oncologic History per HPI Current Visit: No Status: Chronic Priority: High Code(s): C76.0 - MALIGNANT NEOPLASM OF HEAD, FACE AND NECK SNOMED Code(s): 526918245 Plan: Dr. Galdamez: I have completed the full history and physical and developed the above impression and plan, agree with dictation, dictated as a scribe
[2022-01-03 18:18] LABS: Appearance,BF Blood Tinged
[2022-01-04 00:22] LABS: Glucose,Whole Blood 174 mg/dL (70-110)
[2022-01-04] MEDS: oxyCODONE-APAP 10-325MG 1 EACH TAB PEG/G-TUBE SCH ×6 (01:30→21:29)
[2022-01-04 02:58] LABS: LDH, Body Fluid Source Pleural Fluid; T. Protein, Body Fluid Source Pleural Fluid; Total Protein, Body Fluid 3440 mg/dL
[2022-01-04 07:09] LABS: Anisocytosis Slight; Basophils % (A) 1 %; Eosinophils # (A) 0.2 k/uL (0-0.7); Eosinophils % (A) 3 %; HCT 42.6 % (39.0-53.0); HGB 13.6 gm/dL (13.0-17.5); Hypochromasia Marked; Lymphocytes # (A) 0.3 k/uL (1.0-4.8); Lymphocytes % (A) 5 %; MCH 28.5 pg (25.0-35.0); MCHC 31.9 g/dL (31.0-37.0); MCV 89.4 fL (80.0-100.0); Mean Platelet Volume 8.5; Monocytes # (A) 0.5 k/uL (0-1.0); Monocytes % (A) 7 %; Neutrophils # (A) 5.3 k/uL (1.3-7.7); Neutrophils % (A) 81 %; Platelet Count 140 k/uL (150-450); Poikilocytosis Slight; RBC 4.77 m/uL (4.30-5.90); RDW 16.6 % (11.5-15.5); WBC 6.5 k/uL (3.8-10.6)
[2022-01-04 07:36] LABS: ALT 23 U/L (4-49); AST 61 U/L (17-59); African American GFR (CKD) >90 (>60 ml/min/1.73 sqM); Albumin 3.1 g/dL (3.5-5.0); Alkaline Phosphatase 163 U/L (38-126); Anion Gap 8 mmol/L; Blood Urea Nitrogen 15 mg/dL (9-20); Calcium 7.9 mg/dL (8.4-10.2); Carbon Dioxide 28 mmol/L (22-30); Chloride 99 mmol/L (98-107); Glucose 105 mg/dL (74-99); Non-African American GFR(CKD) >90 (>60 ml/min/1.73 sqM); Potassium 3.9 mmol/L (3.5-5.1); Sodium 135 mmol/L (137-145); Total Bilirubin 0.6 mg/dL (0.2-1.3); Total Protein 5.6 g/dL (6.3-8.2)
[2022-01-04] MEDS: LEVOTHYROXINE 125 MCG TAB PEG/G-TUBE SCH (09:50)
[2022-01-04] MEDS: PIPERACILLIN-TAZOBACTAM 3.375 GM in SODIUM CHLORIDE 0.9% 100 ML IVPB SCH ×3 (09:51→23:31)
--- NOTE | 2022-01-04 10:56 | P.PN ---
Subjective Progress Note Date: 01/04/22 Jaziel Nicolas, is a 56-year-old male who presented to [facility] emergency room with a chief complaint of shortness of breath. Patient has extensive history of head and neck cancer in which she does it come on as cancer [place] with permanent tracheostomy placement He was evaluated in the emergency room vital examination on presentation revealed a temp of 97.6, pulse rate of 85, respiratory rate 17 blood pressure 137/78 with pulse ox 96%. Patient currently on trach collar with an FiO2 40% Laboratory data reveals Covid negative influenza A and B- Testing in the emergency room revealed ultrasound revealing 13.6 cm pocket of the right and 10.10 cm pocket on the left Patient was admitted to medical floor for further evaluation and treatment. 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 History of PEG tube placement history of liver cirrhosis On 01/03/2022 patient's alert and oriented 3. Tentative plans for thoracentesis per pulmonary services. Will consult oncology services. Current vital signs temp 97.6, heart rate 85, blood pressure 137/70 with pulse ox 96% on trach collar. Awaiting surgical service and put in regards to PEG tube. At this time patient denies chest pain or shortness breath. Patient denies nausea vomiting or diarrhea. Patient denies any urinary burning or frequency On 01/04/2022 patient was seen and examined on the telemetry floor he is alert and oriented 3 in no apparent distress there is no fever or chills no headache or dizziness he is maintained on oxygen via trach shield and is tolerating well there is no fever or chills no headache or dizziness no chest pain no shortness of breath no cough no nausea or vomiting no abdominal pain no diarrhea and no urinary symptoms, input from pulmonary and general surgery reviewed, possible discharge to home tomorrow if cleared by all specialists, patient has an appointment in the oncology Department in [place] on Thursday. Objective - Vital Signs Vital signs: Vital Signs Temp 98.6 F 01/04/22 04:00 Pulse 94 01/04/22 04:00 Resp 19 01/04/22 04:00 BP 121/69 01/04/22 04:00 Pulse Ox 96 01/04/22 04:00 FiO2 40 01/04/22 07:49 Intake & Output 01/03/22 01/04/22 01/04/22 18:59 06:59 18:59 Intake Total 548 40 Output Total 1500 Balance -952 40 Intake: IV 430 40 Invasive Line 1 20 20 Invasive Line 2 20 20 Piperacillin-Tazobactam 3 100 .375 gm In Sodium Chloride 0.9% 100 ml @ 25 mls/hr IVPB Q8HR [facility] Rx# :[id number] Sodium Chloride 0.9% 1, 240 000 ml @ 20 mls/hr IV . Q24H [facility] Rx#:[id number] cefTRIAXone 2 gm In 50 Sodium Chloride 0.9% 50 ml @ 100 mls/hr IVPB Q24HR [facility] Rx#:[id number] Oral 118 Output: Other 1500 Other: # Voids 1 1 # Bowel Movements 2 - Exam In general patient is alert and oriented x 3 in no distress HEENT head normocephalic and atraumatic Neck is supple no JVD no goiter no lymphadenopathy no carotid bruit Chest examination is clear to auscultation no crackles no wheezing Cardiac exam reveals regular heart sounds S1 and S2 no gallops no murmurs Abdomen is soft nontender no organomegaly with normal bowel sounds Extremity exam reveals no edema no cyanosis or clubbing Neurological examination reveals no gross focal deficits - Labs CBC & Chem 7: 01/04/22 06:53 01/04/22 06:53 Labs: Abnormal Lab Results - Last 24 Hours (Table) 01/03/22 01/03/22 01/03/22 Range/Units 07:48 07:48 16:33 RDW (11.5-15.5) % Plt Count (150-450) k/uL Lymphocytes # (1.0-4.8) k/uL Sodium (137-145) mmol/L Creatinine (0.66-1.25) mg/dL Glucose (74-99) mg/dL POC Glucose (mg/dL) 112 H (70-110) mg/dL Calcium (8.4-10.2) mg/dL AST (17-59) U/L Alkaline Phosphatase (38-126) U/L Lactate Dehydrogenase 984 H (313-618) U/L Total Protein 5.6 L (6.3-8.2) g/dL Albumin (3.5-5.0) g/dL Procalcitonin 0.15 H (0.02-0.09) ng/mL 01/04/22 01/04/22 01/04/22 Range/Units 00:21 06:53 06:53 RDW 16.6 H (11.5-15.5) % Plt Count 140 L (150-450) k/uL Lymphocytes # 0.3 L (1.0-4.8) k/uL Sodium 135 L (137-145) mmol/L Creatinine 0.53 L (0.66-1.25) mg/dL Glucose 105 H (74-99) mg/dL POC Glucose (mg/dL) 174 H (70-110) mg/dL Calcium 7.9 L (8.4-10.2) mg/dL AST 61 H (17-59) U/L Alkaline Phosphatase 163 H (38-126) U/L Lactate Dehydrogenase (313-618) U/L Total Protein 5.6 L (6.3-8.2) g/dL Albumin 3.1 L (3.5-5.0) g/dL Procalcitonin (0.02-0.09) ng/mL Microbiology - Last 24 Hours (Table) 01/03/22 10:00 Gram Stain - Preliminary Pleural Fluid Body Fluid Culture - Preliminary 01/02/22 21:20 Gram Stain - Preliminary Sputum Sputum Culture - Preliminary 01/03/22 10:00 Acid Fast Bacilli Culture - Preliminary Pleural Fluid 01/03/22 10:00 Fungal Culture - Preliminary Pleural Fluid 01/02/22 12:39 Blood Culture - Preliminary Blood No Growth after 24 hours 01/02/22 12:15 Blood Culture - Preliminary Blood No Growth after 24 hours Assessment and Plan Assessment: 1. Acute hypoxic respiratory failure secondary to community-acquired versus healthcare acquired pneumonia 2. History of extensive head and neck cancer for 10 years with previous radiati on and chemotherapy. As recent as 4 years ago and noted to have a recurrence and is following it,cancer Alva in [place] 3. Tracheostomy and PEG tube placement 4. History of diabetes mellitus 5. History of hypothyroidism 6. History of liver cirrhosis 7. Recent admission for lateral pleural effusion status post right-sided thoracentesis on 12/20/2021 negative for malignancy Pulmonary and surgical services will be consulted Patient currently on IV Zosyn
--- NOTE | 2022-01-04 11:34 | P.PN ---
Subjective Progress Note Date: 01/04/22 Principal diagnosis: Acute hypoxic respiratory failure secondary to pneumonia, could be community- acquired or healthcare acquired, possibly healthcare acquired This is a very pleasant 56-year-old male with a history of head and neck cancer, requiring extensive treatments including surgery, chemotherapy, and radiation. The patient has a permanent tracheostomy in place. He also has a PEG tube in place. The patient was seen in the emergency room on December 19 for shortness of breath secondary to bilateral pleural effusions. Ultrasound revealed a 13.6 cm pocket on the right and at 10.2 cm pocket on the left. He did undergo a right-sided thoracentesis per interventional radiology that was negative for malignancy. He apparently was recently seen at his [facility] in [place], and told that he had recurrent cancer. He is due to be seen there on 01/06/2022. He reports presented to the emergency room again today with complaints of increasing shortness of breath. He was found to have a room air pulse oximeter of 84% at home. He and his family were concerned and presented for the same. He is seen in consultation in the emergency department. Currently sitting up on the stretcher. He is maintaining good O2 saturations in the 90s on 40% trach collar. Chest x-ray does show bilateral infiltrates with effusion on the left lower lobe. He denied any fever or chills. White count 10.6. Hemoglobin 14.6. D-dimer 1.62. Sodium 134. Potassium 4.4. BUN 14. Creatinine 0.54. BUN 14. Creatinine 0.54. ProBNP 249. Padilla virus by PCR not detected. Influenza screen negative. He was initiated on DuoNeb inhalations, antibiotics from ceftriaxone and azithromycin. Reevaluated today on 01/03/22, patient seems to be doing well, remains on trach collar. FiO2 of 40%, patient is feeling bloated today, and he is to be seen by general surgery for his bloating and looking into the PEG tube possibly needs to be replaced. Chest x-ray continued to show bilateral pleural effusions left more so than right, went ahead and performed a left-sided thoracentesis on this patient, and I was able to drain 1500 mL of serosanguineous fluid sent for d ifferent diagnostic studies. Patient had a recent right sided thoracentesis, fluid was exudative but was not positive for malignancy although malignancy is not entirely ruled out. The left pleural effusion was sent for cytology again. Patient remains on antibiotics, continues to have a left basilar infiltrate or atelectasis there is improvement in his central edema based on the chest x-ray today after thoracentesis Reevaluated today on 01/04/22, patient is feeling better, breathing easier, re sherin on trach collar, FiO2 of 40%. Pleural effusion fluid that I drained yesterday seems to be exudative, and the differential diagnoses includes pleural effusion of malignancy or pleural effusion of infection/parapneumonic pleural effusion cultures are pending and cytology is pending. In the meantime patient remains on antibiotics, and I believe the patient could be considered for discharge home tomorrow on oral antibiotics and he has an appointment with his oncologist down in [place] on Thursday. Patient was made aware that the cytology on the fluid may not be available until sometime mid next week. Patient should have follow-up on outpatient basis to discuss the findings on the final findings of pleural effusion. WBC count today is 6.5 hemoglobin 13.6 and x-ray summary normal renal profile is normal Objective - Vital Signs Vital signs: Vital Signs Temp 98.6 F 01/04/22 04:00 Pulse 94 01/04/22 04:00 Resp 19 01/04/22 04:00 BP 121/69 01/04/22 04:00 Pulse Ox 96 01/04/22 04:00 FiO2 40 01/04/22 07:49 Intake & Output 01/03/22 01/04/22 01/04/22 18:59 06:59 18:59 Intake Total 548 40 Output Total 1500 Balance -952 40 Intake: IV 430 40 Invasive Line 1 20 20 Invasive Line 2 20 20 Piperacillin-Tazobactam 3 100 .375 gm In Sodium Chloride 0.9% 100 ml @ 25 mls/hr IVPB Q8HR [facility] Rx# :[id number] Sodium Chloride 0.9% 1, 240 000 ml @ 20 mls/hr IV . Q24H [facility] Rx#:[id number] cefTRIAXone 2 gm In 50 Sodium Chloride 0.9% 50 ml @ 100 mls/hr IVPB Q24HR [facility] Rx#:[id number] Oral 118 Output: Other 1500 Other: # Voids 1 1 # Bowel Movements 2 - Exam Physical Exam: Revealed a 56-year-old white female on trach collar, in no distress HEENT:[Neck is supple.] [No neck masses.] [No thyromegaly.] [No JVD.] Tracheostomy is intact Chest: [Crackles at the bases and rhonchi noted. Cardiac Exam: [Normal S1 and S2, no S3 gallop, no murmur.] Abdomen: [Soft, nontender, no megaly, no rebound, no guarding, normal bowel sounds.] Extremities: [No clubbing, no edema, no cyanosis.] Neurological Exam: [No focal neurologic deficit.] Alert and oriented 3 no gross focal deficits. Psychiatric: Normal mood, affect and normal mental status examination. In: No rashes - Labs CBC & Chem 7: 01/04/22 06:53 01/04/22 06:53 Labs: Abnormal Lab Results - Last 24 Hours (Table) 01/03/22 01/03/22 01/04/22 Range/Units 07:48 16:33 00:21 RDW (11.5-15.5) % Plt Count (150-450) k/uL Lymphocytes # (1.0-4.8) k/uL Sodium (137-145) mmol/L Creatinine (0.66-1.25) mg/dL Glucose (74-99) mg/dL POC Glucose (mg/dL) 112 H 174 H (70-110) mg/dL Calcium (8.4-10.2) mg/dL AST (17-59) U/L Alkaline Phosphatase (38-126) U/L Lactate Dehydrogenase 984 H (313-618) U/L Total Protein 5.6 L (6.3-8.2) g/dL Albumin (3.5-5.0) g/dL 01/04/22 01/04/22 Range/Units 06:53 06:53 RDW 16.6 H (11.5-15.5) % Plt Count 140 L (150-450) k/uL Lymphocytes # 0.3 L (1.0-4.8) k/uL Sodium 135 L (137-145) mmol/L Creatinine 0.53 L (0.66-1.25) mg/dL Glucose 105 H (74-99) mg/dL POC Glucose (mg/dL) (70-110) mg/dL Calcium 7.9 L (8.4-10.2) mg/dL AST 61 H (17-59) U/L Alkaline Phosphatase 163 H (38-126) U/L Lactate Dehydrogenase (313-618) U/L Total Protein 5.6 L (6.3-8.2) g/dL Albumin 3.1 L (3.5-5.0) g/dL Microbiology - Last 24 Hours (Table) 01/03/22 10:00 Gram Stain - Preliminary Pleural Fluid Body Fluid Culture - Preliminary 01/02/22 21:20 Gram Stain - Preliminary Sputum Sputum Culture - Preliminary 01/03/22 10:00 Acid Fast Bacilli Culture - Preliminary Pleural Fluid 01/03/22 10:00 Fungal Culture - Preliminary Pleural Fluid 01/02/22 12:39 Blood Culture - Preliminary Blood No Growth after 24 hours 01/02/22 12:15 Blood Culture - Preliminary Blood No Growth after 24 hours Assessment and Plan Assessment: Acute hypoxic respiratory failure secondary to pneumonia possibly healthcare acquired Bilateral pleural effusions, suspect malignant effusions although parapneumonic effusions are likely Recent thoracentesis on 12/20, done on the right side. Status post thoracentesis today on 01/03 on the left side, fluid is exudative, final cytology and cultures are pending History of extensive head and neck cancer, previous chemoradiation treatment and apparently the patient was told recently that is a recurrence involving his subcarinal lymph nodes. History of PEG tube placement Ex-smoker Type 2 diabetes Hypothyroidism Recommendation: Continue antibiotics Awaiting results of the pleural effusion which was sent today Continue bronchodilators Titrate FiO2 accordingly We'll clear the patient to be discharged home tomorrow and follow-up with his oncologist in [place] next week. Patient could be transitioned to oral antibiotics tomorrow, would likely recommend Levaquin for 7 more days We'll continue to follow Time with Patient: Less than 30
[2022-01-04 14:03] VITALS: BMI 23.6
--- NOTE | 2022-01-04 15:54 | P.PN ---
Subjective Progress Note Date: 01/04/22 CHIEF COMPLAINT: Gastrostomy tube status HISTORY OF PRESENT ILLNESS: The patient is a 56-year-old male with tracheostomy and depends on gastrostomy tube for nutrition. He status post gastrostomy tube placement. No complaints. Pain well controlled. ROS: No fevers or chills. No new chest pain. PHYSICAL EXAM: VITAL SIGNS: Reviewed CONSTITUTIONAL: Well developed and in no acute distress. EYES: Conjuctivae without sclera icterus. Extraocular movements grossly intact. HEAD, EARS, NOSE, THROAT: Moist buccal mucosa. Head is atraumatic, normocephalic. Hears conversational speech. No nasal drainage. Has tracheostomy. RESPIRATORY: Non-labored respirations and equal bilateral excursions. CARDIOVASCULAR: Palpable 2+ radial pulses. ABDOMEN: Gastrostomy tube intact. MUSCULOSKELETAL: No gross deformity of the lower extremities noted. No clubbing. No cyanosis. SKIN: Good skin turgor. Well perfused. NEUROLOGIC: Cranial nerves II through XII grossly intact. No focal or lateralizing signs. PSYCH: Appropriate affect. Alert and oriented to person, place and time. CLINICAL LABS: Reviewed. REPORT: Abdominal x-ray review nonspecific bowel gas pattern. Ultrasound of the abdomen reviewed without ascites. ASSESSMENT: 1. Gastrostomy tube status 2. Tracheostomy status PLAN: 1. Communication with dietitian to start tube feeds per home tube feeds Objective - Vital Signs Vital signs: Vital Signs Temp 97.5 F L 01/04/22 12:00 Pulse 86 01/04/22 14:00 Resp 18 01/04/22 14:00 BP 135/78 01/04/22 12:00 Pulse Ox 95 01/04/22 15:12 FiO2 40 01/04/22 15:12 Intake & Output 01/03/22 01/04/22 01/04/22 18:59 06:59 18:59 Intake Total 548 40 40 Output Total 1500 Balance -952 40 40 Weight 70.307 kg Intake: IV 430 40 40 Invasive Line 1 20 20 20 Invasive Line 2 20 20 20 Piperacillin-Tazobactam 3 100 .375 gm In Sodium Chloride 0.9% 100 ml @ 25 mls/hr IVPB Q8HR [facility] Rx# :[id number] Sodium Chloride 0.9% 1, 240 000 ml @ 20 mls/hr IV . Q24H [facility] Rx#:[id number] cefTRIAXone 2 gm In 50 Sodium Chloride 0.9% 50 ml @ 100 mls/hr IVPB Q24HR [facility] Rx#:[id number] Oral 118 Output: Other 1500 Other: # Voids 1 1 # Bowel Movements 2 - Labs CBC & Chem 7: 01/04/22 06:53 01/04/22 06:53 Labs: Abnormal Lab Results - Last 24 Hours (Table) 01/03/22 01/04/22 01/04/22 Range/Units 16:33 00:21 06:53 RDW 16.6 H (11.5-15.5) % Plt Count 140 L (150-450) k/uL Lymphocytes # 0.3 L (1.0-4.8) k/uL Sodium (137-145) mmol/L Creatinine (0.66-1.25) mg/dL Glucose (74-99) mg/dL POC Glucose (mg/dL) 112 H 174 H (70-110) mg/dL Calcium (8.4-10.2) mg/dL AST (17-59) U/L Alkaline Phosphatase (38-126) U/L Total Protein (6.3-8.2) g/dL Albumin (3.5-5.0) g/dL 01/04/22 Range/Units 06:53 RDW (11.5-15.5) % Plt Count (150-450) k/uL Lymphocytes # (1.0-4.8) k/uL Sodium 135 L (137-145) mmol/L Creatinine 0.53 L (0.66-1.25) mg/dL Glucose 105 H (74-99) mg/dL POC Glucose (mg/dL) (70-110) mg/dL Calcium 7.9 L (8.4-10.2) mg/dL AST 61 H (17-59) U/L Alkaline Phosphatase 163 H (38-126) U/L Total Protein 5.6 L (6.3-8.2) g/dL Albumin 3.1 L (3.5-5.0) g/dL Microbiology - Last 24 Hours (Table) 01/02/22 12:39 Blood Culture - Preliminary Blood No Growth after 48 hours 01/02/22 12:15 Blood Culture - Preliminary Blood No Growth after 48 hours 01/02/22 21:20 Gram Stain - Preliminary Sputum Sputum Culture - Preliminary Gram Neg Bacilli 01/03/22 10:00 Gram Stain - Preliminary Pleural Fluid Body Fluid Culture - Preliminary 01/03/22 10:00 Acid Fast Bacilli Culture - Preliminary Pleural Fluid 01/03/22 10:00 Fungal Culture - Preliminary Pleural Fluid
[2022-01-04] MEDS: SODIUM CHLORIDE 0.9% 1,000 ML IV SCH (17:51)
[2022-01-05] MEDS: oxyCODONE-APAP 10-325MG 1 EACH TAB PEG/G-TUBE SCH ×4 (02:33→13:34)
[2022-01-05 06:22] LABS: Anisocytosis Slight; Basophils % (A) 0 %; Eosinophils # (A) 0.3 k/uL (0-0.7); Eosinophils % (A) 6 %; HCT 43.8 % (39.0-53.0); HGB 13.1 gm/dL (13.0-17.5); Hypochromasia Marked; Lymphocytes # (A) 0.3 k/uL (1.0-4.8); Lymphocytes % (A) 5 %; MCHC 29.8 g/dL (31.0-37.0); MCV 90.6 fL (80.0-100.0); Monocytes # (A) 0.4 k/uL (0-1.0); Monocytes % (A) 7 %; Neutrophils # (A) 4.1 k/uL (1.3-7.7); Neutrophils % (A) 79 %; Platelet Count 136 k/uL (150-450); Poikilocytosis Slight; RBC 4.83 m/uL (4.30-5.90); RDW 16.3 % (11.5-15.5); WBC 5.3 k/uL (3.8-10.6)
[2022-01-05 06:34] LABS: ALT 18 U/L (4-49); AST 61 U/L (17-59); African American GFR (CKD) >90 (>60 ml/min/1.73 sqM); Alkaline Phosphatase 146 U/L (38-126); Anion Gap 8 mmol/L; Blood Urea Nitrogen 13 mg/dL (9-20); Carbon Dioxide 27 mmol/L (22-30); Chloride 100 mmol/L (98-107); Glucose 118 mg/dL (74-99); Non-African American GFR(CKD) >90 (>60 ml/min/1.73 sqM); Potassium 3.8 mmol/L (3.5-5.1); Sodium 135 mmol/L (137-145); Total Bilirubin 0.7 mg/dL (0.2-1.3); Total Protein 5.6 g/dL (6.3-8.2)
[2022-01-05] MEDS: LEVOTHYROXINE 125 MCG TAB PEG/G-TUBE SCH (09:52)
[2022-01-05] MEDS: PIPERACILLIN-TAZOBACTAM 3.375 GM in SODIUM CHLORIDE 0.9% 100 ML IVPB SCH (09:53)
--- NOTE | 2022-01-05 11:05 | P.DS ---
Providers Date of admission: 01/02/22 11:31 Expected date of discharge: 01/05/22 Attending physician: Riccardo Cedillo Consults: 01/02/22 11:31 Consult Physician Routine Consulting Provider: Dontae Quintana Consult Reason/Comments: dyspnea Do you want consulting provider notified?: Already Contacted 01/02/22 15:00 Consult Physician Urgent Consulting Provider: Bolivar Mims Consult Reason/Comments: peg tube eval Do you want consulting provider notified?: Yes 01/03/22 10:36 Consult Physician Routine Consulting Provider: Bimal Sanches Consult Reason/Comments: Adenocarcinoma neck Do you want consulting provider notified?: Yes Primary care physician: Elvia Person Hospital Course: Discharge diagnosis 1. Acute hypoxic respiratory failure secondary to community-acquired versus healthcare acquired pneumonia 2. History of extensive head and neck cancer for 10 years with previous radiation and chemotherapy. As recent as 4 years ago and noted to have a recurrence and is following it,cancer [facility] in [place] 3. Tracheostomy and PEG tube placement 4. History of diabetes mellitus 5. History of hypothyroidism 6. History of liver cirrhosis 7. Recent admission for lateral pleural effusion status post right-sided thoracentesis on 12/20/2021 negative for malignancy Hospital course Jaziel Nicolas, is a 56-year-old male who presented to [facility] emergency room with a chief complaint of shortness of breath. Patient has extensive history of head and neck cancer in which she does it come on as cancer [place] with permanent tracheostomy placement He was evaluated in the emergency room vital examination on presentation revealed a temp of 97.6, pulse rate of 85, respiratory rate 17 blood pressure 137/78 with pulse ox 96%. Patient currently on trach collar with an FiO2 40% Laboratory data reveals Covid negative influenza A and B- Testing in the emergency room revealed ultrasound revealing 13.6 cm pocket of the right and 10.10 cm pocket on the left Patient was admitted to medical floor for further evaluation and treatment. 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 History of PEG tube placement history of liver cirrhosis On 01/03/2022 patient's alert and oriented 3. Tentative plans for thoracentesis per pulmonary services. Will consult oncology services. Current vital signs temp 97.6, heart rate 85, blood pressure 137/70 with pulse ox 96% on trach collar. Awaiting surgical service and put in regards to PEG tube. At this time patient denies chest pain or shortness breath. Patient denies nausea vomiting or diarrhea. Patient denies any urinary burning or frequency On 01/04/2022 patient was seen and examined on the telemetry floor he is alert and oriented 3 in no apparent distress there is no fever or chills no headache or dizziness he is maintained on oxygen via trach shield and is tolerating well there is no fever or chills no headache or dizziness no chest pain no shortness of breath no cough no nausea or vomiting no abdominal pain no diarrhea and no urinary symptoms, input from pulmonary and general surgery reviewed, possible discharge to home tomorrow if cleared by all specialists, patient has an appointment in the oncology Department in [place] on Thursday. On 01/05/2022 patient's alert and oriented 3. Patient feels eager to be DC'd home. Patient has follow-up appointment Court tomorrow. Did discuss case with pulmonary team patient cleared for discharge from pulmonary standpoint status post thoracentesis on 930 of the left side. Patient will be DC'd on Levaquin for 1 week. Patient also requiring home oxygen. Per nursing staff patient dropping to 85% when oxygen is removed. Patient is on trach collar 4 L. At this time patient denies chest pain or shortness of breath. Patient denies nausea vomiting or diarrhea. Patient denies any urinary burning or frequency Patient Condition at Discharge: Stable Plan - Discharge Summary Discharge Rx Participant: No New Discharge Prescriptions: New Levofloxacin [Levaquin] 500 mg PO DAILY 7 Days #7 tab Continue oxyCODONE-APAP 10-325MG [Percocet 10-325 mg] 1 tab PEG/G-TUBE Q4H Levothyroxine Sodium [Synthroid] 125 mcg PEG/G-TUBE DAILY Discharge Medication List oxyCODONE-APAP 10-325MG [Percocet 10-325 mg] 1 tab PEG/G-TUBE Q4H 03/05/16 [History] Levothyroxine Sodium [Synthroid] 125 mcg PEG/G-TUBE DAILY 04/11/19 [History] Levofloxacin [Levaquin] 500 mg PO DAILY 7 Days #7 tab 01/05/22 [Rx] Follow up Appointment(s)/Referral(s): Elvia Person MD [Primary Care Provider] - 1-2 days Activity/Diet/Wound Care/Special Instructions: Will require home oxygen. Prescription signed Discharge Disposition: HOME WITH HOME HEALTH SERVICES
[2022-01-05 11:16] VITALS: BP 159/83; PULSE 102; RESP 18; TEMP 96.9
--- NOTE | 2022-01-05 12:59 | P.PN ---
Subjective Progress Note Date: 01/05/22 Principal diagnosis: Acute hypoxic respiratory failure secondary to pneumonia, could be community- acquired or healthcare acquired, possibly healthcare acquired This is a very pleasant 56-year-old male with a history of head and neck cancer, requiring extensive treatments including surgery, chemotherapy, and radiation. The patient has a permanent tracheostomy in place. He also has a PEG tube in place. The patient was seen in the emergency room on December 19 for shortness of breath secondary to bilateral pleural effusions. Ultrasound revealed a 13.6 cm pocket on the right and at 10.2 cm pocket on the left. He did undergo a right-sided thoracentesis per interventional radiology that was negative for malignancy. He apparently was recently seen at his [facility] in [place], and told that he had recurrent cancer. He is due to be seen there on 01/06/2022. He reports presented to the emergency room again today with complaints of increasing shortness of breath. He was found to have a room air pulse oximeter of 84% at home. He and his family were concerned and presented for the same. He is seen in consultation in the emergency department. Currently sitting up on the stretcher. He is maintaining good O2 saturations in the 90s on 40% trach collar. Chest x-ray does show bilateral infiltrates with effusion on the left lower lobe. He denied any fever or chills. White count 10.6. Hemoglobin 14.6. D-dimer 1.62. Sodium 134. Potassium 4.4. BUN 14. Creatinine 0.54. BUN 14. Creatinine 0.54. ProBNP 249. Padilla virus by PCR not detected. Influenza screen negative. He was initiated on DuoNeb inhalations, antibiotics from ceftriaxone and azithromycin. Reevaluated today on 01/03/22, patient seems to be doing well, remains on trach collar. FiO2 of 40%, patient is feeling bloated today, and he is to be seen by general surgery for his bloating and looking into the PEG tube possibly needs to be replaced. Chest x-ray continued to show bilateral pleural effusions left more so than right, went ahead and performed a left-sided thoracentesis on this patient, and I was able to drain 1500 mL of serosanguineous fluid sent for d ifferent diagnostic studies. Patient had a recent right sided thoracentesis, fluid was exudative but was not positive for malignancy although malignancy is not entirely ruled out. The left pleural effusion was sent for cytology again. Patient remains on antibiotics, continues to have a left basilar infiltrate or atelectasis there is improvement in his central edema based on the chest x-ray today after thoracentesis Reevaluated today on 01/04/22, patient is feeling better, breathing easier, re sherin on trach collar, FiO2 of 40%. Pleural effusion fluid that I drained yesterday seems to be exudative, and the differential diagnoses includes pleural effusion of malignancy or pleural effusion of infection/parapneumonic pleural effusion cultures are pending and cytology is pending. In the meantime patient remains on antibiotics, and I believe the patient could be considered for discharge home tomorrow on oral antibiotics and he has an appointment with his oncologist down in [place] on Thursday. Patient was made aware that the cytology on the fluid may not be available until sometime mid next week. Patient should have follow-up on outpatient basis to discuss the findings on the final findings of pleural effusion. WBC count today is 6.5 hemoglobin 13.6 and x-ray summary normal renal profile is normal Reevaluated today on 01/05/22, continues to do well, his sputum cultures are positive for Pseudomonas, patient has been on Zosyn, and since he is going to be discharged home today on recommending Levaquin or Cipro. Patient is scheduled to see his oncologist in [facility] tomorrow, I believe the patient could be discharged home on his usual meds, bronchodilators, and on Levaquin orally for the next 7 days Objective - Vital Signs Vital signs: Vital Signs Temp 96.9 F L 01/05/22 08:00 Pulse 102 H 01/05/22 08:00 Resp 18 01/05/22 08:00 BP 159/83 01/05/22 08:00 Pulse Ox 96 01/05/22 09:00 FiO2 40 01/05/22 09:00 Intake & Output 01/04/22 01/05/22 01/05/22 18:59 06:59 18:59 Intake Total 40 40 Balance 40 40 Weight 70.307 kg Intake: IV 40 40 Invasive Line 1 20 20 Invasive Line 2 20 20 - Exam Physical Exam: Revealed a 56-year-old white female on trach collar, in no distress HEENT:[Neck is supple.] [No neck masses.] [No thyromegaly.] [No JVD.] Tracheostomy is intact Chest: [Crackles at the bases and rhonchi noted. Cardiac Exam: [Normal S1 and S2, no S3 gallop, no murmur.] Abdomen: [Soft, nontender, no megaly, no rebound, no guarding, normal bowel sounds.] Extremities: [No clubbing, no edema, no cyanosis.] Neurological Exam: [No focal neurologic deficit.] Alert and oriented 3 no gross focal deficits. Psychiatric: Normal mood, affect and normal mental status examination. In: No rashes - Labs CBC & Chem 7: 01/05/22 05:23 01/05/22 05:23 Labs: Abnormal Lab Results - Last 24 Hours (Table) 01/05/22 01/05/22 Range/Units 05:23 05:23 MCHC 29.8 L (31.0-37.0) g/dL RDW 16.3 H (11.5-15.5) % Plt Count 136 L (150-450) k/uL Lymphocytes # 0.3 L (1.0-4.8) k/uL Sodium 135 L (137-145) mmol/L Creatinine 0.53 L (0.66-1.25) mg/dL Glucose 118 H (74-99) mg/dL Calcium 8.0 L (8.4-10.2) mg/dL AST 61 H (17-59) U/L Alkaline Phosphatase 146 H (38-126) U/L Total Protein 5.6 L (6.3-8.2) g/dL Albumin 3.0 L (3.5-5.0) g/dL Microbiology - Last 24 Hours (Table) 01/03/22 10:00 Gram Stain - Preliminary Pleural Fluid Body Fluid Culture - Preliminary 01/02/22 21:20 Gram Stain - Final Sputum Sputum Culture - Final Pseudomonas aeruginosa 01/03/22 10:00 Acid Fast Bacilli Smear - Final Pleural Fluid Acid Fast Bacilli Culture - Preliminary 01/02/22 12:39 Blood Culture - Preliminary Blood No Growth after 48 hours 01/02/22 12:15 Blood Culture - Preliminary Blood No Growth after 48 hours Assessment and Plan Assessment: Acute hypoxic respiratory failure secondary to pneumonia possibly healthcare acquired Bilateral pleural effusions, suspect malignant effusions although parapneumonic effusions are likely Recent thoracentesis on 12/20, done on the right side. Status post thoracentesis today on 01/03 on the left side, fluid is exudative, final cytology and cultures are pending History of extensive head and neck cancer, previous chemoradiation treatment and apparently the patient was told recently that is a recurrence involving his subcarinal lymph nodes. History of PEG tube placement Ex-smoker Type 2 diabetes Hypothyroidism Recommendation: Patient to go on oral Levaquin for 7 days Clear patient to be discharged home. Continue bronchodilators Arrange for home oxygen if needed Cleared for discharge today and follow-up on outpatient basis Time with Patient: Less than 30
--- NOTE | 2022-01-05 13:36 | P.PN ---
Subjective Progress Note Date: 01/05/22 CHIEF COMPLAINT: Gastrostomy tube status HISTORY OF PRESENT ILLNESS: The patient is a 56-year-old male with tracheostomy and depends on gastrostomy tube for nutrition. He status post gastrostomy tube placement. He tolerated bolus tube feeds. No abdominal complaints. ROS: No fevers or chills. No new chest pain. PHYSICAL EXAM: VITAL SIGNS: Reviewed CONSTITUTIONAL: Well developed and in no acute distress. EYES: Conjuctivae without sclera icterus. Extraocular movements grossly intact. HEAD, EARS, NOSE, THROAT: Moist buccal mucosa. Head is atraumatic, normocephalic. Hears conversational speech. No nasal drainage. Has tracheostomy. RESPIRATORY: Non-labored respirations and equal bilateral excursions. CARDIOVASCULAR: Palpable 2+ radial pulses. ABDOMEN: Gastrostomy tube intact. MUSCULOSKELETAL: No gross deformity of the lower extremities noted. No clubbing. No cyanosis. SKIN: Good skin turgor. Well perfused. NEUROLOGIC: Cranial nerves II through XII grossly intact. No focal or lateralizing signs. PSYCH: Appropriate affect. Alert and oriented to person, place and time. CLINICAL LABS: Reviewed. WBC normal 6.5 down to today 5.3. Hemoglobin was stable 13.6-13.1. ASSESSMENT: 1. Gastrostomy tube status 2. Tracheostomy status PLAN: 1. Stable for discharge from surgical standpoint Objective - Vital Signs Vital signs: Vital Signs Temp 96.9 F L 01/05/22 08:00 Pulse 102 H 01/05/22 08:00 Resp 18 01/05/22 08:00 BP 159/83 01/05/22 08:00 Pulse Ox 96 01/05/22 09:00 FiO2 40 01/05/22 09:00 Intake & Output 01/04/22 01/05/22 01/05/22 18:59 06:59 18:59 Intake Total 40 40 Balance 40 40 Weight 70.307 kg Intake: IV 40 40 Invasive Line 1 20 20 Invasive Line 2 20 20 - Labs CBC & Chem 7: 01/05/22 05:23 01/05/22 05:23 Labs: Abnormal Lab Results - Last 24 Hours (Table) 01/05/22 01/05/22 Range/Units 05:23 05:23 MCHC 29.8 L (31.0-37.0) g/dL RDW 16.3 H (11.5-15.5) % Plt Count 136 L (150-450) k/uL Lymphocytes # 0.3 L (1.0-4.8) k/uL Sodium 135 L (137-145) mmol/L Creatinine 0.53 L (0.66-1.25) mg/dL Glucose 118 H (74-99) mg/dL Calcium 8.0 L (8.4-10.2) mg/dL AST 61 H (17-59) U/L Alkaline Phosphatase 146 H (38-126) U/L Total Protein 5.6 L (6.3-8.2) g/dL Albumin 3.0 L (3.5-5.0) g/dL Microbiology - Last 24 Hours (Table) 01/03/22 10:00 Gram Stain - Preliminary Pleural Fluid Body Fluid Culture - Preliminary 01/02/22 21:20 Gram Stain - Final Sputum Sputum Culture - Final Pseudomonas aeruginosa 01/03/22 10:00 Acid Fast Bacilli Smear - Final Pleural Fluid Acid Fast Bacilli Culture - Preliminary 01/02/22 12:39 Blood Culture - Preliminary Blood No Growth after 48 hours 01/02/22 12:15 Blood Culture - Preliminary Blood No Growth after 48 hours
[2022-01-05] MEDS ORDERED: LEVOFLOXACIN 500 MG TAB PO STA (16:12)
== END 2022-01-05 16:41 | disposition home health service (06) | DRG 193 ==
LOC: EC 08:12 → 3SCARD 11:31
PROVIDERS: ADMIT Internal Medicine; ATTEND Internal Medicine
PROC: 0W9B30Z Drainage of Left Pleural Cavity with Drainage Device, Percutaneous Approach (ICD-10-PCS; principal; 2022-01-03)
PROC: 0D20XUZ Change Feeding Device in Upper Intestinal Tract, External Approach (ICD-10-PCS; 2022-01-03)
DX: J18.9 Pneumonia, unspecified organism (principal); J96.01 Acute respiratory failure with hypoxia; J91.8 Pleural effusion in other conditions classified elsewhere; J98.11 Atelectasis; K94.23 Gastrostomy malfunction; Z20.822 Contact with and (suspected) exposure to COVID-19; K74.60 Unspecified cirrhosis of liver; R13.10 Dysphagia, unspecified; E11.9 Type 2 diabetes mellitus without complications; E03.9 Hypothyroidism, unspecified; Z93.0 Tracheostomy status; Z91.030 Bee allergy status; Z79.890 Hormone replacement therapy; Z79.891 Long term (current) use of opiate analgesic; Z87.891 Personal history of nicotine dependence; Z85.810 Personal history of malignant neoplasm of tongue; Z92.21 Personal history of antineoplastic chemotherapy; Z92.3 Personal history of irradiation; Z86.14 Personal history of Methicillin resistant Staphylococcus aureus infection; Z80.9 Family history of malignant neoplasm, unspecified; Z83.2 Family history of diseases of the blood and blood-forming organs and certain disorders involving the immune mechanism; Z85.89 Personal history of malignant neoplasm of other organs and systems
CPT/HCPCS: 36415; 71045; 71046; 74019; 76604; 76705; 80053; 83605; 83615; 83880; 84145; 84155; 84157; 84484; 85025; 85379; 85610; 85730; 87040; 87070; 87077; 87102; 87116; 87186; 87205; 87206; 87252; 87496; 87498; 87502; 87529; 87634; 87635; 87798; 88108; 88305; 88341; 88342; 89050; 93005; 94760; 96365; 96367; 99291

== ENCOUNTER 2022-02-25 16:48 | Inpatient (IN) | payer MEDICARE, OTHER ==
--- NOTE | 2022-02-25 17:30 | ED ---
General Adult HPI - General Chief complaint: Shortness of Breath Stated complaint: Fluid on Lungs Time Seen by Provider: 02/25/22 16:56 Source: patient, family, RN notes reviewed, old records reviewed Mode of arrival: wheelchair Limitations: no limitations - History of Present Illness Initial comments: This is a 56-year-old male with stage IV lung cancer. Patient states he had his chemo last week and he was supposed to get another treatment of chemo today but when he got there they listened to his lungs and stated he was full of fluid so they sent him to the emergency department. Patient states he's noticed a little increased shortness of breath but otherwise has no complaints. According to the daughter the patient has had some swelling in the right arm this happen once before but over the last 2 days is gotten considerably bigger. Patient denies any chest pain patient denies any new pain. Patient denies any recent fever chills per patient denies any nausea vomiting. Patient has any abdominal pain. According to the daughter who gives most of the history because the patient is unable to speak the cancer has gone to lymph nodes as well as the mediastinum. - Related Data Home Medications Medication Instructions Recorded Confirmed oxyCODONE-APAP 10-325MG [Percocet 1 tab PEG/G-TUBE Q4H 03/05/16 02/25/22 10-325 mg] Levothyroxine Sodium [Synthroid] 125 mcg PEG/G-TUBE DAILY 04/11/19 02/25/22 Furosemide [Lasix] 40 mg PEG/G-TUBE DAILY 02/25/22 02/25/22 diazePAM 2 - 4 mg PEG/G-TUBE HS PRN 02/25/22 02/25/22 Allergies Allergy/AdvReac Type Severity Reaction Status Date / Time venom-honey bee Allergy Anaphylaxis Verified 02/25/22 20:25 Review of Systems ROS Statement: Those systems with pertinent positive or pertinent negative responses have been documented in the HPI. ROS Other: All systems not noted in ROS Statement are negative. 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 History of Any Multi-Drug Resistant Organisms: MRSA Date of last positivie culture/infection: 12/30/18 MDRO Source:: Abdomen Additional Past Surgical History / Comment(s): Throat/jaw resection/reconstruction/muscle flap, trach, peg tube insertions, EGDs, recent bronchoscopy with lymph node biopsy at [facility] with post procedure ICU stay d/t low oxygen. Past Anesthesia/Blood Transfusion Reactions: No Reported Reaction Past Psychological History: No Psychological Hx Reported Smoking Status: Former smoker Past Alcohol Use History: None Reported Past Drug Use History: None Reported - Past Family History Mother Family Medical History: Cancer, Deep Vein Thrombosis (DVT) General Exam - General Exam Comments Initial Comments: GENERAL: Patient is well-developed and well-nourished. Patient is nontoxic and well- hydrated and is in no acute distress. ENT: Neck is soft and supple. No significant lymphadenopathy is noted. Oropharynx is clear. Moist mucous membranes. Neck has full range of motion without eliciting any pain. Patient is trached in place and is unable to speak at this time EYES: The sclera were anicteric and conjunctiva were pink and moist. Extraocular movements were intact and pupils were equal round and reactive to light. Eyelids were unremarkable. PULMONARY: She has diffuse rhonchi with some diminished breath sounds on the right CARDIOVASCULAR: There is a regular rate and rhythm without any murmurs gallops or rubs. ABDOMEN: Soft and nontender with normal bowel sounds. No palpable organomegaly was noted. There is no palpable pulsatile mass. SKIN: Skin is clear with no lesions or rashes and otherwise unremarkable. NEUROLOGIC: Patient is alert and oriented acting normal according to the daughter. Cranial nerves II through XII are grossly intact. MUSCULOSKELETAL: Normal extremities with adequate strength and full range of motion. Patient has 2+ edema bilaterally legs and the right arm is mildly swollen LYMPHATICS: No significant lymphadenopathy is noted PSYCHIATRIC: Normal psychiatric evaluation. Limitations: no limitations Course Vital Signs 02/25/22 02/25/22 02/25/22 16:49 17:15 17:30 Temperature 97.4 F L Pulse Rate 107 H 102 H 103 H Respiratory 22 18 18 Rate Blood Pressure 87/51 102/60 81/51 O2 Sat by Pulse 89 L 94 L 93 L Oximetry 02/25/22 02/25/22 02/25/22 17:45 18:00 18:15 Temperature Pulse Rate 101 H 101 H 100 Respiratory 18 18 18 Rate Blood Pressure 85/50 83/52 88/59 O2 Sat by Pulse 92 L 92 L 92 L Oximetry 02/25/22 02/25/22 02/25/22 18:30 18:45 19:00 Temperature Pulse Rate 102 H 98 99 Respiratory 18 18 18 Rate Blood Pressure 92/57 85/57 82/50 O2 Sat by Pulse 92 L 92 L 92 L Oximetry 02/25/22 02/25/22 02/25/22 19:15 20:19 20:44 Temperature Pulse Rate 101 H 98 97 Respiratory 18 15 15 Rate Blood Pressure 94/56 94/59 94/52 O2 Sat by Pulse 92 L 100 100 Oximetry Medical Decision Making - Medical Decision Making EKG shows sinus tachycardia at 103 bpm NV interval is 190 QRS is 91 QT interval 362 QTC is 421. Patient's EKG shows no ST segment elevation or depression. According to the the patient was given 40 of Lasix prior to coming over to the emergency department. Patient's blood pressure remains in the upper 80s at this point time I gave the patient 250 mL normal saline. Patient also received 100 mg of hydrocortisone. Chest x-ray was interpreted by me. Chest x-ray shows pleural effusions and pulmonary edema. Patient was not given Lasix at this time because of the low blood pressure. Patient was given antibiotics just in case it was an underlying pneumonia but none at this time has been definitively seen in the patient's clinical picture does not indicate pneumonia. Patient received couple small boluses 250 mL of normal saline. Patient's s ystolic blood pressure was in the mid 90s. Patient remained asymptomatic throughout his ED stay. Patient's stated after event here while that they've given him 40 of Lasix over at [facility] and he is taking 2 Percocets in the last couple of hours prior to coming to the emergency department I spoke with Dr. Cedillo he agreed to admit the patient admitted the patient I wrote admitting orders I consult cardiology I also consult oncology. I spoke with Dr. Way he was in agreement with giving him empiric cefepime treatment because the patient has had recent chemotherapy. - Lab Data Result diagrams: 02/25/22 17:17 02/25/22 17:17 Lab Results 02/25/22 02/25/22 02/25/22 Range/Units 17:17 17:17 17:17 WBC 2.7 L (3.8-10.6) k/uL RBC 3.29 L (4.30-5.90) m/uL Hgb 9.3 L D (13.0-17.5) gm/dL Hct 29.6 L (39.0-53.0) % MCV 90.0 (80.0-100.0) fL MCH 28.1 (25.0-35.0) pg MCHC 31.3 (31.0-37.0) g/dL RDW 20.8 H (11.5-15.5) % Plt Count 321 D (150-450) k/uL MPV 8.6 Neutrophils % (Manual) 60 % Band Neuts % (Manual) 11 % Lymphocytes % (Manual) 6 % Monocytes % (Manual) 15 % Eosinophils % (Manual) 4 % Basophils % (Manual) 3 % Metamyelocytes % 2 % Neutrophils # (Manual) 1.90 (1.3-7.7) k/uL Lymphocytes # (Manual) 0.16 L (1.0-4.8) k/uL Monocytes # (Manual) 0.41 (0-1.0) k/uL Eosinophils # (Manual) 0.11 (0-0.7) k/uL Basophils # (Manual) 0.08 (0-0.2) k/uL Metamyelocytes # (Man) 0.05 H (0) k/uL Nucleated RBCs 12 H (0-0) /100 WBC Manual Slide Review Performed Polychromasia Present Hypochromasia Moderate Hypochromasia (manual) Present Poikilocytosis Slight Poikilocytosis (manual Present Anisocytosis Moderate Anisocytosis (manual) Present Macrocytosis Slight Ovalocytes Present Stomatocytes Present PT 11.9 (9.0-12.0) sec INR 1.1 (<1.2) APTT 27.8 (22.0-30.0) sec Sodium 132 L (137-145) mmol/L Potassium 3.7 (3.5-5.1) mmol/L Chloride 92 L (98-107) mmol/L Carbon Dioxide 34 H (22-30) mmol/L Anion Gap 6 mmol/L BUN 18 (9-20) mg/dL Creatinine 0.65 L (0.66-1.25) mg/dL Est GFR (CKD-EPI)AfAm >90 (>60 ml/min/1.73 sqM) Est GFR (CKD-EPI)NonAf >90 (>60 ml/min/1.73 sqM) Glucose 125 H (74-99) mg/dL Lactic Ac Sepsis Rflx Plasma Lactic Acid Vladislav (0.7-2.0) mmol/L Calcium 7.8 L (8.4-10.2) mg/dL Magnesium 1.6 (1.6-2.3) mg/dL Total Bilirubin 1.1 (0.2-1.3) mg/dL AST 63 H (17-59) U/L ALT 25 (4-49) U/L Alkaline Phosphatase 221 H (38-126) U/L Troponin I (0.000-0.034) ng/mL NT-Pro-B Natriuret Pep pg/mL Total Protein 5.2 L (6.3-8.2) g/dL Albumin 2.8 L (3.5-5.0) g/dL Influenza Type A (PCR) (Not Detectd) Influenza Type B (PCR) (Not Detectd) RSV (PCR) (Not Detectd) SARS-CoV-2 (PCR) (Not Detectd) 02/25/22 02/25/22 02/25/22 Range/Units 17:17 17:17 17:17 WBC (3.8-10.6) k/uL RBC (4.30-5.90) m/uL Hgb (13.0-17.5) gm/dL Hct (39.0-53.0) % MCV (80.0-100.0) fL MCH (25.0-35.0) pg MCHC (31.0-37.0) g/dL RDW (11.5-15.5) % Plt Count (150-450) k/uL MPV Neutrophils % (Manual) % Band Neuts % (Manual) % Lymphocytes % (Manual) % Monocytes % (Manual) % Eosinophils % (Manual) % Basophils % (Manual) % Metamyelocytes % % Neutrophils # (Manual) (1.3-7.7) k/uL Lymphocytes # (Manual) (1.0-4.8) k/uL Monocytes # (Manual) (0-1.0) k/uL Eosinophils # (Manual) (0-0.7) k/uL Basophils # (Manual) (0-0.2) k/uL Metamyelocytes # (Man) (0) k/uL Nucleated RBCs (0-0) /100 WBC Manual Slide Review Polychromasia Hypochromasia Hypochromasia (manual) Poikilocytosis Poikilocytosis (manual Anisocytosis Anisocytosis (manual) Macrocytosis Ovalocytes Stomatocytes PT (9.0-12.0) sec INR (<1.2) APTT (22.0-30.0) sec Sodium (137-145) mmol/L Potassium (3.5-5.1) mmol/L Chloride (98-107) mmol/L Carbon Dioxide (22-30) mmol/L Anion Gap mmol/L BUN (9-20) mg/dL Creatinine (0.66-1.25) mg/dL Est GFR (CKD-EPI)AfAm (>60 ml/min/1.73 sqM) Est GFR (CKD-EPI)NonAf (>60 ml/min/1.73 sqM) Glucose (74-99) mg/dL Lactic Ac Sepsis Rflx Plasma Lactic Acid Vladislav 2.1 H* (0.7-2.0) mmol/L Calcium (8.4-10.2) mg/dL Magnesium (1.6-2.3) mg/dL Total Bilirubin (0.2-1.3) mg/dL AST (17-59) U/L ALT (4-49) U/L Alkaline Phosphatase (38-126) U/L Troponin I <0.012 (0.000-0.034) ng/mL NT-Pro-B Natriuret Pep 1350 pg/mL Total Protein (6.3-8.2) g/dL Albumin (3.5-5.0) g/dL Influenza Type A (PCR) (Not Detectd) Influenza Type B (PCR) (Not Detectd) RSV (PCR) (Not Detectd) SARS-CoV-2 (PCR) (Not Detectd) 02/25/22 02/25/22 02/25/22 Range/Units 17:52 19:03 20:15 WBC (3.8-10.6) k/uL RBC (4.30-5.90) m/uL Hgb (13.0-17.5) gm/dL Hct (39.0-53.0) % MCV (80.0-100.0) fL MCH (25.0-35.0) pg MCHC (31.0-37.0) g/dL RDW (11.5-15.5) % Plt Count (150-450) k/uL MPV Neutrophils % (Manual) % Band Neuts % (Manual) % Lymphocytes % (Manual) % Monocytes % (Manual) % Eosinophils % (Manual) % Basophils % (Manual) % Metamyelocytes % % Neutrophils # (Manual) (1.3-7.7) k/uL Lymphocytes # (Manual) (1.0-4.8) k/uL Monocytes # (Manual) (0-1.0) k/uL Eosinophils # (Manual) (0-0.7) k/uL Basophils # (Manual) (0-0.2) k/uL Metamyelocytes # (Man) (0) k/uL Nucleated RBCs (0-0) /100 WBC Manual Slide Review Polychromasia Hypochromasia Hypochromasia (manual) Poikilocytosis Poikilocytosis (manual Anisocytosis Anisocytosis (manual) Macrocytosis Ovalocytes Stomatocytes PT (9.0-12.0) sec INR (<1.2) APTT (22.0-30.0) sec Sodium (137-145) mmol/L Potassium (3.5-5.1) mmol/L Chloride (98-107) mmol/L Carbon Dioxide (22-30) mmol/L Anion Gap mmol/L BUN (9-20) mg/dL Creatinine (0.66-1.25) mg/dL Est GFR (CKD-EPI)AfAm (>60 ml/min/1.73 sqM) Est GFR (CKD-EPI)NonAf (>60 ml/min/1.73 sqM) Glucose (74-99) mg/dL Lactic Ac Sepsis Rflx Y Plasma Lactic Acid Vladislav 1.5 (0.7-2.0) mmol/L Calcium (8.4-10.2) mg/dL Magnesium (1.6-2.3) mg/dL Total Bilirubin (0.2-1.3) mg/dL AST (17-59) U/L ALT (4-49) U/L Alkaline Phosphatase (38-126) U/L Troponin I (0.000-0.034) ng/mL NT-Pro-B Natriuret Pep pg/mL Total Protein (6.3-8.2) g/dL Albumin (3.5-5.0) g/dL Influenza Type A (PCR) Not Detected (Not Detectd) Influenza Type B (PCR) Not Detected (Not Detectd) RSV (PCR) Not Detected (Not Detectd) SARS-CoV-2 (PCR) Not Detected (Not Detectd) Critical Care Time Critical Care Time: Yes Total Critical Care Time: 35 Disposition Clinical Impression: Anemia, Acute pulmonary edema, History of lung cancer Disposition: ADMITTED IP TO THIS HOSP Referrals: Elvia Person MD [Primary Care Provider] - 1-2 days Time of Disposition: 20:32
[2022-02-25 17:48] LABS: ALT 25 U/L (4-49); AST 63 U/L (17-59); African American GFR (CKD) >90 (>60 ml/min/1.73 sqM); Albumin 2.8 g/dL (3.5-5.0); Alkaline Phosphatase 221 U/L (38-126); Anion Gap 6 mmol/L; Blood Urea Nitrogen 18 mg/dL (9-20); Calcium 7.8 mg/dL (8.4-10.2); Carbon Dioxide 34 mmol/L (22-30); Chloride 92 mmol/L (98-107); Glucose 125 mg/dL (74-99); Magnesium 1.6 mg/dL (1.6-2.3); Non-African American GFR(CKD) >90 (>60 ml/min/1.73 sqM); Potassium 3.7 mmol/L (3.5-5.1); Sodium 132 mmol/L (137-145); Total Bilirubin 1.1 mg/dL (0.2-1.3); Total Protein 5.2 g/dL (6.3-8.2)
--- NOTE | 2022-02-25 17:50 | XR ---
EXAMINATION TYPE: XR chest 2V DATE OF EXAM: 02/25/2022 COMPARISON: 01/03/2022 HISTORY: Short of breath TECHNIQUE: FINDINGS: There is tracheostomy tube. There is some pulmonary vascular congestion. There is blunting of the costophrenic angles and more on the right side. There are chest leads. There is right central venous catheter with tip in the superior vena cava. IMPRESSION: Bilateral pulmonary infiltrates and congestion and pleural effusions are increased compar ed to old exam and consistent with worsening congestive heart failure. Bilateral lower lobe pneumonia also possible.
[2022-02-25 18:08] LABS: INR 1.1 (<1.2); Partial Thromboplastin Time 27.8 sec (22.0-30.0); Prothrombin Time 11.9 sec (9.0-12.0)
[2022-02-25 18:14] LABS: Anisocytosis Moderate; HCT 29.6 % (39.0-53.0); Hypochromasia Moderate; MCH 28.1 pg (25.0-35.0); MCHC 31.3 g/dL (31.0-37.0); Macrocytosis Slight; Mean Platelet Volume 8.6; Poikilocytosis Slight; RBC 3.29 m/uL (4.30-5.90); RDW 20.8 % (11.5-15.5)
[2022-02-25 18:17] LABS: HGB 9.3 gm/dL (13.0-17.5); Platelet Count 321 k/uL (150-450)
[2022-02-25] MEDS ORDERED: FUROSEMIDE 10 MG/ML 4 ML VIAL IV STA ×2 (18:48→23:45)
[2022-02-25] MEDS ORDERED: CEFEPIME 2 GM in SODIUM CHLORIDE 0.9% 100 ML IVPB STA (18:50)
[2022-02-25] MEDS ORDERED: SODIUM CHLORIDE 0.9% 500 ML 250 ML IV ONE (19:02)
[2022-02-25] MEDS ORDERED: HYDROCORTISONE SUCCINATE 100 MG/2 ML VIAL IV STA (19:04)
[2022-02-25 19:06] LABS: Anisocytosis (M) Present; Band Neutrophils % 11 %; Basophils # (M) 0.08 k/uL (0-0.2); Eosinophils # (M) 0.11 k/uL (0-0.7); Hypochromasia (M) Present; Lymphocytes # (M) 0.16 k/uL (1.0-4.8); Metamyelocytes # (M) 0.05 k/uL (0); Metamyelocytes % 2 %; Monocytes # (M) 0.41 k/uL (0-1.0); Neutrophils % (M) 60 %; Nucleated Red Blood Cells 12 /100 WBC (0-0); Ovalocytes Present; Poikilocytosis (M) Present; Polychromasia Present; Stomatocytes Present; Total Cells Counted 200; WBC 2.7 k/uL (3.8-10.6)
--- NOTE | 2022-02-25 19:06 | US ---
EXAMINATION TYPE: US venous doppler duplex UE RT DATE OF EXAM: 02/25/2022 COMPARISON: NONE CLINICAL HISTORY: Swollen right arm, lung cancer history. Swollen right forearm SIDE PERFORMED: Right Right Arm: Could not see jugular vein due to trach put in place. Subclavian vein limited. No evidence of DVT. Edema noted in right forearm. IMPRESSION: No sign of deep vein thrombosis in the right arm.
[2022-02-25 23:11] LABS: Glucose,Whole Blood 117 mg/dL (70-110)
[2022-02-25] MEDS ORDERED: NOREPINEPHRINE 4 MG in SODIUM CHLORIDE 0.9% 250 ML IV SCH (23:45)
[2022-02-26] MEDS: CEFEPIME 2 GM in SODIUM CHLORIDE 0.9% 100 ML IVPB SCH ×4 (00:14→23:45)
[2022-02-26] MEDS: SODIUM CHLORIDE 0.9% 1,000 ML IV SCH ×2 (00:15→21:35)
[2022-02-26] MEDS ORDERED: ACETAMINOPHEN TAB 325 MG TAB PO PRN (02:58)
[2022-02-26] MEDS ORDERED: diazePAM 2 MG TAB PEG/G-TUBE PRN (07:52)
[2022-02-26 07:57] LABS: Anisocytosis Moderate; HCT 27.6 % (39.0-53.0); HGB 8.6 gm/dL (13.0-17.5); Hypochromasia Marked; MCH 28.9 pg (25.0-35.0); MCHC 31.3 g/dL (31.0-37.0); MCV 92.4 fL (80.0-100.0); Macrocytosis Slight; Mean Platelet Volume 7.9; Platelet Count 259 k/uL (150-450); Poikilocytosis Slight; RBC 2.99 m/uL (4.30-5.90); RDW 20.8 % (11.5-15.5)
[2022-02-26] MEDS: LEVOTHYROXINE 125 MCG TAB PEG/G-TUBE SCH (08:10)
[2022-02-26] MEDS: oxyCODONE-APAP 10-325MG 1 EACH TAB PEG/G-TUBE SCH ×5 (08:10→23:45)
[2022-02-26 08:13] LABS: African American GFR (CKD) >90 (>60 ml/min/1.73 sqM); Anion Gap 9 mmol/L; Blood Urea Nitrogen 17 mg/dL (9-20); Calcium 7.4 mg/dL (8.4-10.2); Carbon Dioxide 30 mmol/L (22-30); Chloride 95 mmol/L (98-107); Glucose 113 mg/dL (74-99); Non-African American GFR(CKD) >90 (>60 ml/min/1.73 sqM); Potassium 3.3 mmol/L (3.5-5.1); Sodium 134 mmol/L (137-145)
--- NOTE | 2022-02-26 08:16 | XR ---
EXAMINATION TYPE: XR chest 1V portable DATE OF EXAM: 02/26/2022 6:19 AM COMPARISON: Chest radiographs from 02/25/2022. TECHNIQUE: XR chest 1V portable Portable AP radiograph of the chest. CLINICAL INDICATION:Male, 56 years old with history of pulmonary edema; FINDINGS: Lungs/Pleura: There is no evidence of focal consolidation, or pneumothorax. Bilateral blunting of th e costophrenic angles. Pulmonary vascularity: Pulmonary vascular congestion. Heart/mediastinum: Cardiomediastinal silhouette is unremarkable. Musculoskeletal: No acute osseous pathology. Other findings: None Lines/Tubes: * Tracheostomy cannula tip projecting over the trachea. * [id number] projecting over the right hemithorax with distal tip at the cavoatrial junction. * PEG tube. IMPRESSION: 1. Similar multifocal airspace opacities. 2. Stable support lines and tubes.
[2022-02-26] MEDS ORDERED: Potassium Replacement Protocol 1 EACH MISC MISCELLANE PRN (08:26)
[2022-02-26] MEDS: POTASSIUM BICARBONATE/CIT AC 20 MEQ TABLET.EFF NG-TUBE SCH ×2 (08:33→10:01)
[2022-02-26] MEDS ORDERED: FUROSEMIDE 40 MG TAB PEG/G-TUBE SCH (09:00)
[2022-02-26] MEDS ORDERED: LIDOCAINE 2% (PF) 20 MG/ML 5 ML VIAL ONE (09:19)
--- NOTE | 2022-02-26 09:31 | P.CNPUL ---
History of Present Illness Consult date: 02/26/22 Reason for consult: dyspnea History of present illness: This is a very pleasant 56-year-old male with a history of head and neck cancer, requiring extensive treatments including surgery, chemotherapy, and radiation. The patient has a permanent tracheostomy in place. He also has a PEG tube in place. The patient was asked to come into the hospital as the patient was found to have pleural effusion by his physicians that her mom is [facility] where he receives his treatment. Currently, he is receiving a combination of chemotherapy and immunotherapy. The patient had a recent hospitalization back in December 2021 and the patient had bilateral pleural effusion and he underwent thoracentesis bilaterally and the fluid was exudative and the cytology was negative for malignancy. The patient also had pseudomonas aeruginosa in his sputum. Pneumonia with parapneumonic effusion was also considered. During this current admission, the patient is coming in with some increased shortness of breath and acute on top of chronic hypoxic respiratory failure and the patient is currently on 80% trach collar. His tracheostomy tube is in place and the respiratory secretions that and. No fever. No chills. No DVT of the right upper extremity. His chest x-ray is showing bilateral pleural effusion and volume loss. Tracheostomy cannula is in the trachea. There is a Mediport over the right hemithorax. There is no evidence of any focal consolidation. There is increased pulmonary vascular markings and cardiomegaly. There is obviously volume loss. In terms of his blood work, the patient has a white cell count of 2.9 with a hemoglobin of 8.6 and a platelet count of 256. The patient also had a sodium level of 134, potassium of 3.3, chloride is 95, bicarb is 30 with a BUN of 17 and a creatinine of 0.5, proBNP level is 1350, troponins are negative. His previous serum albumin was at 2.8. The patient continues to receive enteral feeding for nutritional support via a PEG tube. The patient also takes Lasix 40 mg by mouth on a daily basis. Is on thyroid hormone replacement. Currently is on IV cefepime. He is also on Lasix 40 mg by mouth daily which was resumed. Review of Systems CONSTITUTIONAL: Denies any recent significant weight loss or weight gain. EYES: Denies change in vision. EARS, NOSE, MOUTH, THROAT: Denies headaches, denies sore throat. CARDIOVASCULAR: Denies chest pain, palpitations or syncopal episodes. RESPIRATORY: Positive for shortness of breath, cough, congestion no hemoptysis. GASTROINTESTINAL: Denies change in appetite, denies abdominal pain GENITOURINARY: Denies hematuria, denies infections. MUSKULOSKELETAL: Denies pain, denies swelling. INTEGUMENTARY: Denies rash, denies eczema. NEUROLOGICAL: Denies recent memory loss, no recent seizure activity. PSYCHIATRIC: Denies anxiety, denies depression. HEMATOLOGIC/LYMPHATIC: Denies anemia, denies enlarged lymph nodes. 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 History of Any Multi-Drug Resistant Organisms: MRSA Date of last positivie culture/infection: 12/30/18 MDRO Source:: Abdomen Additional Past Surgical History / Comment(s): Throat/jaw resection/reconstruction/muscle flap, trach, peg tube insertions, EGDs, recent bronchoscopy with lymph node biopsy at [facility] with post procedure ICU stay d/t low oxygen. Past Anesthesia/Blood Transfusion Reactions: Previous Problems w/ Anesthesia Additional Past Anesthesia/Blood Transfusion Reaction / Comment(s): Low oxygen levels post anesthesia requiring extended ICU stay. Past Psychological History: No Psychological Hx Reported Additional Psychological History / Comment(s): Pt resides with his family and needs some assistance from family, mainly with mobility, but pt is relatively independent. Smoking Status: Former smoker Past Alcohol Use History: None Reported Additional Past Alcohol Use History / Comment(s): Pt started smoking in 1985 and quit in 1993. He quit drinking in 1993 as well. Past Drug Use History: None Reported - Past Family History Mother Family Medical History: Cancer, Deep Vein Thrombosis (DVT) Medications and Allergies Home Medications Medication Instructions Recorded Confirmed Type oxyCODONE-APAP 10-325MG [Percocet 1 tab PEG/G-TUBE Q4H 03/05/16 02/25/22 History 10-325 mg] Levothyroxine Sodium [Synthroid] 125 mcg PEG/G-TUBE DAILY 04/11/19 02/25/22 History Furosemide [Lasix] 40 mg PEG/G-TUBE DAILY 02/25/22 02/25/22 History diazePAM 2 - 4 mg PEG/G-TUBE HS PRN 02/25/22 02/25/22 History Allergies Allergy/AdvReac Type Severity Reaction Status Date / Time venom-honey bee Allergy Anaphylaxis Verified 02/25/22 20:25 Physical Exam Vitals: Vital Signs Temp Pulse Pulse Pulse Resp BP BP 02/26/22 08:44 02/26/22 08:00 97.4 F L 100 15 103/66 02/26/22 06:15 101 H 13 102/53 02/26/22 06:00 100 13 91/55 02/26/22 05:45 97 9 L 100/55 02/26/22 05:30 97 13 93/50 02/26/22 05:15 98 14 100/54 02/26/22 05:00 98 16 93/55 02/26/22 04:45 46 H 88/54 02/26/22 04:30 21 88/52 02/26/22 04:15 98 24 92/53 02/26/22 04:08 18 02/26/22 04:00 97.0 F L 96 98 13 94/60 02/26/22 03:45 98 25 H 99/60 02/26/22 03:30 99 21 91/54 02/26/22 03:28 02/26/22 03:15 98 15 99/50 02/26/22 03:00 95 26 H 107/62 02/26/22 02:45 99 29 H 98/58 02/26/22 02:30 97 19 101/55 02/26/22 02:15 97 25 H 85/52 02/26/22 02:00 91 23 81/55 02/26/22 01:45 95 28 H 86/51 02/26/22 01:30 23 87/51 02/26/22 01:22 98 22 02/26/22 01:15 95 11 L 87/51 02/26/22 01:00 101 H 13 91/57 02/26/22 00:45 95 10 L 93/54 02/26/22 00:30 95 14 96/60 02/26/22 00:15 98 9 L 89/53 02/26/22 00:00 96.9 F L 95 97 21 104/53 96/60 02/25/22 23:55 02/25/22 23:45 104/59 02/25/22 23:00 96 95/60 02/25/22 22:45 94 73/51 02/25/22 22:30 92 82/51 02/25/22 22:15 92 95/55 02/25/22 22:00 96 106/59 02/25/22 21:55 99 18 106/59 02/25/22 20:55 98 15 98/58 02/25/22 20:45 98 17 94/52 02/25/22 20:44 97 15 94/52 02/25/22 20:30 97 16 90/50 02/25/22 20:19 98 15 94/59 02/25/22 20:15 100 16 90/55 02/25/22 20:00 98 17 94/54 02/25/22 19:45 99 16 02/25/22 19:30 100 16 91/54 02/25/22 19:15 101 H 18 94/56 02/25/22 19:00 99 18 82/50 02/25/22 18:45 98 18 85/57 02/25/22 18:30 102 H 18 92/57 02/25/22 18:15 100 18 88/59 02/25/22 18:00 101 H 18 83/52 02/25/22 17:45 101 H 18 85/50 02/25/22 17:30 103 H 18 81/51 02/25/22 17:15 102 H 18 102/60 02/25/22 16:49 97.4 F L 107 H 22 87/51 Pulse Ox FiO2 02/26/22 08:44 60 02/26/22 08:00 60 02/26/22 06:15 94 L 02/26/22 06:00 94 L 60 02/26/22 05:45 94 L 02/26/22 05:30 94 L 02/26/22 05:15 93 L 02/26/22 05:00 94 L 02/26/22 04:45 91 L 02/26/22 04:30 93 L 02/26/22 04:15 94 L 02/26/22 04:08 02/26/22 04:00 94 L 60 02/26/22 03:45 93 L 02/26/22 03:30 93 L 02/26/22 03:28 60 02/26/22 03:15 93 L 02/26/22 03:00 93 L 02/26/22 02:45 92 L 02/26/22 02:30 92 L 02/26/22 02:15 95 02/26/22 02:00 95 60 02/26/22 01:45 94 L 02/26/22 01:30 96 02/26/22 01:22 02/26/22 01:15 95 02/26/22 01:00 93 L 02/26/22 00:45 94 L 02/26/22 00:30 93 L 02/26/22 00:15 93 L 02/26/22 00:00 91 L 55 02/25/22 23:55 92 L 60 02/25/22 23:45 86 L 02/25/22 23:00 94 L 02/25/22 22:45 95 02/25/22 22:30 94 L 02/25/22 22:15 94 L 02/25/22 22:00 91 L 02/25/22 21:55 93 L 02/25/22 20:55 100 02/25/22 20:45 02/25/22 20:44 100 02/25/22 20:30 02/25/22 20:19 100 02/25/22 20:15 02/25/22 20:00 02/25/22 19:45 02/25/22 19:30 02/25/22 19:15 92 L 02/25/22 19:00 92 L 02/25/22 18:45 92 L 02/25/22 18:30 92 L 02/25/22 18:15 92 L 02/25/22 18:00 92 L 02/25/22 17:45 92 L 02/25/22 17:30 93 L 02/25/22 17:15 94 L 02/25/22 16:49 89 L Intake and Output 02/25/22 02/26/22 02/26/22 22:59 06:59 14:59 Intake Total 90 Output Total 650 Balance -560 Intake: IV 90 Sodium Chloride 0.9% 1, 90 000 ml @ 50 mls/hr IV . Q20H [facility] Rx#:[id number] Output: Urine 650 Other: Voiding Method Urinal Weight 71.668 kg 69 kg GENERAL EXAM: Alert, cachectic 56-year-old male patient, 80% trach collar, comfortable in no apparent distress. HEAD: Changes noted of extensive surgical and radiation changes of the head and neck. EYES: Normal reaction of pupils, equal size. NOSE: Clear with pink turbinates. THROAT: No erythema or exudates. NECK: No masses, no JVD. CHEST: No chest wall deformity. LUNGS: Equal air entry with bilateral scattered rhonchi, wheeze, diminished. CVS: S1 and S2 normal with no audible murmur, regular rhythm. ABDOMEN: PEG tube in place. No hepatosplenomegaly, normal bowel sounds, no guarding or rigidity. SPINE: No scoliosis or deformity SKIN: No rashes CENTRAL NERVOUS SYSTEM: No focal deficits, tone is normal in all 4 extremities. EXTREMITIES: There is no peripheral edema. No clubbing, no cyanosis. Peripheral pulses are intact. Results - Laboratory Findings CBC and BMP: 02/26/22 07:26 02/26/22 07:26 PT/INR, D-dimer PT 11.9 sec (9.0-12.0) 02/25/22 17:17 INR 1.1 (<1.2) 02/25/22 17:17 Abnormal lab findings: Abnormal Labs 02/25/22 02/25/22 02/25/22 17:17 17:17 17:17 WBC 2.7 L RBC 3.29 L Hgb 9.3 L D Hct 29.6 L RDW 20.8 H Lymphocytes # (Manual) 0.16 L Metamyelocytes # (Man) 0.05 H Nucleated RBCs 12 H Sodium 132 L Potassium Chloride 92 L Carbon Dioxide 34 H Creatinine 0.65 L Glucose 125 H POC Glucose (mg/dL) Plasma Lactic Acid Vladislav 2.1 H* Calcium 7.8 L AST 63 H Alkaline Phosphatase 221 H Total Protein 5.2 L Albumin 2.8 L 02/25/22 02/26/22 02/26/22 23:09 07:26 07:26 WBC 2.9 L RBC 2.99 L Hgb 8.6 L Hct 27.6 L RDW 20.8 H Lymphocytes # (Manual) Metamyelocytes # (Man) Nucleated RBCs Sodium 134 L Potassium 3.3 L Chloride 95 L Carbon Dioxide Creatinine 0.54 L Glucose 113 H POC Glucose (mg/dL) 117 H Plasma Lactic Acid Vladislav Calcium 7.4 L AST Alkaline Phosphatase Total Protein Albumin - Diagnostic Findings Chest x-ray: image reviewed Assessment and Plan Plan: Acute hypoxic respiratory failure secondary to reaccumulation of large bilateral pleural effusions and possibly a component of pneumonia possibly healthcare acquired, as the patient has been receiving a combination of chemo and immunotherapy and the patient is immunosuppressed. Bilateral pleural effusions, suspect malignant effusions, recent thoracentesis on 12/20, done on the right side , Status post thoracentesis today on 01/03 on the left side, fluid is exudative, final cytology was negative Mild leukopenia Pseudomonas aeruginosa growing in the sputum, colonization versus true infection Increased lower extremity edema, consider possibility of underlying CHF History of extensive head and neck cancer, previous chemoradiation treatment and apparently the patient was told recently that is a recurrence involving his subcarinal lymph nodes. History of PEG tube placement Ex-smoker Type 2 diabetes Hypothyroidism Hypoalbuminemia and the patient's albumin level is at 2.8, likely nutritional in the patient is receiving PEG tube feeding for enteral feeding and nutritional support Plan Consult oncology regarding details of his outpatient treatment we'll do an immediate right-sided thoracentesis as the patient has a large right-sided pleural effusion. The chest x-ray will be done after the thoracentesis and if needed we'll proceed with a left side Drainage keep IV cefepime Recheck sputum Gram stain and culture Continue diuretics and the patient will be switched to Lasix 40 mg IV every 12 hours Obtain echocardiogram Will need a follow-up CAT scan of the chest if this is done recently We'll continue to follow make further recommendations based on his progress. Time with Patient: Greater than 30
--- NOTE | 2022-02-26 09:33 | P.PCN ---
Date of Procedure: 02/26/22 Preoperative Diagnosis: Right-sided pleural effusion Postoperative Diagnosis: Right-sided pleural effusion Procedure(s) Performed: Right-sided thoracentesis Anesthesia: local Surgeon: Chanelle Umana Estimated Blood Loss (ml): 0 Condition: stable Disposition: ICU Operative Findings: A time out was performed and the chest x-ray was reviewed, the appropriate side was confirmed and marked. My hands were washed immediately prior to the procedure. I wore a surgical cap, mask with protective eyewear, sterile gown and sterile gloves throughout the procedure. The patient was prepped and draped in a sterile manner using chlorhexidine scrub after the appropriate level was percussed and confirmed by ultrasound. 1% lidocaine was used to anesthesize the skin, subcutaneous tissue, superior aspect of the rib periosteum and parietal pleura. A finder needle was then introduced over the superior aspect of the rib to locate the pleural fluid; 2colored fluid was aspirated at a depth of approximately 2 cm. A 10-blade scalpel was used to sy the skin at the insertion site. The [id number] needle was then introduced through the skin incision into the pleural space using negative aspiration pressure and the red colometric indicator to confirm appropriate positioning of the needle. The thoracentesis catheter was then threaded without difficulty. 1100 ml of turbid colored fluid was removed without difficulty. The catheter was then removed. No immediate complications were noted during the procedure. A post-procedure chest x-ray is pending at the time of this note. The fluid will be sent for studies. Estimated blood loss is 0cc
[2022-02-26] MEDS ORDERED: RX INFO: IV CONTRAST WAS GIVEN 1 EACH MISC MISCELLANE PRN (09:48)
[2022-02-26 10:40] LABS: Band Neutrophils % 1 %; Metamyelocytes # (M) 0.03 k/uL (0); Metamyelocytes % 1 %; Myelocytes # (M) 0.03 k/uL (0); Myelocytes % 1 %; Neutrophils % (M) 75 %; Nucleated Red Blood Cells 13 /100 WBC (0-0); Total Cells Counted 200
[2022-02-26 10:41] LABS: Lymphocytes # (M) 0.26 k/uL (1.0-4.8); Monocytes # (M) 0.34 k/uL (0-1.0); Polychromasia Present; WBC 2.6 k/uL (3.8-10.6)
--- NOTE | 2022-02-26 10:48 | XR ---
EXAMINATION TYPE: XR chest 1V portable DATE OF EXAM: 02/26/2022 9:51 AM COMPARISON: Chest radiographs from the same day earlier. TECHNIQUE: XR chest 1V portable Portable AP radiograph of the chest. CLINICAL INDICATION:Male, 56 years old with history of post Right side thoracent; FINDINGS: Lungs/Pleura: Persistent airspace disease. No evidence of focal consolidation or pneumothorax. Blunti ng of the costophrenic angles is present reduction in right pleural effusion. Pulmonary vascularity: Mild pulmonary vascular congestion. Heart/mediastinum: Cardiomediastinal silhouette is enlarged and stable. Musculoskeletal: No acute osseous pathology. Other findings: None Lines/Tubes: Tracheostomy cannula tip projecting over the trachea. Right internal jugular central venous catheter with distal tip at the cavoatrial junction. PEG tube in place. IMPRESSION: * Reduction right pleural effusion. No pneumothorax. * Cardiomegaly, pulmonary vascular congestion and bilateral pleural effusions.
--- NOTE | 2022-02-26 11:07 | US ---
EXAMINATION TYPE: US chest DATE OF EXAM: 02/26/2022 COMPARISON: NONE CLINICAL HISTORY: Bilateral effusions. TECHNIQUE: Targeted ultrasound of the posterior lower bilateral hemithoraces Exam done portable in ICU EXAM MEASUREMENTS: Right Pleural Effusion pocket size: 8.1 cm Right skin surface to fluid distance: 2.1 cm Left Pleural Effusion pocket size: 9.9 cm Left skin surface to fluid distance: 2.0 cm Right side marked for possible thoracentesis outside the dept. Left side marked for possible thoracentesis outside the dept. Pulmonologists are able to review the images in the patient?s EMR. IMPRESSIONS: Bilateral pleural effusions.
--- NOTE | 2022-02-26 11:13 | P.PCN ---
Date of Procedure: 02/26/22 Operative Findings: Date of Procedure: 02/26/22 Preoperative Diagnosis: Left-sided pleural effusion Postoperative Diagnosis: Left-sided pleural effusion Procedure(s) Performed: Left-sided thoracentesis Anesthesia: local Surgeon: Chanelle Umana Estimated Blood Loss (ml): 0 Condition: stable Disposition: ICU Operative Findings: A time out was performed and the chest x-ray was reviewed, the appropriate side was confirmed and marked. My hands were washed immediately prior to the procedure. I wore a surgical cap, mask with protective eyewear, sterile gown and sterile gloves throughout the procedure. The patient was prepped and draped in a sterile manner using chlorhexidine scrub after the appropriate level was percussed and confirmed by ultrasound. 1% lidocaine was used to anesthesize the skin, subcutaneous tissue, superior aspect of the rib periosteum and parietal pleura. A finder needle was then introduced over the superior aspect of the rib to locate the pleural fluid; 2colored fluid was aspirated at a depth of approximately 2 cm. A 10-blade scalpel was used to sy the skin at the insertion site. The [id number] needle was then introduced through the skin incision into the pleural space using negative aspiration pressure and the red colometric indicator to confirm appropriate positioning of the needle. The thoracentesis catheter was then threaded without difficulty. 300 ml of turbid colored fluid was removed without difficulty. The catheter was then removed. No immediate complications were noted during the procedure. A post-procedure chest x-ray is pending at the time of this note. The fluid will be sent for studies. Estimated blood loss is 0cc
--- NOTE | 2022-02-26 11:29 | P.CRDCN ---
History of Present Illness History of present illness: This is Dr. Perla dictating a consult on this patient The patient was interviewed and examined IMPRESSION / ASSESSMENT: Shortness of breath related to effusions, pleural History of and neck cancer status post surgery chemotherapy immunotherapy and radiation History of bilateral pleural effusions in the past PLAN: 2-D echo and Doppler study to look for pericardial effusion and LV function From a cardiac standpoint no further recommendations at this point HPI Patient presented to the hospital with shortness of breath He was found to have pleural effusion He was receiving chemotherapy and immunotherapy He has a history of bilateral pleural effusions and underwent thoracentesis bilaterally At this time he denies any chest discomfort and does not appear to be short of breath History of head and neck cancer requiring surgery chemotherapy and radiation as well as immunotherapy ROS: No fever chills or rigors, no cough, phlegm or expectoration, no nausea, vomiting or diarrhea, no hematuria, dysuria, no musculoskeletal complaints, no strokes or seizures, no skin lesions. 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 History of Any Multi-Drug Resistant Organisms: MRSA Date of last positivie culture/infection: 12/30/18 MDRO Source:: Abdomen Additional Past Surgical History / Comment(s): Throat/jaw resection/reconstruction/muscle flap, trach, peg tube insertions, EGDs, recent bronchoscopy with lymph node biopsy at [facility] with post procedure ICU stay d/t low oxygen. Past Anesthesia/Blood Transfusion Reactions: Previous Problems w/ Anesthesia Additional Past Anesthesia/Blood Transfusion Reaction / Comment(s): Low oxygen levels post anesthesia requiring extended ICU stay. Past Psychological History: No Psychological Hx Reported Additional Psychological History / Comment(s): Pt resides with his family and needs some assistance from family, mainly with mobility, but pt is relatively independent. Smoking Status: Former smoker Past Alcohol Use History: None Reported Additional Past Alcohol Use History / Comment(s): Pt started smoking in 1985 and quit in 1993. He quit drinking in 1993 as well. Past Drug Use History: None Reported - Past Family History Mother Family Medical History: Cancer, Deep Vein Thrombosis (DVT) Medications and Allergies Home Medications Medication Instructions Recorded Confirmed Type RX: oxyCODONE-APAP 10-325MG 1 tab PEG/G-TUBE Q4H 03/05/16 02/25/22 History [Percocet 10-325 mg] RX: Levothyroxine Sodium 125 mcg PEG/G-TUBE DAILY 04/11/19 02/25/22 History [Synthroid] Furosemide [Lasix] 40 mg PEG/G-TUBE DAILY 02/25/22 02/25/22 History diazePAM 2 - 4 mg PEG/G-TUBE HS PRN 02/25/22 02/25/22 History Allergies Allergy/AdvReac Type Severity Reaction Status Date / Time venom-honey bee Allergy Anaphylaxis Verified 02/25/22 20:25 Physical Exam Vitals: Vital Signs Temp Pulse Pulse Pulse Resp BP BP 02/26/22 08:44 02/26/22 08:00 97.4 F L 100 15 103/66 02/26/22 06:15 101 H 13 102/53 02/26/22 06:00 100 13 91/55 02/26/22 05:45 97 9 L 100/55 02/26/22 05:30 97 13 93/50 02/26/22 05:15 98 14 100/54 02/26/22 05:00 98 16 93/55 02/26/22 04:45 46 H 88/54 02/26/22 04:30 21 88/52 02/26/22 04:15 98 24 92/53 02/26/22 04:08 18 02/26/22 04:00 97.0 F L 96 98 13 94/60 02/26/22 03:45 98 25 H 99/60 02/26/22 03:30 99 21 91/54 02/26/22 03:28 02/26/22 03:15 98 15 99/50 02/26/22 03:00 95 26 H 107/62 02/26/22 02:45 99 29 H 98/58 02/26/22 02:30 97 19 101/55 02/26/22 02:15 97 25 H 85/52 02/26/22 02:00 91 23 81/55 02/26/22 01:45 95 28 H 86/51 02/26/22 01:30 23 87/51 02/26/22 01:22 98 22 02/26/22 01:15 95 11 L 87/51 02/26/22 01:00 101 H 13 91/57 02/26/22 00:45 95 10 L 93/54 02/26/22 00:30 95 14 96/60 02/26/22 00:15 98 9 L 89/53 02/26/22 00:00 96.9 F L 95 97 21 104/53 96/60 02/25/22 23:55 02/25/22 23:45 104/59 02/25/22 23:00 96 95/60 02/25/22 22:45 94 73/51 02/25/22 22:30 92 82/51 02/25/22 22:15 92 95/55 02/25/22 22:00 96 106/59 02/25/22 21:55 99 18 106/59 02/25/22 20:55 98 15 98/58 02/25/22 20:45 98 17 94/52 02/25/22 20:44 97 15 94/52 02/25/22 20:30 97 16 90/50 02/25/22 20:19 98 15 94/59 02/25/22 20:15 100 16 90/55 02/25/22 20:00 98 17 94/54 02/25/22 19:45 99 16 02/25/22 19:30 100 16 91/54 02/25/22 19:15 101 H 18 94/56 02/25/22 19:00 99 18 82/50 02/25/22 18:45 98 18 85/57 02/25/22 18:30 102 H 18 92/57 02/25/22 18:15 100 18 88/59 02/25/22 18:00 101 H 18 83/52 02/25/22 17:45 101 H 18 85/50 02/25/22 17:30 103 H 18 81/51 02/25/22 17:15 102 H 18 102/60 02/25/22 16:49 97.4 F L 107 H 22 87/51 Pulse Ox FiO2 02/26/22 08:44 60 02/26/22 08:00 60 02/26/22 06:15 94 L 02/26/22 06:00 94 L 60 02/26/22 05:45 94 L 02/26/22 05:30 94 L 02/26/22 05:15 93 L 02/26/22 05:00 94 L 02/26/22 04:45 91 L 02/26/22 04:30 93 L 02/26/22 04:15 94 L 02/26/22 04:08 02/26/22 04:00 94 L 60 02/26/22 03:45 93 L 02/26/22 03:30 93 L 02/26/22 03:28 60 02/26/22 03:15 93 L 02/26/22 03:00 93 L 02/26/22 02:45 92 L 02/26/22 02:30 92 L 02/26/22 02:15 95 02/26/22 02:00 95 60 02/26/22 01:45 94 L 02/26/22 01:30 96 02/26/22 01:22 02/26/22 01:15 95 02/26/22 01:00 93 L 02/26/22 00:45 94 L 02/26/22 00:30 93 L 02/26/22 00:15 93 L 02/26/22 00:00 91 L 55 02/25/22 23:55 92 L 60 02/25/22 23:45 86 L 02/25/22 23:00 94 L 02/25/22 22:45 95 02/25/22 22:30 94 L 02/25/22 22:15 94 L 02/25/22 22:00 91 L 02/25/22 21:55 93 L 02/25/22 20:55 100 02/25/22 20:45 02/25/22 20:44 100 02/25/22 20:30 02/25/22 20:19 100 02/25/22 20:15 02/25/22 20:00 02/25/22 19:45 02/25/22 19:30 02/25/22 19:15 92 L 02/25/22 19:00 92 L 02/25/22 18:45 92 L 02/25/22 18:30 92 L 02/25/22 18:15 92 L 02/25/22 18:00 92 L 02/25/22 17:45 92 L 02/25/22 17:30 93 L 02/25/22 17:15 94 L 02/25/22 16:49 89 L Intake and Output 02/25/22 02/26/22 02/26/22 22:59 06:59 14:59 Intake Total 90 Output Total 650 700 Balance -560 -700 Intake: IV 90 Sodium Chloride 0.9% 1, 90 000 ml @ 10 mls/hr IV . Q24H [facility] Rx#:[id number] Output: Urine 650 700 Other: Voiding Method Urinal Urinal Weight 71.668 kg 69 kg Results 02/26/22 07:26 02/26/22 07:26 Cardiac Enzymes 02/25/22 02/25/22 Range/Units 17:17 17:17 AST 63 H (17-59) U/L Troponin I <0.012 (0.000-0.034) ng/mL Coagulation 02/25/22 Range/Units 17:17 PT 11.9 (9.0-12.0) sec APTT 27.8 (22.0-30.0) sec CBC 02/25/22 02/26/22 Range/Units 17:17 07:26 WBC 2.7 L 2.6 L (3.8-10.6) k/uL RBC 3.29 L 2.99 L (4.30-5.90) m/uL Hgb 9.3 L D 8.6 L (13.0-17.5) gm/dL Hct 29.6 L 27.6 L (39.0-53.0) % Plt Count 321 D 259 (150-450) k/uL Comprehensive Metabolic Panel 02/25/22 02/26/22 Range/Units 17:17 07:26 Sodium 132 L 134 L (137-145) mmol/L Potassium 3.7 3.3 L (3.5-5.1) mmol/L Chloride 92 L 95 L (98-107) mmol/L Carbon Dioxide 34 H 30 (22-30) mmol/L BUN 18 17 (9-20) mg/dL Creatinine 0.65 L 0.54 L (0.66-1.25) mg/dL Glucose 125 H 113 H (74-99) mg/dL Calcium 7.8 L 7.4 L (8.4-10.2) mg/dL AST 63 H (17-59) U/L ALT 25 (4-49) U/L Alkaline Phosphatase 221 H (38-126) U/L Total Protein 5.2 L (6.3-8.2) g/dL Albumin 2.8 L (3.5-5.0) g/dL Current Medications Generic Name Dose Route Start Last Admin Trade Name Freq PRN Reason Stop Dose Admin Acetaminophen 650 mg 02/26/22 02:58 02/26/22 03:36 Acetaminophen Tab 325 Mg Tab PO 650 mg Q6HR PRN Administration Fever and/ or Pain Diazepam 2 mg 02/26/22 07:52 Diazepam 2 Mg Tab PEG/G-TUBE HS PRN SLEEP Enoxaparin Sodium 30 mg 02/26/22 09:45 Enoxaparin 30 Mg/0.3 Ml Syringe SQ DAILY RADHA Furosemide 40 mg 02/26/22 21:00 Furosemide 10 Mg/Ml 4 Ml Vial IV Q12HR RADHA Cefepime HCl 2 gm/ Sodium 100 mls @ 25 mls/hr 02/26/22 00:00 02/26/22 08:11 Chloride IVPB 25 mls/hr Q8HR RADHA Administration Protocol Sodium Chloride 1,000 mls @ 10 mls/hr 02/25/22 21:00 02/26/22 00:15 Saline 0.9% IV 50 mls/hr .Q24H RADHA Administration Levothyroxine Sodium 125 mcg 02/26/22 09:00 02/26/22 08:10 Levothyroxine 125 Mcg Tab PEG/G-TUBE 125 mcg DAILY RADHA Administration Miscellaneous Information 1 each 02/26/22 08:26 Potassium Replacement Protocol 1 Each Misc MISCELLANE DAILY PRN Per Protocol Protocol Miscellaneous Information 1 each 02/26/22 09:48 Rx Info: Iv Contrast Was Given 1 Each Misc MISCELLANE 02/28/22 09:49 DAILY PRN Per Protocol Oxycodone/Acetaminophen 1 each 02/26/22 08:00 02/26/22 11:01 Oxycodone-Apap 10-325mg 1 Each Tab PEG/G-TUBE 1 each Q4H RADHA Administration Intake and Output 02/25/22 02/26/22 02/26/22 22:59 06:59 14:59 Intake Total 90 Output Total 650 700 Balance -560 -700 Intake: IV 90 Sodium Chloride 0.9% 1, 90 000 ml @ 10 mls/hr IV . Q24H [facility] Rx#:[id number] Output: Urine 650 700 Other: Voiding Method Urinal Urinal Weight 71.668 kg 69 kg 02/26/22 07:26 02/26/22 07:26
[2022-02-26 12:00] LABS: Total Protein 4.6 g/dL (6.3-8.2)
--- NOTE | 2022-02-26 12:47 | CT ---
EXAMINATION TYPE: CT chest w con CT DLP: 303.6 mGycm, Automated exposure control for dose reduction was used. DATE OF EXAM: 02/26/2022 11:48 AM COMPARISON: Chest radiograph from same day. CT neck 03/08/2016, abdomen and pelvis 10/01/2017 CLINICAL INDICATION:Male, 56 years old with history of Hx. cancer, post R-sided Thoracent., pulm. ashely ma , Post Rt Thoracentesis, Pulmonary Edema TECHNIQUE: Multiple axial images were obtained through the chest. Sagittal and coronal reformats were created for review. Contrast used:100 mL of Isovue 300 with IV Contrast Oral contrast used: none. FINDINGS: LUNGS/ PLEURA: Scattered metastatic disease is seen throughout the lungs. Including right middle lobe 11 mm lesion and right upper lobe 13 mm lesion. In the left upper lobe are airspace opacities and mo re elongated lesion measuring up to 2.8 cm. Left pulmonary hilum fullness is noted. Some consolidatio n changes in the left lung base as well as the left upper lobe are present. There is bilateral pleura l effusions of moderate size. AIRWAY: Patent tracheostomy cannula within appropriate position terminating in the trachea. HEART: Size within normal limits. MEDIASTINUM: Extensive mediastinal lymphadenopathy example includes some subcarinal somewhat cystic-a ppearing lymphadenopathy measuring up to 3.6 cm. AP window lymphadenopathy measuring up to 3.0 x 4.8 cm. Multiple right paratracheal lymph nodes are present. Enlarged simple includes a lower 8 mm in mason rt axis lymph node. Epicardial fat lymph node measuring up to 13 mm. VASCULATURE: No aortic aneurysm. Atherosclerosis of the arterial vasculature. Right chest wall port distal tip terminates in the superior vena cava. Visualized portions of the arterial vasculature and straight no evidence of pulmonary embolism. MUSCULOSKELETAL: No acute osseous abnormalities SOFT TISSUES/LYMPH NODES: Left supraclavicular lymph node measuring up to 6 mm in short axis is promi nent. LOWER NECK: No significant findings. UPPER ABDOMEN: Extensive lymphadenopathy within the upper abdomen partially visualized. Including gas trohepatic lymph node measuring up to 2.0 cm and retroperitoneal lymph nodes along the aorta measurin g up to 8 mm in short axis. The there is nodular contour to liver. PEG tube in appropriate position. The gallbladder is distended. Trace intra-abdominal ascites. IMPRESSION: 1. Metastatic disease throughout [id number] including the lungs, mediastinum, lower neck and uppe r abdomen which is new from priors with consistent with progression of metastatic disease. 2. Left lung base and upper lobe consolidation concerning for pneumonia. 3. No evidence of pneumothorax with persistent moderate bilateral pleural effusions. 4. Hepatic cirrhosis. 5. PEG tube and trachea tubes are in appropriate position.
[2022-02-26] MEDS: ENOXAPARIN 30 MG/0.3 ML SYRINGE SQ SCH (13:09)
--- NOTE | 2022-02-26 17:47 | P.CONS ---
History of Present Illness - Reason for Consult Consult date: 02/26/22 lung cancer Requesting physician: Chirag Rao - Chief Complaint SOB - History of Present Illness Mr. Nicolas is a pleasant 48-year-old male patient of Dr. Gutierrez and Dr. Trujillo who has a history of head and neck cancer, diagnosed around 2012, treated with chemotherapy, radiation and surgery. Patient did well up until spring where he had recurrence at the original site. He was started back on chemotherapy. He was seen here at [facility] in September 2017. He was having PEG tube site pain. He was seen again in consult 01/03/22 admitted with shortness of breath, pleural effusion. Thoracentesis done, cytology was negative. Patient did have recurrence of disease in January 2022 and is now on immunotherapy. Pt sent over from oncology ofc due to adventitious breath sounds, crackles. Pt denied any symptoms. CXR + vascular congestion, doppler of the RUE neg for DVT. Patient is status post 1.1 L thoracentesis, reports significant improvement in his breathing. Positive for thick secretion expectoration, denied fevers, chills, nausea, dizziness, vomiting, diarrhea, chest pain or palpitations. 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 History of Any Multi-Drug Resistant Organisms: MRSA Year Discovered:: 12/30/18 MDRO Source:: Abdomen Additional Past Surgical History / Comment(s): Throat/jaw resection/reconstruction/muscle flap, trach, peg tube insertions, EGDs, recent bronchoscopy with lymph node biopsy at [facility] with post procedure ICU stay d/t low oxygen. Past Anesthesia/Blood Transfusion Reactions: Previous Problems w/ Anesthesia Additional Past Anesthesia/Blood Transfusion Reaction / Comm: Low oxygen levels post anesthesia requiring extended ICU stay. Past Psychological History: No Psychological Hx Reported Additional Psychological History / Comment(s): Pt resides with his family and needs some assistance from family, mainly with mobility, but pt is relatively independent. Smoking Status: Former smoker Past Alcohol Use History: None Reported Additional Past Alcohol Use History / Comment(s): Pt started smoking in 1985 and quit in 1993. He quit drinking in 1993 as well. Past Drug Use History: None Reported - Past Family History Mother Family Medical History: Cancer, Deep Vein Thrombosis (DVT) Medications and Allergies Home Medications Medication Instructions Recorded Confirmed Type oxyCODONE-APAP 10-325MG [Percocet 1 tab PEG/G-TUBE Q4H 03/05/16 02/25/22 History 10-325 mg] Levothyroxine Sodium [Synthroid] 125 mcg PEG/G-TUBE DAILY 04/11/19 02/25/22 History Furosemide [Lasix] 40 mg PEG/G-TUBE DAILY 02/25/22 02/25/22 History diazePAM 2 - 4 mg PEG/G-TUBE HS PRN 02/25/22 02/25/22 History Allergies Allergy/AdvReac Type Severity Reaction Status Date / Time venom-honey bee Allergy Anaphylaxis Verified 02/25/22 20:25 Physical Exam Vitals: Vital Signs Temp Pulse Pulse Resp BP BP Pulse Ox 02/26/22 06:15 101 H 13 102/53 94 L 02/26/22 06:00 100 13 91/55 94 L 02/26/22 05:45 97 9 L 100/55 94 L 02/26/22 05:30 97 13 93/50 94 L 02/26/22 05:15 98 14 100/54 93 L 02/26/22 05:00 98 16 93/55 94 L 02/26/22 04:45 46 H 88/54 91 L 02/26/22 04:30 21 88/52 93 L 02/26/22 04:15 98 24 92/53 94 L 02/26/22 04:08 18 02/26/22 04:00 97.0 F L 96 98 13 94/60 94 L 02/26/22 03:45 98 25 H 99/60 93 L 02/26/22 03:30 99 21 91/54 93 L 02/26/22 03:28 02/26/22 03:15 98 15 99/50 93 L 02/26/22 03:00 95 26 H 107/62 93 L 02/26/22 02:45 99 29 H 98/58 92 L 02/26/22 02:30 97 19 101/55 92 L 02/26/22 02:15 97 25 H 85/52 95 02/26/22 02:00 91 23 81/55 95 02/26/22 01:45 95 28 H 86/51 94 L 02/26/22 01:30 23 87/51 96 02/26/22 01:22 98 22 02/26/22 01:15 95 11 L 87/51 95 02/26/22 01:00 101 H 13 91/57 93 L 02/26/22 00:45 95 10 L 93/54 94 L 02/26/22 00:30 95 14 96/60 93 L 02/26/22 00:15 98 9 L 89/53 93 L 02/26/22 00:00 96.9 F L 95 97 21 104/53 96/60 91 L 02/25/22 23:55 92 L 02/25/22 23:45 104/59 86 L 02/25/22 23:00 96 95/60 94 L 02/25/22 22:45 94 73/51 95 02/25/22 22:30 92 82/51 94 L 02/25/22 22:15 92 95/55 94 L 02/25/22 22:00 96 106/59 91 L 02/25/22 21:55 99 18 106/59 93 L 02/25/22 20:55 98 15 98/58 100 02/25/22 20:45 98 17 94/52 02/25/22 20:44 97 15 94/52 100 02/25/22 20:30 97 16 90/50 02/25/22 20:19 98 15 94/59 100 02/25/22 20:15 100 16 90/55 02/25/22 20:00 98 17 94/54 02/25/22 19:45 99 16 02/25/22 19:30 100 16 91/54 02/25/22 19:15 101 H 18 94/56 92 L 02/25/22 19:00 99 18 82/50 92 L 02/25/22 18:45 98 18 85/57 92 L 02/25/22 18:30 102 H 18 92/57 92 L 02/25/22 18:15 100 18 88/59 92 L 02/25/22 18:00 101 H 18 83/52 92 L 02/25/22 17:45 101 H 18 85/50 92 L 02/25/22 17:30 103 H 18 81/51 93 L 02/25/22 17:15 102 H 18 102/60 94 L 02/25/22 16:49 97.4 F L 107 H 22 87/51 89 L FiO2 02/26/22 06:15 02/26/22 06:00 60 02/26/22 05:45 02/26/22 05:30 02/26/22 05:15 02/26/22 05:00 02/26/22 04:45 02/26/22 04:30 02/26/22 04:15 02/26/22 04:08 02/26/22 04:00 60 02/26/22 03:45 02/26/22 03:30 02/26/22 03:28 60 02/26/22 03:15 02/26/22 03:00 02/26/22 02:45 02/26/22 02:30 02/26/22 02:15 02/26/22 02:00 60 02/26/22 01:45 02/26/22 01:30 02/26/22 01:22 02/26/22 01:15 02/26/22 01:00 02/26/22 00:45 02/26/22 00:30 02/26/22 00:15 02/26/22 00:00 55 02/25/22 23:55 60 02/25/22 23:45 02/25/22 23:00 02/25/22 22:45 02/25/22 22:30 02/25/22 22:15 02/25/22 22:00 02/25/22 21:55 02/25/22 20:55 02/25/22 20:45 02/25/22 20:44 02/25/22 20:30 02/25/22 20:19 02/25/22 20:15 02/25/22 20:00 02/25/22 19:45 02/25/22 19:30 02/25/22 19:15 02/25/22 19:00 02/25/22 18:45 02/25/22 18:30 02/25/22 18:15 02/25/22 18:00 02/25/22 17:45 02/25/22 17:30 02/25/22 17:15 02/25/22 16:49 Intake and Output 02/25/22 02/26/22 02/26/22 22:59 06:59 14:59 Intake Total 90 Output Total 650 Balance -560 Intake: IV 90 Sodium Chloride 0.9% 1, 90 000 ml @ 50 mls/hr IV . Q20H [facility] Rx#:[id number] Output: Urine 650 Other: Voiding Method Urinal Weight 71.668 kg 69 kg - Constitutional General appearance: cooperative, no acute distress, thin - EENT trach, surgical scarring of the neck Eyes: anicteric sclerae, EOMI ENT: hearing grossly normal - Neck Neck: no lymphadenopathy - Respiratory Respiratory: bilateral: rales (bases, otherwise clear) - Cardiovascular Rhythm: regular Heart sounds: normal: S1, S2 Abnormal Heart Sounds: no systolic murmur, no diastolic murmur, no rub, no S3 Gallop, no S4 Gallop, no click, no other leg Peripheral Edema: bilateral: 2+, Pitting - Gastrointestinal General gastrointestinal: no absent bowel sounds, no decreased bowel sounds, no distended, no hepatomegaly, no hyperactive bowel sounds, normal bowel sounds, no organomegaly, no rigid, no scaphoid, soft, no splenomegaly, no tenderness, no umbilical hernia, no ventral hernia - Neurologic Neurologic: focal deficits (from surgery) - Musculoskeletal Musculoskeletal: generalized weakness - Psychiatric Psychiatric: A&O x's 3, appropriate affect, intact judgment & insight Results CBC & Chem 7: 02/26/22 07:26 02/26/22 14:44 Labs: Abnormal Lab Results - Last 24 Hours (Table) 02/25/22 02/25/22 02/25/22 Range/Units 17:17 17:17 17:17 WBC 2.7 L (3.8-10.6) k/uL RBC 3.29 L (4.30-5.90) m/uL Hgb 9.3 L D (13.0-17.5) gm/dL Hct 29.6 L (39.0-53.0) % RDW 20.8 H (11.5-15.5) % Lymphocytes # (Manual) 0.16 L (1.0-4.8) k/uL Metamyelocytes # (Man) 0.05 H (0) k/uL Nucleated RBCs 12 H (0-0) /100 WBC Sodium 132 L (137-145) mmol/L Potassium (3.5-5.1) mmol/L Chloride 92 L (98-107) mmol/L Carbon Dioxide 34 H (22-30) mmol/L Creatinine 0.65 L (0.66-1.25) mg/dL Glucose 125 H (74-99) mg/dL POC Glucose (mg/dL) (70-110) mg/dL Plasma Lactic Acid Vladislav 2.1 H* (0.7-2.0) mmol/L Calcium 7.8 L (8.4-10.2) mg/dL AST 63 H (17-59) U/L Alkaline Phosphatase 221 H (38-126) U/L Total Protein 5.2 L (6.3-8.2) g/dL Albumin 2.8 L (3.5-5.0) g/dL 02/25/22 02/26/22 Range/Units 23:09 07:26 WBC (3.8-10.6) k/uL RBC (4.30-5.90) m/uL Hgb (13.0-17.5) gm/dL Hct (39.0-53.0) % RDW (11.5-15.5) % Lymphocytes # (Manual) (1.0-4.8) k/uL Metamyelocytes # (Man) (0) k/uL Nucleated RBCs (0-0) /100 WBC Sodium 134 L (137-145) mmol/L Potassium 3.3 L (3.5-5.1) mmol/L Chloride 95 L (98-107) mmol/L Carbon Dioxide (22-30) mmol/L Creatinine 0.54 L (0.66-1.25) mg/dL Glucose 113 H (74-99) mg/dL POC Glucose (mg/dL) 117 H (70-110) mg/dL Plasma Lactic Acid Vladislav (0.7-2.0) mmol/L Calcium 7.4 L (8.4-10.2) mg/dL AST (17-59) U/L Alkaline Phosphatase (38-126) U/L Total Protein (6.3-8.2) g/dL Albumin (3.5-5.0) g/dL Chest x-ray: report reviewed Venous US: report reviewed Assessment and Plan (1) Adenocarcinoma of head and neck Current Visit: No Status: Chronic Priority: High Code(s): C76.0 - MALIGNANT NEOPLASM OF HEAD, FACE AND NECK SNOMED Code(s): 082408791 Plan: Patient's symptoms improved status post thoracentesis. Fluid is been sent for cytology. Patient is on immunotherapy, cortisol and thyroid levels ordered To evaluate for adrenal insufficiency/hypotension. Respiratory status improved with thoracentesis, do not suspect immunotherapy- induced pneumonitis at this time. Close monitoring of respiratory status, oxygenation. Patient will return to the care of his primary Oncologist on discharge. attests: I have seen and examined pt, performed H&P, developed impression and plan of care. Discussed with dictator. Agree with documentation, dictated as a scribe.
--- NOTE | 2022-02-26 18:10 | CA ---
Transthoracic Echo Report Name: Jaziel Nicolas Age: 56 Gender: M : 1965 Exam Date: 02/26/2022 10:25 Exam Location: [facility] Ht (in): 68 Wt (lb): 152 Ordering Physician: Real Perla MD ([id number]) Attending/Referring Phys: Rotary Filter Operator Nina Maharaj RDCS Procedure CPT: Indications: sob Cardiac Hx: Technical Quality: Technically difficult study Contrast 1: Lumason Total Dose (mL): 4 Contrast 2: Total Dose (mL): MEASUREMENTS (Male / Female) Normal Values 2D ECHO LV Diastolic Diameter PLAX 3.0 cm 4.2 - 5.9 / 3.9 - 5.3 cm LV Systolic Diameter PLAX 1.4 cm IVS Diastolic Thickness 1.0 cm 0.6 - 1.0 / 0.6 - 0.9 cm LVPW Diastolic Thickness 0.9 cm 0.6 - 1.0 / 0.6 - 0.9 cm LV Relative Wall Thickness 0.6 M-MODE Aortic Root Diameter MM 2.4 cm LA Systolic Diameter MM 3.1 cm LA Ao Ratio MM 1.3 DOPPLER AV Peak Velocity 131.5 cm/s AV Peak Gradient 6.9 mmHg AV Mean Velocity 99.2 cm/s AV Mean Gradient 4.3 mmHg AV Velocity Time Integral 27.2 cm LVOT Peak Velocity 85.3 cm/s LVOT Peak Gradient 2.9 mmHg LVOT Velocity Time Integral 20.9 cm MV Area PHT 2.9 cm??? Mitral E Point Velocity 69.2 cm/s Mitral A Point Velocity 86.7 cm/s Mitral E to A Ratio 0.8 MV Deceleration Time 265.8 ms FINDINGS Left Ventricle Mildly increased left ventricular wall thickness. Normal left ventricular systolic function with no obvious regional wall motion abnormalities. Left ventricular ejection fraction is estimated at 60 %. Right Ventricle Right ventricle not well visualized. Right Atrium Right atrium not well visualized. Left Atrium Normal left atrial size. Mitral Valve Mitral valve thickened. Mild mitral annular calcification. Trace to mild mitral regurgitation. Aortic Valve Aortic valve not well visualized. No aortic stenosis. No aortic regurgitation. Tricuspid Valve Tricuspid valve not well visualized. Pulmonic Valve Pulmonic valve not well visualized. Pericardium Trace pericardial effusion (normal variant). Pleural effusion. Aorta Normal size aortic root and proximal ascending aorta. CONCLUSIONS Mildly increased left ventricular wall thickness Left ventricular ejection fraction 60% Trace to mild mitral regurgitation No aortic regurgitation Trace pericardial effusion Pleural effusion noted Previewed by: Dr. Paresh Salas DO (Electronically Signed) Final Date: 26 February 2022 18:09
--- NOTE | 2022-02-26 18:13 | P.HPIM ---
History of Present Illness H&P Date: 02/26/22 Jaziel Nicolas, is a 56-year-old male who presented to [facility] emergency room with a chief complaint of worsening shortness of breath He was evaluated in the emergency room vital examination on presentation revealed a temperature of 97.4 pulse 107 respiration 22 left pressure 87/51 pulse ox 89% Laboratory data revealed a white blood count of 2.7 hemoglobin 9.3 platelet count 321 sodium 132 potassium 3.7 chloride 92 CO2 34 BUN 18 creatinine 0.65 glucose level CXXV Testing in the emergency room revealed chest x-ray revealed bilateral pleural effusion right worse than left Patient was admitted to medical floor for further evaluation and treatment Past Medical History Past Medical History: Cancer, Heart Failure, Liver Disease, Pneumonia, Respiratory Disorder, Thyroid Disorder Additional Past Medical History / Comment(s): 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 History of Any Multi-Drug Resistant Organisms: MRSA Date of last positivie culture/infection: 12/30/18 MDRO Source:: Abdomen Additional Past Surgical History / Comment(s): Throat/jaw resec tion/reconstruction/muscle flap, trach, peg tube insertions, EGDs, recent bronchoscopy with lymph node biopsy at [facility] with post procedure ICU stay d/t low oxygen. Past Anesthesia/Blood Transfusion Reactions: Previous Problems w/ Anesthesia Additional Past Anesthesia/Blood Transfusion Reaction / Comment(s): Low oxygen levels post anesthesia requiring extended ICU stay. Past Psychological History: No Psychological Hx Reported Additional Psychological History / Comment(s): Pt resides with his family and needs some assistance from family, mainly with mobility, but pt is relatively independent. Smoking Status: Former smoker Past Alcohol Use History: None Reported Additional Past Alcohol Use History / Comment(s): Pt started smoking in 1985 and quit in 1993. He quit drinking in 1993 as well. Past Drug Use History: None Reported - Past Family History Mother Family Medical History: Cancer, Deep Vein Thrombosis (DVT) Medications and Allergies Home Medications Medication Instructions Recorded Confirmed Type oxyCODONE-APAP 10-325MG [Percocet 1 tab PEG/G-TUBE Q4H 03/05/16 02/25/22 History 10-325 mg] Levothyroxine Sodium [Synthroid] 125 mcg PEG/G-TUBE DAILY 04/11/19 02/25/22 History Furosemide [Lasix] 40 mg PEG/G-TUBE DAILY 02/25/22 02/25/22 History diazePAM 2 - 4 mg PEG/G-TUBE HS PRN 02/25/22 02/25/22 History Allergies Allergy/AdvReac Type Severity Reaction Status Date / Time venom-honey bee Allergy Anaphylaxis Verified 02/25/22 20:25 Physical Exam Vitals: Vital Signs Temp Pulse Pulse Pulse Resp BP BP 02/26/22 08:44 02/26/22 08:00 97.4 F L 100 15 103/66 02/26/22 06:15 101 H 13 102/53 02/26/22 06:00 100 13 91/55 02/26/22 05:45 97 9 L 100/55 02/26/22 05:30 97 13 93/50 02/26/22 05:15 98 14 100/54 02/26/22 05:00 98 16 93/55 02/26/22 04:45 46 H 88/54 02/26/22 04:30 21 88/52 02/26/22 04:15 98 24 92/53 02/26/22 04:08 18 02/26/22 04:00 97.0 F L 96 98 13 94/60 02/26/22 03:45 98 25 H 99/60 02/26/22 03:30 99 21 91/54 02/26/22 03:28 02/26/22 03:15 98 15 99/50 02/26/22 03:00 95 26 H 107/62 02/26/22 02:45 99 29 H 98/58 02/26/22 02:30 97 19 101/55 02/26/22 02:15 97 25 H 85/52 02/26/22 02:00 91 23 81/55 02/26/22 01:45 95 28 H 86/51 02/26/22 01:30 23 87/51 02/26/22 01:22 98 22 02/26/22 01:15 95 11 L 87/51 02/26/22 01:00 101 H 13 91/57 02/26/22 00:45 95 10 L 93/54 02/26/22 00:30 95 14 96/60 02/26/22 00:15 98 9 L 89/53 02/26/22 00:00 96.9 F L 95 97 21 104/53 96/60 02/25/22 23:55 02/25/22 23:45 104/59 02/25/22 23:00 96 95/60 02/25/22 22:45 94 73/51 02/25/22 22:30 92 82/51 02/25/22 22:15 92 95/55 02/25/22 22:00 96 106/59 02/25/22 21:55 99 18 106/59 02/25/22 20:55 98 15 98/58 02/25/22 20:45 98 17 94/52 02/25/22 20:44 97 15 94/52 02/25/22 20:30 97 16 90/50 02/25/22 20:19 98 15 94/59 02/25/22 20:15 100 16 90/55 02/25/22 20:00 98 17 94/54 02/25/22 19:45 99 16 02/25/22 19:30 100 16 91/54 02/25/22 19:15 101 H 18 94/56 02/25/22 19:00 99 18 82/50 02/25/22 18:45 98 18 85/57 02/25/22 18:30 102 H 18 92/57 02/25/22 18:15 100 18 88/59 02/25/22 18:00 101 H 18 83/52 02/25/22 17:45 101 H 18 85/50 02/25/22 17:30 103 H 18 81/51 02/25/22 17:15 102 H 18 102/60 02/25/22 16:49 97.4 F L 107 H 22 87/51 Pulse Ox FiO2 02/26/22 08:44 60 02/26/22 08:00 60 02/26/22 06:15 94 L 02/26/22 06:00 94 L 60 02/26/22 05:45 94 L 02/26/22 05:30 94 L 02/26/22 05:15 93 L 02/26/22 05:00 94 L 02/26/22 04:45 91 L 02/26/22 04:30 93 L 02/26/22 04:15 94 L 02/26/22 04:08 02/26/22 04:00 94 L 60 02/26/22 03:45 93 L 02/26/22 03:30 93 L 02/26/22 03:28 60 02/26/22 03:15 93 L 02/26/22 03:00 93 L 02/26/22 02:45 92 L 02/26/22 02:30 92 L 02/26/22 02:15 95 02/26/22 02:00 95 60 02/26/22 01:45 94 L 02/26/22 01:30 96 02/26/22 01:22 02/26/22 01:15 95 02/26/22 01:00 93 L 02/26/22 00:45 94 L 02/26/22 00:30 93 L 02/26/22 00:15 93 L 02/26/22 00:00 91 L 55 02/25/22 23:55 92 L 60 02/25/22 23:45 86 L 02/25/22 23:00 94 L 02/25/22 22:45 95 02/25/22 22:30 94 L 02/25/22 22:15 94 L 02/25/22 22:00 91 L 02/25/22 21:55 93 L 02/25/22 20:55 100 02/25/22 20:45 02/25/22 20:44 100 02/25/22 20:30 02/25/22 20:19 100 02/25/22 20:15 02/25/22 20:00 02/25/22 19:45 02/25/22 19:30 02/25/22 19:15 92 L 02/25/22 19:00 92 L 02/25/22 18:45 92 L 02/25/22 18:30 92 L 02/25/22 18:15 92 L 02/25/22 18:00 92 L 02/25/22 17:45 92 L 02/25/22 17:30 93 L 02/25/22 17:15 94 L 02/25/22 16:49 89 L Intake and Output 02/25/22 02/26/22 02/26/22 22:59 06:59 14:59 Intake Total 90 Output Total 650 Balance -560 Intake: IV 90 Sodium Chloride 0.9% 1, 90 000 ml @ 50 mls/hr IV . Q20H [facility] Rx#:[id number] Output: Urine 650 Other: Voiding Method Urinal Weight 71.668 kg 69 kg In general patient is alert and oriented x 3 in no distress, able to communicate with writing HEENT head normocephalic and atraumatic Neck is supple no JVD no goiter no lymphadenopathy no carotid bruit, tracheostomy in place Chest examination reveals a scattered crackles bilaterally no wheezing Cardiac exam reveals regular heart sounds S1 and S2 no gallops no murmurs Abdomen is soft nontender no organomegaly with normal bowel sounds Extremity exam reveals 2+ edema no cyanosis or clubbing Neurological examination reveals no gross focal deficits Results CBC & Chem 7: 02/26/22 07:26 02/26/22 14:44 Labs: Abnormal Lab Results - Last 24 Hours (Table) 02/25/22 02/25/22 02/25/22 Range/Units 17:17 17:17 17:17 WBC 2.7 L (3.8-10.6) k/uL RBC 3.29 L (4.30-5.90) m/uL Hgb 9.3 L D (13.0-17.5) gm/dL Hct 29.6 L (39.0-53.0) % RDW 20.8 H (11.5-15.5) % Lymphocytes # (Manual) 0.16 L (1.0-4.8) k/uL Metamyelocytes # (Man) 0.05 H (0) k/uL Nucleated RBCs 12 H (0-0) /100 WBC Sodium 132 L (137-145) mmol/L Potassium (3.5-5.1) mmol/L Chloride 92 L (98-107) mmol/L Carbon Dioxide 34 H (22-30) mmol/L Creatinine 0.65 L (0.66-1.25) mg/dL Glucose 125 H (74-99) mg/dL POC Glucose (mg/dL) (70-110) mg/dL Plasma Lactic Acid Vladislav 2.1 H* (0.7-2.0) mmol/L Calcium 7.8 L (8.4-10.2) mg/dL AST 63 H (17-59) U/L Alkaline Phosphatase 221 H (38-126) U/L Total Protein 5.2 L (6.3-8.2) g/dL Albumin 2.8 L (3.5-5.0) g/dL 02/25/22 02/26/22 02/26/22 Range/Units 23:09 07:26 07:26 WBC 2.9 L (3.8-10.6) k/uL RBC 2.99 L (4.30-5.90) m/uL Hgb 8.6 L (13.0-17.5) gm/dL Hct 27.6 L (39.0-53.0) % RDW 20.8 H (11.5-15.5) % Lymphocytes # (Manual) (1.0-4.8) k/uL Metamyelocytes # (Man) (0) k/uL Nucleated RBCs (0-0) /100 WBC Sodium 134 L (137-145) mmol/L Potassium 3.3 L (3.5-5.1) mmol/L Chloride 95 L (98-107) mmol/L Carbon Dioxide (22-30) mmol/L Creatinine 0.54 L (0.66-1.25) mg/dL Glucose 113 H (74-99) mg/dL POC Glucose (mg/dL) 117 H (70-110) mg/dL Plasma Lactic Acid Vladislav (0.7-2.0) mmol/L Calcium 7.4 L (8.4-10.2) mg/dL AST (17-59) U/L Alkaline Phosphatase (38-126) U/L Total Protein (6.3-8.2) g/dL Albumin (3.5-5.0) g/dL Thrombosis Risk Factor Assmnt - Choose All That Apply Any of the Below Risk Factors Present?: Yes Each Factor Represents 1 point: Age 41-60 years Other Risk Factors: No Thrombosis Risk Factor Assessment Total Risk Factor Score: 1 Thrombosis Risk Factor Assessment Level: Low Risk Assessment and Plan Plan: Acute hypoxic respiratory failure Bilateral pleural effusion left worse than right Pneumonia cannot be ruled out, patient was started on IV antibiotic in the emergency room Possible acute exacerbation of congestive heart failure, echocardiogram and cardiology consultation was requested Underlying history of adenocarcinoma of the head and neck diagnosed in 2012, with recurrence in 2017 Underlying history of hypothyroidism Underlying history of diabetes mellitus type 2 Recent admission in December 2021, with evidence of pseudomonas aeruginosa growing in the sputum At this time patient was admitted to telemetry floor, he was admitted to intensive care unit as overflow Home medications reviewed and reordered Echo cardiogram, and cardiology consult requested Patient was started on IV antibiotic in the emergency room, pulmonary consultation was requested For DVT prophylaxis subcu Lovenox Will follow closely
[2022-02-26 18:59] LABS: T4, Free (Free Thyroxine) 1.22 ng/dL (0.78-2.19)
[2022-02-26] MEDS: FUROSEMIDE 10 MG/ML 4 ML VIAL IV SCH (20:11)
[2022-02-26 23:22] LABS: Appearance,BF Cloudy
[2022-02-27] MEDS: oxyCODONE-APAP 10-325MG 1 EACH TAB PEG/G-TUBE SCH ×5 (03:59→20:00)
[2022-02-27 04:13] LABS: Glucose, BF Source Pleural Fluid; Glucose, Body Fluid 119 mg/dL; LDH, Body Fluid Source Pleural Fluid; T. Protein, Body Fluid Source Pleural Fluid; Total Protein, Body Fluid 2430 mg/dL
[2022-02-27] MEDS: FUROSEMIDE 10 MG/ML 4 ML VIAL IV SCH ×2 (08:10→20:02)
[2022-02-27] MEDS: LEVOTHYROXINE 125 MCG TAB PEG/G-TUBE SCH (08:12)
[2022-02-27] MEDS: CEFEPIME 2 GM in SODIUM CHLORIDE 0.9% 100 ML IVPB SCH ×2 (08:12→16:11)
[2022-02-27] MEDS: ENOXAPARIN 30 MG/0.3 ML SYRINGE SQ SCH (08:12)
[2022-02-27 13:23] LABS: ALT 23 U/L (4-49); AST 64 U/L (17-59); African American GFR (CKD) >90 (>60 ml/min/1.73 sqM); Albumin 2.3 g/dL (3.5-5.0); Alkaline Phosphatase 164 U/L (38-126); Anion Gap -1 mmol/L; Blood Urea Nitrogen 20 mg/dL (9-20); Calcium 7.2 mg/dL (8.4-10.2); Carbon Dioxide 38 mmol/L (22-30); Chloride 98 mmol/L (98-107); Glucose 155 mg/dL (74-99); Non-African American GFR(CKD) >90 (>60 ml/min/1.73 sqM); Potassium 3.5 mmol/L (3.5-5.1); Sodium 135 mmol/L (137-145); Total Bilirubin 0.9 mg/dL (0.2-1.3); Total Protein 4.5 g/dL (6.3-8.2)
--- NOTE | 2022-02-27 14:27 | P.PN ---
Subjective Progress Note Date: 02/27/22 Jaziel Nicolas, is a 56-year-old male who presented to [facility] emergency room with a chief complaint of worsening shortness of breath He was evaluated in the emergency room vital examination on presentation revealed a temperature of 97.4 pulse 107 respiration 22 left pressure 87/51 p ulse ox 89% Laboratory data revealed a white blood count of 2.7 hemoglobin 9.3 platelet count 321 sodium 132 potassium 3.7 chloride 92 CO2 34 BUN 18 creatinine 0.65 glucose level CXXV Testing in the emergency room revealed chest x-ray revealed bilateral pleural effusion right worse than left Patient was admitted to medical floor for further evaluation and treatment On 02/27/2022 patient was seen and examined on the medical floor, he is alert and oriented 3 in no apparent distress, his shortness of breath has improved he denies any chest pain no nausea or vomiting no abdominal pain no diarrhea and no urinary symptoms, patient was evaluated by pulmonary and cardiology, will continue to follow closely Objective - Vital Signs Vital signs: Vital Signs Temp 97.5 F L 02/27/22 08:10 Pulse 89 02/27/22 08:10 Resp 18 02/27/22 08:10 BP 97/60 02/27/22 08:10 Pulse Ox 98 02/27/22 08:10 FiO2 35 02/27/22 08:10 Intake & Output 02/26/22 02/27/22 02/27/22 18:59 06:59 18:59 Output Total 700 580 Balance -700 -580 Weight 69 kg 68.2 kg Output: Urine 700 580 Other: Voiding Method Urinal Urinal Urinal - Exam In general patient is alert and oriented x 3 in no distress, able to communicate with writing HEENT head normocephalic and atraumatic Neck is supple no JVD no goiter no lymphadenopathy no carotid bruit, tracheostomy in place Chest examination reveals a scattered crackles bilaterally no wheezing Cardiac exam reveals regular heart sounds S1 and S2 no gallops no murmurs Abdomen is soft nontender no organomegaly with normal bowel sounds Extremity exam reveals 2+ edema no cyanosis or clubbing Neurological examination reveals no gross focal deficits - Labs CBC & Chem 7: 02/26/22 07:26 02/27/22 11:54 Labs: Abnormal Lab Results - Last 24 Hours (Table) 02/26/22 02/26/22 02/26/22 Range/Units 07:26 07:26 07:26 WBC 2.6 L (3.8-10.6) k/uL Lymphocytes # (Manual) 0.26 L (1.0-4.8) k/uL Metamyelocytes # (Man) 0.03 H (0) k/uL Myelocytes # (Manual) 0.03 H (0) k/uL Nucleated RBCs 13 H (0-0) /100 WBC Lactate Dehydrogenase 1179 H (313-618) U/L Total Protein 4.6 L (6.3-8.2) g/dL Procalcitonin 0.33 H (0.02-0.09) ng/mL TSH (0.465-4.680) mIU/L 02/26/22 Range/Units 14:44 WBC (3.8-10.6) k/uL Lymphocytes # (Manual) (1.0-4.8) k/uL Metamyelocytes # (Man) (0) k/uL Myelocytes # (Manual) (0) k/uL Nucleated RBCs (0-0) /100 WBC Lactate Dehydrogenase (313-618) U/L Total Protein (6.3-8.2) g/dL Procalcitonin (0.02-0.09) ng/mL TSH 14.400 H (0.465-4.680) mIU/L Microbiology - Last 24 Hours (Table) 02/26/22 15:40 Body Fluid Culture - Preliminary Pleural Fluid 02/25/22 19:00 Blood Culture - Preliminary Blood No Growth after 24 hours 02/25/22 18:45 Blood Culture - Preliminary Blood No Growth after 24 hours Assessment and Plan Plan: Acute hypoxic respiratory failure Bilateral pleural effusion left worse than right Pneumonia cannot be ruled out, patient was started on IV antibiotic in the emergency room Possible acute exacerbation of congestive heart failure, echocardiogram and cardiology consultation was requested Underlying history of adenocarcinoma of the head and neck diagnosed in 2012, with recurrence in 2017 Underlying history of hypothyroidism Underlying history of diabetes mellitus type 2 Recent admission in December 2021, with evidence of pseudomonas aeruginosa growing in the sputum At this time patient was admitted to telemetry floor, he was admitted to intensive care unit as overflow Home medications reviewed and reordered Echo cardiogram, and cardiology consult requested Patient was started on IV antibiotic in the emergency room, pulmonary consultation was requested For DVT prophylaxis subcu Lovenox Will follow closely
--- NOTE | 2022-02-27 14:55 | P.PN ---
Subjective HPI Patient presented to the hospital with shortness of breath He was found to have pleural effusion He was receiving chemotherapy and immunotherapy He has a history of bilateral pleural effusions and underwent thoracentesis bilaterally At this time he denies any chest discomfort and does not appear to be short of breath History of head and neck cancer requiring surgery chemotherapy and radiation as well as immunotherapy 02/27 Patient seen and examined. Patient denies any chest pain or pressure. He did undergo thoracentesis yesterday and states he feels better. Echocardiogram performed yesterday shows preserved EF 60% with no pleural effusion and relatively normal diastolic parameters. ROS: No fever chills or rigors, no cough, phlegm or expectoration, no nausea, vomiting or diarrhea, no hematuria, dysuria, no musculoskeletal complaints, no strokes or seizures, no skin lesions. EXAMINATION: Very cachectic gentleman Reduced breath sounds bilaterally Heart sounds S1 and S2 are soft IMPRESSION / ASSESSMENT: Shortness of breath related to pleural effusions History of and neck cancer status post surgery chemotherapy immunotherapy and radiation History of bilateral pleural effusions in the past PLAN: Echocardiogram reviewed with preserved ejection fraction with relatively normal diastolic parameters. Effusions do not appear related to heart failure. Await pathology of pleural effusion fluid. No further recommendations from a cardiac standpoint. Please call with any questions. Objective - Vital Signs Vital signs: Vital Signs Temp 97.5 F L 02/27/22 08:10 Pulse 98 02/27/22 11:20 Resp 17 02/27/22 11:20 BP 94/57 02/27/22 11:20 Pulse Ox 95 02/27/22 11:20 FiO2 35 02/27/22 11:20 Intake & Output 02/26/22 02/27/22 02/27/22 18:59 06:59 18:59 Output Total 700 580 900 Balance -700 580 -900 Weight 69 kg 68.2 kg Output: Urine 700 580 900 Other: Voiding Method Urinal Urinal Urinal - Labs CBC & Chem 7: 02/26/22 07:26 02/27/22 11:54 Labs: Abnormal Lab Results - Last 24 Hours (Table) 02/26/22 02/26/22 02/27/22 Range/Units 07:26 14:44 11:54 Sodium 135 L (137-145) mmol/L Carbon Dioxide 38 H (22-30) mmol/L Creatinine 0.55 L (0.66-1.25) mg/dL Glucose 155 H (74-99) mg/dL Calcium 7.2 L (8.4-10.2) mg/dL AST 64 H (17-59) U/L Alkaline Phosphatase 164 H (38-126) U/L Total Protein 4.5 L (6.3-8.2) g/dL Albumin 2.3 L (3.5-5.0) g/dL Procalcitonin 0.33 H (0.02-0.09) ng/mL TSH 14.400 H (0.465-4.680) mIU/L Microbiology - Last 24 Hours (Table) 02/26/22 15:40 Body Fluid Culture - Preliminary Pleural Fluid 02/25/22 19:00 Blood Culture - Preliminary Blood No Growth after 24 hours 02/25/22 18:45 Blood Culture - Preliminary Blood No Growth after 24 hours
[2022-02-27 15:07] LABS: Anisocytosis Moderate; HCT 27.6 % (39.0-53.0); HGB 8.8 gm/dL (13.0-17.5); Hypochromasia Marked; MCH 29.2 pg (25.0-35.0); MCV 91.4 fL (80.0-100.0); Macrocytosis Slight; Mean Platelet Volume 8.1; Platelet Count 238 k/uL (150-450); Poikilocytosis Slight; RBC 3.02 m/uL (4.30-5.90); RDW 20.9 % (11.5-15.5)
[2022-02-27 15:23] LABS: Metamyelocytes % 3 %; Myelocytes % 2 %; Neutrophils % (M) 66 %; Nucleated Red Blood Cells 10 /100 WBC (0-0); Total Cells Counted 200
[2022-02-27 15:24] LABS: Basophils # (M) 0.07 k/uL (0-0.2); Eosinophils # (M) 0.07 k/uL (0-0.7); Lymphocytes # (M) 0.14 k/uL (1.0-4.8); Metamyelocytes # (M) 0.11 k/uL (0); Monocytes # (M) 0.77 k/uL (0-1.0); Myelocytes # (M) 0.07 k/uL (0); Neutrophils # (M) 2.31 k/uL (1.3-7.7); WBC 3.5 k/uL (3.8-10.6)
[2022-02-27 15:26] LABS: Polychromasia Present
--- NOTE | 2022-02-27 16:03 | P.PN ---
Subjective Progress Note Date: 02/27/22 This is a very pleasant 56-year-old male with a history of head and neck cancer, requiring extensive treatments including surgery, chemotherapy, and radiation. The patient has a permanent tracheostomy in place. He also has a PEG tube in place. The patient was asked to come into the hospital as the patient was found to have pleural effusion by his physicians that her mom is [facility] where he receives his treatment. Currently, he is receiving a combination of chemotherapy and immunotherapy. The patient had a recent hospitalization back in December 2021 and the patient had bilateral pleural effusion and he underwent thoracentesis bilaterally and the fluid was exudative and the cytology was negative for malignancy. The patient also had pseudomonas aeruginosa in his sputum. Pneumonia with parapneumonic effusion was also considered. During this current admission, the patient is coming in with some increased shortness of breath and acute on top of chronic hypoxic respiratory failure and the patient is currently on 80% trach collar. His tracheostomy tube is in place and the respiratory secretions that and. No fever. No chills. No DVT of the right upper extremity. His chest x-ray is showing bilateral pleural effusion and volume loss. Tracheostomy cannula is in the trachea. There is a Mediport over the right hemithorax. There is no evidence of any focal consolidation. There is increased pulmonary vascular markings and cardiomegaly. There is obviously volume loss. In terms of his blood work, the patient has a white cell count of 2.9 with a hemoglobin of 8.6 and a platelet count of 256. The patient also had a sodium level of 134, potassium of 3.3, chloride is 95, bicarb is 30 with a BUN of 17 and a creatinine of 0.5, proBNP level is 1350, troponins are negative. His previous serum albumin was at 2.8. The patient continues to receive enteral feeding for nutritional support via a PEG tube. The patient also takes Lasix 40 mg by mouth on a daily basis. Is on thyroid hormone replacement. Currently is on IV cefepime. He is also on Lasix 40 mg by mouth daily which was resumed. On 02/27/2022, the patient was transferred out of the intensive care unit. I performed a thoracentesis and the patient's left lung and approximately 1.1 L of fluid was drained and the fluid was an exudate. Note that, following the thoracentesis, the patient underwent a CAT scan of the chest that showed evidence of metastatic disease and the patient had evidence of disease progression. A CAT scan of the chest showed scattered metastatic disease and nodules throughout the lungs bilaterally. The patient had a right middle lobe nodule 11 mm in size, right upper lobe nodule 15 mm in size, left upper lobe airspace opacity measuring 2.8 cm in addition to left pulmonary hilar fullness Consolidation Changes in the Left Lung Base. The Patient Also Had Extensive Mediastinal Lymphadenopathy and Bilateral Pleural Effusions. The Pleural Effusion on the Right Was Slightly Irregular. The Patient Had Also Left Supraclavicular Lymph Node Enlargement. On Today's Evaluation, the Patient Is Resting Comfortably in Bed. Note that his cultures came back all negative and we are still awaiting his sputum culture. His WBC count of 3.7 with a hemoglobin of 8.8 and platelet count of 238. On his blood work, the patient had a sodium level of 135, potassium level of 3.5, BUN is at 20 with a creatinine of 0.5. As mentioned, the fluid analysis was an exudate and cytology is still pending. Objective - Vital Signs Vital signs: Vital Signs Temp 97.5 F L 02/27/22 08:10 Pulse 98 02/27/22 11:20 Resp 17 02/27/22 11:20 BP 94/57 02/27/22 11:20 Pulse Ox 95 02/27/22 11:20 FiO2 35 02/27/22 11:20 Intake & Output 02/26/22 02/27/22 02/27/22 18:59 06:59 18:59 Output Total 700 580 900 Balance -700 -580 -900 Weight 69 kg 68.2 kg Output: Urine 700 580 900 Other: Voiding Method Urinal Urinal Urinal - Exam GENERAL EXAM: Alert, cachectic 56-year-old male patient, 35% trach collar, comfortable in no apparent distress. HEAD: Changes noted of extensive surgical and radiation changes of the head and neck. EYES: Normal reaction of pupils, equal size. NOSE: Clear with pink turbinates. THROAT: No erythema or exudates. NECK: No masses, no JVD. CHEST: No chest wall deformity. LUNGS: Equal air entry with bilateral scattered rhonchi, wheeze, diminished. CVS: S1 and S2 normal with no audible murmur, regular rhythm. ABDOMEN: PEG tube in place. No hepatosplenomegaly, normal bowel sounds, no guarding or rigidity. SPINE: No scoliosis or deformity SKIN: No rashes CENTRAL NERVOUS SYSTEM: No focal deficits, tone is normal in all 4 extremities. EXTREMITIES: There is no peripheral edema. No clubbing, no cyanosis. Peripheral pulses are intact. - Labs CBC & Chem 7: 02/27/22 14:26 02/27/22 11:54 Labs: Abnormal Lab Results - Last 24 Hours (Table) 02/26/22 02/26/22 02/27/22 Range/Units 07:26 14:44 11:54 WBC (3.8-10.6) k/uL RBC (4.30-5.90) m/uL Hgb (13.0-17.5) gm/dL Hct (39.0-53.0) % RDW (11.5-15.5) % Lymphocytes # (Manual) (1.0-4.8) k/uL Metamyelocytes # (Man) (0) k/uL Myelocytes # (Manual) (0) k/uL Nucleated RBCs (0-0) /100 WBC Sodium 135 L (137-145) mmol/L Carbon Dioxide 38 H (22-30) mmol/L Creatinine 0.55 L (0.66-1.25) mg/dL Glucose 155 H (74-99) mg/dL Calcium 7.2 L (8.4-10.2) mg/dL AST 64 H (17-59) U/L Alkaline Phosphatase 164 H (38-126) U/L Total Protein 4.5 L (6.3-8.2) g/dL Albumin 2.3 L (3.5-5.0) g/dL Procalcitonin 0.33 H (0.02-0.09) ng/mL TSH 14.400 H (0.465-4.680) mIU/L 02/27/22 Range/Units 14:26 WBC 3.5 L (3.8-10.6) k/uL RBC 3.02 L (4.30-5.90) m/uL Hgb 8.8 L (13.0-17.5) gm/dL Hct 27.6 L (39.0-53.0) % RDW 20.9 H (11.5-15.5) % Lymphocytes # (Manual) 0.14 L (1.0-4.8) k/uL Metamyelocytes # (Man) 0.11 H (0) k/uL Myelocytes # (Manual) 0.07 H (0) k/uL Nucleated RBCs 10 H (0-0) /100 WBC Sodium (137-145) mmol/L Carbon Dioxide (22-30) mmol/L Creatinine (0.66-1.25) mg/dL Glucose (74-99) mg/dL Calcium (8.4-10.2) mg/dL AST (17-59) U/L Alkaline Phosphatase (38-126) U/L Total Protein (6.3-8.2) g/dL Albumin (3.5-5.0) g/dL Procalcitonin (0.02-0.09) ng/mL TSH (0.465-4.680) mIU/L Microbiology - Last 24 Hours (Table) 02/26/22 15:40 Body Fluid Culture - Preliminary Pleural Fluid 02/25/22 19:00 Blood Culture - Preliminary Blood No Growth after 24 hours 02/25/22 18:45 Blood Culture - Preliminary Blood No Growth after 24 hours Assessment and Plan Plan: Acute hypoxic respiratory failure secondary to reaccumulation of large bilateral pleural effusions and possibly a component of pneumonia possibly healthcare acquired, as the patient has been receiving a combination of chemo and im munotherapy and the patient is immunosuppressed. Patient underwent thoracentesis on the left lung and a follow-up CAT scan of the chest shows metastatic disease with bilateral pulmonary nodules and extensive mediastinal lymphadenopathy consistent with metastatic disease from a previous head and neck cancer. Currently on 35% Ventimask Bilateral pleural effusions, suspect malignant effusions, recent thoracentesis on 12/20, done on the right side , Status post thoracentesis today on 01/03 on the left side, fluid is exudative, final cytology was negative. The repeat thoracentesis was done on 02/26/2022 on the left and the cytology still pending for now. Mild leukopenia Pseudomonas aeruginosa growing in the sputum, colonization versus true infection Increased lower extremity edema, consider possibility of underlying CHF History of extensive head and neck cancer, previous chemoradiation treatment and apparently the patient was told recently that is a recurrence involving his subcarinal lymph nodes. History of PEG tube placement Ex-smoker Type 2 diabetes Hypothyroidism Hypoalbuminemia and the patient's albumin level is at 2.8, likely nutritional in the patient is receiving PEG tube feeding for enteral feeding and nutritional support Plan Consult oncology regarding details of his outpatient treatment Patient has metastatic disease Awaiting fluid cytology May need to palliate and give another thoracentesis on the right at later stage we'll do an immediate right-sided thoracentesis as the patient has a large right-sided pleural effusion. The chest x-ray will be done after the thoracentesis and if needed we'll proceed with a left side keep IV cefepime Recheck sputum Gram stain and culture Continue diuretics and the patient will be switched to Lasix 40 mg IV every 12 hour Continue enteral feeding for nutritional support Obtain echocardiogram on 02/26/2022 showing a preserved LV function without any significant LV wall abnormalities or valvular abnormalities We'll continue to follow make further recommendations based on his progress. Prognosis poor based on above
[2022-02-27] MEDS: SODIUM CHLORIDE 0.9% 1,000 ML IV SCH (20:38)
[2022-02-28] MEDS: CEFEPIME 2 GM in SODIUM CHLORIDE 0.9% 100 ML IVPB SCH ×4 (00:03→23:46)
[2022-02-28] MEDS: oxyCODONE-APAP 10-325MG 1 EACH TAB PEG/G-TUBE SCH ×7 (00:03→23:45)
[2022-02-28] MEDS: LEVOTHYROXINE 125 MCG TAB PEG/G-TUBE SCH (09:01)
[2022-02-28] MEDS: ENOXAPARIN 30 MG/0.3 ML SYRINGE SQ SCH (09:02)
[2022-02-28] MEDS: FUROSEMIDE 10 MG/ML 4 ML VIAL IV SCH ×2 (09:02→20:27)
[2022-02-28 09:07] LABS: Anisocytosis Moderate; HCT 27.9 % (39.0-53.0); HGB 8.7 gm/dL (13.0-17.5); Hypochromasia Marked; MCHC 31.2 g/dL (31.0-37.0); MCV 92.9 fL (80.0-100.0); Macrocytosis Slight; Mean Platelet Volume 8.4; Platelet Count 224 k/uL (150-450); Poikilocytosis Slight; RBC 3.01 m/uL (4.30-5.90); RDW 20.9 % (11.5-15.5)
[2022-02-28 09:24] LABS: ALT 21 U/L (4-49); AST 57 U/L (17-59); African American GFR (CKD) >90 (>60 ml/min/1.73 sqM); Albumin 2.3 g/dL (3.5-5.0); Alkaline Phosphatase 166 U/L (38-126); Anion Gap 3 mmol/L; Blood Urea Nitrogen 22 mg/dL (9-20); Calcium 7.1 mg/dL (8.4-10.2); Carbon Dioxide 36 mmol/L (22-30); Chloride 96 mmol/L (98-107); Glucose 160 mg/dL (74-99); Non-African American GFR(CKD) >90 (>60 ml/min/1.73 sqM); Potassium 3.6 mmol/L (3.5-5.1); Sodium 135 mmol/L (137-145); Total Bilirubin 0.9 mg/dL (0.2-1.3); Total Protein 4.4 g/dL (6.3-8.2)
--- NOTE | 2022-02-28 14:00 | P.PN ---
Subjective Progress Note Date: 02/28/22 Jaziel Nicolas, is a 56-year-old male who presented to [facility] emergency room with a chief complaint of worsening shortness of breath He was evaluated in the emergency room vital examination on presentation revealed a temperature of 97.4 pulse 107 respiration 22 left pressure 87/51 p ulse ox 89% Laboratory data revealed a white blood count of 2.7 hemoglobin 9.3 platelet count 321 sodium 132 potassium 3.7 chloride 92 CO2 34 BUN 18 creatinine 0.65 glucose level CXXV Testing in the emergency room revealed chest x-ray revealed bilateral pleural effusion right worse than left Patient was admitted to medical floor for further evaluation and treatment On 02/27/2022 patient was seen and examined on the medical floor, he is alert and oriented 3 in no apparent distress, his shortness of breath has improved he denies any chest pain no nausea or vomiting no abdominal pain no diarrhea and no urinary symptoms, patient was evaluated by pulmonary and cardiology, will continue to follow closely On 02/28/2022 patient is alert and oriented 3. Patient remains on IV Lasix. Patient denies chest pain. Patient denies nausea vomiting or diarrhea. Patient denies any urinary burning or frequency. Objective - Vital Signs Vital signs: Vital Signs Temp 97.0 F L 02/28/22 08:52 Pulse 98 02/28/22 12:30 Resp 18 02/28/22 12:30 BP 93/58 02/28/22 12:30 Pulse Ox 94 L 02/28/22 12:30 FiO2 35 02/28/22 13:30 Intake & Output 02/27/22 02/28/22 02/28/22 18:59 06:59 18:59 Output Total 900 700 825 Balance -900 -700 -825 Weight 67 kg Output: Urine 900 700 825 Other: Voiding Method Urinal Urinal Urinal - Exam In general patient is alert and oriented x 3 in no distress, able to communicate with writing HEENT head normocephalic and atraumatic Neck is supple no JVD no goiter no lymphadenopathy no carotid bruit, tracheostomy in place Chest examination reveals a scattered crackles bilaterally no wheezing Cardiac exam reveals regular heart sounds S1 and S2 no gallops no murmurs Abdomen is soft nontender no organomegaly with normal bowel sounds Extremity exam reveals 2+ edema no cyanosis or clubbing Neurological examination reveals no gross focal deficits - Labs CBC & Chem 7: 02/28/22 08:37 02/28/22 08:37 Labs: Abnormal Lab Results - Last 24 Hours (Table) 02/27/22 02/28/22 02/28/22 Range/Units 14:26 08:37 08:37 WBC 3.5 L (3.8-10.6) k/uL RBC 3.02 L 3.01 L (4.30-5.90) m/uL Hgb 8.8 L 8.7 L (13.0-17.5) gm/dL Hct 27.6 L 27.9 L (39.0-53.0) % RDW 20.9 H 20.9 H (11.5-15.5) % Lymphocytes # (Manual) 0.14 L (1.0-4.8) k/uL Metamyelocytes # (Man) 0.11 H (0) k/uL Myelocytes # (Manual) 0.07 H (0) k/uL Nucleated RBCs 10 H (0-0) /100 WBC Sodium 135 L (137-145) mmol/L Chloride 96 L (98-107) mmol/L Carbon Dioxide 36 H (22-30) mmol/L BUN 22 H (9-20) mg/dL Creatinine 0.51 L (0.66-1.25) mg/dL Glucose 160 H (74-99) mg/dL Calcium 7.1 L (8.4-10.2) mg/dL Alkaline Phosphatase 166 H (38-126) U/L Total Protein 4.4 L (6.3-8.2) g/dL Albumin 2.3 L (3.5-5.0) g/dL Microbiology - Last 24 Hours (Table) 02/26/22 15:40 Gram Stain - Preliminary Pleural Fluid Body Fluid Culture - Preliminary 02/25/22 19:00 Blood Culture - Preliminary Blood No Growth after 48 hours 02/25/22 18:45 Blood Culture - Preliminary Blood No Growth after 48 hours Assessment and Plan Plan: Acute hypoxic respiratory failure Bilateral pleural effusion left worse than right Pneumonia cannot be ruled out, patient was started on IV antibiotic in the emergency room Possible acute exacerbation of congestive heart failure, echocardiogram and cardiology consultation was requested Underlying history of adenocarcinoma of the head and neck diagnosed in 2012, with recurrence in 2017 Underlying history of hypothyroidism Underlying history of diabetes mellitus type 2 Recent admission in December 2021, with evidence of pseudomonas aeruginosa growing in the sputum At this time patient was admitted to telemetry floor, he was admitted to intensive care unit as overflow Home medications reviewed and reordered 2-D echo completed showing an EF of 60% Patient was started on IV antibiotic in the emergency room, pulmonary consultation was requested For DVT prophylaxis subcu Chance Will follow closely
[2022-02-28 15:20] LABS: Basophils # (M) 0.05 k/uL (0-0.2); Eosinophils # (M) 0.14 k/uL (0-0.7); Metamyelocytes # (M) 0.05 k/uL (0); Metamyelocytes % 1 %; Myelocytes % 2 %; Neutrophils % (M) 69 %; Nucleated Red Blood Cells 7 /100 WBC (0-0); Total Cells Counted 200
[2022-02-28 15:21] LABS: Lymphocytes # (M) 0.27 k/uL (1.0-4.8); Myelocytes # (M) 0.09 k/uL (0); Neutrophils # (M) 3.11 k/uL (1.3-7.7); Polychromasia Present; WBC 4.5 k/uL (3.8-10.6)
--- NOTE | 2022-02-28 16:20 | P.PN ---
Subjective Progress Note Date: 02/28/22 This is a very pleasant 56-year-old male with a history of head and neck cancer, requiring extensive treatments including surgery, chemotherapy, and radiation. The patient has a permanent tracheostomy in place. He also has a PEG tube in place. The patient was asked to come into the hospital as the patient was found to have pleural effusion by his physicians that her mom is [facility] where he receives his treatment. Currently, he is receiving a combination of chemotherapy and immunotherapy. The patient had a recent hospitalization back in December 2021 and the patient had bilateral pleural effusion and he underwent thoracentesis bilaterally and the fluid was exudative and the cytology was negative for malignancy. The patient also had pseudomonas aeruginosa in his sputum. Pneumonia with parapneumonic effusion was also considered. During this current admission, the patient is coming in with some increased shortness of breath and acute on top of chronic hypoxic respiratory failure and the patient is currently on 80% trach collar. His tracheostomy tube is in place and the respiratory secretions that and. No fever. No chills. No DVT of the right upper extremity. His chest x-ray is showing bilateral pleural effusion and volume loss. Tracheostomy cannula is in the trachea. There is a Mediport over the right hemithorax. There is no evidence of any focal consolidation. There is increased pulmonary vascular markings and cardiomegaly. There is obviously volume loss. In terms of his blood work, the patient has a white cell count of 2.9 with a hemoglobin of 8.6 and a platelet count of 256. The patient also had a sodium level of 134, potassium of 3.3, chloride is 95, bicarb is 30 with a BUN of 17 and a creatinine of 0.5, proBNP level is 1350, troponins are negative. His previous serum albumin was at 2.8. The patient continues to receive enteral feeding for nutritional support via a PEG tube. The patient also takes Lasix 40 mg by mouth on a daily basis. Is on thyroid hormone replacement. Currently is on IV cefepime. He is also on Lasix 40 mg by mouth daily which was resumed. On 02/27/2022, the patient was transferred out of the intensive care unit. I performed a thoracentesis and the patient's left lung and approximately 1.1 L of fluid was drained and the fluid was an exudate. Note that, following the thoracentesis, the patient underwent a CAT scan of the chest that showed evidence of metastatic disease and the patient had evidence of disease progression. A CAT scan of the chest showed scattered metastatic disease and nodules throughout the lungs bilaterally. The patient had a right middle lobe nodule 11 mm in size, right upper lobe nodule 15 mm in size, left upper lobe airspace opacity measuring 2.8 cm in addition to left pulmonary hilar fullness Consolidation Changes in the Left Lung Base. The Patient Also Had Extensive Mediastinal Lymphadenopathy and Bilateral Pleural Effusions. The Pleural Effusion on the Right Was Slightly Irregular. The Patient Had Also Left Supraclavicular Lymph Node Enlargement. On Today's Evaluation, the Patient Is Resting Comfortably in Bed. Note that his cultures came back all negative and we are still awaiting his sputum culture. His WBC count of 3.7 with a hemoglobin of 8.8 and platelet count of 238. On his blood work, the patient had a sodium level of 135, potassium level of 3.5, BUN is at 20 with a creatinine of 0.5. As mentioned, the fluid analysis was an exudate and cytology is still pending. 02/28/2022, the patient is clinically stable. The pleural fluid cytology is not back yet. There is a concern for malignancy as the patient's CAT scan of the chest was progression of his malignancy with extensive mediastinal lymphadenopathy and bilateral malignant pulmonary lesions. The patient is resting comfortably in bed. He remains on IV cefepime. He remains on IV diuretics. No worsening shortness of breath. White cell count is at 4.5 with a hemoglobin of 8.7 and a platelet count of 224. Sodium is at 135, bicarb is at 36 with a BUN of 22 and a creatinine of 0.5. He is very much cachectic and emaciated. He was also seen by cardiology. Echocardiogram showed a preserved LV function. Objective - Vital Signs Vital signs: Vital Signs Temp 97.0 F L 02/28/22 08:52 Pulse 94 02/28/22 16:07 Resp 18 02/28/22 16:07 BP 95/58 02/28/22 16:07 Pulse Ox 95 02/28/22 16:07 FiO2 35 02/28/22 13:30 Intake & Output 02/27/22 02/28/22 02/28/22 18:59 06:59 18:59 Output Total 900 700 825 Balance -900 700 -825 Weight 67 kg 67 kg Output: Urine 091 783 828 Other: Voiding Method Urinal Urinal Urinal - Exam GENERAL EXAM: Alert, cachectic 56-year-old male patient, 35% trach collar, comfortable in no apparent distress. HEAD: Changes noted of extensive surgical and radiation changes of the head and neck. EYES: Normal reaction of pupils, equal size. NOSE: Clear with pink turbinates. THROAT: No erythema or exudates. NECK: No masses, no JVD. CHEST: No chest wall deformity. LUNGS: Equal air entry with bilateral scattered rhonchi, wheeze, diminished. CVS: S1 and S2 normal with no audible murmur, regular rhythm. ABDOMEN: PEG tube in place. No hepatosplenomegaly, normal bowel sounds, no guarding or rigidity. SPINE: No scoliosis or deformity SKIN: No rashes CENTRAL NERVOUS SYSTEM: No focal deficits, tone is normal in all 4 extremities. EXTREMITIES: There is no peripheral edema. No clubbing, no cyanosis. Peripher al pulses are intact. - Labs CBC & Chem 7: 02/28/22 08:37 02/28/22 08:37 Labs: Abnormal Lab Results - Last 24 Hours (Table) 02/28/22 02/28/22 Range/Units 08:37 08:37 RBC 3.01 L (4.30-5.90) m/uL Hgb 8.7 L (13.0-17.5) gm/dL Hct 27.9 L (39.0-53.0) % RDW 20.9 H (11.5-15.5) % Lymphocytes # (Manual) 0.27 L (1.0-4.8) k/uL Metamyelocytes # (Man) 0.05 H (0) k/uL Myelocytes # (Manual) 0.09 H (0) k/uL Nucleated RBCs 7 H (0-0) /100 WBC Sodium 135 L (137-145) mmol/L Chloride 96 L (98-107) mmol/L Carbon Dioxide 36 H (22-30) mmol/L BUN 22 H (9-20) mg/dL Creatinine 0.51 L (0.66-1.25) mg/dL Glucose 160 H (74-99) mg/dL Calcium 7.1 L (8.4-10.2) mg/dL Alkaline Phosphatase 166 H (38-126) U/L Total Protein 4.4 L (6.3-8.2) g/dL Albumin 2.3 L (3.5-5.0) g/dL Microbiology - Last 24 Hours (Table) 02/26/22 15:40 Gram Stain - Preliminary Pleural Fluid Body Fluid Culture - Preliminary 02/25/22 19:00 Blood Culture - Preliminary Blood No Growth after 48 hours 02/25/22 18:45 Blood Culture - Preliminary Blood No Growth after 48 hours Assessment and Plan Plan: Acute hypoxic respiratory failure secondary to reaccumulation of large bilateral pleural effusions and possibly a component of pneumonia possibly healthcare acquired, as the patient has been receiving a combination of chemo and immunotherapy and the patient is immunosuppressed. Patient underwent thoracentesis on the left lung and a follow-up CAT scan of the chest shows m etastatic disease with bilateral pulmonary nodules and extensive mediastinal lymphadenopathy consistent with metastatic disease from a previous head and neck cancer. Currently on 35% Ventimask, 8 L of oxygen flow. Respiratory status is stable. No interval decompensation Bilateral pleural effusions, suspect malignant effusions, recent thoracentesis on 12/20, done on the right side , Status post thoracentesis today on 01/03 on the left side, fluid is exudative, final cytology was negative. The repeat thoracentesis was done on 02/26/2022 on the left and the cytology still pending for now. Mild leukopenia, improved and the white cell count is up to 4.5 Pseudomonas aeruginosa growing in the sputum, colonization versus true infection Increased lower extremity edema, consider possibility of underlying CHF History of extensive head and neck cancer, previous chemoradiation treatment and apparently the patient was told recently that is a recurrence involving his subcarinal lymph nodes. History of PEG tube placement Ex-smoker Type 2 diabetes Hypothyroidism Hypoalbuminemia and the patient's albumin level is at 2.8, likely nutritional in the patient is receiving PEG tube feeding for enteral feeding and nutritional support Plan Consult oncology regarding details of his outpatient treatment Patient has metastatic disease and a CAT scan of the chest showed extensive based on lymphadenopathy and bilateral pulmonary nodules Awaiting fluid cytology, the pleural fluid cytology is positive, we'll consider a Pleurx catheter insertion keep IV cefepime Recheck sputum Gram stain and culture is negative for now. Continue diuretics and the patient will be switched to Lasix 40 mg IV every 12 hour Continue enteral feeding for nutritional support Obtain echocardiogram on 02/26/2022 showing a preserved LV function without any significant LV wall abnormalities or valvular abnormalities We'll continue to follow make further recommendations based on his progress. Prognosis poor based on above
[2022-02-28] MEDS: SODIUM CHLORIDE 0.9% 1,000 ML IV SCH (20:35)
[2022-03-01] MEDS: oxyCODONE-APAP 10-325MG 1 EACH TAB PEG/G-TUBE SCH ×5 (03:40→20:05)
[2022-03-01] MEDS: CEFEPIME 2 GM in SODIUM CHLORIDE 0.9% 100 ML IVPB SCH ×2 (08:09→16:58)
[2022-03-01] MEDS: ENOXAPARIN 30 MG/0.3 ML SYRINGE SQ SCH (08:10)
[2022-03-01] MEDS: FUROSEMIDE 10 MG/ML 4 ML VIAL IV SCH ×2 (08:11→20:04)
[2022-03-01] MEDS: LEVOTHYROXINE 125 MCG TAB PEG/G-TUBE SCH (08:12)
--- NOTE | 2022-03-01 15:55 | P.PN ---
Subjective Progress Note Date: 03/01/22 This is a very pleasant 56-year-old male with a history of head and neck cancer, requiring extensive treatments including surgery, chemotherapy, and radiation. The patient has a permanent tracheostomy in place. He also has a PEG tube in place. The patient was asked to come into the hospital as the patient was found to have pleural effusion by his physicians that her mom is [facility] where he receives his treatment. Currently, he is receiving a combination of chemotherapy and immunotherapy. The patient had a recent hospitalization back in December 2021 and the patient had bilateral pleural effusion and he underwent thoracentesis bilaterally and the fluid was exudative and the cytology was negative for malignancy. The patient also had pseudomonas aeruginosa in his sputum. Pneumonia with parapneumonic effusion was also considered. During this current admission, the patient is coming in with some increased shortness of breath and acute on top of chronic hypoxic respiratory failure and the patient is currently on 80% trach collar. His tracheostomy tube is in place and the respiratory secretions that and. No fever. No chills. No DVT of the right upper extremity. His chest x-ray is showing bilateral pleural effusion and volume loss. Tracheostomy cannula is in the trachea. There is a Mediport over the right hemithorax. There is no evidence of any focal consolidation. There is increased pulmonary vascular markings and cardiomegaly. There is obviously volume loss. In terms of his blood work, the patient has a white cell count of 2.9 with a hemoglobin of 8.6 and a platelet count of 256. The patient also had a sodium level of 134, potassium of 3.3, chloride is 95, bicarb is 30 with a BUN of 17 and a creatinine of 0.5, proBNP level is 1350, troponins are negative. His previous serum albumin was at 2.8. The patient continues to receive enteral feeding for nutritional support via a PEG tube. The patient also takes Lasix 40 mg by mouth on a daily basis. Is on thyroid hormone replacement. Currently is on IV cefepime. He is also on Lasix 40 mg by mouth daily which was resumed. On 02/27/2022, the patient was transferred out of the intensive care unit. I performed a thoracentesis and the patient's left lung and approximately 1.1 L of fluid was drained and the fluid was an exudate. Note that, following the thoracentesis, the patient underwent a CAT scan of the chest that showed evidence of metastatic disease and the patient had evidence of disease progression. A CAT scan of the chest showed scattered metastatic disease and nodules throughout the lungs bilaterally. The patient had a right middle lobe nodule 11 mm in size, right upper lobe nodule 15 mm in size, left upper lobe airspace opacity measuring 2.8 cm in addition to left pulmonary hilar fullness Consolidation Changes in the Left Lung Base. The Patient Also Had Extensive Mediastinal Lymphadenopathy and Bilateral Pleural Effusions. The Pleural Effusion on the Right Was Slightly Irregular. The Patient Had Also Left Supraclavicular Lymph Node Enlargement. On Today's Evaluation, the Patient Is Resting Comfortably in Bed. Note that his cultures came back all negative and we are still awaiting his sputum culture. His WBC count of 3.7 with a hemoglobin of 8.8 and platelet count of 238. On his blood work, the patient had a sodium level of 135, potassium level of 3.5, BUN is at 20 with a creatinine of 0.5. As mentioned, the fluid analysis was an exudate and cytology is still pending. 02/28/2022, the patient is clinically stable. The pleural fluid cytology is not back yet. There is a concern for malignancy as the patient's CAT scan of the chest was progression of his malignancy with extensive mediastinal lymphadenopathy and bilateral malignant pulmonary lesions. The patient is resting comfortably in bed. He remains on IV cefepime. He remains on IV diuretics. No worsening shortness of breath. White cell count is at 4.5 with a hemoglobin of 8.7 and a platelet count of 224. Sodium is at 135, bicarb is at 36 with a BUN of 22 and a creatinine of 0.5. He is very much cachectic and emaciated. He was also seen by cardiology. Echocardiogram showed a preserved LV function. On 03/01/2022, the patient is resting comfortably in bed. No new complaints. Continues to be on IV Lasix 40 mg every 12 hours and the patient is also on IV cefepime. The pleural fluid cytology is still pending. I'm going to repeat chest x-ray tomorrow and decide if further thoracentesis needed. Family is at the bedside. The patient denies having any new complaints. No significant respiratory distress at this point in time. The patient remains on 8 L trach collar, FiO2 of 35% and the pulse ox is ranging between 94 and 96%. No fever. No chills. The sputum showed no bacterial growth and the patient's IV antibiotics can be sepsis continues. Echocardiogram showed a preserved LV function. Objective - Vital Signs Vital signs: Vital Signs Temp 98 F 03/01/22 12:42 Pulse 103 H 03/01/22 12:42 Resp 16 03/01/22 12:42 BP 89/60 03/01/22 12:42 Pulse Ox 96 03/01/22 12:42 FiO2 35 03/01/22 07:37 Intake & Output 02/28/22 03/01/22 03/01/22 18:59 06:59 18:59 Intake Total 220 Output Total 1075 725 Balance -1075 -505 Weight 67 kg 80.5 kg Intake: IV 120 Sodium Chloride 0.9% 1, 120 000 ml @ 10 mls/hr IV . Q24H [facility] Rx#:[id number] Intake, IV Titration 100 Amount Cefepime 2 gm In Sodium 100 Chloride 0.9% 100 ml @ 25 mls/hr IVPB Q8HR [facility] Rx# :[id number] Output: Urine 1075 725 Other: Voiding Method Urinal Urinal Urinal - Exam GENERAL EXAM: Alert, cachectic 56-year-old male patient, 35% trach collar, comfortable in no apparent distress. HEAD: Changes noted of extensive surgical and radiation changes of the head and neck. EYES: Normal reaction of pupils, equal size. NOSE: Clear with pink turbinates. THROAT: No erythema or exudates. NECK: No masses, no JVD. CHEST: No chest wall deformity. LUNGS: Equal air entry with bilateral scattered rhonchi, wheeze, diminished. CVS: S1 and S2 normal with no audible murmur, regular rhythm. ABDOMEN: PEG tube in place. No hepatosplenomegaly, normal bowel sounds, no guarding or rigidity. SPINE: No scoliosis or deformity SKIN: No rashes CENTRAL NERVOUS SYSTEM: No focal deficits, tone is normal in all 4 extremities. EXTREMITIES: There is no peripheral edema. No clubbing, no cyanosis. Peripheral pulses are intact. - Labs CBC & Chem 7: 02/28/22 08:37 02/28/22 08:37 Labs: Microbiology - Last 24 Hours (Table) 02/25/22 19:00 Blood Culture - Preliminary Blood No Growth after 72 hours 02/25/22 18:45 Blood Culture - Preliminary Blood No Growth after 72 hours 02/26/22 15:40 Gram Stain - Preliminary Pleural Fluid Body Fluid Culture - Preliminary Assessment and Plan Plan: Acute hypoxic respiratory failure secondary to reaccumulation of large bilateral pleural effusions and possibly a component of pneumonia possibly healthcare acquired, as the patient has been receiving a combination of chemo and immunotherapy and the patient is immunosuppressed. Patient underwent thoracentesis on the left lung and a follow-up CAT scan of the chest shows metastatic disease with bilateral pulmonary nodules and extensive mediastinal lymphadenopathy consistent with metastatic disease from a previous head and neck cancer. Currently on 35% Ventimask, 8 L of oxygen flow. Respiratory status is stable. No interval decompensation Bilateral pleural effusions, suspect malignant effusions, recent thoracentesis on 12/20, done on the right side , Status post thoracentesis today on 01/03 on the left side, fluid is exudative, final cytology was negative. The repeat thoracentesis was done on 02/26/2022 on the left and the cytology still pending for now. Mild leukopenia, improved and the white cell count is up to 4.5 Pseudomonas aeruginosa growing in the sputum, colonization versus true infection Increased lower extremity edema, consider possibility of underlying CHF History of extensive head and neck cancer, previous chemoradiation treatment and apparently the patient was told recently that is a recurrence involving his subcarinal lymph nodes. History of PEG tube placement Ex-smoker Type 2 diabetes Hypothyroidism Hypoalbuminemia and the patient's albumin level is at 2.8, likely nutritional in the patient is receiving PEG tube feeding for enteral feeding and nutritional support Plan Clinically stable Repeat chest x-ray in the morning and decide if another thoracentesis needed Continue diuretics May discontinue the IV antibiotics Patient has metastatic disease and a CAT scan of the chest showed extensive based on lymphadenopathy and bilateral pulmonary nodules Continue diuretics and the patient will be switched to Lasix 40 mg IV every 12 hour Continue enteral feeding for nutritional support Obtain echocardiogram on 02/26/2022 showing a preserved LV function without any significant LV wall abnormalities or valvular abnormalities We'll continue to follow make further recommendations based on his progress. Prognosis poor based on above
--- NOTE | 2022-03-01 16:24 | P.PN ---
Subjective Progress Note Date: 03/01/22 Jaziel Nicolas, is a 56-year-old male who presented to [facility] emergency room with a chief complaint of worsening shortness of breath He was evaluated in the emergency room vital examination on presentation revealed a temperature of 97.4 pulse 107 respiration 22 left pressure 87/51 p ulse ox 89% Laboratory data revealed a white blood count of 2.7 hemoglobin 9.3 platelet count 321 sodium 132 potassium 3.7 chloride 92 CO2 34 BUN 18 creatinine 0.65 glucose level CXXV Testing in the emergency room revealed chest x-ray revealed bilateral pleural effusion right worse than left Patient was admitted to medical floor for further evaluation and treatment On 02/27/2022 patient was seen and examined on the medical floor, he is alert and oriented 3 in no apparent distress, his shortness of breath has improved he denies any chest pain no nausea or vomiting no abdominal pain no diarrhea and no urinary symptoms, patient was evaluated by pulmonary and cardiology, will continue to follow closely On 02/28/2022 patient is alert and oriented 3. Patient remains on IV Lasix. Patient denies chest pain. Patient denies nausea vomiting or diarrhea. Patient denies any urinary burning or frequency. On 03/01/2022 patient was seen and examined on the medical floor he is alert and oriented 3 in no apparent distress there is no fever or chills no headache or dizziness no chest pain his shortness of breath is improving he has occasional cough no nausea or vomiting no abdominal pain no diarrhea and no urinary symptoms Objective - Vital Signs Vital signs: Vital Signs Temp 98 F 03/01/22 12:42 Pulse 103 H 03/01/22 12:42 Resp 16 03/01/22 12:42 BP 89/60 03/01/22 12:42 Pulse Ox 96 03/01/22 12:42 FiO2 35 03/01/22 07:37 Intake & Output 02/28/22 03/01/22 03/01/22 18:59 06:59 18:59 Intake Total 220 Output Total 8080 725 Balance -6707 -628 Weight 67 kg 80.5 kg Intake: IV 120 Sodium Chloride 0.9% 1, 120 000 ml @ 10 mls/hr IV . Q24H [facility] Rx#:[id number] Intake, IV Titration 100 Amount Cefepime 2 gm In Sodium 100 Chloride 0.9% 100 ml @ 25 mls/hr IVPB Q8HR [facility] Rx# :[id number] Output: Urine 1075 725 Other: Voiding Method Urinal Urinal Urinal - Exam In general patient is alert and oriented x 3 in no distress, able to communicate with writing HEENT head normocephalic and atraumatic Neck is supple no JVD no goiter no lymphadenopathy no carotid bruit, tracheostomy in place Chest examination reveals a scattered crackles bilaterally no wheezing Cardiac exam reveals regular heart sounds S1 and S2 no gallops no murmurs Abdomen is soft nontender no organomegaly with normal bowel sounds Extremity exam reveals 2+ edema no cyanosis or clubbing Neurological examination reveals no gross focal deficits - Labs CBC & Chem 7: 02/28/22 08:37 02/28/22 08:37 Labs: Abnormal Lab Results - Last 24 Hours (Table) 02/28/22 Range/Units 08:37 Lymphocytes # (Manual) 0.27 L (1.0-4.8) k/uL Metamyelocytes # (Man) 0.05 H (0) k/uL Myelocytes # (Manual) 0.09 H (0) k/uL Nucleated RBCs 7 H (0-0) /100 WBC Microbiology - Last 24 Hours (Table) 02/25/22 19:00 Blood Culture - Preliminary Blood No Growth after 72 hours 02/25/22 18:45 Blood Culture - Preliminary Blood No Growth after 72 hours 02/26/22 15:40 Gram Stain - Preliminary Pleural Fluid Body Fluid Culture - Preliminary Assessment and Plan Plan: Acute hypoxic respiratory failure Bilateral pleural effusion left worse than right Pneumonia cannot be ruled out, patient was started on IV antibiotic in the emerg ency room Possible acute exacerbation of congestive heart failure, echocardiogram and cardiology consultation was requested Underlying history of adenocarcinoma of the head and neck diagnosed in 2012, with recurrence in 2018 Underlying history of hypothyroidism Underlying history of diabetes mellitus type 2 Recent admission in December 2021, with evidence of pseudomonas aeruginosa growing in the sputum At this time patient was admitted to telemetry floor, he was admitted to intensive care unit as overflow Home medications reviewed and reordered 2-D echo completed showing an EF of 60% Patient was started on IV antibiotic in the emergency room, pulmonary consultation was requested For DVT prophylaxis subcu Lovenox Will follow closely
--- NOTE | 2022-03-01 19:55 | P.PN ---
Subjective Progress Note Date: 03/01/22 Patient seen with sister and family at bedside. He is actively receiving Vectibix and Taxol in sweets[place] through primary oncologist Objective - Vital Signs Vital signs: Vital Signs Temp 98 F 03/01/22 12:42 Pulse 103 H 03/01/22 12:42 Resp 16 03/01/22 12:42 BP 89/60 03/01/22 12:42 Pulse Ox 96 03/01/22 12:42 FiO2 35 03/01/22 07:37 Intake & Output 02/28/22 03/01/22 03/01/22 18:59 06:59 18:59 Intake Total 220 Output Total 1075 725 Balance -1075 -505 Weight 67 kg 80.5 kg Intake: IV 120 Sodium Chloride 0.9% 1, 120 000 ml @ 10 mls/hr IV . Q24H [facility] Rx#:[id number] Intake, IV Titration 100 Amount Cefepime 2 gm In Sodium 100 Chloride 0.9% 100 ml @ 25 mls/hr IVPB Q8HR [facility] Rx# :[id number] Output: Urine 1075 725 Other: Voiding Method Urinal Urinal Urinal - Exam Constitutional General appearance: cooperative, no acute distress, thin - EENT trach, surgical scarring of the neck Eyes: anicteric sclerae, EOMI ENT: hearing grossly normal - Neck Neck: no lymphadenopathy - Respiratory Respiratory: bilateral: rales (bases, otherwise clear) - Cardiovascular Rhythm: regular Heart sounds: normal: S1, S2 Abnormal Heart Sounds: no systolic murmur, no diastolic murmur, no rub, no S3 Gallop, no S4 Gallop, no click, no other leg Peripheral Edema: bilateral: 2+, Pitting - Gastrointestinal General gastrointestinal: no absent bowel sounds, no decreased bowel sounds, no distended, no hepatomegaly, no hyperactive bowel sounds, normal bowel sounds, no organomegaly, no rigid, no scaphoid, soft, no splenomegaly, no tenderness, no umbilical hernia, no ventral hernia - Neurologic Neurologic: focal deficits (from surgery) - Musculoskeletal Musculoskeletal: generalized weakness - Psychiatric Psychiatric: A&O x's 3, appropriate affect, intact judgment & insight - Labs CBC & Chem 7: 02/28/22 08:37 02/28/22 08:37 Labs: Abnormal Lab Results - Last 24 Hours (Table) 02/28/22 Range/Units 08:37 Lymphocytes # (Manual) 0.27 L (1.0-4.8) k/uL Metamyelocytes # (Man) 0.05 H (0) k/uL Myelocytes # (Manual) 0.09 H (0) k/uL Nucleated RBCs 7 H (0-0) /100 WBC Microbiology - Last 24 Hours (Table) 02/25/22 19:00 Blood Culture - Preliminary Blood No Growth after 72 hours 02/25/22 18:45 Blood Culture - Preliminary Blood No Growth after 72 hours 02/26/22 15:40 Gram Stain - Preliminary Pleural Fluid Body Fluid Culture - Preliminary Assessment and Plan Plan: Chest x-ray: report reviewed Venous US: report reviewed Assessment and Plan (1) Adenocarcinoma of head and neck Current Visit: No Status: Chronic Priority: High Code(s): C76.0 - MALIGNA NT NEOPLASM OF HEAD, FACE AND NECK SNOMED Code(s): 544604418 Plan: Patient's symptoms improved status post thoracentesis. Fluid is been sent for cytology. Pulmonary is following closely Anemia stable, recheck in am Patient will return to the care of his primary Oncologist on discharge. \
[2022-03-01] MEDS: SODIUM CHLORIDE 0.9% 1,000 ML IV SCH (23:31)
[2022-03-02] MEDS: CEFEPIME 2 GM in SODIUM CHLORIDE 0.9% 100 ML IVPB SCH ×2 (00:14→09:22)
[2022-03-02] MEDS: oxyCODONE-APAP 10-325MG 1 EACH TAB PEG/G-TUBE SCH ×6 (00:15→20:11)
--- NOTE | 2022-03-02 07:13 | XR ---
EXAMINATION TYPE: XR chest 1V DATE OF EXAM: 03/02/2022 COMPARISON: 02/26/2022 HISTORY: Follow-up for pleural effusions TECHNIQUE: Single frontal view of the chest is obtained. FINDINGS: There is a tracheostomy tube and right Mediport catheter both unchanged in position. There is mild diffuse interstitial opacity which is stable. There are [id number] bilateral ple ural effusions, unchanged compared to previous. The heart size normal. There is no pneumothorax. There is remote healed right clavicular fracture otherwise the osseous structures are intact. IMPRESSION: Moderate acute cardiopulmonary disease with interstitial changes and bilateral pleural e ffusions stable compared to prior study.
[2022-03-02 09:00] LABS: ALT 22 U/L (4-49); AST 76 U/L (17-59); African American GFR (CKD) >90 (>60 ml/min/1.73 sqM); Albumin 2.4 g/dL (3.5-5.0); Alkaline Phosphatase 159 U/L (38-126); Anion Gap 2 mmol/L; Blood Urea Nitrogen 22 mg/dL (9-20); Calcium 7.3 mg/dL (8.4-10.2); Carbon Dioxide 37 mmol/L (22-30); Chloride 94 mmol/L (98-107); Glucose 107 mg/dL (74-99); Non-African American GFR(CKD) >90 (>60 ml/min/1.73 sqM); Potassium 3.3 mmol/L (3.5-5.1); Sodium 133 mmol/L (137-145); Total Bilirubin 1.1 mg/dL (0.2-1.3); Total Protein 4.6 g/dL (6.3-8.2)
[2022-03-02 09:04] LABS: Anisocytosis Moderate; HCT 29.7 % (39.0-53.0); HGB 9.1 gm/dL (13.0-17.5); Hypochromasia Marked; MCH 28.1 pg (25.0-35.0); MCHC 30.7 g/dL (31.0-37.0); MCV 91.8 fL (80.0-100.0); Macrocytosis Slight; Mean Platelet Volume 8.5; Platelet Count 213 k/uL (150-450); Poikilocytosis Moderate; RBC 3.23 m/uL (4.30-5.90); RDW 22.1 % (11.5-15.5)
[2022-03-02] MEDS: LEVOTHYROXINE 125 MCG TAB PEG/G-TUBE SCH (09:21)
[2022-03-02] MEDS: ENOXAPARIN 30 MG/0.3 ML SYRINGE SQ SCH (09:22)
[2022-03-02] MEDS: FUROSEMIDE 10 MG/ML 4 ML VIAL IV SCH ×2 (09:22→20:11)
[2022-03-02 10:01] LABS: Band Neutrophils % 5 %; Eosinophils # (M) 0.08 k/uL (0-0.7); Hypochromasia (M) Present; Lymphocytes # (M) 0.78 k/uL (1.0-4.8); Metamyelocytes # (M) 0.62 k/uL (0); Metamyelocytes % 8 %; Monocytes # (M) 0.94 k/uL (0-1.0); Neutrophils % (M) 64 %; Nucleated Red Blood Cells 2 /100 WBC (0-0); Polychromasia Present; Total Cells Counted 100; WBC 7.8 k/uL (3.8-10.6)
--- NOTE | 2022-03-02 10:42 | P.PN ---
Subjective Progress Note Date: 03/02/22 Jaziel Nicolas, is a 56-year-old male who presented to [facility] emergency room with a chief complaint of worsening shortness of breath He was evaluated in the emergency room vital examination on presentation revealed a temperature of 97.4 pulse 107 respiration 22 left pressure 87/51 p ulse ox 89% Laboratory data revealed a white blood count of 2.7 hemoglobin 9.3 platelet count 321 sodium 132 potassium 3.7 chloride 92 CO2 34 BUN 18 creatinine 0.65 glucose level CXXV Testing in the emergency room revealed chest x-ray revealed bilateral pleural effusion right worse than left Patient was admitted to medical floor for further evaluation and treatment On 02/27/2022 patient was seen and examined on the medical floor, he is alert and oriented 3 in no apparent distress, his shortness of breath has improved he denies any chest pain no nausea or vomiting no abdominal pain no diarrhea and no urinary symptoms, patient was evaluated by pulmonary and cardiology, will continue to follow closely On 02/28/2022 patient is alert and oriented 3. Patient remains on IV Lasix. Patient denies chest pain. Patient denies nausea vomiting or diarrhea. Patient denies any urinary burning or frequency. On 03/01/2022 patient was seen and examined on the medical floor he is alert and oriented 3 in no apparent distress there is no fever or chills no headache or dizziness no chest pain his shortness of breath is improving he has occasional cough no nausea or vomiting no abdominal pain no diarrhea and no urinary symptoms On 03/02/2022 patient is alert and oriented 3. Did discuss case with pulmonary services awaiting final cytology to assess need for Pleurx catheter. Repeat chest x-ray ordered per pulmonary. Patient denies chest pain. Patient denies nausea and diarrhea. Patient denies any urinary burning or frequency Objective - Vital Signs Vital signs: Vital Signs Temp 98.3 F 03/02/22 09:41 Pulse 91 03/02/22 09:41 Resp 16 03/02/22 09:41 BP 96/44 03/02/22 09:41 Pulse Ox 96 03/02/22 09:41 FiO2 35 03/02/22 09:17 Intake & Output 03/01/22 03/02/22 03/02/22 18:59 06:59 18:59 Weight 80.5 kg Other: Voiding Method Urinal Urinal Urinal - Exam In general patient is alert and oriented x 3 in no distress, able to communicate with writing HEENT head normocephalic and atraumatic Neck is supple no JVD no goiter no lymphadenopathy no carotid bruit, tracheostomy in place Chest examination reveals a scattered crackles bilaterally no wheezing Cardiac exam reveals regular heart sounds S1 and S2 no gallops no murmurs Abdomen is soft nontender no organomegaly with normal bowel sounds Extremity exam reveals 2+ edema no cyanosis or clubbing Neurological examination reveals no gross focal deficits - Labs CBC & Chem 7: 03/02/22 08:09 03/02/22 08:09 Labs: Abnormal Lab Results - Last 24 Hours (Table) 03/02/22 03/02/22 Range/Units 08:09 08:09 RBC 3.23 L (4.30-5.90) m/uL Hgb 9.1 L (13.0-17.5) gm/dL Hct 29.7 L (39.0-53.0) % MCHC 30.7 L (31.0-37.0) g/dL RDW 22.1 H (11.5-15.5) % Lymphocytes # (Manual) 0.78 L (1.0-4.8) k/uL Metamyelocytes # (Man) 0.62 H (0) k/uL Nucleated RBCs 2 H (0-0) /100 WBC Sodium 133 L (137-145) mmol/L Potassium 3.3 L (3.5-5.1) mmol/L Chloride 94 L (98-107) mmol/L Carbon Dioxide 37 H (22-30) mmol/L BUN 22 H (9-20) mg/dL Creatinine 0.49 L (0.66-1.25) mg/dL Glucose 107 H (74-99) mg/dL Calcium 7.3 L (8.4-10.2) mg/dL AST 76 H (17-59) U/L Alkaline Phosphatase 159 H (38-126) U/L Total Protein 4.6 L (6.3-8.2) g/dL Albumin 2.4 L (3.5-5.0) g/dL Microbiology - Last 24 Hours (Table) 02/25/22 19:00 Blood Culture - Preliminary Blood No Growth after 96 hours 02/25/22 18:45 Blood Culture - Preliminary Blood No Growth after 96 hours 02/26/22 15:40 Gram Stain - Preliminary Pleural Fluid Body Fluid Culture - Preliminary Assessment and Plan Plan: Acute hypoxic respiratory failure Bilateral pleural effusion left worse than right Pneumonia cannot be ruled out, patient was started on IV antibiotic in the emergency room Possible acute exacerbation of congestive heart failure, echocardiogram and cardiology consultation was requested Underlying history of adenocarcinoma of the head and neck diagnosed in 2012, with recurrence in 2017 Underlying history of hypothyroidism Underlying history of diabetes mellitus type 2 Recent admission in December 2021, with evidence of pseudomonas aeruginosa growing in the sputum At this time patient was admitted to telemetry floor, he was admitted to intensive care unit as overflow Home medications reviewed and reordered 2-D echo completed showing an EF of 60% Pulmonary service is following Repeat chest x-ray ordered For DVT prophylaxis subcu Lovenox Will follow closely
--- NOTE | 2022-03-02 13:02 | P.PN ---
Subjective Progress Note Date: 03/02/22 This is a very pleasant 56-year-old male with a history of head and neck cancer, requiring extensive treatments including surgery, chemotherapy, and radiation. The patient has a permanent tracheostomy in place. He also has a PEG tube in place. The patient was asked to come into the hospital as the patient was found to have pleural effusion by his physicians that her mom is [facility] where he receives his treatment. Currently, he is receiving a combination of chemotherapy and immunotherapy. The patient had a recent hospitalization back in December 2021 and the patient had bilateral pleural effusion and he underwent thoracentesis bilaterally and the fluid was exudative and the cytology was negative for malignancy. The patient also had pseudomonas aeruginosa in his sputum. Pneumonia with parapneumonic effusion was also considered. During this current admission, the patient is coming in with some increased shortness of breath and acute on top of chronic hypoxic respiratory failure and the patient is currently on 80% trach collar. His tracheostomy tube is in place and the respiratory secretions that and. No fever. No chills. No DVT of the right upper extremity. His chest x-ray is showing bilateral pleural effusion and volume loss. Tracheostomy cannula is in the trachea. There is a Mediport over the right hemithorax. There is no evidence of any focal consolidation. There is increased pulmonary vascular markings and cardiomegaly. There is obviously volume loss. In terms of his blood work, the patient has a white cell count of 2.9 with a hemoglobin of 8.6 and a platelet count of 256. The patient also had a sodium level of 134, potassium of 3.3, chloride is 95, bicarb is 30 with a BUN of 17 and a creatinine of 0.5, proBNP level is 1350, troponins are negative. His previous serum albumin was at 2.8. The patient continues to receive enteral feeding for nutritional support via a PEG tube. The patient also takes Lasix 40 mg by mouth on a daily basis. Is on thyroid hormone replacement. Currently is on IV cefepime. He is also on Lasix 40 mg by mouth daily which was resumed. On 02/27/2022, the patient was transferred out of the intensive care unit. I performed a thoracentesis and the patient's left lung and approximately 1.1 L of fluid was drained and the fluid was an exudate. Note that, following the thoracentesis, the patient underwent a CAT scan of the chest that showed evidence of metastatic disease and the patient had evidence of disease progression. A CAT scan of the chest showed scattered metastatic disease and nodules throughout the lungs bilaterally. The patient had a right middle lobe nodule 11 mm in size, right upper lobe nodule 15 mm in size, left upper lobe airspace opacity measuring 2.8 cm in addition to left pulmonary hilar fullness Consolidation Changes in the Left Lung Base. The Patient Also Had Extensive Mediastinal Lymphadenopathy and Bilateral Pleural Effusions. The Pleural Effusion on the Right Was Slightly Irregular. The Patient Had Also Left Supraclavicular Lymph Node Enlargement. On Today's Evaluation, the Patient Is Resting Comfortably in Bed. Note that his cultures came back all negative and we are still awaiting his sputum culture. His WBC count of 3.7 with a hemoglobin of 8.8 and platelet count of 238. On his blood work, the patient had a sodium level of 135, potassium level of 3.5, BUN is at 20 with a creatinine of 0.5. As mentioned, the fluid analysis was an exudate and cytology is still pending. 02/28/2022, the patient is clinically stable. The pleural fluid cytology is not back yet. There is a concern for malignancy as the patient's CAT scan of the chest was progression of his malignancy with extensive mediastinal lymphadenopathy and bilateral malignant pulmonary lesions. The patient is resting comfortably in bed. He remains on IV cefepime. He remains on IV diuretics. No worsening shortness of breath. White cell count is at 4.5 with a hemoglobin of 8.7 and a platelet count of 224. Sodium is at 135, bicarb is at 36 with a BUN of 22 and a creatinine of 0.5. He is very much cachectic and emaciated. He was also seen by cardiology. Echocardiogram showed a preserved LV function. On 03/01/2022, the patient is resting comfortably in bed. No new complaints. Continues to be on IV Lasix 40 mg every 12 hours and the patient is also on IV cefepime. The pleural fluid cytology is still pending. I'm going to repeat chest x-ray tomorrow and decide if further thoracentesis needed. Family is at the bedside. The patient denies having any new complaints. No significant respiratory distress at this point in time. The patient remains on 8 L trach collar, FiO2 of 35% and the pulse ox is ranging between 94 and 96%. No fever. No chills. The sputum showed no bacterial growth and the patient's IV antibiotics can be sepsis continues. Echocardiogram showed a preserved LV function. On 03/02/2022, the patient is doing well. No specific complaints. I repeated the chest x-ray and the patient has small bilateral pleural effusions. This has not caused any significant worsening shortness of breath. The patient's overall respiratory status has remained stable. Pleural fluid cytology from the right lung is still pending for now. The patient remains on diuretics. The patient remains on IV cefepime.The labs from today show a white cell count of 7.3 hemoglobin of 9.1. Sodium is at 133, potassium is at 3.3 with a BUN of 22 and a creatinine of 0.4. The albumin is at 2.4. The patient's fluid balance is -1.5 L over the past 24 hours. Objective - Vital Signs Vital signs: Vital Signs Temp 98.0 F 03/02/22 12:00 Pulse 101 H 03/02/22 12:00 Resp 16 03/02/22 12:00 BP 109/67 03/02/22 12:00 Pulse Ox 95 03/02/22 12:00 FiO2 35 03/02/22 09:17 Intake & Output 03/01/22 03/02/22 03/02/22 18:59 06:59 18:59 Weight 80.5 kg Other: Voiding Method Urinal Urinal Urinal - Exam GENERAL EXAM: Alert, cachectic 56-year-old male patient, 35% trach collar, comfortable in no apparent distress. HEAD: Changes noted of extensive surgical and radiation changes of the head and neck. EYES: Normal reaction of pupils, equal size. NOSE: Clear with pink turbinates. THROAT: No erythema or exudates. NECK: No masses, no JVD. CHEST: No chest wall deformity. LUNGS: Equal air entry with bilateral scattered rhonchi, wheeze, diminished. CVS: S1 and S2 normal with no audible murmur, regular rhythm. ABDOMEN: PEG tube in place. No hepatosplenomegaly, normal bowel sounds, no guarding or rigidity. SPINE: No scoliosis or deformity SKIN: No rashes CENTRAL NERVOUS SYSTEM: No focal deficits, tone is normal in all 4 extremities. EXTREMITIES: There is no peripheral edema. No clubbing, no cyanosis. Peripheral pulses are intact. - Labs CBC & Chem 7: 03/02/22 08:09 03/02/22 08:09 Labs: Abnormal Lab Results - Last 24 Hours (Table) 03/02/22 03/02/22 Range/Units 08:09 08:09 RBC 3.23 L (4.30-5.90) m/uL Hgb 9.1 L (13.0-17.5) gm/dL Hct 29.7 L (39.0-53.0) % MCHC 30.7 L (31.0-37.0) g/dL RDW 22.1 H (11.5-15.5) % Lymphocytes # (Manual) 0.78 L (1.0-4.8) k/uL Metamyelocytes # (Man) 0.62 H (0) k/uL Nucleated RBCs 2 H (0-0) /100 WBC Sodium 133 L (137-145) mmol/L Potassium 3.3 L (3.5-5.1) mmol/L Chloride 94 L (98-107) mmol/L Carbon Dioxide 37 H (22-30) mmol/L BUN 22 H (9-20) mg/dL Creatinine 0.49 L (0.66-1.25) mg/dL Glucose 107 H (74-99) mg/dL Calcium 7.3 L (8.4-10.2) mg/dL AST 76 H (17-59) U/L Alkaline Phosphatase 159 H (38-126) U/L Total Protein 4.6 L (6.3-8.2) g/dL Albumin 2.4 L (3.5-5.0) g/dL Microbiology - Last 24 Hours (Table) 03/01/22 20:30 Sputum Culture - Preliminary Sputum 02/25/22 19:00 Blood Culture - Preliminary Blood No Growth after 96 hours 02/25/22 18:45 Blood Culture - Preliminary Blood No Growth after 96 hours 02/26/22 15:40 Gram Stain - Preliminary Pleural Fluid Body Fluid Culture - Preliminary Assessment and Plan Plan: Acute hypoxic respiratory failure secondary to reaccumulation of large bilateral pleural effusions and possibly a component of pneumonia possibly healthcare acquired, as the patient has been receiving a combination of chemo and immunotherapy and the patient is immunosuppressed. Patient underwent thoracentesis on the left lung and a follow-up CAT scan of the chest shows metastatic disease with bilateral pulmonary nodules and extensive mediastinal lymphadenopathy consistent with metastatic disease from a previous head and neck cancer. Currently on 35% Ventimask, 8 L of oxygen flow. Respiratory status is stable. No interval decompensation Bilateral pleural effusions, suspect malignant effusions, recent thoracentesis on 12/20, done on the right side , Status post thoracentesis today on 01/03 on the left side, fluid is exudative, final cytology was negative. The repeat thoracentesis was done on 02/26/2022 on the left and the cytology still pending for now. Mild leukopenia, improved and the white cell count is up to 4.5 Pseudomonas aeruginosa growing in the sputum, colonization versus true infection Increased lower extremity edema, consider possibility of underlying CHF History of extensive head and neck cancer, previous chemoradiation treatment and apparently the patient was told recently that is a recurrence involving his subcarinal lymph nodes. History of PEG tube placement Ex-smoker Type 2 diabetes Hypothyroidism Hypoalbuminemia and the patient's albumin level is at 2.8, likely nutritional in the patient is receiving PEG tube feeding for enteral feeding and nutritional support Plan Clinically stable Chest x-ray findings are stable No need for another thoracentesis Awaiting for fluid cytology Continue diuretics and discontinue the cefepime Continue enteral feeding for nutritional support Obtain echocardiogram on 02/26/2022 showing a preserved LV function without any significant LV wall abnormalities or valvular abnormalities We'll continue to follow make further recommendations based on his progress. Prognosis poor based on above
[2022-03-02 19:24] LABS: Magnesium 1.7 mg/dL (1.6-2.3)
[2022-03-02] MEDS: POTASSIUM BICARBONATE/CIT AC 20 MEQ TABLET.EFF NG-TUBE SCH ×2 (20:10→21:06)
[2022-03-02] MEDS: SODIUM CHLORIDE 0.9% 1,000 ML IV SCH (22:01)
[2022-03-02 22:27] LABS: % Iron Saturation 13.78 (15.00-50.00); Iron 38 ug/dL (65-175); Total Iron Binding Capacity 274 ug/dL (228-460)
[2022-03-02 22:34] LABS: Vitamin B12 >1800.0 pg/mL (200.0-944.0)
[2022-03-03] MEDS: oxyCODONE-APAP 10-325MG 1 EACH TAB PEG/G-TUBE SCH ×7 (00:18→23:54)
[2022-03-03] MEDS: LEVOTHYROXINE 125 MCG TAB PEG/G-TUBE SCH (09:49)
[2022-03-03] MEDS: FUROSEMIDE 10 MG/ML 4 ML VIAL IV SCH ×2 (09:49→20:47)
[2022-03-03] MEDS: ENOXAPARIN 30 MG/0.3 ML SYRINGE SQ SCH (10:00)
[2022-03-03 10:30] LABS: Anisocytosis Moderate; HCT 29.5 % (39.0-53.0); HGB 9.2 gm/dL (13.0-17.5); Hypochromasia Marked; MCH 28.8 pg (25.0-35.0); MCHC 31.1 g/dL (31.0-37.0); MCV 92.6 fL (80.0-100.0); Macrocytosis Slight; Mean Platelet Volume 8.1; Platelet Count 230 k/uL (150-450); Poikilocytosis Moderate; RBC 3.18 m/uL (4.30-5.90)
[2022-03-03 11:09] LABS: ALT 23 U/L (4-49); AST 77 U/L (17-59); African American GFR (CKD) >90 (>60 ml/min/1.73 sqM); Albumin 2.5 g/dL (3.5-5.0); Alkaline Phosphatase 171 U/L (38-126); Anion Gap 4 mmol/L; Blood Urea Nitrogen 21 mg/dL (9-20); Calcium 7.3 mg/dL (8.4-10.2); Carbon Dioxide 38 mmol/L (22-30); Chloride 91 mmol/L (98-107); Glucose 86 mg/dL (74-99); Non-African American GFR(CKD) >90 (>60 ml/min/1.73 sqM); Potassium 3.1 mmol/L (3.5-5.1); Sodium 133 mmol/L (137-145); Total Protein 4.7 g/dL (6.3-8.2)
[2022-03-03 11:33] LABS: Band Neutrophils % 1 %; Eosinophils # (M) 0.13 k/uL (0-0.7); Metamyelocytes # (M) 0.07 k/uL (0); Metamyelocytes % 1 %; Monocytes # (M) 1.12 k/uL (0-1.0); Myelocytes # (M) 0.13 k/uL (0); Myelocytes % 2 %; Neutrophils % (M) 76 %; Nucleated Red Blood Cells 2 /100 WBC (0-0); Total Cells Counted 200; WBC 6.6 k/uL (3.8-10.6)
[2022-03-03 12:03] LABS: Polychromasia Present
--- NOTE | 2022-03-03 16:11 | P.PN ---
Subjective Progress Note Date: 03/03/22 This is a very pleasant 56-year-old male with a history of head and neck cancer, requiring extensive treatments including surgery, chemotherapy, and radiation. The patient has a permanent tracheostomy in place. He also has a PEG tube in place. The patient was asked to come into the hospital as the patient was found to have pleural effusion by his physicians that her mom is [facility] where he receives his treatment. Currently, he is receiving a combination of chemotherapy and immunotherapy. The patient had a recent hospitalization back in December 2021 and the patient had bilateral pleural effusion and he underwent thoracentesis bilaterally and the fluid was exudative and the cytology was negative for malignancy. The patient also had pseudomonas aeruginosa in his sputum. Pneumonia with parapneumonic effusion was also considered. During this current admission, the patient is coming in with some increased shortness of breath and acute on top of chronic hypoxic respiratory failure and the patient is currently on 80% trach collar. His tracheostomy tube is in place and the respiratory secretions that and. No fever. No chills. No DVT of the right upper extremity. His chest x-ray is showing bilateral pleural effusion and volume loss. Tracheostomy cannula is in the trachea. There is a Mediport over the right hemithorax. There is no evidence of any focal consolidation. There is increased pulmonary vascular markings and cardiomegaly. There is obviously volume loss. In terms of his blood work, the patient has a white cell count of 2.9 with a hemoglobin of 8.6 and a platelet count of 256. The patient also had a sodium level of 134, potassium of 3.3, chloride is 95, bicarb is 30 with a BUN of 17 and a creatinine of 0.5, proBNP level is 1350, troponins are negative. His previous serum albumin was at 2.8. The patient continues to receive enteral feeding for nutritional support via a PEG tube. The patient also takes Lasix 40 mg by mouth on a daily basis. Is on thyroid hormone replacement. Currently is on IV cefepime. He is also on Lasix 40 mg by mouth daily which was resumed. On 02/27/2022, the patient was transferred out of the intensive care unit. I performed a thoracentesis and the patient's left lung and approximately 1.1 L of fluid was drained and the fluid was an exudate. Note that, following the thoracentesis, the patient underwent a CAT scan of the chest that showed evidence of metastatic disease and the patient had evidence of disease progression. A CAT scan of the chest showed scattered metastatic disease and nodules throughout the lungs bilaterally. The patient had a right middle lobe nodule 11 mm in size, right upper lobe nodule 15 mm in size, left upper lobe airspace opacity measuring 2.8 cm in addition to left pulmonary hilar fullness Consolidation Changes in the Left Lung Base. The Patient Also Had Extensive Mediastinal Lymphadenopathy and Bilateral Pleural Effusions. The Pleural Effusion on the Right Was Slightly Irregular. The Patient Had Also Left Supraclavicular Lymph Node Enlargement. On Today's Evaluation, the Patient Is Resting Comfortably in Bed. Note that his cultures came back all negative and we are still awaiting his sputum culture. His WBC count of 3.7 with a hemoglobin of 8.8 and platelet count of 238. On his blood work, the patient had a sodium level of 135, potassium level of 3.5, BUN is at 20 with a creatinine of 0.5. As mentioned, the fluid analysis was an exudate and cytology is still pending. 02/28/2022, the patient is clinically stable. The pleural fluid cytology is not back yet. There is a concern for malignancy as the patient's CAT scan of the chest was progression of his malignancy with extensive mediastinal lymphadenopathy and bilateral malignant pulmonary lesions. The patient is resting comfortably in bed. He remains on IV cefepime. He remains on IV diuretics. No worsening shortness of breath. White cell count is at 4.5 with a hemoglobin of 8.7 and a platelet count of 224. Sodium is at 135, bicarb is at 36 with a BUN of 22 and a creatinine of 0.5. He is very much cachectic and emaciated. He was also seen by cardiology. Echocardiogram showed a preserved LV function. On 03/01/2022, the patient is resting comfortably in bed. No new complaints. C ontinues to be on IV Lasix 40 mg every 12 hours and the patient is also on IV cefepime. The pleural fluid cytology is still pending. I'm going to repeat chest x-ray tomorrow and decide if further thoracentesis needed. Family is at the bedside. The patient denies having any new complaints. No significant respiratory distress at this point in time. The patient remains on 8 L trach collar, FiO2 of 35% and the pulse ox is ranging between 94 and 96%. No fever. No chills. The sputum showed no bacterial growth and the patient's IV antibiotics can be sepsis continues. Echocardiogram showed a preserved LV function. On 03/02/2022, the patient is doing well. No specific complaints. I repeated the chest x-ray and the patient has small bilateral pleural effusions. This has not caused any significant worsening shortness of breath. The patient's overall respiratory status has remained stable. Pleural fluid cytology from the right lung is still pending for now. The patient remains on diuretics. The patient remains on IV cefepime.The labs from today show a white cell count of 7.3 h emoglobin of 9.1. Sodium is at 133, potassium is at 3.3 with a BUN of 22 and a creatinine of 0.4. The albumin is at 2.4. The patient's fluid balance is -1.5 L over the past 24 hours. If the patient is seen today 03/03/2022 in follow-up on the regular medical floor. He is awake and alert in no acute distress. Maintaining good O2 saturations in the mid 90s on 8 L trach collar 35%. He is afebrile. Hemodynamically stable. Denies any worsening shortness of breath, cough or congestion. Recent chest x-ray had revealed moderate interstitial changes and bilateral effusions. White count 6.6. Hemoglobin 9.2. Sodium 133. Potassium 3.1. BUN 21. Creatinine 0.53. AST 77. ALT 23. Blood cultures revealed no growth. Pleural fluid revealed no growth. Sputum culture revealed no growth. He is currently in a -1.8 L balance. Objective - Vital Signs Vital signs: Vital Signs Temp 97.4 F L 03/03/22 11:45 Pulse 101 H 03/03/22 14:00 Resp 19 03/03/22 14:00 BP 103/52 03/03/22 11:45 Pulse Ox 95 03/03/22 11:45 FiO2 35 03/03/22 07:26 Intake & Output 03/02/22 03/03/22 03/03/22 18:59 06:59 18:59 Output Total 900 1300 Balance -900 -1300 Weight 69.6 kg 69.6 kg Output: Urine 900 1300 Other: Voiding Method Urinal Urinal Urinal - Exam GENERAL EXAM: Alert, cachectic 56-year-old male patient, sitting up at the bedside, 35% trach collar, comfortable in no apparent distress. HEAD: Changes noted of extensive surgical and radiation changes of the head and neck. EYES: Normal reaction of pupils, equal size. NOSE: Clear with pink turbinates. THROAT: No erythema or exudates. NECK: No masses, no JVD. CHEST: No chest wall deformity. LUNGS: Equal air entry with bilateral scattered rhonchi, wheeze, diminished. CVS: S1 and S2 normal with no audible murmur, regular rhythm. ABDOMEN: PEG tube in place. No hepatosplenomegaly, normal bowel sounds, no guarding or rigidity. SPINE: No scoliosis or deformity SKIN: No rashes CENTRAL NERVOUS SYSTEM: No focal deficits, tone is normal in all 4 extremities. EXTREMITIES: There is no peripheral edema. No clubbing, no cyanosis. Peripheral pulses are intact. - Labs CBC & Chem 7: 03/03/22 09:32 03/03/22 09:32 Labs: Abnormal Lab Results - Last 24 Hours (Table) 03/02/22 03/03/22 03/03/22 Range/Units 08:00 09:32 09:32 RBC 3.18 L (4.30-5.90) m/uL Hgb 9.2 L (13.0-17.5) gm/dL Hct 29.5 L (39.0-53.0) % RDW 22.0 H (11.5-15.5) % Lymphocytes # (Manual) 0.20 L (1.0-4.8) k/uL Monocytes # (Manual) 1.12 H (0-1.0) k/uL Metamyelocytes # (Man) 0.07 H (0) k/uL Myelocytes # (Manual) 0.13 H (0) k/uL Nucleated RBCs 2 H (0-0) /100 WBC Sodium 133 L (137-145) mmol/L Potassium 3.1 L (3.5-5.1) mmol/L Chloride 91 L (98-107) mmol/L Carbon Dioxide 38 H (22-30) mmol/L BUN 21 H (9-20) mg/dL Creatinine 0.53 L (0.66-1.25) mg/dL Calcium 7.3 L (8.4-10.2) mg/dL Iron 38 L (65-175) ug/dL % Saturation 13.78 L (15.00-50.00) Transferrin 196.0 L (204.0-354.0) mg/dL AST 77 H (17-59) U/L Alkaline Phosphatase 171 H (38-126) U/L Total Protein 4.7 L (6.3-8.2) g/dL Albumin 2.5 L (3.5-5.0) g/dL Vitamin B12 >1800.0 H (200.0-944.0) pg/mL Vitamin D 25-Hydroxy 19.7 L (30.0-100.0) ng/mL Microbiology - Last 24 Hours (Table) 02/25/22 19:00 Blood Culture - Preliminary Blood No Growth after 120 hours 02/25/22 18:45 Blood Culture - Preliminary Blood No Growth after 120 hours 02/26/22 15:40 Gram Stain - Final Pleural Fluid Body Fluid Culture - Final 03/01/22 20:30 Gram Stain - Preliminary Sputum Sputum Culture - Preliminary Assessment and Plan Assessment: Acute hypoxic respiratory failure secondary to reaccumulation of large bilateral pleural effusions and possibly a component of pneumonia possibly healthcare acquired, as the patient has been receiving a combination of chemo and immunotherapy and the patient is immunosuppressed. Patient underwent thoracentesis on the left lung and a follow-up CAT scan of the chest shows metastatic disease with bilateral pulmonary nodules and extensive mediastinal lymphadenopathy consistent with metastatic disease from a previous head and neck cancer. Currently on 35% Ventimask, 8 L of oxygen flow. Respiratory status is stable. No interval decompensation Bilateral pleural effusions, suspect malignant effusions, recent thoracentesis on 12/20, done on the right side , Status post thoracentesis on 01/03 on the left side, fluid is exudative, final cytology was negative. The repeat thoracentesis was done on 02/26/2022 on the left and the cytology still pending for now. Mild leukopenia, improved and the white cell count is up to 6.6 Pseudomonas aeruginosa growing in the sputum, colonization versus true infection Increased lower extremity edema, consider possibility of underlying CHF History of extensive head and neck cancer, previous chemoradiation treatment and apparently the patient was told recently that is a recurrence involving his subcarinal lymph nodes. History of PEG tube placement Ex-smoker Type 2 diabetes Hypothyroidism Hypoalbuminemia and the patient's albumin level is at 2.8, likely nutritional in the patient is receiving PEG tube feeding for enteral feeding and nutritional support Plan The patient was seen and evaluated The plan is for discharge today so he could have chemotherapy tomorrow at [facility] Initially declined repeat thoracentesis He and his family are reconsidering Will await further input and make further recommendations based on his clinical status I have personally seen and examined the patient, performed the documentation and the assessment and plan as written. Number of minutes spent on the visit: 10.
--- NOTE | 2022-03-03 17:08 | P.PN ---
Subjective Progress Note Date: 03/03/22 Jaziel Nicolas, is a 56-year-old male who presented to [facility] emergency room with a chief complaint of worsening shortness of breath He was evaluated in the emergency room vital examination on presentation revealed a temperature of 97.4 pulse 107 respiration 22 left pressure 87/51 p ulse ox 89% Laboratory data revealed a white blood count of 2.7 hemoglobin 9.3 platelet count 321 sodium 132 potassium 3.7 chloride 92 CO2 34 BUN 18 creatinine 0.65 glucose level CXXV Testing in the emergency room revealed chest x-ray revealed bilateral pleural effusion right worse than left Patient was admitted to medical floor for further evaluation and treatment On 02/27/2022 patient was seen and examined on the medical floor, he is alert and oriented 3 in no apparent distress, his shortness of breath has improved he denies any chest pain no nausea or vomiting no abdominal pain no diarrhea and no urinary symptoms, patient was evaluated by pulmonary and cardiology, will continue to follow closely On 02/28/2022 patient is alert and oriented 3. Patient remains on IV Lasix. Patient denies chest pain. Patient denies nausea vomiting or diarrhea. Patient denies any urinary burning or frequency. On 03/01/2022 patient was seen and examined on the medical floor he is alert and oriented 3 in no apparent distress there is no fever or chills no headache or dizziness no chest pain his shortness of breath is improving he has occasional cough no nausea or vomiting no abdominal pain no diarrhea and no urinary symptoms On 03/02/2022 patient is alert and oriented 3. Did discuss case with pulmonary services awaiting final cytology to assess need for Pleurx catheter. Repeat chest x-ray ordered per pulmonary. Patient denies chest pain. Patient denies nausea and diarrhea. Patient denies any urinary burning or frequency On 03/03 2022 patient was seen and examined on the medical floor he is alert and oriented 3 in no apparent distress he reports some improvement in his shortness of breath, initially patient and family wanted patient to be discharged today so he can go to [facility] tomorrow for chemotherapy, they have initially refused thoracentesis, however at this time, they are requesting that the patient would stay hospitalized, they are consenting for thoracentesis tomorrow, patient is receiving tube feeding he is feeling better he denies any other com plaints at this time. Objective - Vital Signs Vital signs: Vital Signs Temp 97.4 F L 03/03/22 11:45 Pulse 101 H 03/03/22 14:00 Resp 19 03/03/22 14:00 BP 103/52 03/03/22 11:45 Pulse Ox 90 L 03/03/22 16:46 FiO2 5 03/03/22 16:46 Intake & Output 03/02/22 03/03/22 03/03/22 18:59 06:59 18:59 Output Total 900 1300 Balance -900 -1300 Weight 69.6 kg 69.6 kg Output: Urine 900 1300 Other: Voiding Method Urinal Urinal Urinal - Exam In general patient is alert and oriented x 3 in no distress, able to communicate with writing HEENT head normocephalic and atraumatic Neck is supple no JVD no goiter no lymphadenopathy no carotid bruit, tracheost rico in place Chest examination reveals a scattered crackles bilaterally no wheezing Cardiac exam reveals regular heart sounds S1 and S2 no gallops no murmurs Abdomen is soft nontender no organomegaly with normal bowel sounds Extremity exam reveals 2+ edema no cyanosis or clubbing Neurological examination reveals no gross focal deficits - Labs CBC & Chem 7: 03/03/22 09:32 03/03/22 09:32 Labs: Abnormal Lab Results - Last 24 Hours (Table) 03/02/22 03/03/22 03/03/22 Range/Units 08:00 09:32 09:32 RBC 3.18 L (4.30-5.90) m/uL Hgb 9.2 L (13.0-17.5) gm/dL Hct 29.5 L (39.0-53.0) % RDW 22.0 H (11.5-15.5) % Lymphocytes # (Manual) 0.20 L (1.0-4.8) k/uL Monocytes # (Manual) 1.12 H (0-1.0) k/uL Metamyelocytes # (Man) 0.07 H (0) k/uL Myelocytes # (Manual) 0.13 H (0) k/uL Nucleated RBCs 2 H (0-0) /100 WBC Sodium 133 L (137-145) mmol/L Potassium 3.1 L (3.5-5.1) mmol/L Chloride 91 L (98-107) mmol/L Carbon Dioxide 38 H (22-30) mmol/L BUN 21 H (9-20) mg/dL Creatinine 0.53 L (0.66-1.25) mg/dL Calcium 7.3 L (8.4-10.2) mg/dL Iron 38 L (65-175) ug/dL % Saturation 13.78 L (15.00-50.00) Transferrin 196.0 L (204.0-354.0) mg/dL AST 77 H (17-59) U/L Alkaline Phosphatase 171 H (38-126) U/L Total Protein 4.7 L (6.3-8.2) g/dL Albumin 2.5 L (3.5-5.0) g/dL Vitamin B12 >1800.0 H (200.0-944.0) pg/mL Vitamin D 25-Hydroxy 19.7 L (30.0-100.0) ng/mL Microbiology - Last 24 Hours (Table) 02/25/22 19:00 Blood Culture - Preliminary Blood No Growth after 120 hours 02/25/22 18:45 Blood Culture - Preliminary Blood No Growth after 120 hours 02/26/22 15:40 Gram Stain - Final Pleural Fluid Body Fluid Culture - Final 03/01/22 20:30 Gram Stain - Preliminary Sputum Sputum Culture - Preliminary Assessment and Plan Plan: Acute hypoxic respiratory failure Bilateral pleural effusion left worse than right Pneumonia cannot be ruled out, patient was started on IV antibiotic in the emergency room Possible acute exacerbation of congestive heart failure, echocardiogram and cardiology consultation was requested Underlying history of adenocarcinoma of the head and neck diagnosed in 2012, with recurrence in 2018 Underlying history of hypothyroidism Underlying history of diabetes mellitus type 2 Recent admission in December 2021, with evidence of pseudomonas aeruginosa growing in the sputum At this time patient was admitted to telemetry floor, he was admitted to intensive care unit as overflow Home medications reviewed and reordered 2-D echo completed showing an EF of 60% Pulmonary service is following Repeat chest x-ray ordered For DVT prophylaxis subcu Lovenox Will follow closely
--- NOTE | 2022-03-03 19:01 | CDI ---
Documentation Clarification Form Date: 03/03/2022 06:45:54 PM From: Silvia Norris RN CCDS Admit Date: 02/25/2022 08:46:00 PM Patient Name: Jaziel Nicolas Visit Number: [id number] Discharge Date: ATTENTION: The Clinical Documentation Specialists (CDI) and [facility] Coding Staff appreciate your assistance in clarifying documentation. Please respond to the clarification below the line at the bottom and electronically sign. The CDI & [facility] Coding staff will review the response and follow-up if needed. Please note: Queries are made part of the Legal Health Record. If you have any questions, please contact the author of this message via ITS. Dr. Riccardo [facility] acquired pneumonia documented 03/03, Pulmonary Note. Additional clarification regarding the type of pneumonia is requested. History/Risk Factors: 56-year-old male presents to the ED with worsening shortness of breath. Medical History: Tongue and Neck cancer with tracheostomy and peg tube and Chemotherapy. Clinical Indicators: Labs: 02/25 Wbc 2.7; Neutrophils 1.90 Chest xray: 02/25 Bilateral pulmonary infiltrates and congestion and pleural effusions are increased compared to old exam and consistent with worsening chf. Bilateral lower lobe pneumonia. Lung/Breathing assessment: Pulmonary note, 03/03 Lungs: Equal air entry with bilateral scattered rhonchi, wheeze, diminished. 03/03, Pulmonary note: Acute hypoxic respiratory failure secondary to reaccumulation of large bilateral pleural effusions and possibly a component of pneumonia possibly healthcare acquired, as the patient has been receiving a combination of chemo and immunotherapy and the patient is immunosuppressed. Treatment: 02/25 Solu-Cortef IV x 1; Antibiotics: 02/25 Cefepime IVPB x 1; 02/26 03/02 Cefepime IVPB Q8HR; O2: 02/25 2-4L Trach collar; 02/25 14L Venti Mask; 02/25 Trach collar Flow Rate 10 FiO2 60 Please clarify the type of pneumonia, if known: [ ] Bacterial Pneumonia, specify causal organism (if known) [ xxx ] Gram Negative Bacterial Pneumonia [ ] Other bacteria (please specify) [ ] Other, please specify [ ] Unable to determine (Template Last Revised: June 2020) MTDD
[2022-03-04] MEDS: SODIUM CHLORIDE 0.9% 1,000 ML IV SCH ×2 (00:04→21:05)
[2022-03-04] MEDS: oxyCODONE-APAP 10-325MG 1 EACH TAB PEG/G-TUBE SCH ×5 (04:32→20:53)
[2022-03-04] MEDS: ENOXAPARIN 40 MG/0.4 ML SYRINGE SQ SCH (07:33)
[2022-03-04 08:00] LABS: ALT 22 U/L (4-49); AST 68 U/L (17-59); African American GFR (CKD) >90 (>60 ml/min/1.73 sqM); Albumin 2.3 g/dL (3.5-5.0); Alkaline Phosphatase 167 U/L (38-126); Anion Gap 3 mmol/L; Blood Urea Nitrogen 27 mg/dL (9-20); Calcium 7.3 mg/dL (8.4-10.2); Carbon Dioxide 37 mmol/L (22-30); Chloride 93 mmol/L (98-107); Glucose 151 mg/dL (74-99); Non-African American GFR(CKD) >90 (>60 ml/min/1.73 sqM); Potassium 3.3 mmol/L (3.5-5.1); Sodium 133 mmol/L (137-145); Total Bilirubin 0.8 mg/dL (0.2-1.3); Total Protein 4.4 g/dL (6.3-8.2)
[2022-03-04] MEDS: LEVOTHYROXINE 125 MCG TAB PEG/G-TUBE SCH (08:55)
[2022-03-04] MEDS: FUROSEMIDE 10 MG/ML 4 ML VIAL IV SCH ×2 (08:55→20:54)
[2022-03-04 09:30] LABS: Anisocytosis Moderate; HCT 27.7 % (39.0-53.0); HGB 8.6 gm/dL (13.0-17.5); Hypochromasia Marked; MCH 29.2 pg (25.0-35.0); MCV 94.2 fL (80.0-100.0); Macrocytosis Slight; Mean Platelet Volume 9.3; Platelet Count 180 k/uL (150-450); Poikilocytosis Moderate; RBC 2.94 m/uL (4.30-5.90); RDW 21.7 % (11.5-15.5)
[2022-03-04] MEDS ORDERED: LIDOCAINE 1% INJ 10MG/ML (30 ML VIAL-PF) SQ ONE (12:15)
--- NOTE | 2022-03-04 12:23 | US ---
EXAMINATION TYPE: US chest DATE OF EXAM: 03/04/2022 COMPARISON: Chest CT 6 days ago. Chest x-ray 2 days ago CLINICAL HISTORY: Bilateral effusions. Effusions TECHNIQUE: Targeted ultrasound of the posterior lower bilateral hemithoraces EXAM MEASUREMENTS: Right Pleural Effusion pocket size: 10.4 cm Right skin surface to fluid distance: 3.2 cm Left Pleural Effusion pocket size: 11.4 cm Left skin surface to fluid distance: 4.1 cm Right side marked for possible thoracentesis outside the dept. Left side NOT marked for possible thoracentesis outside the dept.- Dr. Quintana present during exam, st ated to not gabriel left chest Pulmonologists are able to review the images in the patient?s EMR. Small to moderate-sized bilateral pleural effusions seen on images saved correlate with recent imagin g. IMPRESSIONS: As above
--- NOTE | 2022-03-04 13:19 | XR ---
EXAMINATION TYPE: XR chest 1V portable DATE OF EXAM: 03/04/2022 CLINICAL HISTORY: Status post right-sided thoracentesis. TECHNIQUE: Single AP portable upright view of the chest is obtained. COMPARISON: Chest x-ray from 2 days earlier FINDINGS: Stable right internal jugular Mediport catheter. Tracheostomy tube redemonstrated. Improve d right-sided pleural effusion after thoracentesis. No pneumothorax is seen. Stable small to moderate -sized left pleural effusion. Cardiac silhouette size stable and within normal limits. Left hilar ful lness and/or metastatic disease redemonstrated also at level of aortic knob. Old malunion fracture de formity right mid clavicle again seen. IMPRESSION: No right-sided pneumothorax after thoracentesis.
--- NOTE | 2022-03-04 14:10 | P.PN ---
Subjective Progress Note Date: 03/04/22 This is a very pleasant 56-year-old male with a history of head and neck cancer, requiring extensive treatments including surgery, chemotherapy, and radiation. The patient has a permanent tracheostomy in place. He also has a PEG tube in place. The patient was asked to come into the hospital as the patient was found to have pleural effusion by his physicians that her mom is [facility] where he receives his treatment. Currently, he is receiving a combination of chemotherapy and immunotherapy. The patient had a recent hospitalization back in December 2021 and the patient had bilateral pleural effusion and he underwent thoracentesis bilaterally and the fluid was exudative and the cytology was negative for malignancy. The patient also had pseudomonas aeruginosa in his sputum. Pneumonia with parapneumonic effusion was also considered. During this current admission, the patient is coming in with some increased shortness of breath and acute on top of chronic hypoxic respiratory failure and the patient is currently on 80% trach collar. His tracheostomy tube is in place and the respiratory secretions that and. No fever. No chills. No DVT of the right upper extremity. His chest x-ray is showing bilateral pleural effusion and volume loss. Tracheostomy cannula is in the trachea. There is a Mediport over the right hemithorax. There is no evidence of any focal consolidation. There is increased pulmonary vascular markings and cardiomegaly. There is obviously volume loss. In terms of his blood work, the patient has a white cell count of 2.9 with a hemoglobin of 8.6 and a platelet count of 256. The patient also had a sodium level of 134, potassium of 3.3, chloride is 95, bicarb is 30 with a BUN of 17 and a creatinine of 0.5, proBNP level is 1350, troponins are negative. His previous serum albumin was at 2.8. The patient continues to receive enteral feeding for nutritional support via a PEG tube. The patient also takes Lasix 40 mg by mouth on a daily basis. Is on thyroid hormone replacement. Currently is on IV cefepime. He is also on Lasix 40 mg by mouth daily which was resumed. On 02/27/2022, the patient was transferred out of the intensive care unit. I performed a thoracentesis and the patient's left lung and approximately 1.1 L of fluid was drained and the fluid was an exudate. Note that, following the thoracentesis, the patient underwent a CAT scan of the chest that showed evidence of metastatic disease and the patient had evidence of disease progression. A CAT scan of the chest showed scattered metastatic disease and nodules throughout the lungs bilaterally. The patient had a right middle lobe nodule 11 mm in size, right upper lobe nodule 15 mm in size, left upper lobe airspace opacity measuring 2.8 cm in addition to left pulmonary hilar fullness Consolidation Changes in the Left Lung Base. The Patient Also Had Extensive Mediastinal Lymphadenopathy and Bilateral Pleural Effusions. The Pleural Effusion on the Right Was Slightly Irregular. The Patient Had Also Left Supraclavicular Lymph Node Enlargement. On Today's Evaluation, the Patient Is Resting Comfortably in Bed. Note that his cultures came back all negative and we are still awaiting his sputum culture. His WBC count of 3.7 with a hemoglobin of 8.8 and platelet count of 238. On his blood work, the patient had a sodium level of 135, potassium level of 3.5, BUN is at 20 with a creatinine of 0.5. As mentioned, the fluid analysis was an exudate and cytology is still pending. 02/28/2022, the patient is clinically stable. The pleural fluid cytology is not back yet. There is a concern for malignancy as the patient's CAT scan of the chest was progression of his malignancy with extensive mediastinal lymphadenopathy and bilateral malignant pulmonary lesions. The patient is resting comfortably in bed. He remains on IV cefepime. He remains on IV diuretics. No worsening shortness of breath. White cell count is at 4.5 with a hemoglobin of 8.7 and a platelet count of 224. Sodium is at 135, bicarb is at 36 with a BUN of 22 and a creatinine of 0.5. He is very much cachectic and emaciated. He was also seen by cardiology. Echocardiogram showed a preserved LV function. On 03/01/2022, the patient is resting comfortably in bed. No new complaints. C ontinues to be on IV Lasix 40 mg every 12 hours and the patient is also on IV cefepime. The pleural fluid cytology is still pending. I'm going to repeat chest x-ray tomorrow and decide if further thoracentesis needed. Family is at the bedside. The patient denies having any new complaints. No significant respiratory distress at this point in time. The patient remains on 8 L trach collar, FiO2 of 35% and the pulse ox is ranging between 94 and 96%. No fever. No chills. The sputum showed no bacterial growth and the patient's IV antibiotics can be sepsis continues. Echocardiogram showed a preserved LV function. On 03/02/2022, the patient is doing well. No specific complaints. I repeated the chest x-ray and the patient has small bilateral pleural effusions. This has not caused any significant worsening shortness of breath. The patient's overall respiratory status has remained stable. Pleural fluid cytology from the right lung is still pending for now. The patient remains on diuretics. The patient remains on IV cefepime.The labs from today show a white cell count of 7.3 h emoglobin of 9.1. Sodium is at 133, potassium is at 3.3 with a BUN of 22 and a creatinine of 0.4. The albumin is at 2.4. The patient's fluid balance is -1.5 L over the past 24 hours. If the patient is seen today 03/03/2022 in follow-up on the regular medical floor. He is awake and alert in no acute distress. Maintaining good O2 saturations in the mid 90s on 8 L trach collar 35%. He is afebrile. Hemodynamically stable. Denies any worsening shortness of breath, cough or congestion. Recent chest x-ray had revealed moderate interstitial changes and bilateral effusions. White count 6.6. Hemoglobin 9.2. Sodium 133. Potassium 3.1. BUN 21. Creatinine 0.53. AST 77. ALT 23. Blood cultures revealed no growth. Pleural fluid revealed no growth. Sputum culture revealed no growth. He is currently in a -1.8 L balance. The patient is seen today 03/04/2022 follow-up on the regular medical floor. He remains awake and alert in no acute distress. He is maintaining O2 saturations in the 35% trach collar. He preferred to stay and have another thoracentesis today versus being discharged to get dyspneic, no spur cancer treatment. Ultrasound of the left chest revealed a 11.4 cm pocket however there was evidence of lung tissue within the fluid. The right chest also had a large p ocket of 10.4 cm. He did undergo a right-sided thoracentesis today with 1.5 L of fluid removed. No cytology are fluid analysis sent again. His blood cultures reveal no growth. Sputum culture now revealing gram-negative bacilli. White count 6.9. Hemoglobin 8.6. Sodium 133. Potassium 3.3. Bicarb 37. BUN 27. Creatinine 0.54. AST 68. ALT 22. He remains on Lasix 40 mg every 12 hours. He is being nourished via PEG tube. Objective - Vital Signs Vital signs: Vital Signs Temp 97.7 F 03/04/22 07:53 Pulse 99 03/04/22 07:53 Resp 20 03/04/22 07:53 BP 124/54 03/04/22 07:53 Pulse Ox 97 03/04/22 07:53 FiO2 35 03/04/22 04:51 Intake & Output 03/03/22 03/04/22 03/04/22 18:59 06:59 18:59 Output Total 600 Balance -600 Weight 69.6 kg Output: Urine 600 Other: Voiding Method Urinal Urinal - Exam GENERAL EXAM: Alert, cachectic 56-year-old male patient, sitting up at the bedside, 35% trach collar, comfortable in no apparent distress. HEAD: Changes noted of extensive surgical and radiation changes of the head and neck. EYES: Normal reaction of pupils, equal size. NOSE: Clear with pink turbinates. THROAT: No erythema or exudates. NECK: No masses, no JVD. CHEST: No chest wall deformity. LUNGS: Equal air entry with bilateral breath sounds that are diminished. CVS: S1 and S2 normal with no audible murmur, regular rhythm. ABDOMEN: PEG tube in place. No hepatosplenomegaly, normal bowel sounds, no guarding or rigidity. SPINE: No scoliosis or deformity SKIN: No rashes CENTRAL NERVOUS SYSTEM: No focal deficits, tone is normal in all 4 extremities. EXTREMITIES: There is no peripheral edema. No clubbing, no cyanosis. Robyn pheral pulses are intact. - Labs CBC & Chem 7: 03/04/22 06:50 03/04/22 06:50 Labs: Abnormal Lab Results - Last 24 Hours (Table) 03/04/22 03/04/22 Range/Units 06:50 06:50 RBC 2.94 L (4.30-5.90) m/uL Hgb 8.6 L (13.0-17.5) gm/dL Hct 27.7 L (39.0-53.0) % RDW 21.7 H (11.5-15.5) % Sodium 133 L (137-145) mmol/L Potassium 3.3 L (3.5-5.1) mmol/L Chloride 93 L (98-107) mmol/L Carbon Dioxide 37 H (22-30) mmol/L BUN 27 H (9-20) mg/dL Creatinine 0.54 L (0.66-1.25) mg/dL Glucose 151 H (74-99) mg/dL Calcium 7.3 L (8.4-10.2) mg/dL AST 68 H (17-59) U/L Alkaline Phosphatase 167 H (38-126) U/L Total Protein 4.4 L (6.3-8.2) g/dL Albumin 2.3 L (3.5-5.0) g/dL Microbiology - Last 24 Hours (Table) 03/01/22 20:30 Gram Stain - Preliminary Sputum Sputum Culture - Preliminary Gram Neg Bacilli 02/25/22 19:00 Blood Culture - Final Blood No Growth after 144 hours 02/25/22 18:45 Blood Culture - Final Blood No Growth after 144 hours Assessment and Plan Assessment: Acute hypoxic respiratory failure secondary to reaccumulation of large bilateral pleural effusions and possibly a component of pneumonia possibly healthcare acquired, as the patient has been receiving a combination of chemo and immunotherapy and the patient is immunosuppressed. Patient underwent thoracentesis on the left lung and a follow-up CAT scan of the chest shows metastatic disease with bilateral pulmonary nodules and extensive mediastinal lymphadenopathy consistent with metastatic disease from a previous head and neck cancer. Currently on 35% Ventimask, 8 L of oxygen flow. Respiratory status is stable. No interval decompensation Bilateral pleural effusions, suspect malignant effusions, recent thoracentesis on 12/20, done on the right side , Status post thoracentesis on 01/03 on the left side, fluid is exudative, final cytology was negative. The repeat thoracentesis was done on 02/26/2022 on the left and the cytology still pending for now. Another right-sided thoracentesis was performed today 03/04/2022. No fluid was sent. Mild leukopenia, improved and the white cell count is up to 6.9 Pseudomonas aeruginosa growing in the sputum, colonization versus true infection or follow-up sputum culture reveals gram-negative bacilli on 03/01/2022 Increased lower extremity edema, consider possibility of underlying CHF History of extensive head and neck cancer, previous chemoradiation treatment and apparently the patient was told recently that is a recurrence involving his subcarinal lymph nodes. History of PEG tube placement Ex-smoker Type 2 diabetes Hypothyroidism Hypoalbuminemia and the patient's albumin level is at 2.8, likely nutritional in the patient is receiving PEG tube feeding for enteral feeding and nutritional support Plan The patient was seen and evaluated Ultrasound of the chest, labs and medications reviewed Repeat right-sided thoracentesis performed today with 1.5 L removed. No analysis sent. Microbiology now revealing gram-negative bacilli in the sputum. Most likely colonization Cleared for discharge from the pulmonary standpoint. Complete a course of Levaquin 500 mg daily 7 days Continue his cancer treatment via [facility] I have personally seen and examined the patient, performed the documentation and the assessment and plan as written. Number of minutes spent on the visit: 10.
[2022-03-04 15:18] LABS: Eosinophils # (M) 0.14 k/uL (0-0.7); Lymphocytes # (M) 0.34 k/uL (1.0-4.8); Metamyelocytes # (M) 0.07 k/uL (0); Metamyelocytes % 1 %; Monocytes # (M) 0.82 k/uL (0-1.0); Myelocytes # (M) 0.14 k/uL (0); Myelocytes % 2 %; Neutrophils # (M) 5.44 k/uL (1.3-7.7); Neutrophils % (M) 80 %; Nucleated Red Blood Cells 1 /100 WBC (0-0); Total Cells Counted 200; WBC 6.8 k/uL (3.8-10.6)
[2022-03-04 15:20] LABS: Polychromasia Present
[2022-03-04] MEDS: LEVOFLOXACIN 500 MG TAB PO SCH (16:06)
--- NOTE | 2022-03-04 16:12 | P.PN ---
Subjective Progress Note Date: 03/04/22 Jaziel Nicolas, is a 56-year-old male who presented to [facility] emergency room with a chief complaint of worsening shortness of breath He was evaluated in the emergency room vital examination on presentation revealed a temperature of 97.4 pulse 107 respiration 22 left pressure 87/51 p ulse ox 89% Laboratory data revealed a white blood count of 2.7 hemoglobin 9.3 platelet count 321 sodium 132 potassium 3.7 chloride 92 CO2 34 BUN 18 creatinine 0.65 glucose level CXXV Testing in the emergency room revealed chest x-ray revealed bilateral pleural effusion right worse than left Patient was admitted to medical floor for further evaluation and treatment On 02/27/2022 patient was seen and examined on the medical floor, he is alert and oriented 3 in no apparent distress, his shortness of breath has improved he denies any chest pain no nausea or vomiting no abdominal pain no diarrhea and no urinary symptoms, patient was evaluated by pulmonary and cardiology, will continue to follow closely On 02/28/2022 patient is alert and oriented 3. Patient remains on IV Lasix. Patient denies chest pain. Patient denies nausea vomiting or diarrhea. Patient denies any urinary burning or frequency. On 03/01/2022 patient was seen and examined on the medical floor he is alert and oriented 3 in no apparent distress there is no fever or chills no headache or dizziness no chest pain his shortness of breath is improving he has occasional cough no nausea or vomiting no abdominal pain no diarrhea and no urinary symptoms On 03/02/2022 patient is alert and oriented 3. Did discuss case with pulmonary services awaiting final cytology to assess need for Pleurx catheter. Repeat chest x-ray ordered per pulmonary. Patient denies chest pain. Patient denies nausea and diarrhea. Patient denies any urinary burning or frequency On 03/03 2022 patient was seen and examined on the medical floor he is alert and oriented 3 in no apparent distress he reports some improvement in his shortness of breath, initially patient and family wanted patient to be discharged today so he can go to [facility] tomorrow for chemotherapy, they have initially refused thoracentesis, however at this time, they are requesting that the patient would stay hospitalized, they are consenting for thoracentesis tomorrow, patient is receiving tube feeding he is feeling better he denies any other com plaints at this time. On 03/04/2022 patient was seen and examined on the medical he is alert and or iented 3 in no distress he is agreeable now to have thoracentesis, she is still having some shortness of breath and occasional cough otherwise he denies any complaints there is no fever or chills no headache or dizziness no chest pain no nausea or vomiting no abdominal pain no diarrhea and no urinary symptoms Objective - Vital Signs Vital signs: Vital Signs Temp 97.4 F L 03/04/22 02:00 Pulse 109 H 03/04/22 02:00 Resp 20 03/04/22 02:00 BP 92/58 03/04/22 02:00 Pulse Ox 92 L 03/04/22 02:00 FiO2 35 03/04/22 04:51 Intake & Output 03/03/22 03/04/22 03/04/22 18:59 06:59 18:59 Output Total 600 Balance -600 Weight 69.6 kg Output: Urine 600 Other: Voiding Method Urinal Urinal - Exam In general patient is alert and oriented x 3 in no distress, able to communicate with writing HEENT head normocephalic and atraumatic Neck is supple no JVD no goiter no lymphadenopathy no carotid bruit, tracheostomy in place Chest examination reveals a scattered crackles bilaterally no wheezing Cardiac exam reveals regular heart sounds S1 and S2 no gallops no murmurs Abdomen is soft nontender no organomegaly with normal bowel sounds Extremity exam reveals 2+ edema no cyanosis or clubbing Neurological examination reveals no gross focal deficits - Labs CBC & Chem 7: 03/04/22 06:50 03/04/22 06:50 Labs: Abnormal Lab Results - Last 24 Hours (Table) 03/03/22 03/03/22 Range/Units 09:32 09:32 RBC 3.18 L (4.30-5.90) m/uL Hgb 9.2 L (13.0-17.5) gm/dL Hct 29.5 L (39.0-53.0) % RDW 22.0 H (11.5-15.5) % Lymphocytes # (Manual) 0.20 L (1.0-4.8) k/uL Monocytes # (Manual) 1.12 H (0-1.0) k/uL Metamyelocytes # (Man) 0.07 H (0) k/uL Myelocytes # (Manual) 0.13 H (0) k/uL Nucleated RBCs 2 H (0-0) /100 WBC Sodium 133 L (137-145) mmol/L Potassium 3.1 L (3.5-5.1) mmol/L Chloride 91 L (98-107) mmol/L Carbon Dioxide 38 H (22-30) mmol/L BUN 21 H (9-20) mg/dL Creatinine 0.53 L (0.66-1.25) mg/dL Calcium 7.3 L (8.4-10.2) mg/dL AST 77 H (17-59) U/L Alkaline Phosphatase 171 H (38-126) U/L Total Protein 4.7 L (6.3-8.2) g/dL Albumin 2.5 L (3.5-5.0) g/dL Microbiology - Last 24 Hours (Table) 02/25/22 19:00 Blood Culture - Final Blood No Growth after 144 hours 02/25/22 18:45 Blood Culture - Final Blood No Growth after 144 hours Assessment and Plan Plan: Acute hypoxic respiratory failure Bilateral pleural effusion left worse than right Pneumonia cannot be ruled out, patient was started on IV antibiotic in the emergency room Possible acute exacerbation of congestive heart failure, echocardiogram and cardiology consultation was requested Underlying history of adenocarcinoma of the head and neck diagnosed in 2012, with recurrence in 2017 Underlying history of hypothyroidism Underlying history of diabetes mellitus type 2 Recent admission in December 2021, with evidence of pseudomonas aeruginosa growing in the sputum At this time patient was admitted to telemetry floor, he was admitted to intensive care unit as overflow Home medications reviewed and reordered 2-D echo completed showing an EF of 60% Pulmonary service is following Repeat chest x-ray ordered For DVT prophylaxis subcu Lovenox Will follow closely
--- NOTE | 2022-03-04 22:15 | OP ---
OPERATIVE REPORT PROCEDURE PERFORMED: Right-sided thoracentesis. PREOPERATIVE DIAGNOSIS: Pleural effusion. POSTOPERATIVE DIAGNOSIS: Pleural effusion. ANESTHESIA USED: 2 mL of 1% lidocaine. DESCRIPTION OF PROCEDURE: The patient was placed in a sitting upright position, the area below the right scapula was prepared in a sterile fashion and drapes were applied. Ultrasound was used to localize the area of the fluid pocket, which correlated to the 8th intercostal space and tip of the scapula. Then, the area was locally anesthetized with lidocaine, and a 26-gauge needle inserted at the same site into the pleural space, fluid was localized. Then, a small tiny incision was made, and a 9-Cymraes thoracentesis catheter was used with the needle, advanced into the pleural space, and as soon as the fluid was obtained, the catheter was advanced out of the needle, and the needle was pulled out of the pleural space. Freely turbid-looking fluid removed from the right pleural space, roughly 1500 mL of fluid was removed. Procedure was well tolerated, no complications, and the fluid was discarded since it was previously sent for different diagnostic studies. No complications. Chest x-ray showed no complications and almost near complete resolution of the pleural effusion on the right side. MMODL / IJN: [id number] /
[2022-03-05] MEDS: oxyCODONE-APAP 10-325MG 1 EACH TAB PEG/G-TUBE SCH ×5 (00:50→16:36)
[2022-03-05] MEDS: ENOXAPARIN 40 MG/0.4 ML SYRINGE SQ SCH (08:30)
[2022-03-05] MEDS: LEVOTHYROXINE 125 MCG TAB PEG/G-TUBE SCH (08:30)
[2022-03-05] MEDS: FUROSEMIDE 10 MG/ML 4 ML VIAL IV SCH (09:25)
--- NOTE | 2022-03-05 09:48 | P.DS ---
Providers Date of admission: 02/25/22 20:46 Expected date of discharge: 03/05/22 Attending physician: Riccardo Cedillo Consults: 02/25/22 20:43 Consult Physician Routine Consulting Provider: Parker [address] Consult Reason/Comments: Lung cancer history Do you want consulting provider notified?: Yes 02/25/22 23:43 Consult Physician Routine Consulting Provider: Chanelle Umana Consult Reason/Comments: pulmonary edema Do you want consulting provider notified?: Already Contacted Primary care physician: Elvia Person Hospital Course: Discharge diagnosis Acute hypoxic respiratory failure Bilateral pleural effusion left worse than right Pneumonia cannot be ruled out, patient was started on IV antibiotic in the emergency room Possible acute exacerbation of congestive heart failure, echocardiogram and cardiology consultation was requested Underlying history of adenocarcinoma of the head and neck diagnosed in 2012, with recurrence in 2017 Underlying history of hypothyroidism Underlying history of diabetes mellitus type 2 Recent admission in December 2021, with evidence of pseudomonas aeruginosa growing in the sputum Hospital course Jaziel Nicolas, is a 56-year-old male who presented to [facility] emergency room with a chief complaint of worsening shortness of breath He was evaluated in the emergency room vital examination on presentation revealed a temperature of 97.4 pulse 107 respiration 22 left pressure 87/51 pulse ox 89% Laboratory data revealed a white blood count of 2.7 hemoglobin 9.3 platelet count 321 sodium 132 potassium 3.7 chloride 92 CO2 34 BUN 18 creatinine 0.65 glucose level CXXV Testing in the emergency room revealed chest x-ray revealed bilateral pleural effusion right worse than left Patient was admitted to medical floor for further evaluation and treatment On 02/27/2022 patient was seen and examined on the medical floor, he is alert and oriented 3 in no apparent distress, his shortness of breath has improved he denies any chest pain no nausea or vomiting no abdominal pain no diarrhea and no urinary symptoms, patient was evaluated by pulmonary and cardiology, will continue to follow closely On 02/28/2022 patient is alert and oriented 3. Patient remains on IV Lasix. Patient denies chest pain. Patient denies nausea vomiting or diarrhea. Patient denies any urinary burning or frequency. On 03/01/2022 patient was seen and examined on the medical floor he is alert and oriented 3 in no apparent distress there is no fever or chills no headache or dizziness no chest pain his shortness of breath is improving he has occasional cough no nausea or vomiting no abdominal pain no diarrhea and no urinary symptoms On 03/02/2022 patient is alert and oriented 3. Did discuss case with pulmonary services awaiting final cytology to assess need for Pleurx catheter. Repeat chest x-ray ordered per pulmonary. Patient denies chest pain. Patient denies nausea and diarrhea. Patient denies any urinary burning or frequency On 03/03 2022 patient was seen and examined on the medical floor he is alert and oriented 3 in no apparent distress he reports some improvement in his shortness of breath, initially patient and family wanted patient to be discharged today so he can go to [facility] tomorrow for chemotherapy, they have initially refused thoracentesis, however at this time, they are requesting that the patient would stay hospitalized, they are consenting for thoracentesis tomorrow, patient is receiving tube feeding he is feeling better he denies any other complaints at this time. On 03/04/2022 patient was seen and examined on the medical he is alert and oriented 3 in no distress he is agreeable now to have thoracentesis, she is still having some shortness of breath and occasional cough otherwise he denies any complaints there is no fever or chills no headache or dizziness no chest pain no nausea or vomiting no abdominal pain no diarrhea and no urinary symptoms On 03/05/2022 patient is alert and oriented 3. Patient underwent repeat right- sided thoracentesis with 1.5l removed. Discussed case with pulmonary team patient cleared for discharge from pulmonary standpoint. Patient will be discharged on Levaquin 500 daily for 7 days. Patient to follow-up with his cancer treatment with his oncologist team out of [facility]. At this time patient denies chest pain or shortness of breath. Patient denies nausea vomiting or diarrhea. Patient denies any urinary burning or frequency Patient Condition at Discharge: Stable Plan - Discharge Summary New Discharge Prescriptions: New Levofloxacin [Levaquin] 500 mg PO Q24H 7 Days #7 tab Continue oxyCODONE-APAP 10-325MG [Percocet 10-325 mg] 1 tab PEG/G-TUBE Q4H Levothyroxine Sodium [Synthroid] 125 mcg PEG/G-TUBE DAILY diazePAM 2 - 4 mg PEG/G-TUBE HS PRN PRN Reason: SLEEP Furosemide [Lasix] 40 mg PEG/G-TUBE DAILY Discharge Medication List oxyCODONE-APAP 10-325MG [Percocet 10-325 mg] 1 tab PEG/G-TUBE Q4H 03/05/16 [History] Levothyroxine Sodium [Synthroid] 125 mcg PEG/G-TUBE DAILY 04/11/19 [History] Furosemide [Lasix] 40 mg PEG/G-TUBE DAILY 02/25/22 [History] diazePAM 2 - 4 mg PEG/G-TUBE HS PRN 02/25/22 [History] Levofloxacin [Levaquin] 500 mg PO Q24H 7 Days #7 tab 03/05/22 [Rx] Follow up Appointment(s)/Referral(s): Elvia Person MD [Primary Care Provider] - 1-2 days Activity/Diet/Wound Care/Special Instructions: Patient to follow-up his oncology team out of [facility] Discharge Disposition: HOME SELF-CARE
[2022-03-05 10:32] LABS: HCT 28.1 % (39.6-50.0); HGB 8.1 g/dL (13.0-17.0); MCH 27.6 pg (27.0-32.0); MCHC 28.8 g/dL (32.0-37.0); MCV 95.6 fL (80.0-97.0); Mean Platelet Volume 10.3 fL (9.5-12.2); NRBC Per 100 WBC 1.2 /100 WBCS (0.0-0.0); Platelet Count 190 X 10*3/uL (140-440); RBC 2.94 X 10*6/uL (4.40-5.60); RDW 23.9 % (11.5-14.5)
[2022-03-05 10:44] LABS: African American GFR (CKD) 128.4 (60.0-200.0); Albumin 2.4 g/dL (3.8-4.9); Albumin/Globulin Ratio 1.26 (1.60-3.17); Anion Gap 7.4 mmol/L (10.00-18.00); Blood Urea Nitrogen 22.2 mg/dL (9.0-27.0); Calcium 7.9 mg/dL (8.7-10.3); Carbon Dioxide 37.6 mmol/L (20.0-27.5); Globulin 1.9 g/dL (1.6-3.3); Non-African American GFR(CKD) 110.8 (60.0-200.0); Potassium 3.4 mmol/L (3.5-5.5); Total Bilirubin 0.4 mg/dL (0.30-1.20); Total Protein 4.3 g/dL (6.2-8.2)
[2022-03-05 11:14] LABS: Basophils # (A) 0.05 X 10*3/uL (0.00-0.10); Basophils % (A) 0.7 %; Eosinophils # (A) 0.11 X 10*3/uL (0.04-0.35); Eosinophils % (A) 1.5 %; Immature Grans, Automated 4.8 %; Lymphocytes # (A) 0.22 X 10*3/uL (0.90-5.00); Lymphocytes % (A) 2.9 %; Monocytes # (A) 1.17 X 10*3/uL (0.20-1.00); Monocytes % (A) 15.6 %; Neutrophils # (A) 5.59 X 10*3/uL (1.80-7.70); Neutrophils % (A) 74.5 %; Stomatocytes 2+
[2022-03-05 11:44] VITALS: BMI 27.1
[2022-03-05] MEDS: POTASSIUM BICARBONATE/CIT AC 20 MEQ TABLET.EFF NG-TUBE SCH ×2 (11:47→12:01)
[2022-03-05] MEDS: LEVOFLOXACIN 500 MG TAB PO SCH (12:42)
--- NOTE | 2022-03-05 15:15 | P.PN ---
Subjective Progress Note Date: 03/05/22 This is a very pleasant 56-year-old male with a history of head and neck cancer, requiring extensive treatments including surgery, chemotherapy, and radiation. The patient has a permanent tracheostomy in place. He also has a PEG tube in place. The patient was asked to come into the hospital as the patient was found to have pleural effusion by his physicians that her mom is [facility] where he receives his treatment. Currently, he is receiving a combination of chemotherapy and immunotherapy. The patient had a recent hospitalization back in December 2021 and the patient had bilateral pleural effusion and he underwent thoracentesis bilaterally and the fluid was exudative and the cytology was negative for malignancy. The patient also had pseudomonas aeruginosa in his sputum. Pneumonia with parapneumonic effusion was also considered. During this current admission, the patient is coming in with some increased shortness of breath and acute on top of chronic hypoxic respiratory failure and the patient is currently on 80% trach collar. His tracheostomy tube is in place and the respiratory secretions that and. No fever. No chills. No DVT of the right upper extremity. His chest x-ray is showing bilateral pleural effusion and volume loss. Tracheostomy cannula is in the trachea. There is a Mediport over the right hemithorax. There is no evidence of any focal consolidation. There is increased pulmonary vascular markings and cardiomegaly. There is obviously volume loss. In terms of his blood work, the patient has a white cell count of 2.9 with a hemoglobin of 8.6 and a platelet count of 256. The patient also had a sodium level of 134, potassium of 3.3, chloride is 95, bicarb is 30 with a BUN of 17 and a creatinine of 0.5, proBNP level is 1350, troponins are negative. His previous serum albumin was at 2.8. The patient continues to receive enteral feeding for nutritional support via a PEG tube. The patient also takes Lasix 40 mg by mouth on a daily basis. Is on thyroid hormone replacement. Currently is on IV cefepime. He is also on Lasix 40 mg by mouth daily which was resumed. On 02/27/2022, the patient was transferred out of the intensive care unit. I performed a thoracentesis and the patient's left lung and approximately 1.1 L of fluid was drained and the fluid was an exudate. Note that, following the thoracentesis, the patient underwent a CAT scan of the chest that showed evidence of metastatic disease and the patient had evidence of disease progression. A CAT scan of the chest showed scattered metastatic disease and nodules throughout the lungs bilaterally. The patient had a right middle lobe nodule 11 mm in size, right upper lobe nodule 15 mm in size, left upper lobe airspace opacity measuring 2.8 cm in addition to left pulmonary hilar fullness Consolidation Changes in the Left Lung Base. The Patient Also Had Extensive Mediastinal Lymphadenopathy and Bilateral Pleural Effusions. The Pleural Effusion on the Right Was Slightly Irregular. The Patient Had Also Left Supraclavicular Lymph Node Enlargement. On Today's Evaluation, the Patient Is Resting Comfortably in Bed. Note that his cultures came back all negative and we are still awaiting his sputum culture. His WBC count of 3.7 with a hemoglobin of 8.8 and platelet count of 238. On his blood work, the patient had a sodium level of 135, potassium level of 3.5, BUN is at 20 with a creatinine of 0.5. As mentioned, the fluid analysis was an exudate and cytology is still pending. 02/28/2022, the patient is clinically stable. The pleural fluid cytology is not back yet. There is a concern for malignancy as the patient's CAT scan of the chest was progression of his malignancy with extensive mediastinal lymphadenopathy and bilateral malignant pulmonary lesions. The patient is resting comfortably in bed. He remains on IV cefepime. He remains on IV diuretics. No worsening shortness of breath. White cell count is at 4.5 with a hemoglobin of 8.7 and a platelet count of 224. Sodium is at 135, bicarb is at 36 with a BUN of 22 and a creatinine of 0.5. He is very much cachectic and emaciated. He was also seen by cardiology. Echocardiogram showed a preserved LV function. On 03/01/2022, the patient is resting comfortably in bed. No new complaints. C ontinues to be on IV Lasix 40 mg every 12 hours and the patient is also on IV cefepime. The pleural fluid cytology is still pending. I'm going to repeat chest x-ray tomorrow and decide if further thoracentesis needed. Family is at the bedside. The patient denies having any new complaints. No significant respiratory distress at this point in time. The patient remains on 8 L trach collar, FiO2 of 35% and the pulse ox is ranging between 94 and 96%. No fever. No chills. The sputum showed no bacterial growth and the patient's IV antibiotics can be sepsis continues. Echocardiogram showed a preserved LV function. On 03/02/2022, the patient is doing well. No specific complaints. I repeated the chest x-ray and the patient has small bilateral pleural effusions. This has not caused any significant worsening shortness of breath. The patient's overall respiratory status has remained stable. Pleural fluid cytology from the right lung is still pending for now. The patient remains on diuretics. The patient remains on IV cefepime.The labs from today show a white cell count of 7.3 h emoglobin of 9.1. Sodium is at 133, potassium is at 3.3 with a BUN of 22 and a creatinine of 0.4. The albumin is at 2.4. The patient's fluid balance is -1.5 L over the past 24 hours. If the patient is seen today 03/03/2022 in follow-up on the regular medical floor. He is awake and alert in no acute distress. Maintaining good O2 saturations in the mid 90s on 8 L trach collar 35%. He is afebrile. Hemodynamically stable. Denies any worsening shortness of breath, cough or congestion. Recent chest x-ray had revealed moderate interstitial changes and bilateral effusions. White count 6.6. Hemoglobin 9.2. Sodium 133. Potassium 3.1. BUN 21. Creatinine 0.53. AST 77. ALT 23. Blood cultures revealed no growth. Pleural fluid revealed no growth. Sputum culture revealed no growth. He is currently in a -1.8 L balance. The patient is seen today 03/04/2022 follow-up on the regular medical floor. He remains awake and alert in no acute distress. He is maintaining O2 saturations in the 35% trach collar. He preferred to stay and have another thoracentesis today versus being discharged to get dyspneic, no spur cancer treatment. Ultrasound of the left chest revealed a 11.4 cm pocket however there was evidence of lung tissue within the fluid. The right chest also had a large p ocket of 10.4 cm. He did undergo a right-sided thoracentesis today with 1.5 L of fluid removed. No cytology are fluid analysis sent again. His blood cultures reveal no growth. Sputum culture now revealing gram-negative bacilli. White count 6.9. Hemoglobin 8.6. Sodium 133. Potassium 3.3. Bicarb 37. BUN 27. Creatinine 0.54. AST 68. ALT 22. He remains on Lasix 40 mg every 12 hours. He is being nourished via PEG tube. The patient is seen today 03/05/2022 in follow-up on the regular medical floor. He is currently sitting up comfortably in bed. Awake and alert in no acute distress. He is maintaining good O2 saturations in the 90s on 35% trach collar. He is being nourished with Glucerna at 85 ML's per hour. He denies any worsening shortness of breath, cough or congestion. He did undergo another right-sided thoracentesis yesterday with 1500 ML's of fluid removed. No eviden ce of pneumothorax. Sputum culture had been positive for pseudomonas aeruginosa. Most likely colonized. He is continued on Levaquin. Blood cultures revealed no growth. White count 7.5. Hemoglobin 8.1. Sodium 137. Potassium 3.4. BUN 22. Creatinine 0.6. AST 66. ALT 20. Objective - Vital Signs Vital signs: Vital Signs Temp 97.4 F L 03/05/22 08:00 Pulse 99 03/05/22 08:00 Resp 17 03/05/22 08:00 BP 102/67 03/05/22 08:00 Pulse Ox 96 03/05/22 08:00 FiO2 35 03/05/22 08:11 Intake & Output 03/04/22 03/05/22 03/05/22 18:59 06:59 18:59 Output Total 900 800 Balance -900 -800 Weight 81 kg 81 kg Output: Urine 900 800 Other: Voiding Method Urinal # Bowel Movements 1 - Exam GENERAL EXAM: Alert, cachectic 56-year-old male patient, resting comfortably in bed, 35% trach collar, comfortable in no apparent distress. HEAD: Changes noted of extensive surgical and radiation changes of the head and neck. EYES: Normal reaction of pupils, equal size. NOSE: Clear with pink turbinates. THROAT: No erythema or exudates. NECK: No masses, no JVD. CHEST: No chest wall deformity. LUNGS: Equal air entry with bilateral breath sounds that are diminished. CVS: S1 and S2 normal with no audible murmur, regular rhythm. ABDOMEN: PEG tube in place. No hepatosplenomegaly, normal bowel sounds, no guarding or rigidity. SPINE: No scoliosis or deformity SKIN: No rashes CENTRAL NERVOUS SYSTEM: No focal deficits, tone is normal in all 4 extremities. EXTREMITIES: There is no peripheral edema. No clubbing, no cyanosis. Peripheral pulses are intact. - Labs CBC & Chem 7: 03/05/22 06:49 03/05/22 06:49 Labs: Abnormal Lab Results - Last 24 Hours (Table) 03/04/22 03/05/22 03/05/22 Range/Units 06:50 06:49 06:49 RBC 2.94 L (4.40-5.60) X 10*6/uL Hgb 8.1 L (13.0-17.0) g/dL Hct 28.1 L (39.6-50.0) % MCHC 28.8 L (32.0-37.0) g/dL RDW 23.9 H (11.5-14.5) % Absolute Nucleated RBC 0.09 H (0.00-0.00) X 10*3/uL Immature Gran # 0.36 H (0.00-0.04) X 10*3/uL Lymphocytes # 0.22 L (0.90-5.00) X 10*3/uL Lymphocytes # (Manual) 0.34 L (1.0-4.8) k/uL Monocytes # 1.17 H (0.20-1.00) X 10*3/uL Metamyelocytes # (Man) 0.07 H (0) k/uL Myelocytes # (Manual) 0.14 H (0) k/uL Nucleated RBCs 1 H (0-0) /100 WBC NRBC/100 WBC Diff 1.2 H (0.0-0.0) /100 WBCS Potassium 3.4 L (3.5-5.5) mmol/L Chloride 92 L (96-109) mmol/L Carbon Dioxide 37.6 H (20.0-27.5) mmol/L Anion Gap 7.40 L (10.00-18.00) mmol/L BUN/Creatinine Ratio 37.00 H (12.00-20.00) Ratio Glucose 155 H (70-110) mg/dL Calcium 7.9 L (8.7-10.3) mg/dL AST 66 H (14-35) U/L Alkaline Phosphatase 174 H (41-126) U/L Total Protein 4.3 L (6.2-8.2) g/dL Albumin 2.4 L (3.8-4.9) g/dL Albumin/Globulin Ratio 1.26 L (1.60-3.17) g/dL Microbiology - Last 24 Hours (Table) 03/01/22 20:30 Gram Stain - Preliminary Sputum Sputum Culture - Preliminary Pseudomonas aeruginosa Assessment and Plan Assessment: Acute hypoxic respiratory failure secondary to reaccumulation of large bilateral pleural effusions and possibly a component of pneumonia possibly healthcare acquired, as the patient has been receiving a combination of chemo and immunotherapy and the patient is immunosuppressed. Patient underwent thoracentesis on the left lung and a follow-up CAT scan of the chest shows meta static disease with bilateral pulmonary nodules and extensive mediastinal lymphadenopathy consistent with metastatic disease from a previous head and neck cancer. Currently on 35% trach collar. Bilateral pleural effusions, suspect malignant effusions, recent thoracentesis on 12/20, done on the right side , Status post thoracentesis on 01/03 on the left side, fluid is exudative, final cytology was negative. The repeat thoracentesis was done on 02/26/2022 on the left and the cytology still pending for now. Another right-sided thoracentesis was performed 03/04/2022 with 1500 ML's of fluid removed. No fluid was sent for analysis or pathology. Mild leukopenia, improved and the white cell count is up to 6.9 Pseudomonas aeruginosa growing in the sputum, colonization versus true infection, follow-up sputum culture reveals edematous aeruginosa on 03/01/2022 Increased lower extremity edema, consider possibility of underlying CHF History of extensive head and neck cancer, previous chemoradiation treatment and apparently the patient was told recently that is a recurrence involving his pathak bcarinal lymph nodes. History of PEG tube placement Ex-smoker Type 2 diabetes Hypothyroidism Hypoalbuminemia and the patient's albumin level is at 2.8, likely nutritional in the patient is receiving PEG tube feeding for enteral feeding and nutritional support Plan The patient was seen and evaluated Chest x-ray, medications and labs reviewed Right-sided thoracentesis performed 03/04/2022 with 1.5 L removed. Microbiology revealing pseudomonas aeruginosa in the sputum. Most likely colonization Cleared for discharge from the pulmonary standpoint. Complete a course of Levaquin 500 mg daily 7 days Continue his cancer treatment via [facility] I have personally seen and examined the patient, performed the documentation and the assessment and plan as written. Number of minutes spent on the visit: 10.
[2022-03-05 17:53] VITALS: BP 96/60; PULSE 109; RESP 16; TEMP 97.3
--- NOTE | 2022-03-07 10:26 | CDI ---
Documentation Clarification Form Date: 03/07/22 From: Yisel Neely Admit Date: 02/25/2022 08:46:00 PM Patient Name: Jaziel Nicolas Visit Number: [id number] Discharge Date: 03/05/2022 06:12:00 PM ATTENTION: The Clinical Documentation Specialists (CDI) and [facility] Coding Staff appreciate your assistance in clarifying documentation. Please respond to the clarification below the line at the bottom and electronically sign. The CDI & [facility] Coding staff will review the response and follow-up if needed. Please note: Queries are made part of the Legal Health Record. If you have any questions, please contact the author of this message via ITS. Dr. Riccardo Cedillo, Your patient has the documented diagnosis of possible acute exacerbation of CHF in the H&P. Additional information regarding the [type, acuity] of CHF is requested. 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 VS/Pulse OX: T 97.4, P 107, R 22, BP 87/51, O2 89 BNP: 1350 Echocardiogram Results: Mildly increased left ventricular wall thickness. Normal left ventricular systolic function with no obvious regional wall motion abnormalities. Left ventricular ejection fraction is estimated at 60 %. Chest X Ray: Bilateral pulmonary infiltrates and congestion and pleural effusions are increased compared to old exam and consistent with worsening congestive heart failure. Bilateral lower lobe pneumonia also possible. Treatment: IV Lasix In your professional opinion, can you please clarify the [acuity and type] of CHF if known? [ ] Acute Systolic Heart Failure (reduced EF) [ ] Chronic Systolic Heart Failure (reduced EF) [ ] Acute on Chronic Systolic Heart Failure (reduced EF) [ ] Acute Diastolic Heart Failure (preserved EF) x[ ] Chronic Diastolic Heart Failure (preserved EF) [ ] Acute on Chronic Diastolic Heart Failure (preserved EF) [ ] Acute Systolic & Diastolic Heart Failure [ ] Chronic Systolic & Diastolic Heart Failure [ ] Acute on Chronic Heart Failure Systolic & Diastolic Heart Failure [ ] Other, please specify [ ] Unable to determine MTDD
== END 2022-03-05 18:12 | disposition home or self-care (01) | DRG 177 ==
LOC: EC 16:48 → 3SCARD 20:46 → 2SICU 22:29 → 3SCARD 02-26 13:50 → 4SSUR 03-03 21:39
PROVIDERS: ADMIT Internal Medicine; ATTEND Internal Medicine
PROC: 0W9G3ZZ Drainage of Peritoneal Cavity, Percutaneous Approach (ICD-10-PCS; principal; 2022-02-26)
PROC: 0W993ZZ Drainage of Right Pleural Cavity, Percutaneous Approach (ICD-10-PCS; 2022-03-04)
DX: J15.6 Pneumonia due to other Gram-negative bacteria (principal); J96.21 Acute and chronic respiratory failure with hypoxia; R64 Cachexia; C78.02 Secondary malignant neoplasm of left lung; C78.01 Secondary malignant neoplasm of right lung; C78.1 Secondary malignant neoplasm of mediastinum; Z43.1 Encounter for attention to gastrostomy; J91.8 Pleural effusion in other conditions classified elsewhere; I50.32 Chronic diastolic (congestive) heart failure; E88.09 Other disorders of plasma-protein metabolism, not elsewhere classified; E11.9 Type 2 diabetes mellitus without complications; D63.0 Anemia in neoplastic disease; D72.819 Decreased white blood cell count, unspecified; Z93.0 Tracheostomy status; K74.60 Unspecified cirrhosis of liver; D64.81 Anemia due to antineoplastic chemotherapy; Z20.822 Contact with and (suspected) exposure to COVID-19; Z28.310 Unvaccinated for COVID-19; T45.1X5A Adverse effect of antineoplastic and immunosuppressive drugs, initial encounter; E03.9 Hypothyroidism, unspecified; Z68.23 Body mass index [BMI] 23.0-23.9, adult; R59.0 Localized enlarged lymph nodes; F10.11 Alcohol abuse, in remission; Z79.890 Hormone replacement therapy; Z79.891 Long term (current) use of opiate analgesic; Z79.899 Other long term (current) drug therapy; Z85.818 Personal history of malignant neoplasm of other sites of lip, oral cavity, and pharynx; Z87.891 Personal history of nicotine dependence; Z92.3 Personal history of irradiation; Z92.21 Personal history of antineoplastic chemotherapy; Z86.14 Personal history of Methicillin resistant Staphylococcus aureus infection; Z71.3 Dietary counseling and surveillance; Z91.030 Bee allergy status
CPT/HCPCS: 36415; 71045; 71046; 71260; 76604; 80048; 80053; 82306; 82533; 82607; 82728; 82746; 82945; 83540; 83550; 83605; 83615; 83735; 83880; 84132; 84145; 84155; 84157; 84439; 84443; 84478; 84484; 85025; 85610; 85730; 87040; 87070; 87077; 87186; 87205; 87636; 88108; 88305; 88341; 88342; 89050; 93005; 93306; 94760; 96365; 96366; 96375; 99291